=== PATIENT | male | born 1970 | race Caucasian/White ===

== ENCOUNTER → 2017-05-30 | Outpatient (CLI) | payer SELFPAY | PROVIDERS: Visit Provider Physician Assistant | DX: Z02.4 Encounter for examination for driving license (principal) ==

== ENCOUNTER 2017-06-25 14:46 | Emergency (ER) | payer OTHER, SELFPAY ==
[2017-06-25 14:56] VITALS: BP 138/90; PULSE 87; RESP 20; TEMP 37.1; O2SAT 98; BMI 24.4
--- NOTE | 2017-06-25 15:14 | HMH.EDUTC ---
[facility] Disposition Clinical Impression: URI (upper respiratory infection) Qualifiers: URI type: unspecified URI Qualified Code(s): J06.9 - Acute upper respiratory infection, unspecified Disposition: Home, Self-Care Condition on Discharge: Good Instructions: Cough, DI for Cough -- Adult, Sore Throat, DI for Nasal Congestion Additional Instructions: * Monitor Temp. Tylenol and/or Ibuprofen as needed. ER if fever is no less than 101 despite alternating Tylenol and Ibuprofen * Encourage fluids, water, Gatorade, powerade, pedialyte if infant/toddler/or child * Warm salt water gargles for throat irritation *Warm fluids *Sore throat lozenges *Sleep elevated *humidifier or vaporizer Lots of rest Increase fluids, water, Gatorade, powerade *Your throat swab was sent to lab for culture. Those results area typically sent to your primary care physician. Be sure to follow up in 2-3 days if no improvement so they can review those results and treat if necessary If you dont have primary care I recommend you get one, but in the mean time you will have to return to a walk in clinic Follow up IMMEDIATELY for new or worsening of symptoms OR no noticeable improvement over the next 48-72 hours. 911 immediately for any life threatening symptoms such as chest pain or difficulty breathing Prescriptions: Azithromycin [Z-Aydin 250mg Tab] 250 mg PO UD DOSE PK #6 tab Dextromethorphan Polistirex [Delsym] 10 ml PO Q12 #200 clari.er.12h predniSONE [Prednisone 20mg Tab] 20 mg PO BID #10 tab Time of Disposition: 15:54 Medical Decision Making Vital Signs: 06/25/17 14:56 Temperature 98.8 F Temperature Source Temporal Artery Scan Pulse Rate [Brachial] 87 Respiratory Rate 20 Blood Pressure [Right Arm] 138/90 Blood Pressure Mean [Right Arm] 106 Blood Pressure Source [Right Arm] Automatic Cuff Blood Pressure Position [Right Arm] Sitting 02 Sat by Pulse Oximetry 98 Oxygen Delivery Method Room Air - Lab Data Lab Results 06/25/17 15:21: Strep Scn Rapid Clinic Negative Orders (Tests/Meds): ORDERS Category Date Time Status Chest XR 2 view (NOT portable) [XR chest 2V] Stat Exams 06/25/17 15:21 Taken Strep Screen Confirmation Stat Micro 06/25/17 15:21 Received - Nikolai Inquiry Pt receiving controlled substance: No Nikolai was queried for this patient: No [facility] HPI - General Stated complaint: cough Mode of Arrival: Ambulatory Source of Information: Patient Limitations: No Limitations Description of Symptoms (Recalled from Triage Doc. by RN): COUGHING FOR 2 MONTHS HEENT Symptoms (Recalled from RN notes): No Resp Symptoms (Recalled from RN notes): Yes Skin Symptoms (Recalled from RN notes): No MS Symptoms (Recalled from RN notes): No Functional Status (Recalled from RN notes): NA - History of Present Illness Provider Complaint: Patient state that he has had nagging cough for about 2 months that has come and gone State that he has had sinus pain and drainage that has also come and gone State that cough is non-productive and his throat feels raw so he decided to come in and get checked - Related Data Previous Rx's Medication Instructions Recorded Azithromycin [Z-Aydin 250mg Tab] 250 mg PO UD DOSE PK #6 tab 06/25/17 Dextromethorphan Polistirex 10 ml PO Q12 #200 clari.er.12h 06/25/17 [Delsym] predniSONE [Prednisone 20mg 20 mg PO BID #10 tab 06/25/17 Tab] Allergies Allergy/AdvReac Type Severity Reaction Status Date / Time No Known Allergies Allergy Verified 06/25/17 14:58 - Worker's Comp Is this a Worker's Comp case?: No [facility] History I have reviewed the patient's past medical history: Yes - *Social History Smoking Status: Current every day smoker Tobacco Type: cigarettes Alcohol Intake: never - Psychiatric History Expresses thoughts of harming self/others: None Suicide Plan Description: No Plan ROS Obtained: Yes All systems reviewed & no additional complaints - ENT Ears, Nose, Mouth, and Throat:
--- NOTE | 2017-06-25 15:20 | ED_ITS ---
[facility] Disposition Clinical Impression: URI (upper respiratory infection) Qualifiers: URI type: unspecified URI Qualified Code(s): J06.9 - Acute upper respiratory infection, unspecified Disposition: Home, Self-Care Condition on Discharge: Good Instructions: Cough, DI for Cough -- Adult, Sore Throat, DI for Nasal Congestion Additional Instructions: * Monitor Temp. Tylenol and/or Ibuprofen as needed. ER if fever is no less than 101 despite alternating Tylenol and Ibuprofen * Encourage fluids, water, Gatorade, powerade, pedialyte if infant/toddler/or child * Warm salt water gargles for throat irritation *Warm fluids *Sore throat lozenges *Sleep elevated *humidifier or vaporizer Lots of rest Increase fluids, water, Gatorade, powerade *Your throat swab was sent to lab for culture. Those results area typically sent to your primary care physician. Be sure to follow up in 2-3 days if no improvement so they can review those results and treat if necessary If you don? t have primary care I recommend you get one, but in the mean time you will have to return to a walk in clinic Follow up IMMEDIATELY for new or worsening of symptoms OR no noticeable improvement over the next 48-72 hours. 911 immediately for any life threatening symptoms such as chest pain or difficulty breathing Prescriptions: Azithromycin [Z-Aydin 250mg Tab] 250 mg PO UD DOSE PK #6 tab Dextromethorphan Polistirex [Delsym] 10 ml PO Q12 #200 clari.er.12h predniSONE [Prednisone 20mg Tab] 20 mg PO BID #10 tab Time of Disposition: 15:54 Medical Decision Making Vital Signs: 06/25/17 14:56 Temperature 98.8 F Temperature Source Temporal Artery Scan Pulse Rate [Brachial] 87 Respiratory Rate 20 Blood Pressure [Right Arm] 138/90 Blood Pressure Mean [Right Arm] 106 Blood Pressure Source [Right Arm] Automatic Cuff Blood Pressure Position [Right Arm] Sitting 02 Sat by Pulse Oximetry 98 Oxygen Delivery Method Room Air - Lab Data Lab Results 06/25/17 15:21: Strep Scn Rapid Clinic Negative Orders (Tests/Meds): ORDERS Category Date Time Status Chest XR 2 view (NOT portable) [XR chest 2V] Stat Exams 06/25/17 15:21 Taken Strep Screen Confirmation Stat Micro 06/25/17 15:21 Received - Nikolai Inquiry Pt receiving controlled substance: No Nikolai was queried for this patient: No [facility] HPI - General Stated complaint: cough Mode of Arrival: Ambulatory Source of Information: Patient Limitations: No Limitations Description of Symptoms (Recalled from Triage Doc. by RN): COUGHING FOR 2 MONTHS HEENT Symptoms (Recalled from RN notes): No Resp Symptoms (Recalled from RN notes): Yes Skin Symptoms (Recalled from RN notes): No MS Symptoms (Recalled from RN notes): No Functional Status (Recalled from RN notes): NA - History of Present Illness Provider Complaint: Patient state that he has had nagging cough for about 2 months that has come and gone State that he has had sinus pain and drainage that has also come and gone State that cough is non-productive and his throat feels raw so he decided to come in and get checked - Related Data Previous Rx's Medication Instructions Recorded Azithromycin [Z-Aydin 250mg Tab] 250 mg PO UD DOSE PK #6 tab 06/25/17 Dextromethorphan Polistirex 10 ml PO Q12 #200 clari.er.12h 06/25/17 [Delsym] predniSONE [Prednisone 20mg 20 mg PO BID #10 tab 06/25/17 Tab]
--- NOTE | 2017-06-25 15:21 | XR_ITS ---
XR chest 2V HISTORY: ITS.REASON: COUGH AND CONGESTION ORDERING PHYSICIAN: Keri Jimenez PATIENT AGE: 47 years COMPARISON: None available FINDINGS: The cardiomediastinal silhouette and pulmonary vascularity are within normal limits. The lungs are clear without infiltrates, suspicious nodules, or pleural effusions. No acute bony abnormalities. IMPRESSION: Negative chest, no acute finding
[2017-06-25 15:22] LABS: UTC Strep Screen (Rapid) Negative (Negative)
== END 2017-06-25 16:02 | disposition home or self-care (01) ==
PROVIDERS: Emergency Provider Nurse Practitioner; Family Provider Family Medicine
DX: J06.9 Acute upper respiratory infection, unspecified (principal); F17.210 Nicotine dependence, cigarettes, uncomplicated
CPT/HCPCS: 71046; 87880; 99202; 99282

== ENCOUNTER → 2018-04-30 13:58 | Outpatient (CLI) | payer OTHER, SELFPAY | PROVIDERS: PCP Physician Assistant; Visit Provider Physician Assistant | DX: R06.02 Shortness of breath (principal); R05 Cough | CPT/HCPCS: 94060; 94640; 94726; 94729 ==

== ENCOUNTER → 2018-05-18 12:49 | Outpatient (CLI) | payer OTHER, SELFPAY ==
[2018-05-18 13:40] VITALS: BP 130/82; BP 145/80; PULSE 79; PULSE 92; RESP 18; RESP 22; O2SAT 96; O2SAT 98
[2018-05-18 15:42] VITALS: PULSE 86; PULSE 90
== END ==
PROVIDERS: PCP Physician Assistant; Visit Provider Physician Assistant
DX: R94.2 Abnormal results of pulmonary function studies (principal)
CPT/HCPCS: 94060; 94618; 94640; 94726; 94729

== ENCOUNTER → 2018-08-03 09:15 | Outpatient (POV) | payer OTHER, SELFPAY ==
--- NOTE | 2018-08-03 10:26 | XR_ITS ---
XR chest 2V HISTORY: Shortness of breath and chest pain, previous smoker ITS.REASON: COPD ORDERING PHYSICIAN: Easton Kline MD PATIENT AGE: 48 years COMPARISON: 06/25/2017 FINDINGS: The cardiomediastinal silhouette and pulmonary vascularity are within normal limits. New parenchymal opacity is present in the lingula with an area of atelectasis or infiltrate. Suggest follow-up until clear. The remaining lungs are clear. No acute bony findings. There is an azygos fissure is a normal variant. IMPRESSION: Atelectasis or infiltrate within the lingula. Recommend follow-up until clear.
== END ==
PROVIDERS: PCP Emergency Medicine; Visit Provider Internal Medicine
DX: J44.9 Chronic obstructive pulmonary disease, unspecified (principal)
CPT/HCPCS: 71046

== ENCOUNTER → 2018-08-03 12:22 | Outpatient (CLI) | payer OTHER, SELFPAY ==
[2018-08-03 13:49] LABS: Basophils # 0.1 K/mm3 (0-0.2); Basophils % 0.9 % (0.1-2.0); Eosinophils # 0.2 K/mm3 (0.0-0.4); Eosinophils % 2.6 % (0.1-12.0); Hematocrit 46.5 % (42.0-52.0); Hemoglobin 15.8 g/dL (14.1-18.0); Lymphocytes # 2.1 K/mm3 (0.7-4.5); Lymphocytes % 29.9 % (10-50); Mean Corpuscular HGB Conc 33.9 g/dL (31.8-35.4); Mean Corpuscular Volume 88.3 fl (80-94); Mean Platelet Volume 7.8 fl (7.4-10.4); Monocytes # 0.6 K/mm3 (0.1-1.0); Monocytes % 9.3 % (1.7-9.3); Neutrophils # 3.9 K/mm3 (1.8-7.8); Neutrophils % 57.2 % (37.0-80.0); Platelet Count 193 K/mm3 (142-424); Red Blood Count 5.27 M/mm3 (4.60-6.20); White Blood Count 6.8 K/mm3 (4.8-10.8)
[2018-08-03 19:49] LABS: Alanine Aminotransferase 51 U/L (12-78); Albumin Level 4.3 gm/dL (3.4-5.0); Alkaline Phosphatase 105 U/L (46-116); Anion Gap 11.3 mEq/L (5-15); Aspartate Amino Transferase 26 U/L (15-37); Bilirubin,Direct 0.1 mg/dL (0.0-0.2); Bilirubin,Indirect 0.5 mg/dL (0.0-0.9); Bilirubin,Total 0.6 mg/dL (0.2-1.0); Blood Urea Nitrogen 12 mg/dL (7-18); Calcium 9.1 mg/dL (8.5-10.1); Carbon Dioxide 31 mmol/L (21.0-32.0); Chloride 104 mmol/L (98-107); Chol/HDL Ratio 4.8 (1-3.5); Cholesterol 205 mg/dL (140-200); Creatinine,Serum 0.87 mg/dL (0.70-1.30); Estimated Glomerular Filt Rate 93 ml/min (>60); GFR (African American) 113 ML/MIN (>60); Glucose 80 mg/dL (74-106); HDL Cholesterol 43 mg/dL (27-67); LDL Cholesterol 146 mg/dL (0-130); Potassium 4.3 mmoL/L (3.5-5.1); Sodium 142 mmol/L (136-145); Thyroid Stimulating Hormone 2.48 uIU/ml (0.358-3.740); Total Protein,Serum 7.3 gm/dL (6.4-8.2); Triglycerides 79 mg/dL (30-200); VLDL Cholesterol 16 mg/dL (0-40)
[2018-08-06 17:31] LABS: Immunoglobulin E, Total 57 IU/mL (0-100)
== END ==
PROVIDERS: Internal Medicine; Visit Provider Nurse Practitioner Family
DX: J44.9 Chronic obstructive pulmonary disease, unspecified (principal); R06.00 Dyspnea, unspecified; R07.9 Chest pain, unspecified; Z87.891 Personal history of nicotine dependence
CPT/HCPCS: 36415; 80048; 80061; 80076; 82785; 84439; 84443; 85025

== ENCOUNTER → 2018-08-27 09:21 | Outpatient (CLI) | payer OTHER, SELFPAY ==
--- NOTE | 2018-08-27 09:22 | CA_ITS ---
PROCEDURE: 2-D M-mode and color Doppler study INDICATIONS FOR THE TEST: Chest pain + COPD+ Heart Murmur Tobacco Smokingex Palpitations Fatigue Syncope Edema Hypertension Diabetes Mellitus Rheumatic Fever SOB+FLORES Obesity Hyperlipidemia Family History HD+ Additional History PATIENT INFORMATION HEIGHT:72 WEIGHT:212 GENDER: Male B/P:142/94 2-D/M-MODE INTERPRETATION: 2-D MEASUREMENTS OBSERVED VALUES IN CMS Right Ventricular Dimension (RVDd) 2.2 Interventricular Septum (Thickness)(IVsd) 1.0 Left Ventricular Internal Dimensions(LVIDd) 4.6 Left Ventricular Posterior Wall (Thickness)(LVPWd) 0.9 Aortic Root 2.9 Aortic Cusp Separation 1.8 Left Atrial Dimensions (LAD) 3.3 2D 1. Left atrium is normal size, left ventricle is normal size, there is mild qualitative concentric left ventricular hypertrophy, visually estimated ejection fraction 55% with no regional wall motion abnormality. 2. The right atrium and right ventricle are normal size and contractility. 3. The aortic valve is minimally thickened and fibrosed. 4. The mitral and tricuspid valvular grossly normal. 5. The pulmonic valve is poorly visualized. 6. No significant pericardial effusion noted. DOPPLER INTERROGATION: Doppler interrogation of the aortic, mitral and tricuspid valvular presence of mild mitral and tricuspid regurgitation, tricuspid regurgitation jet velocity is inadequate for calculation of the right ventricular systolic pressure, grade 1 diastolic dysfunction seen without tissue Doppler evidence of raised left atrial pressure. CONCLUSION: 1. Normal left ventricular size, preserved left ventricular systolic function, visually estimated ejection fraction 55% with no regional wall motion abnormality, mild concentric left ventricular hypertrophy present. Grade 1 diastolic dysfunction seen without tissue Doppler evidence of raised left atrial pressure. 2. Mild mitral and tricuspid regurgitation 3. No significant pericardial effusion noted.
== END ==
PROVIDERS: PCP Emergency Medicine; Visit Provider Internal Medicine
DX: R07.9 Chest pain, unspecified (principal); R06.00 Dyspnea, unspecified; J44.9 Chronic obstructive pulmonary disease, unspecified; Z87.891 Personal history of nicotine dependence
CPT/HCPCS: 93017; 93306

== ENCOUNTER → 2018-09-23 08:01 | Outpatient (CLI) | payer OTHER, SELFPAY ==
[2018-09-23 09:51] LABS: Anion Gap 11.5 mEq/L (5-15); Blood Urea Nitrogen 15 mg/dL (7-18); Carbon Dioxide 31 mmol/L (21.0-32.0); Chloride 102 mmol/L (98-107); Creatinine,Serum 0.97 mg/dL (0.70-1.30); Estimated Glomerular Filt Rate 82 ml/min (>60); GFR (African American) 100 ML/MIN (>60); Glucose 103 mg/dL (74-106); Potassium 4.5 mmoL/L (3.5-5.1); Sodium 140 mmol/L (136-145)
[2018-09-23 14:37] LABS: Alanine Aminotransferase 73 U/L (12-78); Albumin Level 4.3 gm/dL (3.4-5.0); Alkaline Phosphatase 113 U/L (46-116); Aspartate Amino Transferase 38 U/L (15-37); Bilirubin,Direct 0.2 mg/dL (0.0-0.2); Bilirubin,Indirect 0.6 mg/dL (0.0-0.9); Bilirubin,Total 0.8 mg/dL (0.2-1.0); Chol/HDL Ratio 3.7 (1-3.5); Cholesterol 139 mg/dL (140-200); HDL Cholesterol 38 mg/dL (27-67); LDL Cholesterol 82 mg/dL (0-130); Total Protein,Serum 7.6 gm/dL (6.4-8.2); Triglycerides 96 mg/dL (30-200); VLDL Cholesterol 19 mg/dL (0-40)
== END ==
PROVIDERS: Urology; Visit Provider Physician Assistant
DX: R06.00 Dyspnea, unspecified (principal); R07.9 Chest pain, unspecified; Z82.49 Family history of ischemic heart disease and other diseases of the circulatory system; Z87.891 Personal history of nicotine dependence; E78.5 Hyperlipidemia, unspecified; J44.9 Chronic obstructive pulmonary disease, unspecified; R06.02 Shortness of breath
CPT/HCPCS: 36415; 80048; 80061; 80076

== ENCOUNTER → 2018-11-10 14:19 | Outpatient (CLI) | payer OTHER, SELFPAY ==
--- NOTE | 2018-11-10 14:26 | XR_ITS ---
XR chest 2V HISTORY: Cough and shortness of breath ITS.REASON: ABNORMAL LUNG IMAGING ORDERING PHYSICIAN: Easton Klien MD PATIENT AGE: 48 years COMPARISON: 08/03/2018 FINDINGS: The cardiomediastinal silhouette and pulmonary vascularity are within normal limits. Chronic increased density is present in the lingula may be related to chronic volume loss. Patchy atelectasis or infiltrate is now noted in the right infrahilar region. There is an azygos fissure is a normal variant. No acute bony findings. IMPRESSION: Chronic volume loss of the lingula with new atelectasis or infiltrate in the right hilum. CT with contrast may be of further evaluation for chronic volume loss of the lingula to exclude a postobstructive process.
== END ==
PROVIDERS: PCP Emergency Medicine; Visit Provider Internal Medicine
DX: R91.8 Other nonspecific abnormal finding of lung field (principal)
CPT/HCPCS: 71046

== ENCOUNTER 2018-11-16 07:51 | Outpatient (RCR) | payer OTHER, SELFPAY ==
--- NOTE | 2018-11-16 08:37 | HMH.PTOPEV ---
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 Pt reports localized midline LBP, increased intensity with prolonged positioning. Pt reports no previous treatment for LBP outside of prescription meds. Chief Complaint Pain,Stiff Symptom Type Ache,Sharp,Dull Symptoms Relieved By Activity Symptoms Aggravated By Sitting,Standing,Bending/ Stooping,Lifting Prior Functional Limitations Lifting,Driving,Standing, Sitting Current Functional Limitations Lifting,Driving,Standing, Sitting Symptom Description Constant but Variable Level of pain today (0-10) 2 Pain scale - at its best (0-10) 2 Pain scale - at its worst (0-10) 10 Lumbopelvic Eval Posture Thoracic Spine Posture Standing Position Neutral Lumbar Spine Posture Standing Position Neutral Assistive device Assistive Devices None / NA Gait Observation General Gait Pattern Observation Antalgic Gait Palapation tenderness bilateral lumbar spinal tenderness Yes: 1/4 Lumbar/Sacral Palpation Findings Tenderness Accessory Movement L-spine Vertebrae Accessory Movements Central P/A Hermann that Elicit Symptoms L4 bilateral L5 bilateral S1 bilateral Range of Motion Lumbar Spine Active Flexion Range of 0-70 Motion (degrees) Lumbar Spine Active Extension Range of 0-30 Motion (degrees) Left Lumbar Spine Lateral Flexion Active 0-20 Range of Motion (degrees) Right Lumbar Spine Lateral Flexion 0-20 Active Range of Motion (degrees) Lumbar Spine ROM Limitations Pain Manual Muscle Test Bilateral Knee Extension Strength Grade 5 Normal Knee Flexion Strength Grade 5 Normal Hip Flexion Strength Grade 4 Good Hip External Rotation Strength Grade 4 Good Hip Internal Rotation Strength Grade 4 Good Extensor Hallucis Longus Strength Grade 5 Normal Ankle Dorsiflexion Strength Grade 5 Normal Gastronemius/Soleus Strength Grade 5 Normal DTR Rt Patellar 1+ Lt Patellar 1+ Rt Gastroc/Soleus
== END 2018-11-16 07:55 | disposition home or self-care (01) ==
LOC: PT 07:51
PROVIDERS: Visit Provider Nurse Practitioner Family
DX: M54.9 Dorsalgia, unspecified (principal)
CPT/HCPCS: 97163

== ENCOUNTER → 2018-11-16 10:55 | Outpatient (POV) | payer OTHER, SELFPAY | PROVIDERS: Visit Provider Internal Medicine | DX: Z00.00 Encounter for general adult medical examination without abnormal findings (principal) ==

== ENCOUNTER → 2018-11-30 11:06 | Outpatient (CLI) | payer OTHER, SELFPAY ==
[2018-11-30 12:00] VITALS: PULSE 72; PULSE 78
--- NOTE | 2018-11-30 12:25 | CT_ITS ---
CT chest wo con HISTORY: Chronic volume loss of the lingula ITS.REASON: ABNORMAL LUNG IMAGING ORDERING PHYSICIAN: Easton Kline MD PATIENT AGE: 48 years COMPARISON: None Technique: Contrast Used:None Axial images were obtained. Sagittal, and coronal reformatted images are also generated and reviewed. All CT scans at the facility use one or more dose reduction, viz: automated exposure control, ma/kV adjustment per patient size (including targeted exams where dose is matched to indication, i.e. head), or iterative reconstruction technique. FINDINGS: Scattered small lymph nodes are present in the axilla and mediastinum. Largest node is anterior to the right mainstem bronchus at 1.4 x 1.1 cm. There are coronary artery calcifications. Normal heart size. There are paraseptal emphysematous changes in the lung apices. Calcified mediastinal and hilar lymph nodes. There is a 6 mm noncalcified nodule in the right upper lobe medially. There is an azygos fissure is normal variant. Atelectatic or fibrotic changes are present in the right middle lobe and within the lingula. No acute bony findings. Upper abdominal images demonstrates a 6 mm isodensity in the left hepatic lobe at the hepatic dome nonspecific too small to categorize. There is borderline splenomegaly. No central obstructing lesions are evident.. IMPRESSION: 1. Atelectatic or fibrotic changes are present in the right middle lobe and lingula 2. 6 mm noncalcified right upper lobe nodule nonspecific. Suggest 6-12 month follow-up. 3. Mild paraseptal emphysematous changes in the lung apices. 4. Coronary artery calcifications
== END ==
PROVIDERS: PCP Emergency Medicine; Visit Provider Internal Medicine
DX: R91.8 Other nonspecific abnormal finding of lung field (principal); J44.9 Chronic obstructive pulmonary disease, unspecified
CPT/HCPCS: 71250; 94060; 94640

== ENCOUNTER → 2019-03-01 10:50 | Outpatient (POV) | payer OTHER, SELFPAY | PROVIDERS: Visit Provider Internal Medicine | DX: Z00.00 Encounter for general adult medical examination without abnormal findings (principal) ==

== ENCOUNTER → 2019-11-03 06:17 | Outpatient (CLI) | payer OTHER, SELFPAY ==
--- NOTE | 2019-11-03 06:17 | CA_ITS ---
APPROVED REPORT EXAM: Comprehensive 2D, Doppler, and color-flow Echocardiogram Credit Support Counselor: Dasha Garcia CRT Ht: 6 ft 0 in Wt: 237lbs BSA: 2.29 BP: 144/93 mmHg Indications: cp, copd, htn, hld, sob, home o2 2D Dimensions LVOT 1.94 cm (M/F) 1.5-2.5 M-Mode Dimensions RVDd 2.06 cm (0.9-2.6) LVDd 5.61 cm (3.5-5.7) LVDs 3.47 cm (3.5-5.7) IVSd 1.31 cm (0.6-1.1) PWd 0.86 cm (0.6-1.1) EF (Teich) 67.70% FS 38.10% EDV (Teich) 154.30 mL ESV (Teich) 49.80 mL LV Diastology E/A Ratio 0.79 Mitral Valve MV A Velocity 88.00 (40-130 cm/s) Left Ventricle Left atrium is mildly enlarged, left ventricle is normal size, mild concentric left ventricular hypertrophy, visually estimated ejection fraction 50% with no regional wall motion abnormality, endocardial surfaces are poorly visualized, grade 1 diastolic dysfunction seen without tissue Doppler evidence of raise left atrial pressure. Right Ventricle Right atrium and right ventricular normal size and contractility. Aortic Valve Aortic valve is grossly normal, there is no aortic stenosis or aortic insufficiency. Mitral Valve Mitral valve is grossly normal, there is mild mitral regurgitation. Tricuspid Valve Tricuspid valve is grossly normal, there is mild tricuspid regurgitation, tricuspid regurgitation jet velocity is inadequate for calculation of the right ventricular systolic pressure. Pulmonic Valve Pulmonic valve is poorly visualized. Great Vessels Aortic root is normal size. Pericardium No significant pericardial effusion noted. Conclusion 1. Normal left ventricular size, mild concentric left ventricular hypertrophy, visually estimated ejection fraction 50% with no regional wall motion abnormality, grade 1 diastolic dysfunction seen without tissue Doppler evidence of raise left atrial pressure. 2. Mild mitral and tricuspid regurgitation. 3. No significant pericardial effusion noted. Electronically signed by : Jesse Medellin, 11/03/2019 15:28:17
--- NOTE | 2019-11-03 06:17 | NM_ITS ---
APPROVED REPORT Exam: Nuclear Stress Test Indication: chest pain, short of breath, fatigue Patient Location: Outpatient Stress Tech: Ella Alegre NE Tech:Deysi MartinJOEL RT(R)(N) Ht: 6 ft 0 in Wt: 240 lbs HR: 98 bpm BP: 154/82 mmHg BSA: 2.30 m2 History: chest pain, short of breath, fatigue Procedure: Patient received a 0.4 mg of intravenous Lexiscan, resting heart rate 98 bpm, resting blood pressure 154/82 mmHg, with Lexiscan maximum heart rate achived was 115 bpm which is Less than 85 % of the maximum predicted heart rate and blood pressure was 151/92 mmHg. With Lexiscan, patient denied any complaint of chest pain. Electrocardiogram Resting electrocardiogram shows sinus rhythm, with Lexiscan there is less than 1.[address] segment depression noted from the baseline EKG. The EKG portion of the Lexiscan Myoview is nondiagnostic. Cardiac Stress and Resting SPECT Images: Cardiac Stress and Resting SPECT images were obtained using technetium 99m Myoview 31.0 mCi stress and 9.94 mCi at rest. Gated SPECT with analysis of segmental wall motion and calculation of the ejection fraction also done. Cardiac stress and resting SPECT images show uniform myocardial activity without segmental perfusion abnormality, computer derived ejection fraction is 65% with no regional wall motion abnormality, right ventricle is normal size and contractility. Conclusion: 1. The EKG portion of the Lexiscan Myoview is nondiagnostic. 2. No scintigraphic evidence of reversible ischemia seen, computer derived ejection fraction 65% with no regional wall motion abnormality, right ventricle is normal size and contractility. 3. Normal Lexiscan Myoview study. Electronically signed by : Jesse Medellin, 11/03/2019 11:53:20
--- NOTE | 2019-11-03 09:14 | HMH.ITSHM ---
Current Home Medications as stated by this patient Easton Camacho or exhibit display representative. [] venlafaxine omeprazole metoprolol meloxicam losartan lortadine atorvastatin asp albuteral
== END ==
PROVIDERS: PCP Physician Assistant; Visit Provider Nurse Practitioner Family
DX: R06.02 Shortness of breath (principal); R07.89 Other chest pain; Z82.49 Family history of ischemic heart disease and other diseases of the circulatory system
CPT/HCPCS: 78452; 93017; 93306; A9502

== ENCOUNTER 2019-11-18 22:17 | Emergency (ER) | payer OTHER, SELFPAY ==
[2019-11-18 22:29] VITALS: BP 138/102; PULSE 102; RESP 15; TEMP 36.7; O2SAT 95; BMI 32.5
--- NOTE | 2019-11-18 22:39 | XR_ITS ---
PROCEDURE: XR CHEST 2V CLINICAL HISTORY: NAUSEA COMPARISON: CXR2V XR chest 2V from 06/25/2017 CXR2V XR chest 2V from 08/03/[address] chest wo con from 11/30/2018 FINDINGS: The cardiomediastinal silhouette and pulmonary vascularity are within normal limits. There are atelectatic changes in the right middle lobe. Nodular opacity is present in the left lower lobe laterally not significantly changed. There is an azygos fissure is a normal variant. No acute bony abnormalities. IMPRESSION: 1. Right middle lobe atelectasis. 2. Chronic opacity in the lingula not significantly changed Dictated by: Quoc Rosario MD 11/18/2019 23:16 Electronically signed by Quoc Rosario MD in [place] 11/18/2019 23:16
[2019-11-18 22:46] LABS: Basophils # 0.1 K/mm3 (0-0.2); Basophils % 0.8 % (0.1-2.0); Eosinophils # 0.3 K/mm3 (0.0-0.4); Eosinophils % 2.6 % (0.1-12.0); Hematocrit 43.7 % (42.0-52.0); Hemoglobin 15.7 g/dL (14.1-18.0); Lymphocytes # 2.7 K/mm3 (0.7-4.5); Lymphocytes % 25.4 % (10-50); Mean Corpuscular HGB Conc 35.8 g/dL (31.8-35.4); Mean Corpuscular Hemoglobin 31.6 pg (27.0-31.2); Mean Corpuscular Volume 88.3 fl (80-94); Monocytes # 0.8 K/mm3 (0.1-1.0); Monocytes % 7.6 % (1.7-9.3); Neutrophils # 6.8 K/mm3 (1.8-7.8); Neutrophils % 63.5 % (37.0-80.0); Platelet Count 232 K/mm3 (142-424); Red Blood Count 4.95 M/mm3 (4.60-6.20); White Blood Count 10.7 K/mm3 (4.8-10.8)
--- NOTE | 2019-11-18 22:47 | ECG_ITS ---
APPROVED REPORT Exam: Resting ECG HR:85 bpm ECG Measurements Heart Rate 85 AXES WV 154 P 62 QRSd 88 QRS 54 QT 374 T 28 QTc 445 <Conclusion> Normal sinus rhythm Normal ECG Electronically signed by : Benson Morales, 11/21/2019 08:59:48
[2019-11-18 22:55] LABS: Chloride 102 mmol/L (98-107); Potassium 3.8 mmoL/L (3.5-5.1); Sodium 137 mmol/L (136-145)
[2019-11-18 22:57] LABS: Amylase 99 U/L (30-110); Blood Urea Nitrogen 26 mg/dl (9-20); Creatinine Clearance Estimated 151 mL/min (50-200); Estimated Glomerular Filt Rate 89 ml/min (>60); GFR (African American) 108 ML/MIN (>60); Lipase 130 U/L (23-300)
[2019-11-18 22:58] LABS: Alanine Aminotransferase 55 U/L (12-78); Albumin Level 4.6 g/dl (3.5-5.0); Albumin/Globulin Ratio 1.4 (1.1-1.8); Alkaline Phosphatase 135 U/L (38-126); Anion Gap 12.8 mEq/L (5-15); Aspartate Amino Transferase 49 U/L (17-59); Bilirubin,Total 0.6 mg/dl (0.2-1.3); Calcium 9.3 mg/dl (8.4-10.2); Carbon Dioxide 26 mmol/L (22.0-30.0); Globulin 3.4 g/dL (1.3-3.2); Glucose 149 mg/dl (74-100)
[2019-11-18 23:07] LABS: NT Pro Brain Natriuretic Pep. 25.1 pg/mL (0-125)
[2019-11-18 23:22] LABS: Troponin I < 0.01 ng/ml (0.00-0.034)
--- NOTE | 2019-11-18 23:33 | HMH.EDNVD ---
ED Disposition Clinical Impression: Gastroenteritis Disposition: Home, Self-Care Condition on Discharge: Good Instructions: DI for Nausea -- Adult Additional Instructions: fluids and see pcp for follow up Referrals: Cliff Porter MD [Primary Care Provider] - - Critical Care Critical Care Time: No Attestation: On 11/18/19, the high probability of a clinically significant, sudden or life threatening deterioration of the following system(s) required my full and direct attention, intervention and personal management. The time I documented below is in addition to time spent performing reported procedures but includes the following listed in this critical care notation. Medical Decision Making - Medical Records Medical records reviewed: Yes: I reviewed the patient's medical records. - Nikolai Inquiry Pt receiving controlled substance: No Vital Signs: 11/18/19 22:29 Temperature 98.1 F Temperature Source Oral Pulse Rate [Right Brachial] 102 H Respiratory Rate 15 Blood Pressure [Right Arm] 138/102 H Blood Pressure Mean [Right Arm] 114 Blood Pressure Source [Right Arm] Automatic Cuff Blood Pressure Position [Right Arm] Supine 02 Sat by Pulse Oximetry 95 Oxygen Delivery Method Room Air - Lab Data Lab results reviewed: Yes: I reviewed the patient's lab results. Lab Results 11/18/19 22:40: WBC 10.7, RBC 4.95, Hgb 15.7, Hct 43.7, MCV 88.3, MCH 31.6 H, MCHC 35.8 H, RDW 13.0, Plt Count 232, MPV 8.0, Neut % (Auto) 63.5, Lymph % (Auto) 25.4, [place] % (Auto) 7.6, Eos % (Auto) 2.6, Baso % (Auto) 0.8, Neut # (Auto) 6.8, Lymph # (Auto) 2.7, [place] # (Auto) 0.8, Eos # (Auto) 0.3, Baso # (Auto) 0.1 11/18/19 22:40: Sodium 137, Potassium 3.8, Chloride 102, Carbon Dioxide 26, Anion Gap 12.8, BUN 26 H, Creatinine 0.90, Estimated Creat Clear 151, Estimated GFR 89, Est GFR ( Amer) 108, Glucose 149 H, Calcium 9.3, Total Bilirubin 0.6, AST 49, ALT 55, Alkaline Phosphatase 135 H, Troponin I < 0.01, NT-Pro-B Natriuret Pep 25.1, Total Protein 8.0, Albumin 4.6, Globulin 3.4 H, Albumin/Globulin Ratio 1.4, Amylase 99 11/18/19 22:40: Lipase 130 11/19/19 01:05: Troponin I < 0.01 11/19/19 01:30: Urine Color Yellow, Urine Appearance Clear, Urine pH 6.5, Ur Specific [place] 1.025, Urine Protein Negative, Urine Glucose (UA) Negative, Urine Ketones Negative, Urine Blood Negative, Urine Nitrate Negative, Urine Bilirubin Negative, Urine Urobilinogen 1.0, Ur Leukocyte Esterase Negative, Urine WBC Occasional Result diagrams: 11/18/19 22:40 11/18/19 22:40 Orders (Tests/Meds): ED MEDICATIONS Generic Name Dose Route Start Last Admin Trade Name Freq PRN Reason Stop Dose Admin Sodium Chloride 500 mls @ 999 mls/hr 11/18/19 23:45 11/18/19 23:45 Sod Chlor 0.9% 1000ml Bag IV 11/19/19 00:15 999 mls/hr .Q31M ABRAHAM Administration ORDERS Category Date Time Status Troponin I Q3H Lab 11/19/19 04:45 Ordered - Radiology Data #1 Image(s): Chest Image Reviewed: Yes I reviewed the patient's radiology image Preliminary Findings: Normal/NAD - ECG Data Tracing #1 Normal Sinus Rhythm: Yes Ischemic changes: non-specific ST-T wave changes Nausea/Vomiting/Diarrhea HPI - General Chief complaint: Nausea/Vomiting/Diarrhea Stated complaint: High blood pressure, nausea Time Seen by Provider: 11/18/19 23:05 Mode of Arrival: Family Vehicle Source of Information: Patient, Relative, Medical Record Limitations: No Limitations Description of Symptoms (Recalled from ER Triage Doc. 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 ADDITIONALLY REPORTS THAT HE HAS NO SOA, NO CHEST PAIN, NO ADDITIONAL COMPLAINTS. CHECKED HIS BP AND IT WAS ELEVATED SO THEY CAME IN FOR EVAL - History of Present Illness HPI Narrative: had episod
[2019-11-19 01:11] VITALS: BP 131/74; PULSE 79; RESP 18; O2SAT 98
[2019-11-19 01:39] LABS: Troponin I < 0.01 ng/ml (0.00-0.034)
[2019-11-19 01:42] LABS: Microscopic, Urine URINE MICROSCOPIC (MICROSCOPIC)
[2019-11-19 01:44] LABS: Appearance,Urine CLEAR (Clear); Bilirubin,Urine Negative (Negative); Blood, Urine Negative (Negative); Color,Urine YELLOW (Yellow); Glucose,Urine (UA) Negative (Negative); Ketones,Urine Negative (Negative); Leukocyte Esterase,Urine Negative (Negative); Nitrate,Urine Negative (Negative); PH,Urine 6.5 (5.0-8.5); Protein,Urine Negative (Negative); Specific Gravity, Urine 1.025 (1.005-1.030)
[2019-11-19 01:46] LABS: WBC,Urine Occasional #/hpf (0-3)
[2019-11-19 01:48] VITALS: BP 143/88; PULSE 75; RESP 18; TEMP 36.7; O2SAT 98
== END 2019-11-19 01:55 | disposition home or self-care (01) ==
PROVIDERS: Emergency Provider Emergency Medicine; PCP Emergency Medicine
DX: K52.9 Noninfective gastroenteritis and colitis, unspecified (principal); J44.9 Chronic obstructive pulmonary disease, unspecified; Z87.891 Personal history of nicotine dependence; Z99.81 Dependence on supplemental oxygen
CPT/HCPCS: 71046; 80053; 81001; 82150; 83690; 83880; 84484; 85025; 93005; 96365; 99283

== ENCOUNTER → 2019-11-22 08:10 | Outpatient (CLI) | payer OTHER, SELFPAY ==
--- NOTE | 2019-11-22 08:10 | CA_ITS ---
APPROVED REPORT Medical Terminologist: Nikole Smith RVT Study Quality: Excellent Indications: htn Risk Factors Hypertension Smoking Renal Artery Doppler Origin (R) 170.0/ cm/sec Proximal (R) 119.7/ cm/sec Mid (R) 178.4/ cm/sec Distal (R) 82.8/ cm/sec Renal Aorta Ratio (R) 1.41 Segmental A. (R) 59.3/25.7 cm/sec RI: 0.56 Segmental A. Sup (R) 45.2/20.2 cm/sec Segmental A. Mid (R) 40.2/10.6 cm/sec Segmental A. Inf (R) 59.3/25.7 cm/sec Origin (L) 142.5/ cm/sec Proximal (L) 172.2/ cm/sec Mid (L) 123.5/ cm/sec Distal (L) 111.6/ cm/sec Renal Aorta Ratio (L) 1.36 Segmental A. (L) 65.2/25.9 cm/sec RI: 0.60 Segmental A. Sup (L) 65.2/25.9 cm/sec Segmental A. Mid (L) 51.8/20.5 cm/sec Segmental A. Inf (L) 55.3/9.8 cm/sec Renal Measurements Kidney Size (R) 11.5x6.8 cm Cortical Thickness (R) 1.5 cm Kidney Size (L) 11.9x6.1 cm Cortical Thickness (L) 2.5 cm Conclusion Study suggests no evidence of renal artery stenosis of the bilateral renal arteries. Electronically signed by : Quoc Rosario MD 11/22/2019 17:56:05
== END ==
PROVIDERS: PCP Nurse Practitioner Family; Visit Provider Nurse Practitioner Family
DX: I10 Essential (primary) hypertension (principal)
CPT/HCPCS: 93976

== ENCOUNTER → 2020-03-12 14:15 | Outpatient (CLI) | payer OTHER, SELFPAY ==
[2020-03-12 14:56] LABS: Basophils # 0.1 K/mm3 (0-0.2); Eosinophils # 0.2 K/mm3 (0.0-0.4); Eosinophils % 2.2 % (0.1-12.0); Hematocrit 43.1 % (42.0-52.0); Hemoglobin 14.4 g/dL (14.1-18.0); Lymphocytes # 2.2 K/mm3 (0.7-4.5); Lymphocytes % 29.3 % (10-50); Mean Corpuscular HGB Conc 33.5 g/dL (31.8-35.4); Mean Corpuscular Hemoglobin 30.7 pg (27.0-31.2); Mean Corpuscular Volume 91.7 fl (80-94); Mean Platelet Volume 8.1 fl (7.4-10.4); Monocytes # 0.6 K/mm3 (0.1-1.0); Monocytes % 8.3 % (1.7-9.3); Neutrophils # 4.5 K/mm3 (1.8-7.8); Neutrophils % 59.3 % (37.0-80.0); Platelet Count 214 K/mm3 (142-424); Red Blood Count 4.71 M/mm3 (4.60-6.20); Red Cell Distribution Width 12.7 % (11.5-17.5); White Blood Count 7.6 K/mm3 (4.8-10.8)
[2020-03-12 15:53] LABS: Free T4 (Free Thyroxine) 1.06 ng/dl (0.78-2.19)
[2020-03-12 16:17] LABS: Chloride 104 mmol/L (98-107); Potassium 4.2 mmoL/L (3.5-5.1); Sodium 139 mmol/L (136-145)
[2020-03-12 16:19] LABS: Bilirubin,Unconjugated 0.4 mg/dL (0.0-1.1); Blood Urea Nitrogen 18 mg/dl (9-20); Estimated Glomerular Filt Rate 102 ml/min (>60); GFR (African American) 123 ML/MIN (>60)
[2020-03-12 16:20] LABS: Alanine Aminotransferase 49 U/L (12-78); Albumin Level 4.2 g/dl (3.5-5.0); Alkaline Phosphatase 123 U/L (38-126); Anion Gap 14.2 mEq/L (5-15); Aspartate Amino Transferase 37 U/L (17-59); Bilirubin,Direct 0.1 mg/dl (0.0-0.4); Bilirubin,Indirect 0.4 mg/dL (0.0-0.9); Bilirubin,Total 0.5 mg/dl (0.2-1.3); Calcium 9.1 mg/dl (8.4-10.2); Carbon Dioxide 25 mmol/L (22.0-30.0); Chol/HDL Ratio 4.6 (1-3.5); Cholesterol 161 mg/dl (140-200); Glucose 96 mg/dl (74-100); HDL Cholesterol 35 mg/dl (40-60); Triglycerides 328 mg/dl (30-150); VLDL Cholesterol 66 mg/dL (0-40)
[2020-03-12 16:31] LABS: Direct LDL Cholesterol 96.73 mg/dL (100-129)
[2020-03-12 16:51] LABS: Thyroid Stimulating Hormone 2.28 uIU/mL (0.465-4.68)
== END ==
PROVIDERS: PCP Emergency Medicine; Visit Provider Nurse Practitioner Family
DX: R06.02 Shortness of breath (principal); R42 Dizziness and giddiness; E78.2 Mixed hyperlipidemia; I10 Essential (primary) hypertension; J44.9 Chronic obstructive pulmonary disease, unspecified; R06.83 Snoring; R40.0 Somnolence
CPT/HCPCS: 36415; 80048; 80061; 80076; 84439; 84443; 85025; 93270

== ENCOUNTER → 2020-03-29 14:37 | Outpatient (CLI) | payer OTHER, SELFPAY | PROVIDERS: PCP Physician Assistant; Visit Provider Nurse Practitioner Family | DX: G47.33 Obstructive sleep apnea (adult) (pediatric) (principal); R42 Dizziness and giddiness; R40.0 Somnolence; R06.83 Snoring | CPT/HCPCS: 95806 ==

== ENCOUNTER → 2020-04-12 15:06 | Outpatient (CLI) | payer OTHER, SELFPAY ==
--- NOTE | 2020-04-12 15:08 | CA_ITS ---
APPROVED REPORT [employer]: Nikole Smith RVT Laterality: Bilateral Study Quality: Good Indications: dizziness Risk Factors Hypertension: Hyperlipidemia Doppler Spectral Velocity Analysis ECA (R) 112.20/27.70 cm/s ECA (L) 158.00/37.60 cm/s dICA (R) 65.10/33.70 cm/s dICA (L) 96.30/27.90 cm/s Abe (R) 90.50/38.20 cm/s Abe (L) 98.20/37.60 cm/s pICA (R) 65.80/26.90 cm/s pICA (L) 113.70/30.80 cm/s dCCA (R) 90.00/32.60 cm/s dCCA (L) 107.20/36.00 cm/s pCCA (R) 135.80/34.20 cm/s pCCA (L) 113.70/29.50 cm/s Vert (R) 41.50/15.80 cm/s Vert (L) 46.00/11.80 cm/s ICA/CCA 1.01 ICA/CCA 1.06 Findings Study suggests no evidence of stenosis in the right internal cartoid artery. Study suggests no evidence of stenosis in the left internal cartoid artery. Antegrade flow seen bilateral vertebral arteries. Conclusion Study suggests no evidence of stenosis in the right internal cartoid artery. Study suggests no evidence of stenosis in the left internal cartoid artery. Antegrade flow seen bilateral vertebral arteries. Electronically signed by : Quoc Rosario MD 04/12/2020 15:58:57
== END ==
PROVIDERS: PCP Physician Assistant; Visit Provider Nurse Practitioner Family
DX: R42 Dizziness and giddiness (principal); R06.02 Shortness of breath; R07.89 Other chest pain; E78.2 Mixed hyperlipidemia; I10 Essential (primary) hypertension; I51.89 Other ill-defined heart diseases
CPT/HCPCS: 93880

== ENCOUNTER → 2020-06-21 10:52 | Outpatient (CLI) | payer OTHER, SELFPAY | PROVIDERS: PCP Physician Assistant; Visit Provider Physician Assistant | DX: Z03.818 Encounter for observation for suspected exposure to other biological agents ruled out (principal) | CPT/HCPCS: U0003 ==

== ENCOUNTER 2020-12-06 18:51 | Emergency (ER) | payer OTHER, SELFPAY ==
[2020-12-06 19:10] VITALS: BP 164/97; PULSE 91; RESP 18; TEMP 37.1; O2SAT 100; BMI 35.2
--- NOTE | 2020-12-06 19:14 | XR_ITS ---
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 Severe sharp pain. TECHNIQUE: Imaging protocol: XR of the lumbosacral spine. Views: 2 or 3 views. COMPARISON: No relevant prior studies available. FINDINGS: Bones/joints: Vacuum disc L5-S1. Moderate spondylosis. No spondylolisthesis or spondylolysis. Soft tissues: Unremarkable. IMPRESSION: No acute findings.
--- NOTE | 2020-12-06 19:34 | HMH.EDUTC ---
[facility] [place] Impression: Low back strain Qualifiers: Encounter type: initial encounter Qualified Code(s): S39.012A - Strain of muscle, fascia and tendon of lower back, initial encounter Low back pain Qualifiers: Chronicity: acute Back pain laterality: bilateral Sciatica presence: without sciatica Qualified Code(s): M54.5 - Low back pain Disposition: Home, Self-Care Condition on Discharge: Good Instructions: DI for Low Back Pain Additional Instructions: Go home and rest. It would be best if you rested tomorrow too. No heavy lifting. No twisting. Take the oral medications as directed. The muscle relaxer (cyclobenzaprine) will make you drowsy, so don't drive or operate heavy machinery after taking it. Don't start the oral steroids (medrol dose pack) until tomorrow, since you had the shots in here today. Follow up with your regular doctor. GO TO THE ER FOR ANY WORSENING SYMPTOMS OR CONCERN, ESPECIALLY BOWEL OR BLADDER ISSUES, SADDLE AREA NUMBNESS, FEVER, ETC Prescriptions: Cyclobenzaprine HCl [Cyclobenzaprine 10mg Tab] 10 mg PO BIDP PRN #20 tab PRN Reason: Muscle Spasm Transmission Status: Received by [facility] methylPREDNISolone [Medrol] 4 mg PO DIRECTED 6 Days #21 tab.ds.pk Transmission Status: Received by [facility] Referrals: Mary Mckeon PA [Primary Care Provider] - Forms: Work/School Release Time of Disposition: 19:44 Medical Decision Making - Medical Records Medical records reviewed: No: I reviewed the patient's medical records. - Nikolai Inquiry Pt receiving controlled substance: No Vital Signs: 12/06/20 19:10 12/06/20 19:49 Temperature 98.7 F 98 F Temperature Source Tympanic Pulse Rate 92 H Pulse Rate [Right] 91 H Respiratory Rate 18 18 Blood Pressure 152/90 H Blood Pressure [Right Arm] 164/97 H Blood Pressure Mean [Right Arm] 119 02 Sat by Pulse Oximetry 100 Orders (Tests/Meds): ED MEDICATIONS Discontinued Medications Generic Name Dose Route Start Last Admin Trade Name Freq PRN Reason Stop Dose Admin Ketorolac Tromethamine 60 mg 12/06/20 19:37 12/06/20 19:46 Ketorolac 60mg/2ml Vial IM 12/06/20 19:38 60 mg ONCE ONE Administration Methylprednisolone Sodium Succinate 125 mg 12/06/20 19:37 12/06/20 19:46 Methylprednisolone Sod Succ 125mg Vial IM 12/06/20 19:38 125 mg ONCE ONE Administration - Radiology Data #1 Image(s): L-Spine Image Reviewed: Yes I reviewed the patient's radiology image, Yes I have reviewed radiologist's interpretation Preliminary Findings: No Fracture Seen PROCEDURE INFORMATION: Exam: XR Lumbosacral Spine Exam date and time: 12/06/20 07:14 PM Age: 50 years old Clinical indication: Injury or trauma; Other: 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 Severe sharp pain. TECHNIQUE: Imaging protocol: XR of the lumbosacral spine. Views: 2 or 3 views. COMPARISON: No relevant prior studies available. FINDINGS: Bones/joints: Vacuum disc L5-S1. Moderate spondylosis. No spondylolisthesis or spondylolysis. Soft tissues: Unremarkable. IMPRESSION: No acute findings. [facility] [place] General Stated complaint: lower back pain Time Seen by Provider: 12/06/20 19:34 Mode of Arrival: Ambulatory Source of Information: Patient Limitations: No Limitations Description of Symptoms (Recalled from Triage Doc. by RN): pt was bending over trying to strap down a wheel chair around 1000 today. pt c/o of lower back pain ever since. pain is 10/10 and sharp. HEENT Symptoms (Recalled from RN notes): No Resp Symptoms (Recalled from RN notes): No Skin Symptoms (Recalled from RN notes): No MS Symptoms (Recalled from RN notes): Yes (lower sharp back pain) Functional Status (Re
[2020-12-06 19:49] VITALS: BP 152/90; PULSE 92; RESP 18; TEMP 36.6
== END 2020-12-06 20:06 | disposition home or self-care (01) ==
PROVIDERS: Emergency Provider Nurse Practitioner Family; PCP Physician Assistant
DX: S39.012A Strain of muscle, fascia and tendon of lower back, initial encounter (principal); X50.0XXA Overexertion from strenuous movement or load, initial encounter; Y92.89 Other specified places as the place of occurrence of the external cause
CPT/HCPCS: 72100; 96372; 99202; G0463

== ENCOUNTER → 2021-01-17 10:40 | Outpatient (CLI) | payer OTHER, SELFPAY | PROVIDERS: PCP Emergency Medicine; Visit Provider Nurse Practitioner Family | DX: Z20.822 Contact with and (suspected) exposure to COVID-19 (principal) | CPT/HCPCS: U0003 ==

== ENCOUNTER → 2021-01-24 09:53 | Outpatient (CLI) | payer OTHER, SELFPAY | PROVIDERS: PCP Emergency Medicine; Visit Provider Emergency Medicine | DX: Z20.822 Contact with and (suspected) exposure to COVID-19 (principal) | CPT/HCPCS: U0003 ==

== ENCOUNTER 2021-02-22 18:40 | Emergency (ER) | payer OTHER, SELFPAY ==
[2021-02-22 19:55] VITALS: BP 123/101; PULSE 95; RESP 18; TEMP 36.8; O2SAT 98
== END 2021-02-22 20:50 | disposition left against medical advice (07) ==
PROVIDERS: Emergency Provider Emergency Medicine; PCP Emergency Medicine
DX: Z53.21 Procedure and treatment not carried out due to patient leaving prior to being seen by health care provider (principal)
CPT/HCPCS: 99211

== ENCOUNTER 2021-04-22 18:12 | Emergency (ER) | payer OTHER, SELFPAY ==
[2021-04-22 19:10] VITALS: BP 148/88; PULSE 74; RESP 18; TEMP 36.7; O2SAT 98; BMI 35.2
[2021-04-22 19:43] LABS: UTC Strep Screen (Rapid) Negative (Negative)
--- NOTE | 2021-04-22 19:48 | HMH.EDUTC ---
[facility] [place] Clinical Impression: URI (upper respiratory infection) Qualifiers: URI type: unspecified URI Qualified Code(s): J06.9 - Acute upper respiratory infection, unspecified Disposition: Home, Self-Care Condition on Discharge: Good Instructions: Sore Throat, DI for Nasal Congestion Additional Instructions: *Monitor Temp, Over the counter Motrin or Tylenol as directed/as needed Tylenol every 4 hours and Motrin every 6 hours (as long as your family doctor has told you that you can take it) for fever or pain. and straight to ER if unable to lower temp less than 101.0 after medication given *Warm salt water gargles may help to soothe the throat *Throat Lozenges *Warm fluids like tea with honey may help to soothe the throat *Sleep elevated *Humidifier/Vaporizer Your throat swab was sent for culture. Those results are typically sent to your primary care. Be sure to follow up in 2-3 days with your family doctor/primary care physician if no improvement so they can review those result and treat if necessary. If you don?t have a primary care doctor, I recommend you get one but in the mean time, you will have to return to a walk in clinic Follow up IMMEDIATELY for new or worsening symptoms or no Noticeable improvement over the next 48-72 hours. 911 for difficulty breathing or swallowing Prescriptions: Cefdinir [Omnicef 300mg Capsule] 300 mg PO BID #20 cap Transmission Status: Pending to [facility] Referrals: Cliff Porter MD [Primary Care Provider] - As needed Time of Disposition: 19:55 Medical Decision Making - Nikolai Inquiry Pt receiving controlled substance: No Nikolai was queried for this patient: No Vital Signs: 04/22/21 19:10 Temperature 98.1 F Temperature Source Oral Pulse Rate [Right Brachial] 74 Respiratory Rate 18 Blood Pressure [Right Arm] 148/88 H Blood Pressure Mean [Right Arm] 108 Blood Pressure Source [Right Arm] Automatic Cuff Blood Pressure Position [Right Arm] Sitting 02 Sat by Pulse Oximetry 98 Oxygen Delivery Method Room Air - Lab Data Lab results reviewed: Yes: I reviewed the patient's lab results. Lab Results 04/22/21 19:15: Strep Scn Rapid Clinic Negative Orders (Tests/Meds): ORDERS Category Date Time Status Strep Screen Confirmation Stat Micro 04/22/21 19:15 Received [facility] [place] HPI - General Stated complaint: strep throat Time Seen by Provider: 04/22/21 19:48 Mode of Arrival: Ambulatory Source of Information: Patient Limitations: No Limitations Description of Symptoms (Recalled from Triage Doc. by RN): PATIENT C/O SORE THROAT X 2 DAYS HEENT Symptoms (Recalled from RN notes): Yes Resp Symptoms (Recalled from RN notes): No Skin Symptoms (Recalled from RN notes): No MS Symptoms (Recalled from RN notes): No Functional Status (Recalled from RN notes): WNL - History of Present Illness Provider Complaint: Patient states that he has had sore throat for the last couple of days States that it hurts when he swallows and he noticed that he had blisters in the back of his throat and felt like he may have strep throat so he came in - Related Data Home Medications Medication Instructions Recorded Confirmed albuterol sulfate 90 mcg/actuation 1 puff INHALATION Q6H PRN 03/31/19 04/02/21 aerosol inhaler Previous Rx's Medication Instructions Recorded aspirin 81 mg tablet,delayed 81 mg PO DAILY #30 tab 03/15/19 release meloxicam 15 mg tablet See Rx Instructions .ROUTE 08/02/20 .COMPLEX #90 tab loratadine 10 mg tablet See Rx Instructions .ROUTE 01/08/21 .COMPLEX #90 tab budesonide-formoterol HFA 160 2 puff INHALATION BID #10.2 g 03/08/21 mcg-4.5 mcg/actuation aerosol inhaler atorvastatin 40 mg tablet 40 mg PO DAILY #90 tab 04/02/21 hydrochlorothiazide 25 mg tablet See Rx Instructions .ROUTE 04/02/21 .COMPLEX #30 tab losartan 100 mg tablet 100 mg PO DAILY #30 tab 04/02/21 metoprolol succinate 50 mg 50 mg PO DAILY #30 tab 04/02/21
[2021-04-22 19:59] VITALS: BP 148/88; PULSE 74; RESP 18; TEMP 36.7; O2SAT 98
== END 2021-04-22 20:02 | disposition home or self-care (01) ==
PROVIDERS: Emergency Provider Nurse Practitioner; PCP Emergency Medicine
DX: J06.9 Acute upper respiratory infection, unspecified (principal); Z87.891 Personal history of nicotine dependence; F41.8 Other specified anxiety disorders
CPT/HCPCS: 87880; 99202; G0463

== ENCOUNTER 2021-07-07 19:25 | Emergency (ER) | payer OTHER, SELFPAY ==
[2021-07-07 19:26] VITALS: BP 134/84; PULSE 109; RESP 18; TEMP 37.6; O2SAT 99; BMI 35.2
--- NOTE | 2021-07-07 20:30 | HMH.EDUTC ---
[facility] [place]: Encounter for laboratory testing for COVID-19 virus Disposition: Home, Self-Care Condition on Discharge: Good Instructions: DI for COVID-19 (Suspected or Confirmed ), Preventing the Spread of Coronavirus Discharge Instructions Additional Instructions: *Monitor Temp, Over the counter Motrin or Tylenol as directed/as needed Tylenol every 4 hours and Motrin every 6 hours (as long as your family doctor has told you that you can take it) for fever or pain. and straight to ER if unable to lower temp less than 101.0 after medication given *Warm salt water gargles may help to soothe the throat *Throat Lozenges *Warm fluids like tea with honey may help to soothe the throat *Sleep elevated *Humidifier/Vaporizer Follow up IMMEDIATELY for new or worsening symptoms or no Noticeable improvement over the next 48-72 hours. 911 for difficulty breathing or swallowing You were tested for today for COVID19 your test result should be back in the next 24-48 hours, you may check your results on the [facility] if you have trouble logging on you may call [employer] support for assistance You was given a handout with instructions for Self Quarantine and Self isolation for while you wait on test results and what to do if they are positive Make sure to take your Vitamins Vit. C Vit D and Zinc if you can take them Prescriptions: Ondansetron [Zofran 4mg ODT] 4 mg PO TIDP PRN #9 tab PRN Reason: Nausea Transmission Status: Received by [facility] Referrals: Cliff Porter MD [Primary Care Provider] - As needed Forms: Work/School Release Medical Decision Making - Nikolai Inquiry Pt receiving controlled substance: No Nikolai was queried for this patient: No Vital Signs: 07/07/21 19:26 Temperature 99.6 F Temperature Source Oral Pulse Rate [Right] 109 H Respiratory Rate 18 Blood Pressure [Right Arm] 134/84 Blood Pressure Mean [Right Arm] 100 02 Sat by Pulse Oximetry 99 Medical Decision Narrative: Patient state he has taken zofran in the past without complications or reactions [facility] [place] - General Stated complaint: FEVER,CONGESTION,robles Time Seen by Provider: 07/07/21 20:30 Mode of Arrival: Ambulatory Description of Symptoms (Recalled from Triage Doc. 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COMPLEX #90 tab budesonide-formoterol HFA 160 2 puff INHALATION BID #10.2 g 03/08/21 mcg-4.5 mcg/actuation aerosol inhaler atorvastatin 40 mg tablet 40 mg PO DAILY #90 tab 04/02/21 hydrochlorothiazide 25 mg tablet See Rx Instructions .ROUTE 04/02/21 .COMPLEX #30 tab losartan 100 mg tablet 100 mg PO DAILY #30 tab 04/02/21 metoprolol succinate 50 mg 50 mg PO DAILY #30 tab 04/02/21 tablet,extended release 24 hr Cefdinir [Omnicef 300mg Capsule] 300 mg PO BID #20 cap 04/22/21 omeprazole 40 mg capsule,delayed See Rx Instructions .ROUTE 04/22/21 release .COMPLEX #90 cap venlafaxine 75 mg capsule,extended See Rx
[2021-07-07 20:57] VITALS: BP 134/84; PULSE 109; RESP 18; TEMP 37.6
== END 2021-07-07 21:03 | disposition home or self-care (01) ==
PROVIDERS: Emergency Provider Nurse Practitioner; PCP Emergency Medicine
DX: U07.1 COVID-19 (principal); E78.5 Hyperlipidemia, unspecified; F41.8 Other specified anxiety disorders; J44.9 Chronic obstructive pulmonary disease, unspecified; Z87.891 Personal history of nicotine dependence
CPT/HCPCS: 99202; C9803; G0463; U0003; U0005

== ENCOUNTER → 2021-10-12 08:33 | Outpatient (CLI) | payer OTHER, SELFPAY ==
[2021-10-12 09:07] LABS: Basophils # 0.1 K/mm3 (0-0.2); Eosinophils # 0.3 K/mm3 (0.0-0.4); Eosinophils % 2.8 % (0.1-12.0); Hematocrit 45.1 % (42.0-52.0); Hemoglobin 15.9 g/dL (14.1-18.0); Lymphocytes # 2.8 K/mm3 (0.7-4.5); Lymphocytes % 29.2 % (10-50); Mean Corpuscular HGB Conc 35.2 g/dL (31.8-35.4); Mean Corpuscular Hemoglobin 30.6 pg (27.0-31.2); Mean Platelet Volume 8.9 fl (7.4-10.4); Monocytes # 0.8 K/mm3 (0.1-1.0); Monocytes % 8.6 % (1.7-9.3); Neutrophils # 5.6 K/mm3 (1.8-7.8); Neutrophils % 58.5 % (37.0-80.0); Platelet Count 218 K/mm3 (142-424); Red Blood Count 5.18 M/mm3 (4.60-6.20); White Blood Count 9.6 K/mm3 (4.8-10.8)
[2021-10-12 10:35] LABS: Free T4 (Free Thyroxine) 0.99 ng/dl (0.78-2.19)
[2021-10-12 11:02] LABS: Alanine Aminotransferase 36 U/L (12-78); Albumin Level 4.4 g/dl (3.5-5.0); Alkaline Phosphatase 127 U/L (38-126); Anion Gap 13.9 mEq/L (5-15); Aspartate Amino Transferase 30 U/L (17-59); Bilirubin,Direct 0.2 mg/dl (0.0-0.4); Bilirubin,Indirect 0.4 mg/dL (0.0-0.9); Bilirubin,Total 0.6 mg/dl (0.2-1.3); Bilirubin,Unconjugated 0.4 mg/dL (0.0-1.1); Blood Urea Nitrogen 19 mg/dl (9-20); Calcium 9.1 mg/dl (8.4-10.2); Carbon Dioxide 29 mmol/L (22.0-30.0); Chloride 100 mmol/L (98-107); Cholesterol 151 mg/dl (140-200); Estimated Glomerular Filt Rate 102 ml/min (>60); GFR (African American) 123 ML/MIN (>60); Glucose 122 mg/dl (74-100); HDL Cholesterol 30 mg/dl (40-60); Potassium 3.9 mmoL/L (3.5-5.1); Sodium 139 mmol/L (136-145); Total Protein,Serum 6.9 g/dl (6.3-8.2); Triglycerides 161 mg/dl (30-150); VLDL Cholesterol 32 mg/dL (0-40)
[2021-10-12 11:32] LABS: Thyroid Stimulating Hormone 2.59 uIU/mL (0.465-4.68)
== END ==
PROVIDERS: Visit Provider Physician Assistant
DX: R06.02 Shortness of breath (principal); I10 Essential (primary) hypertension; E78.2 Mixed hyperlipidemia; J44.9 Chronic obstructive pulmonary disease, unspecified
CPT/HCPCS: 36415; 80048; 80061; 80076; 84439; 84443; 85025

== ENCOUNTER → 2021-11-01 06:54 | Outpatient (CLI) | payer OTHER, SELFPAY | PROVIDERS: PCP Emergency Medicine; Visit Provider Physician Assistant | DX: R06.02 Shortness of breath (principal); R07.89 Other chest pain; R42 Dizziness and giddiness; I10 Essential (primary) hypertension; E78.2 Mixed hyperlipidemia; J44.9 Chronic obstructive pulmonary disease, unspecified; R06.83 Snoring; R40.0 Somnolence; R68.81 Early satiety | CPT/HCPCS: 78452; 93017; A9502; J2785 ==

== ENCOUNTER → 2021-11-06 08:18 | Outpatient (CLI) | payer OTHER, SELFPAY ==
--- NOTE | 2021-11-06 08:26 | FL_ITS ---
FINAL REPORT CLINICAL HISTORY: early satiety ft: 1:31 FINDINGS: Esophagram History: Early satiety Technique: The patient ingested barium. Air crystals were given for double contrast study. 14 fluoroscopic spot films were obtained. Fluoroscopy time: 1 minute 31 seconds. Findings: No esophageal stricture is identified. There is a small sliding-type hiatal hernia. Mild esophageal dysmotility was demonstrated during the exam. No gastroesophageal reflux was demonstrated during the exam. A 13 mm barium tablet passes through the esophagus into the stomach without delay. IMPRESSION: Small sliding-type hiatal hernia. Mild esophageal dysmotility. Images reviewed, interpreted and dictated by Dr. Keen. Transcribed by Gamaliel Petersen PA-C. Reviewed, Interpreted and Dictated by Rosanne Keen MD Transcribed by RAPHAEL Whaley Authenticated by Rosanne Keen MD on 11/07/2021 09:03:31 AM [facility]
== END ==
PROVIDERS: PCP Emergency Medicine; Visit Provider Physician Assistant
DX: R07.89 Other chest pain (principal); R06.02 Shortness of breath; R42 Dizziness and giddiness; I10 Essential (primary) hypertension; E78.2 Mixed hyperlipidemia; J44.9 Chronic obstructive pulmonary disease, unspecified; R06.83 Snoring; R40.0 Somnolence; R68.81 Early satiety
CPT/HCPCS: 74220

== ENCOUNTER → 2021-12-18 16:27 | Outpatient (CLI) | payer OTHER, SELFPAY ==
[2021-12-18 17:15] LABS: Basophils # 0.1 K/mm3 (0-0.2); Basophils % 0.6 % (0.1-2.0); Eosinophils # 0.3 K/mm3 (0.0-0.4); Eosinophils % 3.2 % (0.1-12.0); Hematocrit 42.3 % (42.0-52.0); Hemoglobin 15.1 g/dL (14.1-18.0); Lymphocytes # 2.7 K/mm3 (0.7-4.5); Lymphocytes % 28.5 % (10-50); Mean Corpuscular HGB Conc 35.8 g/dL (31.8-35.4); Mean Corpuscular Hemoglobin 29.7 pg (27.0-31.2); Mean Corpuscular Volume 83.1 fl (80-94); Mean Platelet Volume 8.3 fl (7.4-10.4); Monocytes # 0.8 K/mm3 (0.1-1.0); Monocytes % 8.3 % (1.7-9.3); Neutrophils # 5.7 K/mm3 (1.8-7.8); Neutrophils % 59.4 % (37.0-80.0); Platelet Count 223 K/mm3 (142-424); Red Cell Distribution Width 13.4 % (11.5-17.5); White Blood Count 9.5 K/mm3 (4.8-10.8)
[2021-12-20 12:22] LABS: Alpha-1-Antitrypsin 173 mg/dL (101-187)
[2021-12-24 17:53] LABS: D001-IgE D pteronyssinus <0.10 kU/L (Class 0); D002-IgE D farinae <0.10 kU/L (Class 0); E001-IgE Cat Dander <0.10 kU/L (Class 0); E005-IgE Dog Dander <0.10 kU/L (Class 0); E072-IgE Mouse Urine <0.10 kU/L (Class 0); G002-IgE Bermuda Grass <0.10 kU/L (Class 0); G006-IgE Timothy Grass <0.10 kU/L (Class 0); I006-IgE Cockroach, German <0.10 kU/L (Class 0); Immunoglobulin E, Total 11 IU/mL (6-495); M001-IgE Penicillium chrysogen <0.10 kU/L (Class 0); M002-IgE Cladosporium herbarum <0.10 kU/L (Class 0); M003-IgE Aspergillus fumigatus <0.10 kU/L (Class 0); M006-IgE Alternaria alternata <0.10 kU/L (Class 0); T001-IgE Maple/Box Elder <0.10 kU/L (Class 0); T003-IgE Common Silver Birch <0.10 kU/L (Class 0); T006-IgE Cedar, Mountain <0.10 kU/L (Class 0); T007-IgE Oak, White <0.10 kU/L (Class 0); T008-IgE Elm, American <0.10 kU/L (Class 0); T010-IgE Walnut <0.10 kU/L (Class 0); T011-IgE Maple Leaf Sycamore <0.10 kU/L (Class 0); T014-IgE Cottonwood <0.10 kU/L (Class 0); T015-IgE Ash, White <0.10 kU/L (Class 0); T022-IgE Pecan, Hickory <0.10 kU/L (Class 0); T070-IgE White Mulberry <0.10 kU/L (Class 0); W001-IgE Ragweed, Short <0.10 kU/L (Class 0); W011-IgE Thistle, Russian <0.10 kU/L (Class 0); W014-IgE Pigweed, Common <0.10 kU/L (Class 0); W018-IgE Sheep Sorrel <0.10 kU/L (Class 0)
== END ==
PROVIDERS: PCP Nurse Practitioner Family; Visit Provider Internal Medicine Pulmonary Disease
DX: J45.40 Moderate persistent asthma, uncomplicated (principal); J44.9 Chronic obstructive pulmonary disease, unspecified
CPT/HCPCS: 36415; 82103; 82785; 85025; 86003

== ENCOUNTER → 2021-12-26 12:52 | Outpatient (CLI) | payer OTHER, SELFPAY ==
--- NOTE | 2021-12-26 13:45 | PC.NURSE ---
PFT and 6 Minute Walk completed without incident. Albuterol 0.083% given via HHN, per written protocol, pt tolerated tx well.
--- NOTE | 2021-12-26 14:08 | CT_ITS ---
FINAL REPORT TECHNIQUE: Axial images were obtained through the chest without contrast. CLINICAL HISTORY: Lymphadenopathy FINDINGS: CT CHEST W/O CONTRAST There are a few small scattered mediastinal lymph nodes. There is a calcified right hilar lymph node. There is a calcified subcarinal lymph node. The lungs are clear. The heart size is normal. There is an azygos pseudo lobe. There is no pericardial or pleural effusion. Limited images of the upper abdomen are unremarkable. There is scarring in the right middle lobe and in the lingula. No suspicious infiltrate or nodule identified. IMPRESSION: Few small scattered lymph nodes without adenopathy. Reviewed, Interpreted and Dictated by Jaylen Griffin MD Transcribed by Ivett Gallo Authenticated and [facility]
== END ==
PROVIDERS: PCP Nurse Practitioner Family; Visit Provider Internal Medicine Pulmonary Disease
DX: R06.09 Other forms of dyspnea (principal); R91.8 Other nonspecific abnormal finding of lung field
CPT/HCPCS: 71250; 94060; 94618; 94726; 94729

== ENCOUNTER 2022-02-02 15:38 | Emergency (ER) | payer OTHER, SELFPAY ==
--- NOTE | 2022-02-02 15:42 | XR_ITS ---
PROCEDURE INFORMATION: Exam: XR Left Shoulder Exam date and time: 02/02/2022 3:41 PM Age: 51 years old Clinical indication: Pain; Shoulder; Left TECHNIQUE: Imaging protocol: Radiologic exam of the Left shoulder. Views: 2 or more views. COMPARISON: No relevant priors. FINDINGS: Bones/joints: Normal. No fractures or dislocations. The joint spaces are intact. Soft tissues: Normal. No swelling or abnormal density. IMPRESSION: Unremarkable shoulder.
[2022-02-02 16:30] VITALS: BP 141/72; PULSE 86; RESP 19; TEMP 37.1; O2SAT 98; BMI 35.5
--- NOTE | 2022-02-02 16:52 | HMH.EDUTC ---
[facility] [place] Disposition Clinical Impression: Left shoulder strain Qualifiers: Encounter type: initial encounter Qualified Code(s): S46.912A - Strain of unspecified muscle, fascia and tendon at shoulder and upper arm level, left arm, initial encounter Disposition: Home, Self-Care Condition on Discharge: Good Instructions: DI for Muscle Strain, DI for Shoulder Pain, DI for Muscle Spasm Additional Instructions: *Ibuprofen kina 6 hours with meal as needed for pain/inflammation if your Doctor has said that you can take it *Not additional anti-inflammatory like motrin, aleve, advil with the above amount of ibuprofen. You can still take Tylenol every 4 hours as needed if you need something else for pain *Ice 20 minutes every 2 hours for the first 48 hours after the initial injury followed by moist heat every 20 minutes 3-4 times a day to affected area *Muscle relaxer every 12 hours as needed for muscle spasms but remember, it WILL cause drowsiness You cannot take it and drive, operate machinery or care for small children. Follow with Orthopedics for further evaluation and imaging if needed *Keep this area active, no movement leads to more stiffness, However take it easy and avoid heavy lifting pushing or pulling *Follow up with you family doctor if no improvement for further treatment Prescriptions: methocarbamoL [Methocarbamol 500mg Tablet] 500 mg PO BID PRN #10 tab PRN Reason: Muscle Spasm Transmission Status: Received by [id number] Referrals: Bart Bains APRN [Primary Care Provider] - As needed Javier Ordaz MD [Staff Physician] - (Call office for appointment) Forms: Work/School Release Time of Disposition: 17:17 Medical Decision Making - Nikolai Inquiry Pt receiving controlled substance: No Nikolai was queried for this patient: No Vital Signs: 02/02/22 16:30 02/02/22 17:27 Temperature 98.7 F 98.7 F Temperature Source Oral Pulse Rate 86 Pulse Rate [Right Brachial] 86 Respiratory Rate 19 19 Blood Pressure 141/72 H Blood Pressure [Right Arm] 141/72 H Blood Pressure Mean [Right Arm] 95 Blood Pressure Source [Right Arm] Automatic Cuff Blood Pressure Position [Right Arm] Sitting 02 Sat by Pulse Oximetry 98 Oxygen Delivery Method Room Air - Lab Data Lab results reviewed: Yes: I reviewed the patient's lab results. Medical Decision Narrative: Discussed EKG and transfer to the ED and patient declined States that he is not having chest pain and denies cardiac issues reports pain worse with movement and felt like he tore something when he lifted the person up from the floor States that he will follow up with his family Doctor or return if symptoms worsen and go straight to ER if he started having chest pain [facility] [place] HPI - General Stated complaint: left shoulder pain Time Seen by Provider: 02/02/22 16:52 Mode of Arrival: Ambulatory Source of Information: Patient Limitations: No Limitations Description of Symptoms (Recalled from Triage Doc. by RN): PATIENT C/O LEFT SHOULDER PAIN THAT RADIATES INTO NECK X 2 WEEKS HEENT Symptoms (Recalled from RN notes): No Resp Symptoms (Recalled from RN notes): No Skin Symptoms (Recalled from RN notes): No MS Symptoms (Recalled from RN notes): Yes Functional Status (Recalled from RN notes): WNL - History of Present Illness Provider Complaint: Patient states that he has been having Pain and muscle spasms with movement in his left shoulder after he hurt it lifting someone up from the floor about 2 weeks ago and he felt something pull in his shoulder States he feels like he may have torn something States that shoulder area feels tight like he has spasms and pain is worse when he moves or raises his arm Denies chest pain States that pain is better when he takes tylenol - Related Data Home Medications Medication Instructions Recorded Confirmed albuterol sulfate 90 mcg/actuation 1 puff INHALATION Q6H PRN 03/31/19 01/08/22 aerosol inhaler Previous Rx's Medi
[2022-02-02 17:27] VITALS: BP 141/72; PULSE 86; RESP 19; TEMP 37.1; O2SAT 98
== END 2022-02-02 17:34 | disposition home or self-care (01) ==
PROVIDERS: Emergency Provider Nurse Practitioner; PCP Nurse Practitioner Family
DX: S46.912A Strain of unspecified muscle, fascia and tendon at shoulder and upper arm level, left arm, initial encounter (principal); Z87.891 Personal history of nicotine dependence; J44.9 Chronic obstructive pulmonary disease, unspecified; E78.5 Hyperlipidemia, unspecified; F41.9 Anxiety disorder, unspecified; F32.A Depression, unspecified; Z99.81 Dependence on supplemental oxygen
CPT/HCPCS: 73030; 99212; G0463

== ENCOUNTER → 2022-02-11 09:34 | Outpatient (CLI) | payer OTHER, SELFPAY ==
--- NOTE | 2022-02-11 09:34 | MR_ITS ---
FINAL REPORT CLINICAL HISTORY: left shoulder pain LEFT SHOULDER PAIN X 3 WEEKS PT WAS PULLING ROOTS UP AND FELT POP FINDINGS: Multiplanar MR imaging of the left shoulder was performed without contrast. Motion artifact is identified on many of the images. There is supraspinatus and infraspinatus tendinosis. There is a small intrasubstance tear of the distal subscapularis tendon. There is mild AC joint arthrosis. A small amount of fluid seen in the subacromial/subdeltoid bursa. The glenoid labrum is intact. The long head of the biceps tendon is intact. No significant glenohumeral joint effusion is seen. There is no evidence of fracture or dislocation. The musculature is intact. There is no evidence of soft tissue mass. IMPRESSION: Small intrasubstance tear of the distal subscapularis tendon. Reviewed, Interpreted and Dictated by Otilio Paiz III, MD Transcribed by Karlee Aguilera Authenticated and [facility]
--- NOTE | 2022-02-11 09:41 | XR_ITS ---
FINAL REPORT CLINICAL HISTORY: RULE OUT METAL FOREIGN BODY FOR MRI. prior hx metal in right eye. FINDINGS: ORBITS Look up and look down views were obtained. No fracture is identified. The sinuses are clear. No foreign body is identified. IMPRESSION: No acute process. Reviewed, Interpreted and Dictated by Otilio Paiz III, MD Transcribed by Alonzo Mcfadden Authenticated and [facility]
== END ==
PROVIDERS: PCP Nurse Practitioner Family; Visit Provider Orthopaedic Surgery
DX: M25.512 Pain in left shoulder (principal); H05.53 Retained (old) foreign body following penetrating wound of bilateral orbits
CPT/HCPCS: 70200; 73221

== ENCOUNTER 2022-06-17 08:23 | Emergency (ER) | payer OTHER, SELFPAY ==
[2022-06-17 08:30] VITALS: BP 157/93; PULSE 81; RESP 18; TEMP 36.9; O2SAT 98; BMI 5135.8
--- NOTE | 2022-06-17 08:44 | EXP.UTC ---
Discharge Plan Disposition Patient Disposition: Home, Self-Care Condition: Good Prescriptions Prescriptions: No Action albuterol sulfate 90 mcg/actuation HFA aerosol inhaler 1 puff INHALATION Q6H PRN atorvastatin 40 mg tablet 40 mg PO DAILY Qty: 90 3RF albuterol sulfate 90 mcg/actuation HFA aerosol inhaler 2 inh IH Q6H PRN (Reason: shortness of breath or wheezing) 90 Days Qty: 8.5 3RF aspirin [Adult Low Dose Aspirin] 81 mg tablet,delayed release (DR/EC) 81 mg PO DAILY Qty: 30 5RF losartan 100 mg tablet 100 mg PO DAILY Qty: 30 5RF meloxicam 15 mg tablet See Rx Instructions .ROUTE .COMPLEX Qty: 90 2RF Dose Instruction: TAKE ONE TABLET BY MOUTH EVERY DAY WITH FOOD Rx Instructions: TAKE ONE TABLET BY MOUTH EVERY DAY WITH FOOD Advair HFA 230-21 mcg/actuation HFA aerosol inhaler 1 puff IH BID 90 Days Qty: 12 3RF loratadine 10 mg tablet See Rx Instructions .ROUTE .COMPLEX Qty: 90 3RF Dose Instruction: TAKE 1 TABLET BY MOUTH ONCE DAILY Rx Instructions: TAKE 1 TABLET BY MOUTH ONCE DAILY venlafaxine 75 mg capsule,extended release 24hr See Rx Instructions .ROUTE .COMPLEX Qty: 90 3RF Dose Instruction: TAKE 1 CAPSULE BY MOUTH ONCE DAILY Rx Instructions: TAKE 1 CAPSULE BY MOUTH ONCE DAILY hydrochlorothiazide 25 mg tablet See Rx Instructions .ROUTE .COMPLEX Qty: 30 3RF Dose Instruction: TAKE ONE TABLET BY MOUTH EVERY DAY Rx Instructions: TAKE ONE TABLET BY MOUTH EVERY DAY Trelegy Ellipta 100-62.5-25 mcg blister with device See Rx Instructions .ROUTE .COMPLEX Qty: 60 0RF Dose Instruction: USE 1 INHALATION BY MOUTH DAILY Rx Instructions: USE 1 INHALATION BY MOUTH DAILY omeprazole 40 mg capsule,delayed release(DR/EC) See Rx Instructions .ROUTE .COMPLEX Qty: 90 0RF Dose Instruction: TAKE 1 CAPSULE BY MOUTH ONCE DAILY Rx Instructions: TAKE 1 CAPSULE BY MOUTH ONCE DAILY metoprolol succinate [Toprol XL] 100 mg tablet extended release 24 hr 100 mg PO DAILY Qty: 90 3RF methocarbamol 500 MG tablet 500 mg PO BID PRN (Reason: Muscle Spasm) Qty: 10 0RF Referrals Follow up/Referrals: Mary Mckeon PA [Primary Care Provider] - See instructions Activity Restrictions/Add. Instructions Additional Instructions/Restrictions: *Monitor Temp, Over the counter Motrin or Tylenol as directed/as needed Tylenol every 4 hours and Motrin every 6 hours (as long as your family doctor has told you that you can take it) for fever or pain. and straight to ER if unable to lower temp less than 101.0 after medication given *Warm salt water gargles may help to soothe the throat *Throat Lozenges? *Warm fluids like tea with honey may help to soothe the throat? *Sleep elevated *Humidifier/Vaporizer Follow up IMMEDIATELY for new or worsening symptoms or no Noticeable improvement over the next 48-72 hours. 911 for difficulty breathing or swallowing Clinical Impressions Clinical Impression: URI (upper respiratory infection) Stand Alone Forms Stand Alone Forms: Work/School Release Instructions Patient Instructions: Sore Throat, Ibuprofen Discharge ED Provider: Keri Jimenez [facility] [place] HPI General Stated complaint: Bodyaches, sore throat, headache, nausea Time Seen by Provider: 06/17/22 08:44 History of Present Illness Provider Complaint: Patient states that he was feeling well this morning States that he has been having body aches, chills, headache, sore throat and nausea States that he feels like he may have the flu Related Data Home Medications Medication Instructions Recorded Confirmed albuterol sulfate 90 mcg/actuation 1 puff inhalation Q6H PRN 03/31/19 03/05/22 aerosol inhaler Previous Rx's Medication Instructions Recorded aspirin 81 mg tablet,delayed 81 mg PO DAILY #30 tabs 03/15/19 release (Adult Low Dose Aspirin) atorvastatin 40 mg tablet 40 m
[2022-06-17 08:54] LABS: UTC Influenza A Antigen Negative (Negative); UTC Influenza B Antigen Negative (Negative)
[2022-06-17 09:02] VITALS: BP 157/93; PULSE 81; RESP 18; TEMP 36.9; O2SAT 98
== END 2022-06-17 09:02 | disposition home or self-care (01) ==
PROVIDERS: Emergency Provider Nurse Practitioner; PCP Physician Assistant
DX: J06.9 Acute upper respiratory infection, unspecified
CPT/HCPCS: 87804; 99212; 99213; G0463

== ENCOUNTER → 2022-07-23 23:00 | Outpatient (CLI) | payer OTHER, SELFPAY ==
[2022-07-23 18:38] LABS: Basophils # 0.2 K/mm3 (0-0.2); Basophils % 1.5 % (0.1-2.0); Eosinophils # 0.3 K/mm3 (0.0-0.4); Eosinophils % 2.5 % (0.1-12.0); Hematocrit 43.8 % (42.0-52.0); Hemoglobin 15.8 g/dL (14.1-18.0); Lymphocytes % 30.1 % (10-50); Mean Corpuscular HGB Conc 36.1 g/dL (31.8-35.4); Mean Corpuscular Hemoglobin 32.1 pg (27.0-31.2); Mean Corpuscular Volume 88.9 fl (80-94); Mean Platelet Volume 10.6 fl (7.4-10.4); Monocytes # 0.9 K/mm3 (0.1-1.0); Monocytes % 8.6 % (1.7-9.3); Neutrophils # 5.7 K/mm3 (1.8-7.8); Neutrophils % 57.3 % (37.0-80.0); Platelet Count 246 K/mm3 (142-424); Red Blood Count 4.92 M/mm3 (4.60-6.20); Red Cell Distribution Width 13.2 % (11.5-17.5)
[2022-07-23 19:17] LABS: Alanine Aminotransferase 40 U/L (12-78); Albumin Level 4.5 g/dl (3.5-5.0); Albumin/Globulin Ratio 1.6 (1.1-1.8); Alkaline Phosphatase 146 U/L (38-126); Anion Gap 13.8 mEq/L (5-15); Aspartate Amino Transferase 38 U/L (17-59); Bilirubin,Total 0.5 mg/dl (0.2-1.3); Blood Urea Nitrogen 15 mg/dl (9-20); Calcium 8.7 mg/dl (8.4-10.2); Carbon Dioxide 24 mmol/L (22.0-30.0); Chloride 104 mmol/L (98-107); Chol/HDL Ratio 5.6 (1-3.5); Cholesterol 158 mg/dl (140-200); Estimated Glomerular Filt Rate 101 ml/min (>60); GFR (African American) 122 ML/MIN (>60); Globulin 2.8 g/dL (1.3-3.2); Glucose 110 mg/dl (74-100); HDL Cholesterol 28 mg/dl (40-60); Potassium 3.8 mmoL/L (3.5-5.1); Sodium 138 mmol/L (136-145); Total Protein,Serum 7.3 g/dl (6.3-8.2)
[2022-07-23 19:24] LABS: Triglycerides 430 mg/dl (30-150)
[2022-07-23 19:26] LABS: Erythrocyte Sedimentation Rate 18 mm/hr (0-20)
[2022-07-23 19:31] LABS: C-Reactive Protein 5.8 mg/L (0-4); Direct LDL Cholesterol 93.11 mg/dL (100-129)
[2022-07-23 19:42] LABS: 25-OH Vitamin D, Total 23.6 ng/mL (30-100)
[2022-07-23 19:49] LABS: Prostate Specific Ag Screen 0.7 ng/ml (0.0-4.0); Thyroid Stimulating Hormone 2.02 uIU/mL (0.465-4.68)
[2022-07-25 11:55] LABS: RA Latex Turbid. <10.0 IU/mL (<14.0)
[2022-07-25 12:12] LABS: Anti-Cyclic Citrullinated Pept 3 units (0-19)
[2022-07-25 16:03] LABS: Anti-Centromere B Antibodies <0.2 AI (0.0-0.9); Anti-DNA (DS) Ab Qn 1 IU/mL (0-9); Anti-Jo-1 <0.2 AI (0.0-0.9); Anti-Smith Antibody <0.2 AI (0.0-0.9); Antichromatin Antibodies <0.2 AI (0.0-0.9); Antiscleroderma-70 Antibodies <0.2 AI (0.0-0.9); Sjogren's Anti-SS-A <0.2 AI (0.0-0.9); Sjogren's Anti-SS-B <0.2 AI (0.0-0.9)
== END ==
PROVIDERS: PCP Physician Assistant; Visit Provider Physician Assistant
DX: Z00.00 Encounter for general adult medical examination without abnormal findings (principal); M25.50 Pain in unspecified joint; Z12.5 Encounter for screening for malignant neoplasm of prostate; E55.9 Vitamin D deficiency, unspecified
CPT/HCPCS: 80053; 80061; 82306; 84443; 85025; 85651; 86140; 86200; 86225; 86235; 86431; G0103

== ENCOUNTER → 2022-09-04 10:04 | Outpatient (CLI) | payer OTHER, SELFPAY ==
--- NOTE | 2022-09-04 10:09 | XR_ITS ---
FINAL REPORT CLINICAL HISTORY: pain FINDINGS: RIGHT HAND Three views demonstrate no acute fracture. There is no dislocation. The visualized joint spaces are normally aligned. There is mild narrowing of the DIP and PIP joints, consistent with osteoarthritis. There are mild to moderate hypertrophic changes at the basilar joint. The soft tissues are unremarkable. IMPRESSION: Mild changes of osteoarthritis. Reviewed, Interpreted and Dictated by Jaylen Griffin MD Transcribed by Ivett Gallo Authenticated and [facility]
--- NOTE | 2022-09-04 10:09 | XR_ITS ---
FINAL REPORT CLINICAL HISTORY: pain FINDINGS: LEFT KNEE 3 views of the left knee were obtained. There is no acute fracture or dislocation. Visualized joint spaces are normally aligned. Joint spaces are intact. Soft tissues are unremarkable. IMPRESSION: No acute bony abnormality. Reviewed, Interpreted and Dictated by Jaylen Griffin MD Transcribed by Ivett Gallo Authenticated and . [facility]
--- NOTE | 2022-09-04 10:09 | XR_ITS ---
FINAL REPORT CLINICAL HISTORY: pain FINDINGS: LEFT HAND Three views demonstrate no acute fracture. There is no dislocation. The visualized joint spaces are normally aligned. There is mild narrowing of the DIP and PIP joints, consistent with osteoarthritis. There are mild hypertrophic changes at the basilar joint. The soft tissues are unremarkable. IMPRESSION: Mild changes of osteoarthritis. Reviewed, Interpreted and Dictated by Jaylen Griffin MD Transcribed by Ivett Gallo Authenticated and [facility]
--- NOTE | 2022-09-04 10:09 | XR_ITS ---
FINAL REPORT CLINICAL HISTORY: knee pain FINDINGS: RIGHT KNEE 3 views of the right knee were obtained. There is no acute fracture or dislocation. Visualized joint spaces are normally aligned. Joint spaces are intact. Soft tissues are unremarkable. IMPRESSION: No acute bony abnormality. Reviewed, Interpreted and Dictated by Jaylen Griffin MD Transcribed by Ivett Gallo Authenticated and [facility]
== END ==
PROVIDERS: PCP Nurse Practitioner Family; Visit Provider Orthopaedic Surgery
DX: M25.561 Pain in right knee (principal); M25.562 Pain in left knee; M79.644 Pain in right finger(s); M79.645 Pain in left finger(s)
CPT/HCPCS: 73130; 73562

== ENCOUNTER → 2022-11-28 13:19 | Outpatient (CLI) | payer OTHER, SELFPAY ==
[2022-11-28 14:15] VITALS: PULSE 65; PULSE 77
--- NOTE | 2022-11-28 14:56 | CT_ITS ---
FINAL REPORT TECHNIQUE: Axial CT images of the chest were obtained without contrast. Low-dose protocol was utilized. This study was performed with techniques to keep radiation doses as low as reasonably achievable (ALARA). Individualized dose reduction techniques using automated exposure control or adjustment of mA and/or kV according to the patient's size were employed. CLINICAL HISTORY: lung cancer screening. former smoker quit 5 years ago. smoked 1ppd x 30 years. copd, emphysema COMPARISON: CT chest 12/26/2021 and 11/30/2018 FINDINGS: CT CHEST WITHOUT, LOW DOSE SCREENING CT Di Vol: 2.90 mGy DLP: 103.94 mGy*cm There are small mediastinal and axillary nodes. No adenopathy.. The heart size is normal. There is no pleural or pericardial effusion. The lung windows show a 6 mm nodule at the inferior aspect of the azygous fissure which is stable to 2019 and likely represents intra fissural lymph node. No new mass or nodule. There is mild emphysema. Mild scarring is noted. Limited images of the upper abdomen demonstrate no acute findings. IMPRESSION: LR Category 1: 12 month follow-up low-dose chest CT is recommended. Reviewed, Interpreted and Dictated by Otilio Paiz III, MD Transcribed by Rubina Armendariz Authenticated and [facility]
== END ==
PROVIDERS: PCP Nurse Practitioner Family; Visit Provider Internal Medicine Pulmonary Disease
DX: F17.210 Nicotine dependence, cigarettes, uncomplicated (principal)
CPT/HCPCS: 71271; 94060; 94618; 94640; 94727; 94729

== ENCOUNTER → 2023-01-22 13:05 | Outpatient (CLI) | payer OTHER, SELFPAY ==
--- NOTE | 2023-01-22 13:06 | US_ITS ---
FINAL REPORT CLINICAL HISTORY: leg pain at rest, ex-smoker FINDINGS: ANKLE-BRACHIAL PRESSURE INDICES Pressure indices are as follows: RIGHT LOWER EXTREMITY: Ankle-brachial pressure index: 1.2 Comments: Normal LEFT LOWER EXTREMITY: Ankle-brachial pressure index: 1.19 Comments: Normal IMPRESSION: No evidence of significant obstructive peripheral vascular disease of the lower extremities Reviewed, Interpreted and Dictated by Otilio Paiz III, MD Transcribed by Maria Luisa Phan Authenticated and [facility]
--- NOTE | 2023-01-22 13:06 | CA_ITS ---
APPROVED REPORT EXAM: Comprehensive 2D, Doppler, and color-flow Echocardiogram Outsole Splicer: Aspen Clifton RDCS Ht: 6 ft 0 in Wt: 263lbs BSA: 2.39 BP: 134/80 mmHg Indications: SOA,CP,COPD,HTN,HLP 2D Dimensions LVOT 1.69 cm (M/F) 1.5-2.5 M-Mode Dimensions RVDd 3.14 cm (0.9-2.6) LA Diam 3.43 cm (1.9-4.0) LVDd 5.55 cm (3.5-5.7) Ao Diam 3.35 cm (2.0-3.7) LVDs 3.38 cm (3.5-5.7) IVSd 0.64 cm (0.6-1.1) PWd 0.72 cm (0.6-1.1) EF (Teich) 68.90% FS 39.10% EDV (Teich) 150.50 mL ESV (Teich) 46.80 mL LV Diastology E Decel Time 223.00 (160-240 msec) E/A Ratio 1.2 MED E' 7.00 (< 7 cm/sec) E'/MED E' Ratio 10.04 (>14) LAT E' 9.40 (<10 cm/sec) E/LAT E' Ratio 7.48 (>14) Mitral Valve MV E Max Chris. 70.00 (40-130 cm/s) MV A Velocity 57.00 (40-130 cm/s) E/A Ratio 1.22 MV Decel. Time 223.00 (160-240 ms) MV PHT 65.00 ms Left Ventricle The left ventricle is normal size. The left ventricular systolic function is normal. The left ventricular ejection fraction is within the normal range. There is normal left ventricular wall thickness. There is normal LV segmental wall motion. The left ventricular diastolic function is normal. LVEF is 60%. Right Ventricle The right ventricle is normal size. The right ventricular systolic function is normal. Atria The left atrium size is normal. The right atrium size is normal. There is no Doppler evidence of interatrial shunt. Aortic Valve The aortic valve opens well. There is no aortic valvular stenosis. No aortic regurgitation is present. Mitral Valve The mitral valve is normal in structure. No evidence of mitral valve stenosis. Mild mitral regurgitation. Tricuspid Valve The tricuspid valve leaflets are thin and pliable. Trace tricuspid regurgitation. RVSP is normal. Pulmonic Valve The pulmonary valve is normal in structure. Trace pulmonic regurgitation. Great Vessels The aortic root is normal in size. The ascending aorta is not well visualized. IVC is normal in size and collapses >50% with inspiration. Pericardium There is no pericardial effusion. Other Information Study Quality: Adequate Conclusion Normal biventricular systolic function. No significant valvular disease. Electronically signed by : Lucy Neal, 01/24/2023 14:15:42
== END ==
PROVIDERS: PCP Nurse Practitioner Family; Visit Provider Nurse Practitioner
DX: R06.00 Dyspnea, unspecified (principal); I10 Essential (primary) hypertension; E78.5 Hyperlipidemia, unspecified; I73.9 Peripheral vascular disease, unspecified; M79.604 Pain in right leg
CPT/HCPCS: 93306; 93923

== ENCOUNTER → 2023-02-11 10:39 | Outpatient (CLI) | payer OTHER, SELFPAY ==
[2023-02-11 11:18] LABS: Basophils # 0.1 K/mm3 (0-0.2); Basophils % 0.7 % (0.1-2.0); Eosinophils # 0.2 K/mm3 (0.0-0.4); Eosinophils % 3.1 % (0.1-12.0); Hematocrit 44.4 % (42.0-52.0); Hemoglobin 14.8 g/dL (14.1-18.0); Lymphocytes # 1.8 K/mm3 (0.7-4.5); Lymphocytes % 25.1 % (10-50); Mean Corpuscular HGB Conc 33.3 g/dL (31.8-35.4); Mean Corpuscular Hemoglobin 30.2 pg (27.0-31.2); Mean Corpuscular Volume 90.8 fl (80-94); Mean Platelet Volume 9.5 fl (7.4-10.4); Monocytes # 0.7 K/mm3 (0.1-1.0); Monocytes % 9.5 % (1.7-9.3); Neutrophils # 4.5 K/mm3 (1.8-7.8); Neutrophils % 61.7 % (37.0-80.0); Platelet Count 172 K/mm3 (142-424); Red Blood Count 4.89 M/mm3 (4.60-6.20); Red Cell Distribution Width 13.3 % (11.5-17.5); White Blood Count 7.2 K/mm3 (4.8-10.8)
[2023-02-11 11:30] LABS: Alanine Aminotransferase 45 U/L (12-78); Albumin Level 4.2 g/dl (3.5-5.0); Alkaline Phosphatase 121 U/L (38-126); Aspartate Amino Transferase 33 U/L (17-59); Blood Urea Nitrogen 23 mg/dl (9-20); Calcium 9.2 mg/dl (8.4-10.2); Carbon Dioxide 29 mmol/L (22.0-30.0); Chloride 105 mmol/L (98-107); Chol/HDL Ratio 5.3 (1-3.5); Cholesterol 137 mg/dl (140-200); Estimated Glomerular Filt Rate 70 ml/min (>60); GFR (African American) 85 ML/MIN (>60); Glucose 103 mg/dl (74-100); HDL Cholesterol 26 mg/dl (40-60); Magnesium 1.8 mg/dl (1.6-2.3); Sodium 142 mmol/L (136-145); Total Protein,Serum 7.3 g/dl (6.3-8.2); Triglycerides 205 mg/dl (30-150); VLDL Cholesterol 41 mg/dL (0-40)
[2023-02-11 11:40] LABS: Direct LDL Cholesterol 80.55 mg/dL (100-129)
[2023-02-11 12:00] LABS: Thyroid Stimulating Hormone 1.56 uIU/mL (0.465-4.68)
[2023-02-11 12:36] LABS: Bilirubin,Direct 0.1 mg/dl (0.0-0.4); Bilirubin,Indirect 0.5 mg/dL (0.0-0.9); Bilirubin,Unconjugated 0.5 mg/dL (0.0-1.1)
[2023-02-11 12:37] LABS: Bilirubin,Total 0.6 mg/dl (0.2-1.3)
[2023-02-11 12:53] LABS: Free T4 (Free Thyroxine) 0.81 ng/dl (0.78-2.19)
== END ==
PROVIDERS: PCP Physician Assistant; Visit Provider Nurse Practitioner
DX: R06.00 Dyspnea, unspecified (principal); R07.9 Chest pain, unspecified; I10 Essential (primary) hypertension; E78.5 Hyperlipidemia, unspecified
CPT/HCPCS: 36415; 80048; 80061; 80076; 83735; 84439; 84443; 85025

== ENCOUNTER → 2023-03-25 10:12 | Outpatient (CLI) | payer OTHER, SELFPAY ==
--- NOTE | 2023-03-25 10:16 | XR_ITS ---
FINAL REPORT CLINICAL HISTORY: ex smoker, chest pain COMPARISON: 11/18/2019 FINDINGS: Two views of the chest were obtained. The heart size and pulmonary vascularity are within normal limits. The mediastinum is normal. Mild bibasilar opacities are consistent with atelectasis or scarring. There is no pneumothorax. The bony thorax is intact. IMPRESSION: Mild bibasilar opacities consistent with atelectasis or scarring. Reviewed, Interpreted and Dictated by Otilio Paiz III, MD Transcribed by Rubina Armendariz Authenticated and [facility]
== END ==
PROVIDERS: PCP Physician Assistant; Visit Provider Physician Assistant
DX: R07.9 Chest pain, unspecified (principal); Z87.891 Personal history of nicotine dependence
CPT/HCPCS: 71046

== ENCOUNTER → 2023-04-09 12:07 | Outpatient (CLI) | payer OTHER, SELFPAY ==
[2023-04-09] VITALS (11 sets, daily range): BP systolic 128–156; BP diastolic 75–97; PULSE 56–75; RESP 16–18; TEMP 36.5; O2SAT 97–99; BMI 34.8
--- NOTE | 2023-04-09 12:07 | CT_ITS ---
APPROVED REPORT Glass Vial Bending Conveyor Feeder: CLINICAL INDICATION Chest Pain TECHNIQUE Image Acquisition: A 128 slice MDCT scanner (First Solara View) was used for data acquisition. A noncontrast coronary calcium scan was performed. A CT attenuation threshold of 130 Hounsfield units (HU) was used for the detection of calcium in contiguous voxels of 1 sq mm in area to be counted as individual lesions. Bolus tracking in the ascending aorta with a threshold of 180 HU was performed. Immediately afterwards, ECG synchronized cardiac CT was then performed from the cardiac base to apex using retrospective gating with ECG tube current modulation. A total of 85 mL of Isovue 370 mg/mL contrast medium was administered at 5 mL/sec followed by a saline flush using a biphasic injection protocol. A tube voltage of 120 KVp was used. The patient received the following medications prior to the cardiac CT. 100 mg of oral metoprolol 25 mg of intravenous metoprolol 0.8 mg of sublingual nitroglycerin The average heart rate at the time of acquisition was 64 bpm and regular. Image Reconstruction Transaxial images were reconstructed at 0.67 mm slide thickness. Data was reviewed interactively on an advanced workstation capable of 2 and 3-dimensional displays in all conventional reconstruction formats, including multiplanar reformations, maximum intensity projections, curved multiplanar reformations, and volume rendered reconstructions. When applicable, selected routine images describing the relevant coronary anatomy and pathology were saved and sent to PACS. Complications None Technical Quality Overall image quality was fair. Coronary artery opacification was fair. Total DLP (Dose-Length Product) is 1449.4 mGy-cm. The reported value represents the total of one or more individual components during the CT acquisition of this date and at this time, and as such, the same value may appear in more than one CT report depending on the interpreting/reporting physicians. COMPARISON None FINDINGS CT Coronary Calcium Scoring LMA (Left Main Artery) = 0 LAD (Left Anterior Descending) = 89 LCX (Left Coronary Circumflex) = 0 RCA (Right Coronary Artery) = 12 Total Calcium Score = 101 using the AJ-130 method. The observed calcium score of 101 is at 82nd percentile for subjects of the same age, sex, and race/ethnicity. The interpretation of the calcium heart score is based on the following continuum*: 0 = no calcified plaque detected (risk of coronary artery disease is very low ??? less than 5%) 1-10 = calcium detected in extremely minimal levels (risk of coronary diseases is still low ??? less than 10%) 11-100 = mild levels of plaque detected with certainty (mild or minimal narrowing of heart arteries is likely) 101-400 = definite,at least moderate levels of plaque detected (relatively high risk of a heart attack within 3-5 years) >401-999 = extensive levels of plaque detected (high risk of heart attack, high levels of vascular disease are present, high likelihood of at least one significant coronary narrowing) *The calcium heart score quantifies the burden of coronary calcification/plaque in the coronary arteries. The calcium heart score is not able to evaluate the presence or burden of non-calcified (i.e. soft) plaque. There is no identifiable calcification in the aortic valve, mitral annulus or mitral valve, pericardium, or myocardium. Coronary CT Angiography Coronaries have normal origin and proximal course. The coronary arterial system is right dominant. Note: Stenosis is reported as maximum percentage diameter stenosis. Quantitative Stenosis Grading: Left Main (LM): The left main originates normally from the left sinus of Valsalva. The LM bifurcates into the le
[2023-04-09 12:42] LABS: Blood Urea Nitrogen 17 mg/dl (9-20); Creatinine Clearance Estimated 139 mL/min (50-200); Estimated Glomerular Filt Rate 78 ml/min (>60); GFR (African American) 94 ML/MIN (>60)
[2023-04-09 12:52] LABS: Chloride 103 mmol/L (98-107)
[2023-04-09 12:53] LABS: Potassium 3.6 mmoL/L (3.5-5.1); Sodium 139 mmol/L (136-145)
[2023-04-09 12:56] LABS: Anion Gap 11.6 mEq/L (5-15); Blood Urea Nitrogen 18 mg/dl (9-20); Calcium 8.5 mg/dl (8.4-10.2); Carbon Dioxide 28 mmol/L (22.0-30.0); Creatinine Clearance Estimated 139 mL/min (50-200); Estimated Glomerular Filt Rate 78 ml/min (>60); GFR (African American) 94 ML/MIN (>60); Glucose 107 mg/dl (74-100)
== END | disposition home or self-care (01) ==
PROVIDERS: Internal Medicine; PCP Physician Assistant; Visit Provider Physician Assistant
DX: R06.00 Dyspnea, unspecified (principal); R07.9 Chest pain, unspecified; I25.10 Atherosclerotic heart disease of native coronary artery without angina pectoris; I10 Essential (primary) hypertension; E78.5 Hyperlipidemia, unspecified; J44.9 Chronic obstructive pulmonary disease, unspecified
CPT/HCPCS: 36415; 75574; 80048; 82565; 84520; Q9967

== ENCOUNTER 2023-04-09 18:09 | Emergency (ER) | payer OTHER, SELFPAY ==
[2023-04-09 18:10] VITALS: BP 117/75; PULSE 62; RESP 16; TEMP 36.7; O2SAT 96; BMI 35.5
--- NOTE | 2023-04-09 18:25 | CT_ITS ---
PROCEDURE INFORMATION: Exam: CT Abdomen And Pelvis With Contrast Exam date and time: 04/09/2023 6:54 PM Age: 53 years old Clinical indication: Abdominal pain; Localized; Lower; Additional info: Sudden severe lower abdominal pain TECHNIQUE: Imaging protocol: Computed tomography of the abdomen and pelvis with contrast. Radiation optimization: All CT scans at this facility use at least one of these dose optimization techniques: automated exposure control; mA and/or kV adjustment per patient size (includes targeted exams where dose is matched to clinical indication); or iterative reconstruction. Contrast material: ISOVUE; Contrast volume: 75 ml; Contrast route: IV; REPORTING DATA: Count of CT and Cardiac NM exams in prior 12 months: This patient has received [address] and 0 known cardiac nuclear medicine studies in the 12 months prior to the current study. COMPARISON: CR XR LUMBAR SPINE 2-3V 12/06/2020 7:12 PM FINDINGS: Lungs: Lung bases are clear. Liver: Normal. No mass. Gallbladder and bile ducts: Normal. No calcified stones. No ductal dilation. Pancreas: Normal. No ductal dilation. Spleen: Normal. No splenomegaly. Adrenal glands: Normal. No mass. Kidneys and ureters: Multifocal areas of hyperenhancement scattered throughout both kidneys in a symmetric fashion noted. Contrast noted in the renal collecting systems and ureters and bladder from earlier contrast enhanced CT coronary study. No evidence of hydroureteronephrosis. Stomach and bowel: Mild thickened appearance of the lower rectum slightly more pronounced on the left side noted. GI tract structures otherwise unremarkable with no evident wall thickening allowing for incomplete distention. Appendix: Appendix is normal. No evidence of appendicitis. Intraperitoneal space: Unremarkable. No free air. No significant fluid collection. Vasculature: Unremarkable. No abdominal aortic aneurysm. Lymph nodes: Multiple mildly enlarged bilateral inguinal lymph nodes. Urinary bladder: See Kidneys and ureters finding. Reproductive: Unremarkable as visualized. Bones/joints: Unremarkable. No acute fracture. Soft tissues: Unremarkable. IMPRESSION: 1. Bilateral multifocal patchy wedge-shaped enhancement of the kidneys. This might be related to patchy vaso constriction of the small renal arteries and associated with acute renal failure that may be related to analgesics, rhabdomyolysis, and hypotension. 2. Thickened appearance of the lower rectum. This may be artifactual from nondistention but developing pathology including potential tumor can not be completely excluded. Correlation with physical exam or direct visualization should be considered. 3. Mild bilateral inguinal lymphadenopathy.
--- NOTE | 2023-04-09 18:26 | HMH.EDGENADL ---
Discharge Plan Disposition Patient Disposition: Home, Self-Care Prescriptions Prescriptions: No Action albuterol sulfate 90 mcg/actuation HFA aerosol inhaler 2 inh IH Q6H PRN (Reason: shortness of breath or wheezing) 90 Days Qty: 8.5 3RF aspirin [Adult Low Dose Aspirin] 81 mg tablet,delayed release (DR/EC) 81 mg PO DAILY Qty: 30 5RF hydroxychloroquine 200 mg tablet 200 mg PO DAILY spironolactone [Aldactone] 25 mg tablet 25 mg PO DAILY Qty: 30 2RF diclofenac sodium [Voltaren Arthritis Pain] 1 % gel 2 g topical QID Qty: 100 2RF Rx Instructions: apply to single elbow, wrist or hand; for hand includes palm/fingers/back of hand montelukast 10 mg tablet 10 mg PO DAILY 90 Days Qty: 90 3RF fluticasone propionate [Flonase Allergy Relief] 50 mcg/actuation spray,suspension 1 spray intranasal DAILY 90 Days Qty: 16 3RF Rx Instructions: administer into each nostril Trelegy Ellipta 200-62.5-25 mcg blister with device 1 inh inhalation DAILY 90 Days Qty: 90 3RF metoprolol succinate [Toprol XL] 100 mg tablet extended release 24 hr 100 mg PO DAILY Qty: 90 3RF atorvastatin 40 mg tablet See Rx Instructions .ROUTE .COMPLEX Qty: 90 2RF Dose Instruction: TAKE ONE TABLET BY MOUTH EVERY DAY Rx Instructions: TAKE ONE TABLET BY MOUTH EVERY DAY ergocalciferol (vitamin D2) 1,250 mcg (50,000 unit) capsule 1,250 mcg PO WEEKLY Qty: 14 3RF cholecalciferol (vitamin D3) 50 mcg (2,000 unit) capsule 50 mcg PO DAILY Qty: 90 3RF hydrochlorothiazide 25 mg tablet See Rx Instructions .ROUTE .COMPLEX Qty: 90 1RF Dose Instruction: TAKE ONE TABLET BY MOUTH EVERY DAY Rx Instructions: TAKE ONE TABLET BY MOUTH EVERY DAY losartan 100 mg tablet See Rx Instructions .ROUTE .COMPLEX Qty: 90 4RF Dose Instruction: TAKE 1 TABLET BY MOUTH ONCE DAILY Rx Instructions: TAKE 1 TABLET BY MOUTH ONCE DAILY venlafaxine 75 mg capsule,extended release 24hr See Rx Instructions .ROUTE .COMPLEX Qty: 90 2RF Dose Instruction: TAKE 1 CAPSULE BY MOUTH ONCE DAILY Rx Instructions: TAKE 1 CAPSULE BY MOUTH ONCE DAILY omeprazole 40 mg capsule,delayed release(DR/EC) See Rx Instructions .ROUTE .COMPLEX Qty: 90 0RF Dose Instruction: TAKE 1 CAPSULE BY MOUTH ONCE DAILY Rx Instructions: TAKE 1 CAPSULE BY MOUTH ONCE DAILY Referrals Follow up/Referrals: Mary Mckeon PA [Primary Care Provider] - See instructions Jones Odell MD [Staff Physician] - See instructions (for outpatient colonoscopy ) Activity Restrictions/Add. Instructions Additional Instructions/Restrictions: No radiographic evidence for the cause of your sudden lower abdominal pain which is since resolved. He did have thickened rectum and some inguinal lymphadenopathy which are nonspecific but I would recommend an outpatient evaluation by a surgeon or mental health counselor to get a colonoscopy. Return with any worsening symptoms. Clinical Impressions Clinical Impression: Abdominal pain, lower Instructions Patient Instructions: DI for Acute Abdominal Pain Discharge ED Provider: Nuzhat Tam General Adult HPI General Chief complaint: Abdominal Pain Stated complaint: nausea Time Seen by Provider: 04/09/23 18:14 Mode of Arrival: Ambulatory Source of Information: Patient Limitations: No Limitations Description of Symptoms (Recalled from ER Triage Doc. by RN): pt states had a cornoary Ct done today and now it having nauesa and lower abd pain. History of Present Illness HPI narrative: Patient is a 53-year-old male presenting with sudden severe lower abdominal discomfort that has significantly improved but is not completely resolved itself. States that he had a coronary CT done around 1:00 earlier today had 3 to 4 hours of feeling well but 45 minutes prior to arrival had sudden severe pain as described above. No testicular pain. No changes in bowel movements. N
[2023-04-09 18:30] VITALS: BP 96/75; PULSE 68; O2SAT 95
--- NOTE | 2023-04-09 18:34 | PC.NURSE ---
Pt ambulatory to bathroom. No other needs voiced. Call light within reach.
--- NOTE | 2023-04-09 18:46 | PC.NURSE ---
Pt gone to RAD via wheelchair
--- NOTE | 2023-04-09 18:58 | PC.NURSE ---
Pt returned from RAD
[2023-04-09 19:00] VITALS: BP 127/75; PULSE 82; RESP 20; O2SAT 98
[2023-04-09 19:05] LABS: Chloride 103 mmol/L (98-107); Potassium 3.6 mmoL/L (3.5-5.1); Sodium 140 mmol/L (136-145)
[2023-04-09 19:08] LABS: Alanine Aminotransferase 58 U/L (12-78); Albumin Level 4.5 g/dl (3.5-5.0); Albumin/Globulin Ratio 1.5 (1.1-1.8); Alkaline Phosphatase 96 U/L (38-126); Anion Gap 12.6 mEq/L (5-15); Aspartate Amino Transferase 44 U/L (17-59); Bilirubin,Total 0.5 mg/dl (0.2-1.3); Blood Urea Nitrogen 17 mg/dl (9-20); Calcium 8.6 mg/dl (8.4-10.2); Carbon Dioxide 28 mmol/L (22.0-30.0); Creatinine Clearance Estimated 142 mL/min (50-200); Estimated Glomerular Filt Rate 78 ml/min (>60); GFR (African American) 94 ML/MIN (>60); Globulin 3.1 g/dL (1.3-3.2); Glucose 130 mg/dl (74-100); Lipase 91 U/L (23-300); Total Protein,Serum 7.6 g/dl (6.3-8.2)
[2023-04-09 19:13] LABS: Basophils # 0.1 K/mm3 (0-0.2); Basophils % 0.7 % (0.1-2.0); Eosinophils # 0.3 K/mm3 (0.0-0.4); Eosinophils % 3.3 % (0.1-12.0); Hematocrit 44.4 % (42.0-52.0); Hemoglobin 15.6 g/dL (14.1-18.0); Lymphocytes # 1.9 K/mm3 (0.7-4.5); Lymphocytes % 19.5 % (10-50); Mean Corpuscular HGB Conc 35.1 g/dL (31.8-35.4); Mean Corpuscular Hemoglobin 31.8 pg (27.0-31.2); Mean Corpuscular Volume 90.7 fl (80-94); Mean Platelet Volume 9.4 fl (7.4-10.4); Monocytes # 0.9 K/mm3 (0.1-1.0); Monocytes % 9.4 % (1.7-9.3); Neutrophils # 6.7 K/mm3 (1.8-7.8); Platelet Count 184 K/mm3 (142-424); Red Blood Count 4.89 M/mm3 (4.60-6.20); Red Cell Distribution Width 13.2 % (11.5-17.5); White Blood Count 9.9 K/mm3 (4.8-10.8)
[2023-04-09 19:30] VITALS: BP 125/72; PULSE 74; RESP 18; O2SAT 97
[2023-04-09 20:00] VITALS: BP 117/73; PULSE 70; RESP 18; O2SAT 95
[2023-04-09 20:26] LABS: Microscopic, Urine URINE MICROSCOPIC (MICROSCOPIC)
[2023-04-09 20:27] LABS: Appearance,Urine CLEAR (Clear); Bilirubin,Urine Negative (Negative); Blood, Urine Negative (Negative); Color,Urine YELLOW (Yellow); Glucose,Urine (UA) Negative (Negative); Ketones,Urine Negative (Negative); Leukocyte Esterase,Urine Negative (Negative); Nitrate,Urine Negative (Negative); Protein,Urine Negative (Negative); Specific Gravity, Urine <= 1.005 (1.005-1.030); Urobilinogen,Urine 0.2 EU/dl (0.2)
[2023-04-09 20:51] VITALS: BP 115/73; PULSE 67; RESP 18; TEMP 36.7; O2SAT 95
== END 2023-04-09 20:52 | disposition home or self-care (01) ==
PROVIDERS: Emergency Provider Student in an Organized Health Care Education/Training Program; PCP Physician Assistant
DX: R10.30 Lower abdominal pain, unspecified (principal); J44.9 Chronic obstructive pulmonary disease, unspecified; I10 Essential (primary) hypertension; E78.5 Hyperlipidemia, unspecified; Z87.891 Personal history of nicotine dependence
CPT/HCPCS: 74177; 80053; 81001; 83690; 85025; 96361; 96374; 99284; J2405; Q9967

== ENCOUNTER → 2023-06-11 10:10 | Outpatient (CLI) | payer OTHER, SELFPAY ==
[2023-06-11] MEDS: ALBUTEROL 0.083% 2.5 MG/3 ML NEB IH (10:35)
== END ==
LOC: RT 10:10
PROVIDERS: PCP Physician Assistant; Visit Provider Internal Medicine Pulmonary Disease
DX: R06.02 Shortness of breath (principal)
CPT/HCPCS: 94060; 94618

== ENCOUNTER 2023-06-25 10:22 | Outpatient (CLI) | payer OTHER, SELFPAY | END 2023-06-25 23:59 | LOC: RT 10:24 | PROVIDERS: PCP Nurse Practitioner Family; Visit Provider Nurse Practitioner Family | DX: R42 Dizziness and giddiness (principal) | CPT/HCPCS: 93225 ==

== ENCOUNTER 2023-09-29 16:34 | Emergency (ER) | payer OTHER, SELFPAY ==
[2023-09-29 16:45] VITALS: BP 153/92; PULSE 98; RESP 18; TEMP 36.9; O2SAT 99; BMI 33.9
--- NOTE | 2023-09-29 16:49 | EXP.UTC ---
Discharge Plan Disposition Patient Disposition: Home, Self-Care Condition: Good Prescriptions Prescriptions: New prednisone 20 mg tablet 20 mg PO BID 3 Days Qty: 6 0RF amoxicillin 875 mg tablet 875 mg PO Q12H Qty: 20 0RF benzonatate 100 mg capsule 100 mg PO TIDP PRN (Reason: Cough) Qty: 30 0RF No Action albuterol sulfate 90 mcg/actuation HFA aerosol inhaler 2 inh IH Q6H PRN (Reason: shortness of breath or wheezing) 90 Days Qty: 8.5 3RF ergocalciferol (vitamin D2) 1,250 mcg (50,000 unit) capsule 1,250 mcg PO WEEKLY Qty: 14 3RF aspirin [Adult Low Dose Aspirin] 81 mg tablet,delayed release (DR/EC) 81 mg PO DAILY Qty: 30 5RF hydroxychloroquine 200 mg tablet 200 mg PO DAILY diclofenac sodium [Voltaren Arthritis Pain] 1 % gel 2 g topical QID Qty: 100 2RF Rx Instructions: apply to single elbow, wrist or hand; for hand includes palm/fingers/back of hand montelukast 10 mg tablet 10 mg PO DAILY 90 Days Qty: 90 3RF fluticasone propionate [Flonase Allergy Relief] 50 mcg/actuation spray,suspension 1 spray intranasal DAILY 90 Days Qty: 16 3RF Rx Instructions: administer into each nostril Trelegy Ellipta 200-62.5-25 mcg blister with device 1 inh inhalation DAILY 90 Days Qty: 90 3RF methotrexate sodium 2.5 mg tablet PO meclizine 25 mg tablet 25 mg PO BID PRN (Reason: dizziness) Qty: 60 0RF losartan 100 mg tablet See Rx Instructions .ROUTE .COMPLEX Qty: 90 4RF Dose Instruction: TAKE 1 TABLET BY MOUTH ONCE DAILY Rx Instructions: TAKE 1 TABLET BY MOUTH ONCE DAILY venlafaxine 75 mg capsule,extended release 24hr See Rx Instructions .ROUTE .COMPLEX Qty: 90 2RF Dose Instruction: TAKE 1 CAPSULE BY MOUTH ONCE DAILY Rx Instructions: TAKE 1 CAPSULE BY MOUTH ONCE DAILY metoprolol succinate 100 mg tablet extended release 24 hr See Rx Instructions .ROUTE .COMPLEX Qty: 90 5RF Dose Instruction: TAKE 1 TABLET BY MOUTH ONCE DAILY Rx Instructions: TAKE 1 TABLET BY MOUTH ONCE DAILY hydrochlorothiazide 25 mg tablet See Rx Instructions .ROUTE .COMPLEX Qty: 90 1RF Dose Instruction: TAKE ONE TABLET BY MOUTH EVERY DAY Rx Instructions: TAKE ONE TABLET BY MOUTH EVERY DAY spironolactone 25 mg tablet See Rx Instructions .ROUTE .COMPLEX Qty: 30 3RF Dose Instruction: TAKE 1 TABLET BY MOUTH ONCE DAILY Rx Instructions: TAKE 1 TABLET BY MOUTH ONCE DAILY cholecalciferol (vitamin D3) 50 mcg (2,000 unit) capsule See Rx Instructions .ROUTE .COMPLEX Qty: 90 2RF Dose Instruction: TAKE 1 CAPSULE BY MOUTH DAILY Rx Instructions: TAKE 1 CAPSULE BY MOUTH DAILY atorvastatin 80 mg tablet See Rx Instructions .ROUTE .COMPLEX Qty: 30 0RF Dose Instruction: TAKE 1 TABLET BY MOUTH ONCE DAILY Rx Instructions: TAKE 1 TABLET BY MOUTH ONCE DAILY omeprazole 40 mg capsule,delayed release(DR/EC) See Rx Instructions .ROUTE .COMPLEX Qty: 90 0RF Dose Instruction: TAKE 1 CAPSULE BY MOUTH ONCE DAILY Rx Instructions: TAKE 1 CAPSULE BY MOUTH ONCE DAILY Referrals Follow up/Referrals: Mary Mckeon PA [Primary Care Provider] - See instructions Activity Restrictions/Add. Instructions Additional Instructions/Restrictions: Drink plenty of fluids. Take tylenol or ibuprofen for pain or fever. Take the medications as directed. Follow up with your regular doctor. GO TO THE ER FOR ANY WORSENING SYMPTOMS Clinical Impressions Clinical Impression: Pharyngitis Instructions Patient Instructions: Sore Throat, DI for Pharyngitis/Tonsillopharyngitis -- Adult Discharge ED Provider: [place] [facility] General Stated complaint: sore/red throat Time Seen by Provider: 09/29/23 16:46 History of Present Illness Provider Complaint: He states that he has had worsening sore throat and sinus congestion for the past 2 days. Related Data Home Medications Medication Instructions Recorded Confirmed hydroxychloroquine 200 mg tablet 200 mg PO DAILY 01/07/23 09/29/23 methotrexate sodium 2.5 mg tablet mg PO 06/25/23 06/25/23 Previous Rx's Medication Instructions Recorded aspirin 81 mg tablet,delayed 81 mg PO DAILY #30 tabs 03/15/19 release (Adult Low Dose Aspirin) albuterol sulfate 90 mcg/actuation 2 inh inhalation Q6H PRN shortness 12/18/21 aerosol inhaler of breath or wheezing 90 days #8.5 grams diclofenac sodium 1 % topical gel 2 g topical QID #100 grams 07/23/22 (Voltaren Arthritis Pain) fluticasone fur. 200 mcg-umeclid 1 inh inhalation DAILY 90 days #90 10/29/22 62.5 mcg-vilant 25 mcg ea inhalat.powder (Trelegy Ellipta) fluticasone propionate 50 1 spray intranasal DAILY 90 days 10/29/22 mcg/actuation nasal #16 grams spray,suspension (Flonase Allergy Relief) montelukast 10 mg tablet 10 mg PO DAILY 90 days #90 tabs 10/29/22 losartan 100 mg tablet See Rx Instructions .Route 12/17/22 .COMPLEX #90 tabs venlafaxine 75 mg capsule,extended See Rx Instructions .Route 03/19/23 release 24 hr .COMPLEX #90 caps ergocalciferol (vitamin D2) 1,250 1,250 mcg PO WEEKLY #14 caps 05/19/23 mcg (50,000 unit) capsule metoprolol succinate 100 mg See Rx Instructions .Route 06/22/23 tablet,extended release 24 hr .COMPLEX #90 tabs meclizine 25 mg tablet 25 mg PO BID PRN dizziness #60 tabs 06/25/23 hydrochlorothiazide 25 mg tablet See Rx Instructions .Route 06/29/23 .COMPLEX #90 tabs spironolactone 25 mg tablet See Rx Instructions .Route 08/18/23 .COMPLEX #30 tabs cholecalciferol (vitamin D3) 50 See Rx Instructions .Route 08/19/23 mcg (2,000 unit) capsule .COMPLEX #90 caps atorvastatin 80 mg tablet See Rx Instructions .Route 09/15/23 .COMPLEX #30 tabs omeprazole 40 mg capsule,delayed See Rx Instructions .Route 09/18/23 release .COMPLEX #90 caps amoxicillin 875 mg tablet 875 mg PO Q12H #20 tabs 09/29/23 benzonatate 100 mg capsule 100 mg PO TIDP PRN Cough #30 caps 09/29/23 prednisone 20 mg tablet 20 mg PO BID 3 days #6 tabs 09/29/23 Allergies Allergy/AdvReac Type Severity Reaction Status Date / Time No Known Allergies Allergy Verified 09/29/23 16:58 [facility] Disclaimer: The information contained in this section may have been updated after the patient was seen, as this information can be updated by other users. Medical History Allergic rhinitis Anxiety and depression Asthma Claudication of lower extremity COPD mixed type Daytime somnolence Diastolic dysfunction Dyspnea on exertion Encounter for screening for malignant neoplasm of lung in current smoker with 30 pack year history or greater HLD (hyperlipidemia) [place] last lipid panel was done in January. This showed an elevated triglyceride level and a low HDL however total cholesterol and LDL were excellent. I think increasing his atorvastatin would be helpful for him. Additionally 3 6 omega fatty acids would be another option. They opted for the atorvastatin. HTN (hypertension) Blood pressure was 128/78 today. [place] blood pressure appears to be well controlled. Leg pain, right Mediastinal lymphadenopathy Multiple lung nodules on CT Positive sm/[employer] antibody Pulmonary fibrosis, unspecified Restrictive lung disease Snoring Stopped smoking with greater than 30 pack year history Surgical History No history of previous surgery Family History Other Diabetes Emphysema of lung Hypertension Social History Smoking Status: Former smoker tobacco type: cigarettes packs per day: 1 alcohol intake: never substance use type: denies use current occupational status: employed and other Travel in the last 8 weeks: None household members: spouse housing: house ROS Obtained: Yes All systems reviewed & no additional complaints except as documented Constitutional Constitutional: Reports chills and Reports fever(s) Eyes Eyes: Denies eye discharge ENT Ears, Nose, Mouth, and Throat: Reports as per HPI Cardiovascular Cardiovascular: Denies chest pain Respiratory Respiratory: Denies chest congestion and Reports cough Gastrointestinal Gastrointestingal: Reports nausea; Denies abdominal pain, constipation, cramping, diarrhea or vomiting Musculoskeletal Musculoskeletal: Denies arthralgias Integumentary/Breasts Skin/Breast: Denies rash Neurologic Neurologic: Denies paresthesias Physical Exam General General appearance: alert and in no apparent distress Head Head exam: atraumatic, normocephalic and normal inspection Eye Eye exam: Present normal appearance, PERRL and EOMI ENT ENT exam: Present mucous membranes moist and normal external ear exam Expanded ENT Exam TM/Canal exam: Bilateral TM: erythema and bulging Nose exam: Absent sinus tenderness Mouth exam: Present normal external inspection; Absent drooling Teeth exam: Present normal inspection Throat exam: Present tonsillar erythema, tonsillomegaly and tonsillar exudate Neck Neck exam: Present normal inspection, full ROM and trachea midline; Absent tenderness, meningismus or lymphadenopathy Chest Chest inspection: Present normal inspection and symmetric chest wall rise; Absent tenderness Respiratory Respiratory exam: Present normal lung sounds bilaterally; Absent respiratory distress, wheezes, stridor or accessory muscle use Cardiovascular Cardiovascular exam: Present regular rate and normal rhythm; Absent systolic murmur or diastolic murmur Abdominal Exam Abdominal exam: Present soft and normal bowel sounds; Absent distention, tenderness, guarding, rebound or rigidity Extremities Exam Extremities exam: Present normal inspection and normal capillary refill; Absent calf tenderness Back Exam Back exam: Present normal inspection and full ROM; Absent tenderness, CVA tenderness (R) or CVA tenderness (L) Neurological Exam Neurological exam: Present alert, oriented X3 and CN II-XII intact Psychiatric Psychiatric exam: Present normal affect and normal mood Skin Skin exam: Present warm, dry, intact and normal color Medical Decision Making Medical Records Medical records reviewed: No I reviewed the patient's medical records. Nikolai Inquiry Pt receiving controlled substance: No Lab Data Lab results reviewed: Yes I reviewed the patient's lab results.
[2023-09-29 17:05] LABS: UTC Strep Screen (Rapid) Negative (Negative)
[2023-09-29 17:18] VITALS: BP 153/92; PULSE 93; RESP 18; TEMP 36.9; O2SAT 99
== END 2023-09-29 17:18 | disposition home or self-care (01) ==
PROVIDERS: Emergency Provider Nurse Practitioner Family; PCP Physician Assistant
DX: J02.9 Acute pharyngitis, unspecified (principal); R09.81 Nasal congestion; J44.9 Chronic obstructive pulmonary disease, unspecified; E78.5 Hyperlipidemia, unspecified; I10 Essential (primary) hypertension; J84.10 Pulmonary fibrosis, unspecified; Z87.891 Personal history of nicotine dependence
CPT/HCPCS: 87880; 99212; 99214; G0463

== ENCOUNTER 2023-12-03 15:32 | Outpatient (CLI) | payer OTHER, SELFPAY ==
--- NOTE | 2023-12-03 15:32 | CT_ITS ---
FINAL REPORT CLINICAL HISTORY: lung cancer screening, 28-aeye-ijlg history, quit 5 years ago COMPARISON: 11/28/2022 FINDINGS: CTDI vol (mGy): 2.90 DLP: 124.[address] images of the chest were obtained using the low-dose protocol for screening. There is no evidence of mediastinal or hilar mass or adenopathy. No axillary mass or adenopathy is identified. On the lung window images, no pulmonary mass or suspicious nodule is identified. There is mild right middle lobe and lingular scarring. IMPRESSION: Lung RADS category 1 . Recommend 12 month followup low-dose CT for further evaluation. Reviewed, Interpreted and Dictated by Paramjit Gill MD Transcribed by Maria Luisa Phan Authenticated and [facility] [place] [place]
== END 2023-12-03 23:59 | disposition home or self-care (01) ==
LOC: RAD 15:32
PROVIDERS: PCP Internal Medicine; Visit Provider Internal Medicine Pulmonary Disease
DX: F17.210 Nicotine dependence, cigarettes, uncomplicated (principal)
CPT/HCPCS: 71271

== ENCOUNTER 2024-01-11 16:27 | Outpatient (CLI) | payer OTHER, SELFPAY ==
[2024-01-11 19:14] LABS: Alanine Aminotransferase 50 U/L (12-78); Albumin Level 4.6 g/dl (3.5-5.0); Albumin/Globulin Ratio 1.4 (1.1-1.8); Alkaline Phosphatase 111 U/L (38-126); Anion Gap 12.8 mEq/L (5-15); Aspartate Amino Transferase 36 U/L (17-59); Bilirubin,Total 0.8 mg/dl (0.2-1.3); Blood Urea Nitrogen 18 mg/dl (9-20); Calcium 9.7 mg/dl (8.4-10.2); Carbon Dioxide 30 mmol/L (22.0-30.0); Chloride 99 mmol/L (98-107); Estimated Glomerular Filt Rate 101 ml/min (>60); GFR (African American) 122 ML/MIN (>60); Globulin 3.4 g/dL (1.3-3.2); Glucose 92 mg/dl (74-100); Potassium 3.8 mmoL/L (3.5-5.1); Sodium 138 mmol/L (136-145)
[2024-01-11 19:16] LABS: Basophils # 0.1 K/mm3 (0-0.2); Basophils % 0.7 % (0.1-2.0); Eosinophils # 0.1 K/mm3 (0.0-0.4); Eosinophils % 0.4 % (0.1-12.0); Hematocrit 47.6 % (42.0-52.0); Hemoglobin 15.9 g/dL (14.1-18.0); Lymphocytes # 1.3 K/mm3 (0.7-4.5); Lymphocytes % 7.9 % (10-50); Mean Corpuscular HGB Conc 33.4 g/dL (31.8-35.4); Mean Corpuscular Hemoglobin 31.7 pg (27.0-31.2); Mean Corpuscular Volume 94.9 fl (80-94); Monocytes # 1.5 K/mm3 (0.1-1.0); Monocytes % 9.6 % (1.7-9.3); Neutrophils # 12.9 K/mm3 (1.8-7.8); Neutrophils % 81.3 % (37.0-80.0); Platelet Count 209 K/mm3 (142-424); Red Blood Count 5.02 M/mm3 (4.60-6.20); Red Cell Distribution Width 13.4 % (11.5-17.5); White Blood Count 15.9 K/mm3 (4.8-10.8)
[2024-01-11 19:20] LABS: MANUAL DIFFERENTIAL MANUAL DIFFERENTIAL (MANUAL DIFF)
[2024-01-11 20:22] LABS: Lymphocytes % 17 % (10-50); Monocytes % 3 % (2-9); Neutrophils % 80 % (42-76); Total Cells Counted 100
[2024-01-11 20:24] LABS: Acanthocytes 1+; Platelet Estimate Normal
[2024-01-12 10:04] LABS: HIV (1&2) Antibody Rapid NONREACTIVE (NONREACTIVE)
[2024-01-13 08:48] LABS: HCV Ab Non Reactive (Non Reactive)
== END 2024-01-11 23:59 | disposition home or self-care (01) ==
LOC: LAB.DROPOF 01-12 16:28
PROVIDERS: PCP Family Medicine; Visit Provider Family Medicine
DX: N39.0 Urinary tract infection, site not specified (principal); R31.9 Hematuria, unspecified
CPT/HCPCS: 86803; 86703; 80053; 85007; 85025; 85027; 87086; 87088; 87186; G0103

== ENCOUNTER 2024-01-18 13:08 | Outpatient (CLI) | payer OTHER, SELFPAY ==
--- NOTE | 2024-01-18 13:09 | US_ITS ---
FINAL REPORT CLINICAL HISTORY: .hematuria-- pain with urination COMPARISON: None FINDINGS: RENAL ULTRASOUND Ultrasound images of the kidneys were obtained. The right kidney measures 10.2 cm in length. It is normal echogenicity. There is no hydronephrosis. The left kidney measures 11.5 cm in length. It is normal echogenicity. There is no hydronephrosis. IMPRESSION: Normal renal ultrasound. Reviewed, Interpreted and Dictated by Otilio Paiz III, MD Transcribed by Rubina Armendariz Authenticated and [facility]
--- NOTE | 2024-01-18 13:18 | US_ITS ---
FINAL REPORT CLINICAL HISTORY: blood in urine COMPARISON: None FINDINGS: ULTRASOUND BLADDER WITH POST VOID RESIDUAL Bladder volumes were estimated based on 3 dimensional measurements, pre- and postvoid. Prevoid bladder volume: 115 mls Postvoid bladder volume: 49 mls There is mild bladder wall thickening which may be inflammatory. Soft tissue at the base of the bladder is of uncertain etiology. It is uncertain if this represents a portion of the prostate or other mass. IMPRESSION: Estimated bladder volumes as above with small postvoid residual . Soft tissue at the base of the bladder as above. Reviewed, Interpreted and Dictated by Otilio Paiz III, MD Transcribed by Rubina Armendariz Authenticated and [facility]
== END 2024-01-18 23:59 | disposition home or self-care (01) ==
LOC: RAD 13:09
PROVIDERS: Visit Provider Family Medicine
DX: R30.9 Painful micturition, unspecified (principal); R35.0 Frequency of micturition; R31.9 Hematuria, unspecified
CPT/HCPCS: 76770; 76857

== ENCOUNTER 2024-02-05 09:00 | Outpatient (CLI) | payer OTHER, SELFPAY ==
--- NOTE | 2024-02-05 09:02 | CT_ITS ---
FINAL REPORT CLINICAL HISTORY: abnormal US, soft tissue at the base of the bladder COMPARISON: CT 04/09/2023 and ultrasound urinary bladder 01/18/2024 FINDINGS: The lung bases are clear. The liver is normal in size and attenuation. The spleen is unremarkable. The adrenals are normal. The pancreas is unremarkable. The kidneys enhance appropriately. Precontrast images demonstrate no nephrolithiasis. There is loss of tissue plane between the superior margin of the prostate and the base of the bladder best seen on sagittal images 57 through 61 of series 605. It is unclear if this represents bladder mass or prostate mass. There is no evidence of pelvic adenopathy. There are mildly enlarged inguinal nodes bilaterally measuring up to 1.8 cm which are stable. There is vacuum disc phenomenon at L5-S1. IMPRESSION: Loss of tissue plane may represent bladder lesion or prostate lesion but not significantly changed from prior. Stable bilateral inguinal nodes. Reviewed, Interpreted and Dictated by Jaylen Griffin MD Transcribed by Rubina Armendariz Authenticated and [facility]
[2024-02-05] MEDS: IOPAMIDOL-370 (76%);100ML BOTTLE 75 ML IV (09:33)
[2024-02-05] MEDS: SODIUM CHLORIDE 0.9% 10ML SYR (RAD ONLY) 10 ML IV (09:33)
== END 2024-02-05 23:59 | disposition home or self-care (01) ==
LOC: RAD 09:02
PROVIDERS: PCP Nurse Practitioner Family; Visit Provider Family Medicine
DX: R93.89 Abnormal findings on diagnostic imaging of other specified body structures (principal); R33.9 Retention of urine, unspecified; R30.9 Painful micturition, unspecified; R35.0 Frequency of micturition; R31.9 Hematuria, unspecified
CPT/HCPCS: 74178; Q9967

== ENCOUNTER 2024-02-08 09:59 | Outpatient (CLI) | payer OTHER, SELFPAY ==
[2024-02-08 10:40] LABS: Blood Urea Nitrogen 19 mg/dl (9-20); Estimated Glomerular Filt Rate 101 ml/min (>60); GFR (African American) 122 ML/MIN (>60)
[2024-02-09 08:19] LABS: PSA, Free 0.28 ng/mL; Prostate Specific Ag 3.1 ng/mL (0.0-4.0)
== END 2024-02-08 23:59 | disposition home or self-care (01) ==
LOC: LAB 10:00
PROVIDERS: PCP Nurse Practitioner Family; Visit Provider Urology
DX: N40.0 Benign prostatic hyperplasia without lower urinary tract symptoms (principal); N39.0 Urinary tract infection, site not specified; R31.9 Hematuria, unspecified
CPT/HCPCS: 36415; 82565; 84153; 84154; 84520

== ENCOUNTER 2024-02-26 06:56 | Day surgery (SDC) | payer OTHER, SELFPAY ==
[2024-02-24 14:16] VITALS: BMI 35.2
[2024-02-26 07:11] VITALS: BP 154/110; PULSE 67; RESP 17; TEMP 36.3; O2SAT 95
[2024-02-26 08:04] VITALS: BP 140/91; PULSE 71; RESP 18; TEMP 36.5; O2SAT 94
[2024-02-26] MEDS: LIDOCAINE 2% UROJET 10ML 10 ML (08:07)
[2024-02-26] MEDS: 0.9 % SODIUM CHLORIDE 1000ML 1,000 ML 25 ML IV (08:07)
--- NOTE | 2024-02-26 08:12 | P.PCN_ITS ---
[facility] Procedure Note Date: 02/26/24 Time: 08:12 Procedure Note:: Chart review: The patient comes in for cystoscopy because episode of gross hematuria. His CT scan with and without infusion suggested a possible bladder lesion. Preop diagnosis hematuria Postop diagnosis hematuria Operative note: The patient was brought to the cystoscopy suite he was prepped and draped in the usual fashion. 2% Xylocaine jelly was instilled in the urethra. He underwent flexible cystoscopy. The anterior urethra is unremarkable. 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 Inspection of the bladder shows finally trabeculation throughout. There is no evidence of bladder stone tumor hemorrhage infection or bladder lesion. The ureteral orifice ease are normal bilaterally with clear reflux of urine. He tolerated the procedure well.
== END 2024-02-26 08:23 | disposition home or self-care (01) ==
PROVIDERS: PCP Nurse Practitioner Family; Visit Provider Urology
PROC: 0TJB8ZZ Inspection of Bladder, Via Natural or Artificial Opening Endoscopic (ICD-10-PCS; CPT 52000; principal; 2024-02-26 08:15)
DX: R31.9 Hematuria, unspecified (principal); N40.0 Benign prostatic hyperplasia without lower urinary tract symptoms
CPT/HCPCS: 52000; J7030

== ENCOUNTER 2024-03-21 19:07 | Emergency (ER) | payer OTHER, SELFPAY ==
[2024-03-21 19:19] VITALS: BP 144/98; PULSE 80; RESP 16; TEMP 36.6; O2SAT 98; BMI 35.2
--- NOTE | 2024-03-21 19:23 | ED_ITS ---
Discharge Plan Disposition Patient Disposition: Home, Self-Care Condition: Good Prescriptions Prescriptions: New benzonatate 100 mg capsule 100 mg PO TID PRN (Reason: cough) Qty: 30 0RF prednisone 10 mg tablet 10 mg PO BID 5 Days Qty: 10 0RF No Action albuterol sulfate 90 mcg/actuation HFA aerosol inhaler 2 inh IH Q6H PRN (Reason: shortness of breath or wheezing) 90 Days Qty: 8.5 3 RF ergocalciferol (vitamin D2) 1,250 mcg (50,000 unit) capsule 1,250 mcg PO WEEKLY Qty: 14 3RF aspirin [Adult Low Dose Aspirin] 81 mg tablet,delayed release (DR/EC) 81 mg PO DAILY Qty: 30 5RF hydroxychloroquine 200 mg tablet 200 mg PO DAILY fluticasone propionate [Flonase Allergy Relief] 50 mcg/actuation spray,suspension 1 spray intranasal DAILY 90 Days Qty: 16 3RF Rx Instructions: administer into each nostril meclizine 25 mg tablet 25 mg PO BID PRN (Reason: dizziness) Qty: 60 0RF methotrexate sodium 25 mg/mL solution 25 mg IM WEEKLY folic acid 1 mg tablet 1 mg PO DAILY Humira(CF) Pen 40 mg/0.4 mL pen injector kit 40 mg SQ Q2W diclofenac sodium 75 mg tablet,delayed release (DR/EC) 75 mg PO DAILY metoprolol succinate 100 mg tablet extended release 24 hr See Rx Instructions .ROUTE .COMPLEX Qty: 90 5RF Dose Instruction: TAKE 1 TABLET BY MOUTH ONCE DAILY Rx Instructions: TAKE 1 TABLET BY MOUTH ONCE DAILY cholecalciferol (vitamin D3) 50 mcg (2,000 unit) capsule See Rx Instructions .ROUTE .COMPLEX Qty: 90 2RF Dose Instruction: TAKE 1 CAPSULE BY MOUTH DAILY Rx Instructions: TAKE 1 CAPSULE BY MOUTH DAILY Trelegy Ellipta 200-62.5-25 mcg blister with device 1 inh inhalation DAILY 90 Days Qty: 90 3RF montelukast 10 mg tablet 10 mg PO DAILY 90 Days Qty: 90 3RF spironolactone 25 mg tablet See Rx Instructions .ROUTE .COMPLEX Qty: 30 5RF Dose Instruction: TAKE 1 TABLET BY MOUTH ONCE DAILY Rx Instructions: TAKE 1 TABLET BY MOUTH ONCE DAILY losartan 100 mg tablet See Rx Instructions .ROUTE .COMPLEX Qty: 90 3RF Dose Instruction: TAKE 1 TABLET BY MOUTH ONCE DAILY Rx Instructions: TAKE 1 TABLET BY MOUTH ONCE DAILY venlafaxine 75 mg capsule,extended release 24hr See Rx Instructions .ROUTE .COMPLEX Qty: 90 1RF Dose Instruction: TAKE 1 CAPSULE BY MOUTH ONCE DAILY Rx Instructions: TAKE 1 CAPSULE BY MOUTH ONCE DAILY omeprazole 40 mg capsule,delayed release(DR/EC) See Rx Instructions .ROUTE .COMPLEX Qty: 90 0RF Dose Instruction: TAKE 1 CAPSULE BY MOUTH ONCE DAILY Rx Instructions: TAKE 1 CAPSULE BY MOUTH ONCE DAILY hydrochlorothiazide 25 mg tablet See Rx Instructions .ROUTE .COMPLEX Qty: 90 3RF Dose Instruction: TAKE ONE TABLET BY MOUTH EVERY DAY Rx Instructions: TAKE ONE TABLET BY MOUTH EVERY DAY atorvastatin 80 mg tablet See Rx Instructions .ROUTE .COMPLEX Qty: 90 0RF Dose Instruction: TAKE 1 TABLET BY MOUTH ONCE DAILY Rx Instructions: TAKE 1 TABLET BY MOUTH ONCE DAILY Referrals Follow up/Referrals: Bart Bains APRN [Primary Care Provider] - See instructions Activity Restrictions/Add. Instructions Additional Instructions/Restrictions: *Monitor Temp, Over the counter Motrin or Tylenol as directed/as needed Tylenol every 4 hours and Motrin every 6 hours (as long as your family doctor has told you that you can take it) for fever or pain. and straight to ER if unable to lower temp less than 101.0 after medication given *Warm salt water gargles may help to soothe the throat *Throat Lozenges? *Warm fluids like tea with honey may help to soothe the throat? *Sleep elevated *Humidifier/Vaporizer Start oral steriods tomorrow *Tessalon Perles will not cause drowsiness but use at bedtime to help stop cough so that you may get some rest. Follow up IMMEDIATELY for new or worsening symptoms or no Noticeable improvement over the next 48-72 hours. 911 for difficulty breathing or swallowing Clinical Impressions Clinical Impression: URI (upper respiratory infection) Instructions Patient Instructions: DI for Sinusitis, DI for Cough -- Adult Print Language Print Language: [place] Discharge ED Provider: Keri Jimenez [facility] [place] General Stated complaint: SOA, low O2 Mode of Arrival: Ambulatory Source of Information: Patient Time Seen by Provider: 03/21/24 19:24 Description of Symptoms (Recalled from Triage Doc. by RN): Patient reports cough and fatigue for 1 week. HEENT Symptoms (Recalled from RN notes): Yes Resp Symptoms (Recalled from RN notes): No Skin Symptoms (Recalled from RN notes): No MS Symptoms (Recalled from RN notes): No Functional Status (Recalled from RN notes): wnl History of Present Illness Provider Complaint: Patient states that for the last week he has been having sinus congestion and drainage, chest congestion and cough States feels drainage in the back of his throat making his throat and chest irriatated worried if he didnt get something to help he would end up with bronchitis Related Data Home Medications ?Medication ?Instructions ?Recorded ?Confirmed hydroxychloroquine 200 mg tablet 200 mg PO DAILY 01/07/23 02/26/24 adalimumab 40 mg/0.4 mL 40 mg SQ Q2W 01/11/24 02/26/24 subcutaneous pen kit (Humira(CF) Pen) folic acid 1 mg tablet 1 mg PO DAILY 01/11/24 02/26/24 methotrexate sodium 25 mg/mL 25 mg IM WEEKLY 01/11/24 02/26/24 injection solution diclofenac sodium 75 mg 75 mg PO DAILY 02/08/24 02/26/24 tablet,delayed release Previous Rx's ?Medication ?Instructions ?Recorded aspirin 81 mg tablet,delayed 81 mg PO DAILY #30 tabs 03/15/19 release (Adult Low Dose Aspirin) albuterol sulfate 90 mcg/actuation 2 inh inhalation Q6H PRN shortness 12/18/21 aerosol inhaler of breath or wheezing 90 days #8.5 grams fluticasone propionate 50 1 spray intranasal DAILY 90 days 10/29/22 mcg/actuation nasal #16 grams spray,suspension (Flonase Allergy Relief) ergocalciferol (vitamin D2) 1,250 1,250 mcg PO WEEKLY #14 caps 05/19/23 mcg (50,000 unit) capsule metoprolol succinate 100 mg See Rx Instructions .Route 06/22/23 tablet,extended release 24 hr .COMPLEX #90 tabs meclizine 25 mg tablet 25 mg PO BID PRN dizziness #60 tabs 06/25/23 cholecalciferol (vitamin D3) 50 See Rx Instructions .Route 08/19/23 mcg (2,000 unit) capsule .COMPLEX #90 caps fluticasone fur. 200 mcg-umeclid 1 inh inhalation DAILY 90 days #90 11/10/23 62.5 mcg-vilant 25 mcg ea inhalat.powder (Trelegy Ellipta) montelukast 10 mg tablet 10 mg PO DAILY 90 days #90 tabs 11/19/23 losartan 100 mg tablet See Rx Instructions .Route 12/21/23 .COMPLEX #90 tabs omeprazole 40 mg capsule,delayed See Rx Instructions .Route 12/21/23 release .COMPLEX #90 caps spironolactone 25 mg tablet See Rx Instructions .Route 12/21/23 .COMPLEX #30 tabs venlafaxine 75 mg capsule,extended See Rx Instructions .Route 12/21/23 release 24 hr .COMPLEX #90 caps atorvastatin 80 mg tablet See Rx Instructions .Route 01/20/24 .COMPLEX #90 tabs hydrochlorothiazide 25 mg tablet See Rx Instructions .Route 01/20/24 .COMPLEX #90 tabs benzonatate 100 mg capsule 100 mg PO TID PRN cough #30 caps 03/21/24 prednisone 10 mg tablet 10 mg PO BID 5 days #10 tabs 03/21/24 Allergies Allergy/AdvReac Type Severity Reaction Status Date / Time No Known Allergies Allergy Verified 02/26/24 07:09 Worker's Comp Is this a Worker's Comp case?: No [facility] Disclaimer: The information contained in this section may have been updated after the patient was seen, as this information can be updated by other users. Medical History Viral syndrome Pharyngitis Claudication of lower extremity Leg pain, right Allergic rhinitis Encounter for screening for malignant neoplasm of lung in current smoker with 30 pack year history or greater Mediastinal lymphadenopathy Multiple lung nodules on CT Pulmonary fibrosis, unspecified Restrictive lung disease Stopped smoking with greater than 30 pack year history Dyspnea on exertion Asthma COPD mixed type Positive sm/[employer]IR[employer] antibody Daytime somnolence Snoring Anxiety and depression HLD (hyperlipidemia) [place] last lipid panel was done in January. This showed an elevated triglyceride level and a low HDL however total cholesterol and LDL were excellent. I think increasing his atorvastatin would be helpful for him. Additionally 3 6 omega fatty acids would be another option. They opted for the atorvastatin. Diastolic dysfunction HTN (hypertension) Blood pressure was 128/78 today. [place] blood pressure appears to be well controlled. Surgical History No history of previous surgery Family History Other Diabetes Emphysema of lung Hypertension Social History Smoking Status: Former smoker tobacco type: cigarettes packs per day: 1 alcohol intake: never substance use type: denies use current occupational status: employed and other Travel in the last 8 weeks: None household members: spouse housing: house ROS Obtained: Yes All systems reviewed & no additional complaints except as documented and Yes Systems reviewed as appropriate & no additional complaints except as documented Constitutional Constitutional: Reports system reviewed and no additional complaints, except as documented and Reports as per HPI ENT Ears, Nose, Mouth, and Throat: Reports system reviewed and no additional complaints, except as documented, Reports as per HPI, Reports sinus pain and Reports sinus pressure Cardiovascular Cardiovascular: Reports system reviewed and no additional complaints, except as documented, Reports as per HPI and Denies chest pain Respiratory Respiratory: Reports system reviewed and no additional complaints, except as doc umented, Reports as per HPI, Reports shortness of breath (at times after coughing), Reports chest congestion and Reports cough Gastrointestinal Gastrointestingal: Reports system reviewed and no additional complaints, except as documented and as per HPI Physical Exam General General appearance: alert and in no apparent distress ENT ENT exam: Present mucous membranes moist Expanded ENT Exam Nose exam: Present sinus tenderness Throat exam: Present other (PND noted) Respiratory Respiratory exam: Present normal lung sounds bilaterally; Absent respiratory distress or wheezes Cardiovascular Cardiovascular exam: Present regular rate, normal rhythm and normal heart sounds Neurological Exam Neurological exam: Present alert, oriented X3 and normal gait Medical Decision Making Medical Records Screening: Per USPSTF and CDC recommendations, given the prevalence of disease in our region, it is our hospital?s policy to screen for HIV and viral Hepatitis for all patients aged 18 and over and those with ongoing risk factors. Nikolai Inquiry Pt receiving controlled substance: No Nikolai was queried for this patient: No Vital Signs: 03/21/24 19:19 Temperature 97.9 F Temperature Source Oral Pulse Rate [Radial] 80 Respiratory Rate 16 Blood Pressure [Right Arm] 144/98 H Blood Pressure Mean [Right Arm] 113 Blood Pressure Source [Right Arm] Automatic Cuff Blood Pressure Position [Right Arm] Sitting 02 Sat by Pulse Oximetry 98 Oxygen Delivery Method Room Air
[2024-03-21] MEDS: METHYLPREDNISOLONE SOD SUCC 125MG VIAL 125 MG IM (19:36)
[2024-03-21] MEDS: cefTRIAXone 1GM VIAL 1 GM IM (19:36)
[2024-03-21] MEDS: LIDOCAINE 1% 5ML PF VIAL IM (19:37)
[2024-03-21 19:50] VITALS: BP 144/98; PULSE 80; RESP 16; TEMP 36.6; O2SAT 98
== END 2024-03-21 19:54 | disposition home or self-care (01) ==
PROVIDERS: Emergency Provider Nurse Practitioner; PCP Nurse Practitioner Family
DX: J06.9 Acute upper respiratory infection, unspecified (principal)
CPT/HCPCS: 99213; G0381; J0696; J2919

== ENCOUNTER 2024-07-10 19:29 | Emergency (ER) | payer OTHER, SELFPAY ==
[2024-07-10] VITALS (12 sets, daily range): BP systolic 125–212; BP diastolic 81–130; PULSE 86–95; RESP 14–20; TEMP 36.6–36.8; O2SAT 91–96; BMI 35.5
--- NOTE | 2024-07-10 19:43 | ED_ITS ---
Discharge Plan Disposition Patient Disposition: Home, Self-Care Condition: Good Prescriptions Prescriptions: No Action albuterol sulfate 90 mcg/actuation HFA aerosol inhaler 2 inh IH Q6H PRN (Reason: shortness of breath or wheezing) 90 Days Qty: 8.5 3RF Trelegy Ellipta 200-62.5-25 mcg blister with device 1 inh inhalation DAILY 90 Days Qty: 90 3RF montelukast 10 mg tablet 10 mg PO DAILY 90 Days Qty: 90 3RF albuterol sulfate [Ventolin HFA] 90 mcg/actuation HFA aerosol inhaler 2 inh inhalation Q6H PRN (Reason: shortness of breath or wheezing) 90 Days Qty: 18 3RF fluticasone propionate [Flonase Allergy Relief] 50 mcg/actuation spray,suspension 2 spray intranasal DAILY 90 Days Qty: 16 2RF Rx Instructions: administer into each nostril aspirin [Adult Low Dose Aspirin] 81 mg tablet,delayed release (DR/EC) 81 mg PO DAILY Qty: 30 5RF hydroxychloroquine 200 mg tablet 200 mg PO DAILY methotrexate sodium 25 mg/mL solution 25 mg IM WEEKLY folic acid 1 mg tablet 1 mg PO DAILY Humira(CF) Pen 40 mg/0.4 mL pen injector kit 40 mg SQ Q2W diclofenac sodium 75 mg tablet,delayed release (DR/EC) 75 mg PO DAILY losartan 100 mg tablet See Rx Instructions .ROUTE .COMPLEX Qty: 90 3RF Dose Instruction: TAKE 1 TABLET BY MOUTH ONCE DAILY Rx Instructions: TAKE 1 TABLET BY MOUTH ONCE DAILY hydrochlorothiazide 25 mg tablet See Rx Instructions .ROUTE .COMPLEX Qty: 90 3RF Dose Instruction: TAKE ONE TABLET BY MOUTH EVERY DAY Rx Instructions: TAKE ONE TABLET BY MOUTH EVERY DAY omeprazole 40 mg capsule,delayed release(DR/EC) See Rx Instructions .ROUTE .COMPLEX Qty: 90 1RF Dose Instruction: TAKE 1 CAPSULE BY MOUTH ONCE DAILY Rx Instructions: TAKE 1 CAPSULE BY MOUTH ONCE DAILY atorvastatin 80 mg tablet See Rx Instructions .ROUTE .COMPLEX Qty: 90 0RF Dose Instruction: TAKE 1 TABLET BY MOUTH ONCE DAILY Rx Instructions: TAKE 1 TABLET BY MOUTH ONCE DAILY ergocalciferol (vitamin D2) [Vitamin D2] 1,250 mcg (50,000 unit) capsule See Rx Instructions .ROUTE .COMPLEX Qty: 14 2RF Dose Instruction: TAKE 1 CAPSULE BY MOUTH ONCE WEEKLY Rx Instructions: TAKE 1 CAPSULE BY MOUTH ONCE WEEKLY cholecalciferol (vitamin D3) 50 mcg (2,000 unit) capsule See Rx Instructions .ROUTE .COMPLEX Qty: 90 1RF Dose Instruction: TAKE 1 CAPSULE BY MOUTH DAILY Rx Instructions: TAKE 1 CAPSULE BY MOUTH DAILY ondansetron 4 mg tablet,disintegrating 4 mg PO Q8H PRN (Reason: nausea and vomiting) Qty: 30 0RF venlafaxine 75 mg capsule,extended release 24hr See Rx Instructions .ROUTE .COMPLEX Qty: 90 0RF Dose Instruction: TAKE 1 CAPSULE BY MOUTH ONCE DAILY Rx Instructions: TAKE 1 CAPSULE BY MOUTH ONCE DAILY spironolactone 25 mg tablet See Rx Instructions .ROUTE .COMPLEX Qty: 30 11RF Dose Instruction: TAKE 1 TABLET BY MOUTH ONCE DAILY Rx Instructions: TAKE 1 TABLET BY MOUTH ONCE DAILY metoprolol succinate 100 mg tablet extended release 24 hr See Rx Instructions .ROUTE .COMPLEX Qty: 90 3RF Dose Instruction: TAKE 1 TABLET BY MOUTH ONCE DAILY Rx Instructions: TAKE 1 TABLET BY MOUTH ONCE DAILY Referrals Follow up/Referrals: Mary Mckeon PA [Primary Care Provider] - See instructions Activity Restrictions/Add. Instructions Additional Instructions/Restrictions: As we discussed, your blood pressure was quite elevated when you came to the ED, approximately 210 for the top number, given that the rest of your workup was reassuring and your blood pressures come down you are stable for discharge at this time, however I do recommend you monitor your blood pressure at home and follow-up with your primary care doctor. Please return with any new or worsening symptoms. Clinical Impressions Clinical Impression: Hypertensive urgency Print Language Print Language: Pashto Discharge ED Provider: Martin Strange Adult HPI General Chief complaint: Weakness Stated complaint: soa dizzy Time Seen by Provider: 07/10/24 19:43 Mode of Arrival: Wheelchair Source of Information: Patient and Relative Limitations: No Limitations Description of Symptoms (Recalled from ER Triage Doc. by RN): pt reports he became increasingly weak, dizzy, lethargic and short of air approximately one hour ago. pt reports he was passing out in the wheelchair in the lobby. History of Present Illness HPI narrative: Patient presents for evaluation of shortness of breath, generalized weakness, mild in severity, substernal, nonradiating, nonpleuritic, nonexertional chest pain with no associated syncope or presyncope. Patient had gradual onset of his symptoms starting today, they are stable in course, no previous therapies. He has not had similar symptoms before. Chest pain is described as dull. Please note that above description of symptoms, in this electronic medical record under categorization of recalled from ER triage doctor by RN are reflective of an initial nursing assessment, however, is not reflective of my full history and physical exam that was personally taken and clarified. Consequentially, this preceding description of symptoms, which may include the patient's categorized chief complaint in the EMR, do not reflect my personal clinical impression, and the ultimate description of history of present illness and patient stated complaints should be deferred to this section of the note. Unless stated otherwise or congruent with this section of the note, additional signs, symptoms, or incongruence should be interpreted as inaccurate with my clinical impression. Related Data Home Medications ?Medication ?Instructions ?Recorded ?Confirmed hydroxychloroquine 200 mg tablet 200 mg PO DAILY 01/07/23 07/12/24 adalimumab 40 mg/0.4 mL 40 mg SQ Q2W 01/11/24 07/12/24 subcutaneous pen kit (Humira(CF) Pen) folic acid 1 mg tablet 1 mg PO DAILY 01/11/24 07/12/24 methotrexate sodium 25 mg/mL 25 mg IM WEEKLY 01/11/24 07/12/24 injection solution diclofenac sodium 75 mg 75 mg PO DAILY 02/08/24 07/12/24 tablet,delayed release Previous Rx's ?Medication ?Instructions ?Recorded aspirin 81 mg tablet,delayed 81 mg PO DAILY #30 tabs 03/15/19 release (Adult Low Dose Aspirin) albuterol sulfate 90 mcg/actuation 2 inh inhalation Q6H PRN shortness 12/18/21 aerosol inhaler of breath or wheezing 90 days #8.5 grams losartan 100 mg tablet See Rx Instructions .Route 12/21/23 .COMPLEX #90 tabs hydrochlorothiazide 25 mg tablet See Rx Instructions .Route 01/20/24 .COMPLEX #90 tabs omeprazole 40 mg capsule,delayed See Rx Instructions .Route 03/25/24 release .COMPLEX #90 caps atorvastatin 80 mg tablet See Rx Instructions .Route 04/18/24 .COMPLEX #90 tabs ergocalciferol (vitamin D2) 1,250 See Rx Instructions .Route 05/03/24 mcg (50,000 unit) capsule (Vitamin .COMPLEX #14 caps D2) albuterol sulfate 90 mcg/actuation 2 inh inhalation Q6H PRN shortness 05/17/24 aerosol inhaler (Ventolin HFA) of breath or wheezing 90 days #18 grams fluticasone fur. 200 mcg-umeclid 1 inh inhalation DAILY 90 days #90 05/17/24 62.5 mcg-vilant 25 mcg ea inhalat.powder (Trelegy Ellipta) fluticasone propionate 50 2 spray intranasal DAILY 90 days 05/17/24 mcg/actuation nasal #16 grams spray,suspension (Flonase Allergy Relief) montelukast 10 mg tablet 10 mg PO DAILY 90 days #90 tabs 05/17/24 cholecalciferol (vitamin D3) 50 See Rx Instructions .Route 05/25/24 mcg (2,000 unit) capsule .COMPLEX #90 caps ondansetron 4 mg disintegrating 4 mg PO Q8H PRN nausea and 06/09/24 tablet vomiting #30 tabs metoprolol succinate 100 mg See Rx Instructions .Route 06/27/24 tablet,extended release 24 hr .COMPLEX #90 tabs spironolactone 25 mg tablet See Rx Instructions .Route 06/27/24 .COMPLEX #30 tabs venlafaxine 75 mg capsule,extended See Rx Instructions .Route 06/27/24 release 24 hr .COMPLEX #90 caps Allergies Allergy/AdvReac Type Severity Reaction Status Date / Time No Known Allergies Allergy Verified 07/12/24 13:09 [facility] Disclaimer: The information contained in this section may have been updated after the patient was seen, as this information can be updated by other users. Medical History Viral syndrome Pharyngitis Claudication of lower extremity Leg pain, right Allergic rhinitis Encounter for screening for malignant neoplasm of lung in current smoker with 30 pack year history or greater Mediastinal lymphadenopathy Multiple lung nodules on CT Pulmonary fibrosis, unspecified Restrictive lung disease Stopped smoking with greater than 30 pack year history Dyspnea on exertion Asthma COPD mixed type Positive sm/[employer] antibody Daytime somnolence Snoring Anxiety and depression HLD (hyperlipidemia) [place] last lipid panel was done in January. This showed an elevated triglyceride level and a low HDL however total cholesterol and LDL were excellent. I think increasing his atorvastatin would be helpful for him. Additionally 3 6 omega fatty acids would be another option. They opted for the atorvastatin. Diastolic dysfunction HTN (hypertension) Blood pressure was 128/78 today. [place] blood pressure appears to be well controlled. Surgical History No history of previous surgery Family History Other Diabetes Emphysema of lung Hypertension Social History Smoking Status: Never smoker alcohol intake: never substance use type: denies use current occupational status: employed and other Travel in the last 8 weeks: None household members: spouse housing: house Have you lived/traveled outside [place] in past 30 days?: No Contact w/someone who lives/traveled outside US past 30 days?: No Exposure to someone with infectious disease in past 14 days?: No Do you have a fever (greater than 100.4 F or 38 C)?: No Have you tested positive for COVID-19: No Exposed to someone with COVID-19 in past 14 days?: No Do you have a sore throat?: No Do you have a cough?: No Do you have shortness of breath?: No Do you have a headache?: No Do you have any weakness?: No Are you experiencing any nausea/vomitting?: No Do you have any diarrhea?: No Are you experiencing any unusual bleeding?: No Do you have any muscle aches/pain?: No Do you have any abdominal pain?: No Are you experiencing loss of taste or smell?: No Other Medical History Have you received the Flu Vaccine for this season: No Have you received the Pneumonia Vaccine: No ROS Obtained: Yes other As per HPI Physical Exam General General appearance: alert and in no apparent distress Head Head exam: atraumatic and normocephalic Eye Eye exam: Present normal appearance Neck Neck exam: Present normal inspection Chest Chest inspection: Present normal inspection and symmetric chest wall rise Respiratory Respiratory exam: Present normal lung sounds bilaterally; Absent respiratory distress Cardiovascular Cardiovascular exam: Present regular rate and normal rhythm Abdominal Exam Abdominal exam: Present soft Neurological Exam Neurological exam: Present alert and oriented X3 Psychiatric Psychiatric exam: Present normal affect and normal mood Skin Skin exam: Present warm and dry Medical Decision Making Medical Records Medical records reviewed: Yes I reviewed the patient's medical records. Screening: Per USPSTF and CDC recommendations, given the prevalence of disease in our region, it is our hospital?s policy to screen for HIV and viral Hepatitis for all patients aged 18 and over and those with ongoing risk factors. [place]olai Inquiry Pt receiving controlled substance: No Vital Signs: 07/10/24 19:31 07/10/24 19:52 07/10/24 20:00 Temperature 98.2 F Temperature Source Oral Pulse Rate 87 86 Pulse Rate [Right] 87 Respiratory Rate 20 15 18 Blood Pressure 200/117 H 146/98 H Blood Pressure [Right Radial Artery] 212/122 H Blood Pressure Mean [Right Radial Artery] 152 02 Sat by Pulse Oximetry 94 L 92 L 94 L Oxygen Delivery Method 07/10/24 20:15 07/10/24 20:45 07/10/24 21:00 Temperature Temperature Source Pulse Rate 88 90 93 H Pulse Rate [Right] Respiratory Rate 17 15 15 Blood Pressure 154/103 H 145/81 H 150/95 H Blood Pressure [Right Radial Artery] Blood Pressure Mean [Right Radial Artery] 02 Sat by Pulse Oximetry 93 L 95 91 L Oxygen Delivery Method 07/10/24 21:15 07/10/24 21:30 07/10/24 21:45 Temperature Temperature Source Pulse Rate 95 H 95 H Pulse Rate [Right] Respiratory Rate 16 17 15 Blood Pressure 125/91 H 145/111 H 132/90 Blood Pressure [Right Radial Artery] Blood Pressure Mean [Right Radial Artery] 02 Sat by Pulse Oximetry 93 L 93 L Oxygen Delivery Method 07/10/24 22:00 07/10/24 22:00 07/10/24 22:01 Temperature 97.9 F Temperature Source Pulse Rate 95 H 87 90 Pulse Rate [Right] Respiratory Rate 14 14 Blood Pressure 137/100 H 145/97 H Blood Pressure [Right Radial Artery] Blood Pressure Mean [Right Radial Artery] 02 Sat by Pulse Oximetry 96 Oxygen Delivery Method Room Air 07/10/24 22:16 Temperature Temperature Source Pulse Rate 92 H Pulse Rate [Right] Respiratory Rate 15 Blood Pressure 151/130 H Blood Pressure [Right Radial Artery] Blood Pressure Mean [Right Radial Artery] 02 Sat by Pulse Oximetry 96 Oxygen Delivery Method Lab Data Lab Results 07/10/24 19:44: WBC 10.0, RBC 5.04, Hgb 15.1, Hct 43.8, MCV 86.9, MCH 30.0, MCHC 34.5, RDW 12.2, Plt Count 192, MPV 11.2 H, Neut % (Auto) 52.8, Lymph % (Auto) 31.5, [place] % (Auto) 11.9 H, Eos % (Auto) 2.8, Baso % (Auto) 0.6, Neut # (Auto) 5.3, Lymph # (Auto) 3.2, [place] # (Auto) 1.2 H, Eos # (Auto) 0.3, Baso # (Auto) 0.1, PT 10.0, INR 0.90, Sodium 138, Potassium 3.4 L, Chloride 98, Carbon Dioxide 26, Anion Gap 17.4 H, BUN 21 H, Creatinine 1.00, Estimated Creat Clear 140, Estimated GFR 78, Est GFR ( Amer) 94, Glucose 147 H, Lactate 1.5, Calcium 8.9, Total Bilirubin 0.7, AST 41, ALT 44, Alkaline Phosphatase 142 H, Troponin I < 0.01, NT-Pro-B Natriuret Pep 33.3, Total Protein 7.9, Albumin 4.6, Globulin 3.3 H, Albumin/Globulin Ratio 1.4, HCV Ab ALESIA w/Rflx PCR Qn Negative, HIV Ag/Ab Combo Qual Negative 07/10/24 19:49: VBG pH 7.39, VBG pCO2 41.9, VBG pO2 76.2 H, VBG HCO3 24.7, VBG Total CO2 26.0, VBG O2 Saturation 94.8 H, VBG Base Excess -0.2, VBG Lactic Acid 1.7 07/10/24 21:55: Troponin I < 0.01 07/10/24 19:44 07/10/24 19:44 Orders (Tests/Meds): ED MEDICATIONS Discontinued Medications Generic Name Dose Route Start Last Admin Trade Name Freq PRN Reason Stop Dose Admin Albuterol/Ipratropium 3 ml 07/10/24 21:24 07/10/24 22:00 Ipratropium/Albuterol 3 Ml Neb IH 07/10/24 21:25 3 ml ONCE ONE Administration Aspirin 325 mg 07/10/24 19:52 07/10/24 20:00 Aspirin 325mg Tablet PO 07/10/24 19:53 Not Given ONCE ONE Aspirin 324 mg 07/10/24 19:59 07/10/24 20:00 Aspirin 81mg Chewable Tablet PO 07/10/24 20:00 324 mg ONCE ONE Administration Iopamidol 80 ml 07/10/24 20:32 07/10/24 20:33 Iopamidol-370 (76%);100ml Bottle IV 07/10/24 20:33 80 ml ONCE ONE Administration Methylprednisolone Sodium Succinate 80 mg 07/10/24 21:37 07/10/24 21:50 Methylprednisolone Sod Succ 125mg Vial IV 07/10/24 21:38 80 mg ONCE ONE Administration Nitroglycerin 0.4 mg 07/10/24 19:52 07/10/24 19:58 Nitroglycerin 0.4mg Sl Tablet SL 08/09/24 19:51 0.4 mg Q5MINP PRN Administration Chest Pain Ondansetron HCl 4 mg 07/10/24 19:52 07/10/24 20:05 Ondansetron 4mg/2ml Vial IV 07/10/24 19:53 4 mg ONCE ONE Administration Sodium Chloride 40 ml 07/10/24 20:32 07/10/24 20:33 0.9 % Sodium Chloride 50 Ml Vial IV 07/10/24 20:33 40 ml ONCE ONE Administration Sodium Chloride 10 ml 07/10/24 20:32 07/10/24 20:33 Sodium Chloride 0.9% 10ml Syr (Rad Only) IV 08/09/24 20:31 10 ml NEEDED PRN Administration Maintain IV Site ORDERS Category Date Time Status CT angio chest - dissection Stat Cat Scan 07/10/24 19:53 Completed BNP [NT Pro Brain Natriuretic Pep.] Stat Lab 07/10/24 19:44 Completed Complete Blood Count Auto Diff Stat Lab 07/10/24 19:44 Completed Comprehensive Metabolic Panel Stat Lab 07/10/24 19:44 Completed HIV Combo Stat Lab 07/10/24 19:44 Completed Hepatitis C Ab Qual. W/ RFX Stat Lab 07/10/24 19:44 Completed Lactic Acid Stat Lab 07/10/24 19:44 Completed PT INR [Prothrombin Time INR] Stat Lab 07/10/24 19:44 Completed Troponin I Q3H Lab 07/10/24 19:44 Completed Troponin I Q3H Lab 07/10/24 21:55 Completed VBG [Venous Blood Gas] Stat RT 07/10/24 19:49 Completed Medical Decision Narrative: Patient with history and exam per above presenting for evaluation of chest pain, shortness of breath Diagnoses considered include ACS, dissection, referred pain from pneumonia, electrolyte abnormality, among others ED workup and treatment included: ED MEDICATIONS Discontinued Medications Generic Name Dose Route Start Last Admin Trade Name Freq PRN Reason Stop Dose Admin Albuterol/Ipratropium 3 ml 07/10/24 21:24 07/10/24 22:00 Ipratropium/Albuterol 3 Ml Neb IH 07/10/24 21:25 3 ml ONCE ONE Administration Aspirin 325 mg 07/10/24 19:52 07/10/24 20:00 Aspirin 325mg Tablet PO 07/10/24 19:53 Not Given ONCE ONE Aspirin 324 mg 07/10/24 19:59 07/10/24 20:00 Aspirin 81mg Chewable Tablet PO 07/10/24 20:00 324 mg ONCE ONE Administration Iopamidol 80 ml 07/10/24 20:32 07/10/24 20:33 Iopamidol-370 (76%);100ml Bottle IV 07/10/24 20:33 80 ml ONCE ONE Administration Methylprednisolone Sodium Succinate 80 mg 07/10/24 21:37 07/10/24 21:50 Methylprednisolone Sod Succ 125mg Vial IV 07/10/24 21:38 80 mg ONCE ONE Administration Nitroglycerin 0.4 mg 07/10/24 19:52 07/10/24 19:58 Nitroglycerin 0.4mg Sl Tablet SL 08/09/24 19:51 0.4 mg Q5MINP PRN Administration Chest Pain Ondansetron HCl 4 mg 07/10/24 19:52 07/10/24 20:05 Ondansetron 4mg/2ml Vial IV 07/10/24 19:53 4 mg ONCE ONE Administration Sodium Chloride 40 ml 07/10/24 20:32 07/10/24 20:33 0.9 % Sodium Chloride 50 Ml Vial IV 07/10/24 20:33 40 ml ONCE ONE Administration Sodium Chloride 10 ml 07/10/24 20:32 07/10/24 20:33 Sodium Chloride 0.9% 10ml Syr (Rad Only) IV 08/09/24 20:31 10 ml NEEDED PRN Administration Maintain IV Site ORDERS Category Date Time Status CT angio chest - dissection Stat Cat Scan 07/10/24 19:53 Completed BNP [NT Pro Brain Natriuretic Pep.] Stat Lab 07/10/24 19:44 Completed Complete Blood Count Auto Diff Stat Lab 07/10/24 19:44 Completed Comprehensive Metabolic Panel Stat Lab 07/10/24 19:44 Completed HIV Combo Stat Lab 07/10/24 19:44 Completed Hepatitis C Ab Qual. W/ RFX Stat Lab 07/10/24 19:44 Completed Lactic Acid Stat Lab 07/10/24 19:44 Completed PT INR [Prothrombin Time INR] Stat Lab 07/10/24 19:44 Completed Troponin I Q3H Lab 07/10/24 19:44 Completed Troponin I Q3H Lab 07/10/24 21:55 Completed VBG [Venous Blood Gas] Stat RT 07/10/24 19:49 Completed Labs were independently interpreted by me, significant for no acute findings Imaging was independently visualized and interpreted by me, significant for no acute findings Please refer to radiology report for full details. I discussed my clinical impression with patient and answered all questions. At this time, the evidence for any other entities in the differential is insufficient to warrant any further testing or ED observation. This was explained to the patient. The patient was advised that persistent or worsening symptoms require further evaluation. Critical Care Critical Care Time Critical Care Time: No
--- NOTE | 2024-07-10 19:44 | ECG_ITS ---
APPROVED REPORT Exam: Resting ECG HR:81 bpm ECG Measurements Heart Rate 81 AXES TX 160 P 41 QRSd 93 QRS 62 QT 398 T 41 QTc 435 Conclusion SINUS RHYTHM NORMAL ECG Electronically signed by : YEISON ORTEGA, 07/11/2024 22:04:07
--- NOTE | 2024-07-10 19:53 | CT_ITS ---
PROCEDURE INFORMATION: Exam: CTA Chest With Contrast Exam date and time: 07/10/2024 8:18 PM Age: 54 years old Clinical indication: Shortness of breath and other: [place] onset/v/soa/ams HX copd, acute; Additional info: N/v/soa/ams HX copd, acute in onset TECHNIQUE: Imaging protocol: Computed tomographic angiography of the chest with contrast. Exam focused on the arteries. 3D rendering (Not supervised by radiologist): MIP and/or 3D reconstructed images were created by the technologist. Radiation optimization: All CT scans at this facility use at least one of these dose optimization techniques: automated exposure control; mA and/or kV adjustment per patient size (includes targeted exams where dose is matched to clinical indication); or iterative reconstruction. Contrast material: ISOUVE 370; Contrast volume: 80 ml; Contrast route: INTRAVENOUS (IV); COMPARISON: 1. CT LUNG SCREENING 12/03/2023 3:[address] LUNG SCREENING 11/28/2022 2:[address] CHEST WO CON 12/26/2021 2:09 PM FINDINGS: Pulmonary arteries: Normal. No pulmonary emboli. Aorta: There is atherosclerotic disease of the visualized aorta and its major branch vessels. The aorta is normal caliber without focal abnormality. No dissection or aneurysm. Lungs: Scattered areas of bronchial wall thickening which are likely chronic inflammatory. A few areas of subpleural reticulation are noted, nonspecific. Pleural spaces: Unremarkable. No pneumothorax. No pleural effusion. Heart: Unremarkable. No cardiomegaly. No pericardial effusion. Lymph nodes: There are calcified mediastinal lymph nodes likely reflecting prior granulomatous disease. Liver: There is early morphologic changes of cirrhosis with volume redistribution. No concerning focal liver lesion. Bones/joints: There is diffuse degenerative disease of the visualized osseous structures. Soft tissues: There is bilateral gynecomastia. Other findings: Motion artifact mildly limits evaluation. IMPRESSION: 1. The aorta is normal caliber without focal abnormality. No dissection or aneurysm. 2. No dense parenchymal consolidation, pleural effusion, or pneumothorax.
[2024-07-10 19:58] LABS: Lactate Venous 1.7 mmol/L (0.4-2.0); VBG Base Excess -0.2 mmol/L (-2.4-2.3); VBG HCO3 24.7 mmol/L (23-30); VBG Oxygen Saturation 94.8 % (50-70); VBG PCO2 41.9 mmol/L (35-51); VBG PH 7.39 mmol/L (7.31-7.41); VBG PO2 76.2 mmol/L (28-40)
[2024-07-10] MEDS: NITROGLYCERIN 0.4MG SL TABLET 0.4 MG SL (19:58)
[2024-07-10 20:00] LABS: Basophils # 0.1 K/mm3 (0-0.2); Basophils % 0.6 % (0.1-2.0); Eosinophils # 0.3 K/mm3 (0.0-0.4); Eosinophils % 2.8 % (0.1-12.0); Hematocrit 43.8 % (42.0-52.0); Hemoglobin 15.1 g/dL (14.1-18.0); Lymphocytes # 3.2 K/mm3 (0.7-4.5); Lymphocytes % 31.5 % (10-50); Mean Corpuscular HGB Conc 34.5 g/dL (31.8-35.4); Mean Corpuscular Volume 86.9 fl (80-94); Mean Platelet Volume 11.2 fl (7.4-10.4); Monocytes # 1.2 K/mm3 (0.1-1.0); Monocytes % 11.9 % (1.7-9.3); Neutrophils # 5.3 K/mm3 (1.8-7.8); Neutrophils % 52.8 % (37.0-80.0); Platelet Count 192 K/mm3 (142-424); Red Blood Count 5.04 M/mm3 (4.60-6.20); Red Cell Distribution Width 12.2 % (11.5-17.5)
[2024-07-10] MEDS: ASPIRIN 81MG CHEWABLE TABLET 324 MG PO (20:00)
[2024-07-10 20:03] LABS: Albumin Level 4.6 g/dl (3.5-5.0); Chloride 98 mmol/L (98-107); Sodium 138 mmol/L (136-145)
[2024-07-10 20:04] LABS: Potassium 3.4 mmoL/L (3.5-5.1)
[2024-07-10] MEDS: ONDANSETRON 4MG/2ML VIAL 4 MG IV (20:05)
[2024-07-10 20:06] LABS: Anion Gap 17.4 mEq/L (5-15); Blood Urea Nitrogen 21 mg/dl (9-20); Carbon Dioxide 26 mmol/L (22.0-30.0); Creatinine Clearance Estimated 140 mL/min (50-200); Estimated Glomerular Filt Rate 78 ml/min (>60); GFR (African American) 94 ML/MIN (>60); Lactic Acid 1.5 mmol/L (0.7-2.1)
[2024-07-10 20:07] LABS: Alanine Aminotransferase 44 U/L (12-78); Albumin/Globulin Ratio 1.4 (1.1-1.8); Alkaline Phosphatase 142 U/L (38-126); Aspartate Amino Transferase 41 U/L (17-59); Bilirubin,Total 0.7 mg/dl (0.2-1.3); Calcium 8.9 mg/dl (8.4-10.2); Globulin 3.3 g/dL (1.3-3.2); Glucose 147 mg/dl (74-100); Total Protein,Serum 7.9 g/dl (6.3-8.2)
--- NOTE | 2024-07-10 20:10 | PC.NURSE ---
Patients O2 sat starting to decrease to the low 80's. Patient immediately was placed on NC @ 2lpm with improvement.
[2024-07-10 20:16] LABS: NT Pro Brain Natriuretic Pep. 33.3 pg/mL (0-125)
[2024-07-10 20:22] LABS: Troponin I < 0.01 ng/ml (0.00-0.034)
[2024-07-10] MEDS: SODIUM CHLORIDE 0.9% 10ML SYR (RAD ONLY) 10 ML IV (20:33)
[2024-07-10] MEDS: IOPAMIDOL-370 (76%);100ML BOTTLE 80 ML IV (20:33)
[2024-07-10] MEDS: 0.9 % SODIUM CHLORIDE 50 ML VIAL 40 ML IV (20:33)
[2024-07-10 21:12] LABS: HIV Combo NEGATIVE (Negative)
[2024-07-10 21:21] LABS: Hepatitis C Ab Qual. W/ RFX NEGATIVE (Negative)
--- NOTE | 2024-07-10 21:27 | PC.NURSE ---
[facility]
[2024-07-10] MEDS: METHYLPREDNISOLONE SOD SUCC 125MG VIAL 80 MG IV (21:50)
[2024-07-10] MEDS: IPRATROPIUM/ALBUTEROL 3 ML NEB IH (22:00)
[2024-07-10 22:25] LABS: Troponin I < 0.01 ng/ml (0.00-0.034)
== END 2024-07-10 22:49 | disposition home or self-care (01) ==
PROVIDERS: Emergency Provider Emergency Medicine; PCP Physician Assistant
DX: I16.0 Hypertensive urgency (principal); R06.02 Shortness of breath; R07.9 Chest pain, unspecified; R42 Dizziness and giddiness; R53.1 Weakness; R53.83 Other fatigue
CPT/HCPCS: 71275; 80053; 82803; 83605; 83880; 84484; 85025; 85610; 86803; 87389; 93005; 96374; 96375; 99285; J2405; J2919; J7620; Q9967

== ENCOUNTER 2024-09-20 20:01 | Emergency (ER) | payer OTHER, SELFPAY ==
[2024-09-20] VITALS (8 sets, daily range): BP systolic 132–160; BP diastolic 81–90; PULSE 85–100; RESP 14–22; TEMP 36.7–36.8; O2SAT 88–99; BMI 35.2
--- NOTE | 2024-09-20 20:22 | XR_ITS ---
PROCEDURE INFORMATION: Exam: XR Chest Exam date and time: 09/20/2024 8:29 PM Age: 54 years old Clinical indication: Shortness of breath; Additional info: SOB TECHNIQUE: Imaging protocol: Radiologic exam of the chest. Views: 1 view. COMPARISON: 1. CT ANGIO CHEST 07/10/2024 8:18 PM 2. CR XR CHEST 2V 03/25/2023 10:20 AM FINDINGS: Lungs: Unremarkable. No consolidation. Pleural spaces: Unremarkable. No pleural effusion. No pneumothorax. Heart/Mediastinum: Unremarkable. No cardiomegaly. Bones/joints: Unremarkable. IMPRESSION: Stable chest x-ray with no acute disease.
[2024-09-20] MEDS: METHYLPREDNISOLONE SOD SUCC 125MG VIAL 125 MG IV (20:32)
[2024-09-20] MEDS: IPRATROPIUM/ALBUTEROL 3 ML NEB 9 ML IH (20:32)
[2024-09-20] MEDS: MAGNESIUM SULFATE IN WATER 2 GM/50 ML PIGGYBACK IV (20:33)
--- NOTE | 2024-09-20 20:34 | ECG_ITS ---
APPROVED REPORT Exam: Resting ECG HR:88 bpm ECG Measurements Heart Rate 88 AXES NV 140 P 54 QRSd 102 QRS 73 QT 366 T 48 QTc 412 Conclusion SINUS RHYTHM NORMAL ECG UNCONFIRMED REPORT Electronically signed by : CORONA GARCIA, 09/22/2024 06:26:20
[2024-09-20 20:38] LABS: Basophils # 0.1 K/mm3 (0-0.2); Basophils % 0.6 % (0.1-2.0); Eosinophils # 0.1 K/mm3 (0.0-0.4); Eosinophils % 0.3 % (0.1-12.0); Hematocrit 41.1 % (42.0-52.0); Hemoglobin 14.3 g/dL (14.1-18.0); Lymphocytes # 2.6 K/mm3 (0.7-4.5); Lymphocytes % 18.1 % (10-50); Mean Corpuscular HGB Conc 34.8 g/dL (31.8-35.4); Mean Corpuscular Hemoglobin 30.6 pg (27.0-31.2); Mean Platelet Volume 11.1 fl (7.4-10.4); Monocytes # 1.6 K/mm3 (0.1-1.0); Neutrophils # 10.1 K/mm3 (1.8-7.8); Neutrophils % 69.4 % (37.0-80.0); Platelet Count 234 K/mm3 (142-424); Red Blood Count 4.67 M/mm3 (4.60-6.20); Red Cell Distribution Width 12.6 % (11.5-17.5); White Blood Count 14.5 K/mm3 (4.8-10.8)
[2024-09-20 20:42] LABS: Alanine Aminotransferase 52 U/L (12-78); Albumin Level 4.3 g/dl (3.5-5.0); Albumin/Globulin Ratio 1.2 (1.1-1.8); Alkaline Phosphatase 114 U/L (38-126); Anion Gap 16.6 mEq/L (5-15); Aspartate Amino Transferase 34 U/L (17-59); Bilirubin,Total 0.7 mg/dl (0.2-1.3); Blood Urea Nitrogen 17 mg/dl (9-20); Calcium 8.9 mg/dl (8.4-10.2); Carbon Dioxide 24 mmol/L (22.0-30.0); Chloride 101 mmol/L (98-107); Creatinine Clearance Estimated 155 mL/min (50-200); Estimated Glomerular Filt Rate 88 ml/min (>60); GFR (African American) 106 ML/MIN (>60); Globulin 3.5 g/dL (1.3-3.2); Glucose 153 mg/dl (74-100); Potassium 3.6 mmoL/L (3.5-5.1); Sodium 138 mmol/L (136-145); Total Protein,Serum 7.8 g/dl (6.3-8.2)
--- NOTE | 2024-09-20 20:52 | [facility].EDCP ---
Discharge Plan Disposition Patient Disposition: Home, Self-Care Condition: Good Prescriptions Prescriptions: No Action albuterol sulfate 90 mcg/actuation HFA aerosol inhaler 2 inh IH Q6H PRN (Reason: shortness of breath or wheezing) 90 Days Qty: 8.5 3RF Trelegy Ellipta 200-62.5-25 mcg blister with device 1 inh inhalation DAILY 90 Days Qty: 90 3RF montelukast 10 mg tablet 10 mg PO DAILY 90 Days Qty: 90 3RF albuterol sulfate [Ventolin HFA] 90 mcg/actuation HFA aerosol inhaler 2 inh inhalation Q6H PRN (Reason: shortness of breath or wheezing) 90 Days Qty: 18 3RF aspirin [Adult Low Dose Aspirin] 81 mg tablet,delayed release (DR/EC) 81 mg PO DAILY Qty: 30 5RF hydroxychloroquine 200 mg tablet 200 mg PO DAILY diclofenac sodium 75 mg tablet,delayed release (DR/EC) 75 mg PO DAILY Vraylar 3 mg capsule PO prednisone 20 mg tablet 20 mg PO BID Qty: 10 0RF benzonatate 100 mg capsule 100 mg PO BID PRN (Reason: cough) Qty: 20 0RF losartan 100 mg tablet See Rx Instructions .ROUTE .COMPLEX Qty: 90 3RF Dose Instruction: TAKE 1 TABLET BY MOUTH ONCE DAILY Rx Instructions: TAKE 1 TABLET BY MOUTH ONCE DAILY hydrochlorothiazide 25 mg tablet See Rx Instructions .ROUTE .COMPLEX Qty: 90 3RF Dose Instruction: TAKE ONE TABLET BY MOUTH EVERY DAY Rx Instructions: TAKE ONE TABLET BY MOUTH EVERY DAY omeprazole 40 mg capsule,delayed release(DR/EC) See Rx Instructions .ROUTE .COMPLEX Qty: 90 1RF Dose Instruction: TAKE 1 CAPSULE BY MOUTH ONCE DAILY Rx Instructions: TAKE 1 CAPSULE BY MOUTH ONCE DAILY ergocalciferol (vitamin D2) [Vitamin D2] 1,250 mcg (50,000 unit) capsule See Rx Instructions .ROUTE .COMPLEX Qty: 14 2RF Dose Instruction: TAKE 1 CAPSULE BY MOUTH ONCE WEEKLY Rx Instructions: TAKE 1 CAPSULE BY MOUTH ONCE WEEKLY cholecalciferol (vitamin D3) 50 mcg (2,000 unit) capsule See Rx Instructions .ROUTE .COMPLEX Qty: 90 1RF Dose Instruction: TAKE 1 CAPSULE BY MOUTH DAILY Rx Instructions: TAKE 1 CAPSULE BY MOUTH DAILY venlafaxine 75 mg capsule,extended release 24hr See Rx Instructions .ROUTE .COMPLEX Qty: 90 0RF Dose Instruction: TAKE 1 CAPSULE BY MOUTH ONCE DAILY Rx Instructions: TAKE 1 CAPSULE BY MOUTH ONCE DAILY spironolactone 25 mg tablet See Rx Instructions .ROUTE .COMPLEX Qty: 30 11RF Dose Instruction: TAKE 1 TABLET BY MOUTH ONCE DAILY Rx Instructions: TAKE 1 TABLET BY MOUTH ONCE DAILY metoprolol succinate 100 mg tablet extended release 24 hr See Rx Instructions .ROUTE .COMPLEX Qty: 90 3RF Dose Instruction: TAKE 1 TABLET BY MOUTH ONCE DAILY Rx Instructions: TAKE 1 TABLET BY MOUTH ONCE DAILY atorvastatin 80 mg tablet See Rx Instructions .ROUTE .COMPLEX Qty: 90 0RF Dose Instruction: TAKE 1 TABLET BY MOUTH ONCE DAILY Rx Instructions: TAKE 1 TABLET BY MOUTH ONCE DAILY fluticasone propionate [Flonase Allergy Relief] 50 mcg/actuation spray,suspension 2 spray intranasal DAILY 90 Days Qty: 16 2RF Rx Instructions: administer into each nostril Referrals Follow up/Referrals: Mary Mckeon PA [Primary Care Provider] - See instructions Peter Jang MD [Staff Physician] - See instructions (Follow-up for chest pain with reassuring ER workup) Activity Restrictions/Add. Instructions Additional Instructions/Restrictions: You were evaluated in the ER and are appropriate for discharge at this time. Continue taking your home medications as prescribed. Take your previously prescribed albuterol inhaler 2 puffs every 4-6 hours for the next 48 hours if needed for shortness of breath. Call the cardiology office first thing in the morning and make an appointment for close follow-up. Also follow-up closely with your primary care doctor. Return to the ER with any new, worsening, or otherwise concerning symptoms. Clinical Impressions Clinical Impression: Chest pain Print Language Print Language: Uzbek Discharge ED Provider: Jace Cali HPI <Jace Cali MD - Last Filed: 09/20/24 23:21> General Chief Complaint: Shortness of Breath/Dyspnea Stated Complaint: Difficulty breathing Time Seen by Provider: 09/20/24 20:19 Mode of Arrival: Ambulatory Source of Information: Patient Description of Symptoms (Recalled from ER Triage Doc. by RN): Patient states that approx 1500 increased SOA. Patient states he is unable to take a deep breath. States that he feels like something is sitting on his chest. Reports that he has used his inhaler 7x today. History of Present Illness HPI narrative: Patient is a 54-year-old male with past medical history of COPD who presents emergency department for evaluation of shortness of breath. Patient feels as if he is unable to take a deep breath, he does not have any significant chest pain. No significant cough worse than normal. He is uses an inhaler without relief, no other acute complaints at this time. Please note that above description of symptoms, in this electronic medical record under categorization of recalled from ER triage doctor by RN are reflective of an initial nursing assessment, however, is not reflective of my full history and physical exam that was personally taken and clarified. Consequentially, this preceding description of symptoms, which may include the patient's categorized chief complaint in the EMR, do not reflect my personal clinical impression, and the ultimate description of history of present illness and patient stated complaints should be deferred to this section of the note. Unless stated otherwise or congruent with this section of the note, additional signs, symptoms, or incongruence should be interpreted as inaccurate with my clinical impression. Related Data Home Medications ?Medication ?Instructions ?Recorded ?Confirmed hydroxychloroquine 200 mg tablet 200 mg PO DAILY 01/07/23 09/04/24 diclofenac sodium 75 mg 75 mg PO DAILY 02/08/24 09/04/24 tablet,delayed release cariprazine 3 mg capsule (Vraylar) mg PO 09/04/24 09/04/24 Previous Rx's ?Medication ?Instructions ?Recorded aspirin 81 mg tablet,delayed 81 mg PO DAILY #30 tabs 03/15/19 release (Adult Low Dose Aspirin) albuterol sulfate 90 mcg/actuation 2 inh inhalation Q6H PRN shortness 12/18/21 aerosol inhaler of breath or wheezing 90 days #8.5 grams losartan 100 mg tablet See Rx Instructions .Route 12/21/23 .COMPLEX #90 tabs hydrochlorothiazide 25 mg tablet See Rx Instructions .Route 01/20/24 .COMPLEX #90 tabs omeprazole 40 mg capsule,delayed See Rx Instructions .Route 03/25/24 release .COMPLEX #90 caps ergocalciferol (vitamin D2) 1,250 See Rx Instructions .Route 05/03/24 mcg (50,000 unit) capsule (Vitamin .COMPLEX #14 caps D2) albuterol sulfate 90 mcg/actuation 2 inh inhalation Q6H PRN shortness 05/17/24 aerosol inhaler (Ventolin HFA) of breath or wheezing 90 days #18 grams fluticasone fur. 200 mcg-umeclid 1 inh inhalation DAILY 90 days #90 05/17/24 62.5 mcg-vilant 25 mcg ea inhalat.powder (Trelegy Ellipta) montelukast 10 mg tablet 10 mg PO DAILY 90 days #90 tabs 05/17/24 cholecalciferol (vitamin D3) 50 See Rx Instructions .Route 05/25/24 mcg (2,000 unit) capsule .COMPLEX #90 caps metoprolol succinate 100 mg See Rx Instructions .Route 06/27/24 tablet,extended release 24 hr .COMPLEX #90 tabs spironolactone 25 mg tablet See Rx Instructions .Route 06/27/24 .COMPLEX #30 tabs venlafaxine 75 mg capsule,extended See Rx Instructions .Route 06/27/24 release 24 hr .COMPLEX #90 caps atorvastatin 80 mg tablet See Rx Instructions .Route 07/27/24 .COMPLEX #90 tabs fluticasone propionate 50 2 spray intranasal DAILY 90 days 08/25/24 mcg/actuation nasal #16 grams spray,suspension (Flonase Allergy Relief) benzonatate 100 mg capsule 100 mg PO BID PRN cough #20 caps 09/04/24 prednisone 20 mg tablet 20 mg PO BID #10 tabs 09/04/24 Allergies Allergy/AdvReac Type Severity Reaction Status Date / Time No Known Allergies Allergy Verified 09/04/24 19:16 [facility] <Jace Cali MD - Last Filed: 09/20/24 23:21> [facility] Disclaimer: The information contained in this section may have been updated after the patient was seen, as this information can be updated by other users. Medical History Viral syndrome Pharyngitis Claudication of lower extremity Leg pain, right Allergic rhinitis Encounter for screening for malignant neoplasm of lung in current smoker with 30 pack year history or greater Mediastinal lymphadenopathy Multiple lung nodules on CT Pulmonary fibrosis, unspecified Restrictive lung disease Stopped smoking with greater than 30 pack year history Dyspnea on exertion Asthma COPD mixed type Positive sm/[employer] antibody Daytime somnolence Snoring Anxiety and depression HLD (hyperlipidemia) [place] last lipid panel was done in January. This showed an elevated triglyceride level and a low HDL however total cholesterol and LDL were excellent. I think increasing his atorvastatin would be helpful for him. Additionally 3 6 omega fatty acids would be another option. They opted for the atorvastatin. Diastolic dysfunction HTN (hypertension) Blood pressure was 138/86 today. Surgical History No history of previous surgery Family History Other Diabetes Emphysema of lung Hypertension Social History Smoking Status: Former smoker tobacco type: cigarettes packs per day: 1 alcohol intake: never substance use type: denies use current occupational status: employed and other Travel in the last 8 weeks: None household members: spouse housing: house Have you lived/traveled outside [place] in past 30 days?: No Contact w/someone who lives/traveled outside [place] past 30 days?: No Exposure to someone with infectious disease in past 14 days?: No Do you have a fever (greater than 100.4 F or 38 C)?: No Have you tested positive for COVID-19: No Exposed to someone with COVID-19 in past 14 days?: No Do you have a sore throat?: No Do you have a cough?: No Do you have any weakness?: No Do you have any diarrhea?: No Are you experiencing any unusual bleeding?: No Do you have any muscle aches/pain?: No Do you have any abdominal pain?: No Are you experiencing loss of taste or smell?: No Other Medical History Have you received the Flu Vaccine for this season: No Have you received the Pneumonia Vaccine: No <Jace Cali MD - Last Filed: 09/20/24 23:21> ROS Obtained: Yes Systems reviewed as appropriate & no additional complaints except as documented Physical Exam <Jace Cali MD - Last Filed: 09/20/24 23:21> General General appearance: alert and in no apparent distress Head Head exam: atraumatic and normocephalic Eye Eye exam: Present PERRL and EOMI ENT ENT exam: Present mucous membranes moist Neck Neck exam: Present normal inspection Chest Chest inspection: Present normal inspection and symmetric chest wall rise Respiratory Respiratory exam: Present normal lung sounds bilaterally; Absent respiratory distress Cardiovascular Cardiovascular exam: Present regular rate and normal rhythm Abdominal Exam Abdominal exam: Present soft; Absent tenderness Extremities Exam Extremities exam: Present normal inspection Neurological Exam Neurological exam: Present alert Psychiatric Psychiatric exam: Present normal affect Skin Skin exam: Present warm and dry HEART Score <Jace Cali MD - Last Filed: 09/20/24 23:21> HEART Score HEART Score assessment performed?: Yes History (anamnesis): Slightly suspicious ECG: Normal Age: 45-65 years Risk factors: 3 or more risk factors Troponin: </= normal limit HEART Score: 3 <Miguelito Mcgee MD - Last Filed: 09/20/24 23:35> HEART Score HEART Score: 3 Critical Care <Jace Cali MD - Last Filed: 09/20/24 23:21> Critical Care Time Critical Care Time: No Medical Decision Making <Jace Cali MD - Last Filed: 09/20/24 23:21> Nikolai Inquiry Pt receiving controlled substance: No Vital Signs Vital Signs: 09/20/24 20:08 09/20/24 20:30 09/20/24 21:00 Temperature 98.1 F Temperature Source Oral Pulse Rate 87 88 Pulse Rate [Right] 85 Respiratory Rate 22 19 18 Blood Pressure 136/81 142/89 H Blood Pressure [Right Arm] 160/90 H Blood Pressure Mean [Right Arm] 113 Blood Pressure Source [Right Arm] Automatic Cuff Blood Pressure Position [Right Arm] Sitting 02 Sat by Pulse Oximetry 88 L 95 99 Oxygen Delivery Method Room Air Room Air Room Air 09/20/24 21:30 09/20/24 22:00 09/20/24 22:30 Temperature Temperature Source Pulse Rate 96 H 100 H 93 H Pulse Rate [Right] Respiratory Rate 16 19 14 Blood Pressure 149/89 H 160/88 H 132/90 Blood Pressure [Right Arm] Blood Pressure Mean [Right Arm] Blood Pressure Source [Right Arm] Blood Pressure Position [Right Arm] 02 Sat by Pulse Oximetry 97 97 96 Oxygen Delivery Method Room Air Room Air Room Air 09/20/24 23:00 Temperature Temperature Source Pulse Rate 89 Pulse Rate [Right] Respiratory Rate 16 Blood Pressure 144/87 H Blood Pressure [Right Arm] Blood Pressure Mean [Right Arm] Blood Pressure Source [Right Arm] Blood Pressure Position [Right Arm] 02 Sat by Pulse Oximetry 95 Oxygen Delivery Method Lab Data Labs: Lab Results 09/20/24 20:22: VBG pH 7.43 H, VBG pCO2 33.5 L, VBG pO2 54.2 H, VBG HCO3 21.9 L, VBG Total CO2 23.0, VBG O2 Saturation 89.4 H, VBG Base Excess -2.3, VBG Lactic Acid 1.9 09/20/24 20:25: WBC 14.5 H, RBC 4.67, Hgb 14.3, Hct 41.1 L, MCV 88.0, MCH 30.6, MCHC 34.8, RDW 12.6, Plt Count 234, MPV 11.1 H, Neut % (Auto) 69.4, Lymph % (Auto) 18.1, Fleming % (Auto) 11.0 H, Eos % (Auto) 0.3, Baso % (Auto) 0.6, Neut # (Auto) 10.1 H, Lymph # (Auto) 2.6, Fleming # (Auto) 1.6 H, Eos # (Auto) 0.1, Baso # (Auto) 0.1, Sodium 138, Potassium 3.6, Chloride 101, Carbon Dioxide 24, Anion Gap 16.6 H, BUN 17, Creatinine 0.90, Estimated Creat Clear 155, Estimated GFR 88, Est GFR ( Amer) 106, Glucose 153 H, Calcium 8.9, Total Bilirubin 0.7, AST 34, ALT 52, Alkaline Phosphatase 114, Troponin I < 0.01, NT-Pro-B Natriuret Pep 28.0, Total Protein 7.8, Albumin 4.3, Globulin 3.5 H, Albumin/Globulin Ratio 1.2 09/20/24 21:15: SARS-CoV-2 (PCR) Not detected, Influenza A Untype (PCR) Not detected, Influenza Type B (PCR) Not detected 09/20/24 22:57: Troponin I < 0.01 09/20/24 20:25 09/20/24 20:25 Response Orders (Tests/Meds): ED MEDICATIONS Discontinued Medications Generic Name Dose Route Start Last Admin Trade Name Freq PRN Reason Stop Dose Admin Albuterol/Ipratropium 9 ml 09/20/24 20:22 09/20/24 20:32 Ipratropium/Albuterol 3 Ml Neb IH 09/20/24 20:23 9 ml ONCE ONE Administration Aspirin 324 mg 09/20/24 20:57 09/20/24 21:01 Aspirin 81mg Chewable Tablet PO 09/20/24 20:58 324 mg ONCE ONE Administration Magnesium Sulfate 2 gm in 50 mls @ 50 mls/hr 09/20/24 20:22 09/20/24 20:33 Magnesium Sulfate 2gm/50ml Premix IV 09/20/24 21:21 50 mls/hr ONCE ONE Administration Methylprednisolone Sodium Succinate 125 mg 09/20/24 20:22 09/20/24 20:32 Methylprednisolone Sod Succ 125mg Vial IV 09/20/24 20:23 125 mg ONCE ONE Administration ORDERS Category Date Time Status CXR --portable [XR chest portable] Stat Exams 09/20/24 20:22 Completed BNP [NT Pro Brain Natriuretic Pep.] Stat Lab 09/20/24 20:25 Completed CBC w/Auto Diff [Complete Blood Count Auto Diff] Stat Lab 09/20/24 20:25 Completed CMP [Comprehensive Metabolic Panel] Stat Lab 09/20/24 20:25 Completed Rapid PCR Covid and Flu A/B Stat Lab 09/20/24 21:15 Completed Trop I [Troponin I] Stat Lab 09/20/24 20:25 Completed Troponin I Q3H Lab 09/20/24 22:57 Completed Troponin I Q3H Lab 09/21/24 02:30 Ordered VBG [Venous Blood Gas] Stat RT 09/20/24 20:22 Completed EKG Request [ECG Request] Stat Y 09/20/24 20:22 Completed ECG Data Tracing #1: ECG Narrative: Independently inter by me rate is 88, rhythm is regular, axis is normal, no ST elevation in anatomical contiguous leads, QTc 412 MDM Narrative Medical Decision Narrative: In summary patient is a 54-year-old male past medical history described above presents emergency department for evaluation of shortness of breath. Patient is hemodynamically stable nontoxic-appearing upon arrival, afebrile. Poor lung movement in all air ramsey. Differential diagnosis includes COPD exacerbation atypical ACS, among others. Workup will be conducted with hematologic labs chest x-ray EKG serial troponins. Initial inventions include DuoNebs x 3 IV magnesium, methylprednisolone, aspirin. Initial workup reviewed by me, leukocytosis 14.5, slight respiratory alkalosis that is nonactionable no MICHELLE or critical electrolyte abnormality initial troponin undetectably low. Upon repeat evaluation patient had improved air movement however he articulated that he did have some previous pressure on his chest which he is not having currently. Shared decision making discussion was had over admission for cardiology evaluation versus serial troponin. Given that patient's pressure is resolved largely we will proceed with second troponin. The patient was placed in observation status at 10:18 PM. Medical necessity for observational status is serial troponins repeat physical exam.. The patient was provided serial reevaluations and cardiac monitoring while awaiting results. [Results of testing during observation are remarkable for:]. [Because of these results I feel patient can be discharged with follow-up with their PCP versus feel patient requires admission due to]. Total time in observation was [total time]. <Miguelito Mcgee MD - Last Filed: 09/20/24 23:35> Vital Signs Vital Signs: 09/20/24 20:08 09/20/24 20:30 09/20/24 21:00 Temperature 98.1 F Temperature Source Oral Pulse Rate 87 88 Pulse Rate [Right] 85 Respiratory Rate 22 19 18 Blood Pressure 136/81 142/89 H Blood Pressure [Right Arm] 160/90 H Blood Pressure Mean [Right Arm] 113 Blood Pressure Source [Right Arm] Automatic Cuff Blood Pressure Position [Right Arm] Sitting 02 Sat by Pulse Oximetry 88 L 95 99 Oxygen Delivery Method Room Air Room Air Room Air 09/20/24 21:30 09/20/24 22:00 09/20/24 22:30 Temperature Temperature Source Pulse Rate 96 H 100 H 93 H Pulse Rate [Right] Respiratory Rate 16 19 14 Blood Pressure 149/89 H 160/88 H 132/90 Blood Pressure [Right Arm] Blood Pressure Mean [Right Arm] Blood Pressure Source [Right Arm] Blood Pressure Position [Right Arm] 02 Sat by Pulse Oximetry 97 97 96 Oxygen Delivery Method Room Air Room Air Room Air 09/20/24 23:00 Temperature Temperature Source Pulse Rate 89 Pulse Rate [Right] Respiratory Rate 16 Blood Pressure 144/87 H Blood Pressure [Right Arm] Blood Pressure Mean [Right Arm] Blood Pressure Source [Right Arm] Blood Pressure Position [Right Arm] 02 Sat by Pulse Oximetry 95 Oxygen Delivery Method Lab Data Labs: Lab Results 09/20/24 20:22: VBG pH 7.43 H, VBG pCO2 33.5 L, VBG pO2 54.2 H, VBG HCO3 21.9 L, VBG Total CO2 23.0, VBG O2 Saturation 89.4 H, VBG Base Excess -2.3, VBG Lactic Acid 1.9 09/20/24 20:25: WBC 14.5 H, RBC 4.67, Hgb 14.3, Hct 41.1 L, MCV 88.0, MCH 30.6, MCHC 34.8, RDW 12.6, Plt Count 234, MPV 11.1 H, Neut % (Auto) 69.4, Lymph % (Auto) 18.1, Fleming % (Auto) 11.0 H, Eos % (Auto) 0.3, Baso % (Auto) 0.6, Neut # (Auto) 10.1 H, Lymph # (Auto) 2.6, Fleming # (Auto) 1.6 H, Eos # (Auto) 0.1, Baso # (Auto) 0.1, Sodium 138, Potassium 3.6, Chloride 101, Carbon Dioxide 24, Anion Gap 16.6 H, BUN 17, Creatinine 0.90, Estimated Creat Clear 155, Estimated GFR 88, Est GFR ( Amer) 106, Glucose 153 H, Calcium 8.9, Total Bilirubin 0.7, AST 34, ALT 52, Alkaline Phosphatase 114, Troponin I < 0.01, NT-Pro-B Natriuret Pep 28.0, Total Protein 7.8, Albumin 4.3, Globulin 3.5 H, Albumin/Globulin Ratio 1.2 09/20/24 21:15: SARS-CoV-2 (PCR) Not detected, Influenza A Untype (PCR) Not detected, Influenza Type B (PCR) Not detected 09/20/24 22:57: Troponin I < 0.01 Response Orders (Tests/Meds): ED MEDICATIONS Discontinued Medications Generic Name Dose Route Start Last Admin Trade Name Freq PRN Reason Stop Dose Admin Albuterol/Ipratropium 9 ml 09/20/24 20:22 09/20/24 20:32 Ipratropium/Albuterol 3 Ml Neb IH 09/20/24 20:23 9 ml ONCE ONE Administration Aspirin 324 mg 09/20/24 20:57 09/20/24 21:01 Aspirin 81mg Chewable Tablet PO 09/20/24 20:58 324 mg ONCE ONE Administration Magnesium Sulfate 2 gm in 50 mls @ 50 mls/hr 09/20/24 20:22 09/20/24 20:33 Magnesium Sulfate 2gm/50ml Premix IV 09/20/24 21:21 50 mls/hr ONCE ONE Administration Methylprednisolone Sodium Succinate 125 mg 09/20/24 20:22 09/20/24 20:32 Methylprednisolone Sod Succ 125mg Vial IV 09/20/24 20:23 125 mg ONCE ONE Administration ORDERS Category Date Time Status CXR --portable [XR chest portable] Stat Exams 09/20/24 20:22 Completed BNP [NT Pro Brain Natriuretic Pep.] Stat Lab 09/20/24 20:25 Completed CBC w/Auto Diff [Complete Blood Count Auto Diff] Stat Lab 09/20/24 20:25 Completed CMP [Comprehensive Metabolic Panel] Stat Lab 09/20/24 20:25 Completed Rapid PCR Covid and Flu A/B Stat Lab 09/20/24 21:15 Completed Trop I [Troponin I] Stat Lab 09/20/24 20:25 Completed Troponin I Q3H Lab 09/20/24 22:57 Completed Troponin I Q3H Lab 09/21/24 02:30 Ordered VBG [Venous Blood Gas] Stat RT 09/20/24 20:22 Completed EKG Request [ECG Request] Stat Y 09/20/24 20:22 Completed MDM Narrative Medical Decision Narrative: In summary patient is a 54-year-old male past medical history described above presents emergency department for evaluation of shortness of breath. Patient is hemodynamically stable nontoxic-appearing upon arrival, afebrile. Poor lung movement in all air ramsey. Differential diagnosis includes COPD exacerbation atypical ACS, among others. Workup will be conducted with hematologic labs chest x-ray EKG serial troponins. Initial inventions include DuoNebs x 3 IV magnesium, methylprednisolone, aspirin. Initial workup reviewed by me, leukocytosis 14.5, slight respiratory alkalosis that is nonactionable no MICHELLE or critical electrolyte abnormality initial troponin undetectably low. Upon repeat evaluation patient had improved air movement however he articulated that he did have some previous pressure on his chest which he is not having currently. Shared decision making discussion was had over admission for cardiology evaluation versus serial troponin. Given that patient's pressure is resolved largely we will proceed with second troponin. The patient was placed in observation status at 10:18 PM. Medical necessity for observational status is serial troponins repeat physical exam.. The patient was provided serial reevaluations and cardiac monitoring while awaiting results. Mcgee: Upon my assumption of care patient is stable and resting comfortably in ED observation while serial troponins are pending. His chest pain has resolved. I reviewed the workup already performed and agree with the assessment and plan from Dr. Cali. He is hemodynamically stable and well-appearing. He has remained on the assessment analyst and has not had any concerning abnormalities. Repeat troponin also undetectably low less than 0.01. Patient remains asymptomatic on further reassessment. He would like to be discharged which I believe is reasonable at this time since he remains asymptomatic. Review of records demonstrates he has previously seen cardiology but it was in 2022. He states he previously saw Dr. Jang. I want the patient to have close cardiology follow-up so I placed a referral back to Dr. Jang and instructed the patient to call the office for an appointment as soon as possible. Also reviewed patient's prescriptions and he appears to have refills on his albuterol inhalers. No new prescriptions. Patient was given instructions on symptomatic management, follow up instructions, and return precautions for the emergency department. Patient indicated understanding and was discharged in stable condition. Total time in ED observation: 1 hour 16 minutes
[2024-09-20 20:54] LABS: Troponin I < 0.01 ng/ml (0.00-0.034)
[2024-09-20 20:57] LABS: Lactate Venous 1.9 mmol/L (0.4-2.0); VBG Base Excess -2.3 mmol/L (-2.4-2.3); VBG HCO3 21.9 mmol/L (23-30); VBG Oxygen Saturation 89.4 % (50-70); VBG PCO2 33.5 mmol/L (35-51); VBG PH 7.43 mmol/L (7.31-7.41); VBG PO2 54.2 mmol/L (28-40)
[2024-09-20] MEDS: ASPIRIN 81MG CHEWABLE TABLET 324 MG PO (21:01)
[2024-09-20 21:22] LABS: Coronavirus 19, PCR Not Detected (NotDetected); Influenza A, PCR Not Detected (NotDetected); Influenza B, PCR Not Detected (NotDetected)
[2024-09-20 23:24] LABS: Troponin I < 0.01 ng/ml (0.00-0.034)
== END 2024-09-20 23:35 | disposition home or self-care (01) ==
PROVIDERS: Emergency Provider Emergency Medicine; PCP Physician Assistant
DX: R06.02 Shortness of breath (principal); R07.9 Chest pain, unspecified
CPT/HCPCS: 71045; 80053; 82803; 83880; 84484; 85025; 87636; 93005; 96365; 96374; 99284; J2919; J3475; J7620

== ENCOUNTER 2024-11-12 20:37 | Emergency (ER) | payer OTHER, SELFPAY ==
--- NOTE | 2024-11-12 20:48 | ED_ITS ---
<Statement entered by Nuzhat Tam MD - 11/12/24 23:20> I was consulted by the BRAIN, and we discussed the complexity of the problems being addressed. I approved the treatment and management plan for this patient's care in the emergency department, thus performing a substantive portion of the medical decision making. Nuzhat Tam MD, GAMAL, FACEP Discharge Plan Disposition Patient Disposition: Home, Self-Care Condition: Good Prescriptions Prescriptions: New cephalexin 500 mg capsule 500 mg PO BID 5 Days Qty: 10 0RF No Action albuterol sulfate 90 mcg/actuation HFA aerosol inhaler 2 inh IH Q6H PRN (Reason: shortness of breath or wheezing) 90 Days Qty: 8.5 3RF Trelegy Ellipta 200-62.5-25 mcg blister with device 1 inh inhalation DAILY 90 Days Qty: 90 3RF montelukast 10 mg tablet 10 mg PO DAILY 90 Days Qty: 90 3RF albuterol sulfate [Ventolin HFA] 90 mcg/actuation HFA aerosol inhaler 2 inh inhalation Q6H PRN (Reason: shortness of breath or wheezing) 90 Days Qty: 18 3RF ondansetron 4 mg tablet,disintegrating 4 mg PO Q8H PRN (Reason: nausea and vomiting) Qty: 10 0RF aspirin [Adult Low Dose Aspirin] 81 mg tablet,delayed release (DR/EC) 81 mg PO DAILY Qty: 30 5RF hydroxychloroquine 200 mg tablet 200 mg PO DAILY diclofenac sodium 75 mg tablet,delayed release (DR/EC) 75 mg PO DAILY Enbrel SureClick 50 mg/mL (1 mL) pen injector 50 mg SQ QWEEK Vraylar 1.5 mg capsule 1.5 mg PO DAILY Vraylar 3 mg capsule PO losartan 100 mg tablet See Rx Instructions .ROUTE .COMPLEX Qty: 90 3RF Dose Instruction: TAKE 1 TABLET BY MOUTH ONCE DAILY Rx Instructions: TAKE 1 TABLET BY MOUTH ONCE DAILY hydrochlorothiazide 25 mg tablet See Rx Instructions .ROUTE .COMPLEX Qty: 90 3RF Dose Instruction: TAKE ONE TABLET BY MOUTH EVERY DAY Rx Instructions: TAKE ONE TABLET BY MOUTH EVERY DAY ergocalciferol (vitamin D2) [Vitamin D2] 1,250 mcg (50,000 unit) capsule See Rx Instructions .ROUTE .COMPLEX Qty: 14 2RF Dose Instruction: TAKE 1 CAPSULE BY MOUTH ONCE WEEKLY Rx Instructions: TAKE 1 CAPSULE BY MOUTH ONCE WEEKLY cholecalciferol (vitamin D3) 50 mcg (2,000 unit) capsule See Rx Instructions .ROUTE .COMPLEX Qty: 90 1RF Dose Instruction: TAKE 1 CAPSULE BY MOUTH DAILY Rx Instructions: TAKE 1 CAPSULE BY MOUTH DAILY spironolactone 25 mg tablet See Rx Instructions .ROUTE .COMPLEX Qty: 30 11RF Dose Instruction: TAKE 1 TABLET BY MOUTH ONCE DAILY Rx Instructions: TAKE 1 TABLET BY MOUTH ONCE DAILY metoprolol succinate 100 mg tablet extended release 24 hr See Rx Instructions .ROUTE .COMPLEX Qty: 90 3RF Dose Instruction: TAKE 1 TABLET BY MOUTH ONCE DAILY Rx Instructions: TAKE 1 TABLET BY MOUTH ONCE DAILY atorvastatin 80 mg tablet See Rx Instructions .ROUTE .COMPLEX Qty: 90 0RF Dose Instruction: TAKE 1 TABLET BY MOUTH ONCE DAILY Rx Instructions: TAKE 1 TABLET BY MOUTH ONCE DAILY fluticasone propionate [Flonase Allergy Relief] 50 mcg/actuation spray,suspension 2 spray intranasal DAILY 90 Days Qty: 16 2RF Rx Instructions: administer into each nostril venlafaxine 75 mg capsule,extended release 24hr See Rx Instructions .ROUTE .COMPLEX Qty: 90 0RF Dose Instruction: TAKE 1 CAPSULE BY MOUTH ONCE DAILY Rx Instructions: TAKE 1 CAPSULE BY MOUTH ONCE DAILY omeprazole 40 mg capsule,delayed release(DR/EC) See Rx Instructions .ROUTE .COMPLEX Qty: 90 1RF Dose Instruction: TAKE 1 CAPSULE BY MOUTH ONCE DAILY Rx Instructions: TAKE 1 CAPSULE BY MOUTH ONCE DAILY Referrals Follow up/Referrals: Mary Mckeon PA [Primary Care Provider, Medical] - See instructions Activity Restrictions/Add. Instructions Additional Instructions/Restrictions: Please keep the area clean and dry and covered with a nonocclusive dressing if you need to protect the stitches. You may wash with soap and water. Please do not put any ointments or creams until the stitches come out. Stitches need to stay in for 7 days. If you have any redness drainage swelling increasing pain fever return to the emergency department. You can return to PCP [facility] or the ER for suture removal. Clinical Impressions Clinical Impression: Laceration of right upper arm Instructions Patient Instructions: DI for Laceration Repair Print Language Print Language: Kyrgyz Discharge ED Provider: Nuzhat Tam General Adult HPI General Chief complaint: Wound/Laceration Stated complaint: AO 5-31 right arm cut with metal Time Seen by Provider: 11/12/24 20:47 History of Present Illness HPI narrative: Patient presents for right arm laceration. Patient was working on a metal frame and was cut by protruding bolts in his right forearm. It did not penetrate however he suffered a large laceration to the the ulnar side approximately mid forearm. He has no loss of motor or sensory numbness or tingling. Related Data Home Medications ?Medication ?Instructions ?Recorded ?Confirmed hydroxychloroquine 200 mg tablet 200 mg PO DAILY 01/0710/06/24 diclofenac sodium 75 mg 75 mg PO DAILY 02/08/2409/14 tablet,delayed release cariprazine 3 mg capsule (Vraylar) mg PO 09/04/2409/14 cariprazine 1.5 mg capsule 1.5 mg PO DAILY 10/06/24 (Vraylar) etanercept 50 mg/mL (1 mL) 50 mg SQ QWEEK 10/06/24 subcutaneous pen injector (Enbrel SureClick) Previous Rx's ?Medication ?Instructions ?Recorded aspirin 81 mg tablet,delayed 81 mg PO DAILY #30 tabs 1 release (Adult Low Dose Aspirin) albuterol sulfate 90 mcg/actuation 2 inh inhalation Q6 H PRN shortness 12/18/21 aerosol inhaler of breath or wheezing 90 day s #8.5 grams losartan 100 mg tablet See Rx Instructions .Route 0 12/21/23 .COMPLEX #90 tabs hydrochlorothiazide 25 mg tablet See Rx Instructions . Route 01/20/24 .COMPLEX #90 tabs ergocalciferol (vitamin D2) 1,250 See Rx Instructions .Route 05/03/24 mcg (50,000 unit) capsule (Vitamin .COMPLEX #14 caps D2) albuterol sulfate 90 mcg/actuation 2 inh inhalation Q6 H PRN shortness 05/17/24 aerosol inhaler (Ventolin HFA) of breath or wheezing 9 0 days #18 grams fluticasone fur. 200 mcg-umeclid 1 inh inhalation NICOLLE Y 90 days #90 05/17/24 62.5 mcg-vilant 25 mcg ea inhalat.powder (Trelegy Ellipta) montelukast 10 mg tablet 10 mg PO DAILY 90 days #90 t abs 05/17/24 cholecalciferol (vitamin D3) 50 See Rx Instructions .R oute 05/25/24 mcg (2,000 unit) capsule .COMPLEX #90 caps metoprolol succinate 100 mg See Rx Instructions .Route 06/27/24 tablet,extended release 24 hr .COMPLEX #90 tabs spironolactone 25 mg tablet See Rx Instructions .Route 06/27/24 .COMPLEX #30 tabs atorvastatin 80 mg tablet See Rx Instructions .Route 0 07/27/24 .COMPLEX #90 tabs fluticasone propionate 50 2 spray intranasal DAILY 90 days 08/25/24 mcg/actuation nasal #16 grams spray,suspension (Flonase Allergy Relief) ondansetron 4 mg disintegrating 4 mg PO Q8H PRN nausea and 10/03/24 tablet vomiting #10 tabs venlafaxine 75 mg capsule,extended See Rx Instructions .Route 10/05/24 release 24 hr .COMPLEX #90 caps omeprazole 40 mg capsule,delayed See Rx Instructions . Route 10/10/24 release .COMPLEX #90 caps cephalexin 500 mg capsule 500 mg PO BID 5 days #10 cap s 11/12/24 Allergies Allergy/AdvReac Type Severity Reaction Status Date / Time No Known Allergies Allergy Verified 10/06/24 14:36 [facility] Disclaimer: The information contained in this section may have been updated after the patient was seen, as this information can be updated by other users. Medical History Nausea vomiting and diarrhea Diarrhea Viral syndrome Pharyngitis Claudication of lower extremity Leg pain, right Allergic rhinitis Encounter for screening for malignant neoplasm of lung in current smoker with 30 pack year history or greater Mediastinal lymphadenopathy Multiple lung nodules on CT Pulmonary fibrosis, unspecified Restrictive lung disease Stopped smoking with greater than 30 pack year history Dyspnea on exertion Asthma COPD mixed type Positive sm/[employer] antibody Daytime somnolence Snoring Anxiety and depression HLD (hyperlipidemia) [place] last lipid panel was done in January. This showed an elevated triglyceride level and a low HDL however total cholesterol and LDL were excellent. I think increasing his atorvastatin would be helpful for him. Additionally 3 6 omega fatty acids would be another option. They opted for the atorvastatin. Diastolic dysfunction HTN (hypertension) Blood pressure was 138/86 today. Surgical History No history of previous surgery Family History Other Diabetes Emphysema of lung Hypertension Social History Smoking Status: Never smoker alcohol intake: never substance use type: denies use current occupational status: employed and other Travel in the last 8 weeks?: None household members: spouse housing: house Have you lived/traveled outside [place] in past 30 days?: No Contact w/someone who lives/traveled outside [place] past 30 days?: No Exposure to someone with infectious disease in past 14 days?: No Do you have a fever (greater than 100.4 F or 38 C)?: No Have you tested positive for COVID-19?: No Exposed to someone with COVID-19 in past 14 days?: No Do you have a sore throat?: No Do you have a cough?: No Do you have any weakness?: No Do you have any diarrhea?: No Are you experiencing any unusual bleeding?: No Do you have any muscle aches/pain?: No Do you have any abdominal pain?: No Are you experiencing loss of taste or smell?: No Other Medical History Have you received the Flu Vaccine for this season: No Have you received the Pneumonia Vaccine: Yes ROS Obtained: Yes Systems reviewed as appropriate & no additional complaints except as documented Physical Exam General General appearance: alert Respiratory Respiratory exam: Present normal lung sounds bilaterally and accessory muscle use Cardiovascular Cardiovascular exam: Present regular rate Neurological Exam Neurological exam: Present alert and oriented X3 Medical Decision Making Medical Records Screening: Per USPSTF and CDC recommendations, given the prevalence of disease in our region, it is our hospital?s policy to screen for HIV and viral Hepatitis for all patients aged 18 and over and those with ongoing risk factors. Nikolai Inquiry Pt receiving controlled substance: No Vital Signs: 11/12/24 21:09 Temperature 97.8 F Temperature Source Oral Pulse Rate [Left] 99 H Respiratory Rate 20 Blood Pressure [Right Arm] 154/92 H Blood Pressure Mean [Right Arm] 112 Blood Pressure Source [Right Arm] Automatic Cuff Blood Pressure Position [Right Arm] Sitting 02 Sat by Pulse Oximetry 96 Oxygen Delivery Method Room Air Orders (Tests/Meds): ED MEDICATIONS Discontinued Medications Generic Name Dose Route Start Last Admin Trade Name Freq PRN Reason Stop Dose Admin Cephalexin HCl 500 mg 11/12/24 20:57 11/12/24 21:18 Cephalexin 500mg Capsule PO 11/12/24 20:58 500 mg ONCE ONE Administration Lidocaine/Epinephrine 10 ml 11/12/24 20:56 11/12/24 21:16 Lidocaine 1% W/Epi 1:100,000 20ml Vial SQ 11/12/24 20:57 10 ml ONCE ONE Administration Tetanus/Reduced Diphtheria/Acell Pertussis 0.5 ml 11/12/24 20:56 11/12/24 21:18 Tet/Diphth/Pert-Adult 0.5ml Syringe IM 11/12/24 20:57 0.5 ml .ONCE ONE Administration Medical Decision Narrative: In summary patient is a 54-year-old male who presents to the emergency department for evaluation of right forearm laceration. Patient is hemodynamically stable upon arrival, afebrile. Physical exam is remarkable for a triangular tear like laceration to his ulnar side of the mid forearm. He is neurovascularly intact distally has full range of motion of his fingers and wrist. No active bleeding noted.. Differential diagnosis includes superficial versus deep laceration. Initial workup will be conducted with exam after anesthesia. Initial interventions include Tdap and Keflex. Initial workup reviewed by me and after adequate anesthesia wound was irrigated with saline and Betadine. Wound is superficial and does not penetrate past the superficial layer.. Given this wound was repaired primarily with ten 4.0 nylon stitches in an interrupted fashion. Patient is appropriate for discharge with prescription for Keflex with first dose given here and wound care and instructions to have sutures removed in 7 days at [facility] PCP or the ER as needed. Procedures Laceration Laceration 1: Site: upper extremity Side (If applicable): right Size (cm): 5.5 Description: irregular Local Anesthetic: lidocaine 1% and with epi Amount of anesthesia used (mL): 10 Pre-repair: wound explored and irrigated extensively Skin layer closed with: vicryl Size (cm): 4-0 Number of sutures: 10 Technique: simple, interrupted Critical Care Critical Care Time Critical Care Time: No
[2024-11-12 21:09] VITALS: BP 154/92; PULSE 99; RESP 20; TEMP 36.6; O2SAT 96; BMI 35.2
[2024-11-12] MEDS: LIDOCAINE 1% W/EPI 1:100,000 20ML VIAL 10 ML SQ (21:16)
[2024-11-12] MEDS: TET/DIPHTH/PERT-ADULT 0.5ML SYRINGE 0.5 ML IM (21:18)
[2024-11-12] MEDS: cephALEXin 500MG CAPSULE 500 MG PO (21:18)
[2024-11-12 22:04] VITALS: BP 124/68; PULSE 74; RESP 14; TEMP 36.6; O2SAT 100
== END 2024-11-12 22:05 | disposition home or self-care (01) ==
PROVIDERS: Emergency Provider Student in an Organized Health Care Education/Training Program; PCP Physician Assistant
DX: S51.811A Laceration without foreign body of right forearm, initial encounter (principal); W26.8XXA Contact with other sharp object(s), not elsewhere classified, initial encounter; Z23 Encounter for immunization
CPT/HCPCS: 12002; 90471; 90715; 99283; J2004

== ENCOUNTER 2025-01-25 13:45 | Outpatient (CLI) | payer OTHER, SELFPAY ==
--- OUTSIDE RECORDS SUMMARY | 2024-12-05 13:45 | XMS_ITS | Encounter Summary ---
Author Organization [employer] ([place], [place], [place], [place]) Address [address] [place] [address] Care Team Providers Care Health Services Coordinator Name Role Phone Unavailable Primary Care Provider Unavailabl e Reason for Referral * Durable Medical Equipment (Routine) - Closed Specialty Diagnoses / Procedures Referred By Pia ozuna Referred To Contact [facility] [facility] Diagnoses PATRICK (obstructive sleep apnea) Procedures DME Equipment Order Dontae Zamora APRN [address] [place] [address] Phone: tel: fax: Referral ID Status Reason Start Date Expiration Date Visits Re quested Visits Authorized [id number] Closed 12/05/2024 12/05/2025 1 1 Reason for Visit * Reason Comments Sleep Apnea New eval Encounter Details Date Type Department Care Team (Latest Contact Info) Description 12/05/2024 1:45 PM EDT Initial Consult [facility] 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 Gender Identity Male 12/05/2024 9:16 AM CDT Sexual Orientation Straight 12/05/2024 9: 16 AM CDT documented as of this encounter Last Filed Vital Signs Vital Sign Reading Time Taken Comments Blood Pressure 138/83 12/05/2024 10:44 AM EDT Pulse 77 12/05/2024 10:44 AM EDT Temperature - - Respiratory Rate 18 12/05/2024 10:4 4 AM EDT Oxygen Saturation 97% 12/05/2024 10: 44 AM EDT Inhaled Oxygen Concentration - - Weight 120.8 kg (266 lb 6.4 oz) 025 10:44 AM EDT Height 182.9 cm (6') 12/05/2024 10:44 AM EDT Body Mass Index 36.13 12/05/2024 10:44 AM EDT documented in this encounter Progress Notes * Belinda Mauricio RN - 12/05/2024 1:45 PM EDT Ess23;neck size 19 inches * Dontae Zamora APRN - 12/05/2024 1:45 PM EDT Subjective: Patient ID: Easton Camacho is a 54 y.o. male presenting with his spouse for new patient consult in the [facility]. He showed up 1 month early by accident but was worked into clinic today. 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 He is having trouble staying awake throughout the day which has interfered with his ability to work. 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 His primary care, Mary LIM has him off work for now pending further evaluation. He has a history of sleep apnea initially diagnosed years ago and most recently after seeing a membership assistant for second opinion, underwent PAP titration. Prior studies were personally obtained, reviewed as below: 1. Home sleep study 03/29/2020 at [facility], BMI 32% at the request of [facility] cardiology LIAM Louise was consistent with mild to moderate PATRICK. Overall AHI 13, RDI 18, minimal KhN836.8% with 0.7% of time less than 90% SpO2. Following the study, he recalls being set up on CPAP. reports he was unable to tolerate CPAP, frequently moved to his forehead and ended up sending itback. 2. PAP titration 08/27/2024 at [facility] at a weight of 257 pounds (BMI 34.9%) revealed optimal therapy BiPAP 18/14 cm H2O. When lateral in non-REM sleep he was able to do well with CPAP at 8 cm H2O. Auto BiPAP 18/8 PS 4 was recommended. Patient wore a [employer]ear fullface mask and supplemental oxygen was not needed. 3. 11/09/2024 he had a follow-up with cardiology/sleep medicine Alla Pino at [facility]. It is noted he tried trazodone 1 night because of his difficulty tolerating BiPAP which caused nightmares and he has an appointment for [facility] consult 11/27/2024. Following the PAP titration earlier this year, he transitioned to BiPAP but it appears he is on BiPAP 15/14 cm and not tolerating therapy. I contacted the [employer] company, Debora in [place] who reportsthat order was for Auto BiPAP 18/14 PS3. It is unclear how or why the patient ended up on BiPAP 15/14 cm H2O. Today during clinic Lulu tejeda [facility] was given verbal order by phone to place patient onauto BiPAP 18/8 PS 6. He has been trying to wear under the nose fullface mask which he feels is comfortable and okay but unfortunately he cannot tolerate the BiPAP at its current settings, 15/14. He cannot breathe, does not tolerate it long before ripping it off. He tried trazodone which caused nightmares. I am not surprised. He estimates 100 pound weight gain over the last 4-5 years which he attributes to sedentary job. 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 They tell me he also has active follow-up at where he pursued a second opinion from pulmonology and also rheumatology for his RA. Compliance summary obtained, reviewed, patient shown a copy then scanned to visit. For more details, see scanned copy. 11/02/2024 through 12/01/2024 [employer]Med air curve 11 BiPAP 15/ Usage: 1 out of 30 days Usage greater than or equal to 4 hours: 0% Average usage: 1 hour 21 minutes Average AHI: 5.9, all hypopnea Leak: Median 114 L/min The rooming data was reviewed. Available progress notes were obtained and reviewed as below: 1. 11/25/2024 patient saw PCP, RAPHAEL Austin with [facility] for his hypersomnia, COPD, RA 2. 11/14/2024 he had a new patient consult with pulmonology for asthma/COPD overlap syndrome Available labs were obtained and reviewed as below: 1. 08/11/2024: CBC, hepatic function panel Diagnostic studies obtained, reviewed includes 08/01/2024 echocardiogram. EF 62.7%. The new patient questionnaire was obtained, reviewed, scanned to visit. Pertinent positives listed below. See scanned copy. When asked to describe his sleep problem he writes I fall asleep randomly throughout the day even while driving Sleep schedule: 9 PM-8 AM Sleep latency 5 minutes with at least 2-5 awakenings throughout the night Averages 8 hours of sleep and naps 1 hour typically 2 times daily ESS 23 History of PATRICK Reports loud nightly continuous snoring, witnessed apnea, awakens with [place], difficulty breathing, morning headaches but not reflux although he takes medication for reflux. Reports difficulty breathing through nose day and night. Frequently feels fatigued or drowsy during the day, has a tendency to doze at rest, has had accidents at work and while driving related to sleepiness. Reports sudden episodes of sleepiness, sleep-related hallucination but denies sleep- related paralysis or physical weakness with strong emotions. Denies any trouble falling asleep but reports trouble staying asleep, nocturnal pain, discomfort inlegs without frequent leg movement. Also has a history of sleep talking, moving in his dreams but not fighting. Childhood sleep problems denied Surgical history: Blank Family history: Father with diabetes, heart disease, hypertension ROS: Positive in numerous systems, see questionnaire Social history: Former tobacco use, 1-1/2 pack/day x 30 years. Quit smoking in 2019. Drinks alcohol, typically 2 drinks maybe 1-2 days/week Denies illegal drug use Caffeine includes 4 cups of coffee and 1 soda per day Bed partner questionnaire: Witnessed apnea, heavy snoring on back, sleep talking. Denies frequent leg movement or sleepwalking Objective: PHYSICAL EXAM Vital signs: BP: 138/83 - Pulse: 77 - Resp: 18 - SpO2: 97 % Body mass index is 36.13 kg/m??. GENERAL-Patient is alert and in no distress. ENT- symmetric, no perioral cyanosis, NECK- supple, see neck circumference EXT- no obvious deformities NEURO - appropriate SKIN- dry, no pallor Assessment: ICD-10-CM ICD-9-CM 1. PATRICK (obstructive sleep apnea) G47.33 327.23 DME Equipment Order 2. Essential hypertension I10 401.9 3. Obesity (BMI 30-39.9) E66.9 278.00 4. COPD (chronic obstructive pulmonary disease) ([facility]) J44.9 496 5. Weight gain R63.5 783.1 Plan: History of mild to moderate PATRICK prior to significant weight gain. Suspected sleep apnea is likely worse. Unfortunately was not able to tolerate CPAP although she was ago. He recently had a titration study which shows he did well on auto BiPAP 18/14 but unfortunately he was placed on BiPAP 15/14 andhad difficulty tolerating the settings which was not a surprise to me. He may do better on the appropriate settings. If he tolerates BiPAP we will need to check an overnight oximetry if hypersomnia persists given his asthma, COPD. If despite BiPAP all night, every night averaging at least 7-8 hourswith AHI less than 5 without any hypoxia he remains excessively sleepy and drowsy we could consider following a PAP titration by [facility]. I suspect that his hypersomnia could be multifactorial but most certainly his untreated sleep apnea is a contributing factor. He is currently off work per his PCP as I agree, he cannot be driving if he is sleepy or drowsy as he is a risk to himself or others. Plan Abipap 18/8 PS 6 No driving Close FU See PCP about GLP-1 -Continue BiPAP, new settings -A new prescription was sent to adjust PAP therapy to auto BiPAP 30/01 PS 6 given his COPD. Verbal orders were given to Lulu tejeda [place]. -Risks of untreated sleep apnea including but not limited to insomnia, memory loss, hypertension, increased incidence of heart attack and stroke, mood disorders, sudden as well as personal sleep apnea risk factors, treatment options, goals of treatment, and the health benefits associated withtreatment were reviewed. Written education provided. He would need to lose some weight and repeat asleep study before [facility] could be considered. -Healthy sleep hygiene reviewed and encouraged. Written education provided. -Risk associated with driving and unresolved drowsiness reviewed. He is aware he cannot be driving while excessively sleepy and drowsy as he is at risk of hurting himself or others. 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 -Sleep apnea typically improved with sleeping elevated, avoiding back positioning. -Sleep apnea worse with the consumption of alcohol and narcotic medications. Consuming alcohol disrupts your sleep cycle, increases your risk for more apnea and sleep related . Strongly recommend continue treatment of your sleep apnea and avoidance of alcohol. -Bidirectional relationship between obesity and sleep apnea. Healthy lifestyle modifications including but not limited to healthy diet, healthy weight goals, daily exercise is recommended. With sleepapnea, treatment many help improve weight loss. Weight loss may improve PATRICK severity. Zepbound (a weekly injectable medication) is now FDA approved for the treatment of weight loss in obese patients with sleep apnea. He plans to discuss the possibility of GLP-1 therapy with his primary care. If this is not something she is able to prescribe, we can send him to bariatric clinic to discuss medically assisted weight loss options. Follow-up as below or sooner with any intolerance to PAP, difficulty obtaining supplies, significant weight changes or changes in your overall health. Return in about 1 month (around 01/04/2025). Orders Placed This Encounter Procedures DME Equipment Order The patient and any visitors were counseled regarding results, impression, further management recommendations, education and follow-up plans. Patient verbalized understanding of their disease process, healthy behaviors, medications (if relevant) and are in agreement with today's plan of care. Education was provided. BMI Plan: High BMI-Patient educated on consequences of abnormal BMI documented in this encounter Plan of Treatment Upcoming Encounters Date Type Department Care Team (Late st Contact Info) Description 02/06/2025 8:45 AM EDT Office Visit [facility] [address] [place] [address] Dontae Zamora APRN [address] [place] [address] 05/27/2025 8:30 PM EST Procedure Visit [facility] [address] [place] [address] Dontae Zamora APRN [address] [place] [address] documented as of this encounter Visit Diagnoses Diagnosis PATRICK (obstructive sleep apnea)- Primary Obstructive sleep apnea (adult) (pediatric) Essential hypertension Unspecified essential hypertension Obesity (BMI 30-39.9) COPD (chronic obstructive pulmonary disease) (HCC) Chronic airway obstruction, not elsewhere classified Weight gain Other symptoms concerning nutrition, metabolism, and development documented in this encounter
--- OUTSIDE RECORDS SUMMARY | 2024-12-14 09:00 | XMS_ITS | Encounter Summary ---
Author Organization [facility] Address [address] [place] [address] Care Team Providers Care Security Services Specialist Name Role Phone Mary Mckeon Primary Care Provider [phone] Reason for Referral * Consultation (Routine) - Authorized Specialty Diagnoses / Procedures Referred By Pia ozuna Referred To Contact Sports Medicine Diagnoses Primary osteoarthritis of both first carpometacarpal joints Osteoarthritis of both shoulders, unspecified osteoarthritis type Ricky Villarreal APRN [address] [facility] [address] [place] [address] Phone: tel: fax: [facility] [address] [place] [address], [address] [place] [address] Phone: tel: fax: Referral ID Status Reason Start Date Expiration Date Visits Requested Visits Authorized [id number] Authorized Specialty Services Required 12/15/2024 06/16/2026 1 1 Reason for Visit * Reason Comments Rheumatoid arthritis of multiple sites w ith negative rheuma Follow-up Encounter Details Date Type Department Care Team (Latest Contact Info) Description 12/14/2024 9:00 AM EDT Office Visit [facility] [address] [place] [address] Ricky Villarreal APRN [address] [place] [address] Osteoarthritis of both shoulders, unspecified osteoarthritis type (Primary Dx); Rheumatoid arthritis of multiple sites with negative rheumatoid factor (CMS/HCC); High risk medication use; Primary osteoarthritis of both first carpometacarpal joints Social History Tobacco Use Types Packs/Day Years Used Date Smoking Tobacco: Former Cigarettes 1 25 0 06/15/1992 - 06/15/2017 Passive Smoke Exposure: Past Smokeless Tobacco: Never Tobacco Cessation:Counseling Given: Not Answered Alcohol Use Standard Drinks/Week Comments Yes 0 (1 standard drink = 0.6 oz pur e alcohol) social PHQ-2 Answer Date Recorded Patient Health Questionnaire-2 Score 0 12/14/2024 PHQ-9 Answer Date Recorded Patient Health Questionnaire-9 Score 2 12/14/2024 AUDIT-C Answer Date Recorded Q1: How often do you have a drink containing alcohol? Never 12/14/2024 Q2: How many drinks containi ng alcohol do you have on a typical day when you are drinking? Patient does not drink Q3: How often do you have si x or more drinks on one occasion? Never 12/14/2024 PHQ-2A Answer Date Recorded Depression Risk 0 10/24/2022 Sex and Gender Information Value Date Recorded Sex Assigned at Not on file Legal Sex Male 7:05 PM EDT Gender Identity Not on file Sexual Orientation Not on file documented as of this encounter Last Filed Vital Signs Vital Sign Reading Time Taken Comments Blood Pressure 130/78 12/14/2024 8:33 AM EDT Pulse 75 12/14/2024 8:33 AM EDT Temperature 36.6 C (97.8 F) 12/14/2024 8:33 AM EDT Respiratory Rate - - Oxygen Saturation 97% 12/14/2024 8:33 AM EDT Inhaled Oxygen Concentration - - Weight 123 kg (270 lb 8.1 oz) 12/14/2024 8:33 AM EDT Height 182.9 cm (6') 12/14/2024 8:33 AM EDT Body Mass Index 36.69 12/14/2024 8:33 AM EDT documented in this encounter Functional Status * AUDIT-C Score Answer Date of Assessment Author 0 12/14/2024 8:36 AM EDT Johanna Donahue * Question Answer Date of Assessment Author Q1: How often do you have a drink containing alcohol? Never 12/14/2024 8:36 AM Elizabeth Jim Q2: How many drinks containing alcohol do you have on a typical day when you are drinking? Patient does not drink 12/14/2024 8:36 AM Johanna Jim Q3: How often do you have six or more drinks on one occasion? Never 12/14/2024 8:36 AM Elizabeth Jim * Over the past 2 weeks, how often have you been bothered by any of the following problems? Question Answer Date of Assessment Author Little interest or pleasure in doing things Not at all 12/14/2024 8:37 AM Elizabeth Jim Feeling down, depressed, or hopeless Not at all 12/14/2024 8:37 AM Elizabeth Jim Patient Health Questionnaire -2 Score 0 12/14/2024 8:37 AM Elizabeth Jim * Question Answer Date of Assessment Author Trouble falling or staying asleep, or sleeping too much Several days 12/14/2024 8:37 AM Johanna Napoles Feeling tired or having little energy Several days 12/14/2024 8:37 AM Elizabeth Jim Poor appetite or overeating Not at all 12/14/2024 8: 37 AM Johanna Jim Feeling bad about yourself - or that you are a failure or have let yourself or your family down Not at all 12/14/2024 8:37 AM Elizabeth Jim Trouble concentrating on things, such as reading the newspaper or watching television Not at all 12/14/2024 8:37 AM Elizabeth Jim Moving or speaking so slowly that other people could have noticed? Or the opposite - being so fidgety or restless that you have been moving around a lot more than usual. Not at all 12/14/2024 8:37 AM Elizabeth Jim Thoughts that you would be better off or hurting yourself in some way Not at all 12/14/2024 8:37 AM EDT Janina Donahue in R Patient Health Questionnaire-9 Score 2 12/14/2024 8:37 AM EDT Earline Donahue R * If you checked off any problems on this questionnaire so far, Question Answer Date of Assessment Author How difficult have these problems made it for you to do your work, take care of things at home, or get along with other people? Not difficult at all 12/14/2024 8:37 AM EDT Janina Donahue in R * How difficult have these problems made it for you to do your work, take care of things at home, or get along with other people? Answer Date of Assessment Author Not difficult at all 12/14/2024 8:37 AM EDT Johanna Paz documented as of this encounter Miscellaneous Notes * Addendum Note - Ricky Villarreal APRN - 12/14/2024 9:00 AM EDTAddended by: RICKY VILLARREAL on: 12/15/2024 12:56 PM Modules accepted: Orders * Progress Notes - Ricky Villarreal APRN - 12/14/2024 9:00 AM EDT Images from the original note were not included. Easton Camacho is a 54 y.o. male Chief complaint: here for follow up of Rheumatoid arthritis of multiple sites with negative rheumatoid factor (CMS/HCC) [M06.09] Subjective HPI Easton Camacho is a 54 y.o. male with PMH significant for anxiety, depression, diastolic dysfunction, HLD, HTN, COPD, who presents today for follow up of Rheumatoid arthritis of multiple sites with negative rheumatoid factor (CMS/HCC) [M06.09] Past history: Follows for seronegative inflammatory arthritis, possible PsA vs seronegative RA. Hx of psoriasis vs eczema. RF and CCP negative. Hepatitis panel negative. Xray hands with moderate to severe thumb CMC OA, interphalangeal joint space narrowing. Left hand/wrist: Subtle erosion involving the base of the index finger proximal phalanx on the left. US bilateral hands 09/2022 showed findings suggestive of a mildly active inflammatory arthritis. Also with positive ROCCO 1:80 speckled, negative subserologies except low positive SSB (49). No clinical features of SLE. Does have mild dry mouth, no dry eyes. Initially reported (08/21/22): Onset about 6 years ago, progressively worsening, of hand pain bilateral (CMC, index finger and long finger joints). States his fingers sometime lock up, and pain will move from finger to finger. 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 Thumb pain worse with activity but other joints in handsif they hurt he does not notice any difference with activity. Wakes up at times with hand swelling (couple times a month), no significance stiffness in joints. Hx of bilateral knee pain. Worse with activity. 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 At times his knee has gone-out . Has not seen a specialist. Joints more painful with cold exposure. Tried Meloxicam, failed. Recently started on Celebrex but has not noticed significant difference yet. Doeshave back pain, worse with activity. Initial Rheum ROS positive for dry mouth (mild). Hx of skin rash, possible eczema vs Pso (used Eucrisa in the past), none now last was a couple years ago. Otherwise negative. Rheum medication hx: HCQ 10/2022 - current Methotrexate 20 mg inj weekly 04/30/23 - paused 03/08, wants to restart 05/09/24-06/08/24 FA 1 mg Daily Adalimumab 12/06 (prescribed-04/07 (stopped taking, believes he took for a maximum of two months) Diclofenac gel % 75 mg PO BID-current Enbrel (08/11/24-current) Last visit: (08/11/24): The patient presents to the clinic for follow up of his Rheumatoid arthritis of multiple sites with negative rheumatoid factor. The patient reports that he has been off the Methotrexate for the past 2 months d/t GI upset. The patient had to hold on his hand surgery appointment due to having to see a qualification engineer. The patient was told he had cardiac clearance, but had horrible sleep apnea. The patient reports that his right 2nd PIP. The patient does not feel like the Humira is helping. The patient reports increased bilateral CMC pain. Patient with known history of bilateral CMC severe OA. The patient denies and infections since his last visit Interim history: Today (12/14/24): The patient presents to the clinic for follow up of his Rheumatoidarthritis of multiple sites with negative rheumatoid factor. The patient reports that he thinks theEnbrel is helping but he is still having bilateral shoulder pain. His shoulder pain keeps him up atnight. The patient thinks that his shoulder pain improves as he moves. The patient reports that he injured his left shoulder when he was younger and it feels different compared to the right. He would The patient denies and infections since his last visit The patient had his last updated yearly eye exam 09/06-no issues Review of Systems Musculoskeletal: Positive for arthralgias and back pain. All other systems reviewed and are negative. The following portions of the chart were reviewed this encounter and updated as appropriate: Past Medical History[1] Surgical History[2] Social History Socioeconomic History Marital status: Spouse name: Not on file Number of children: Not on file Years of education: Not on file Highest education level: Not on file Occupational History Not on file Tobacco Use Smoking status: Former Current packs/day: 0.00 Average packs/day: 1 pack/day for 25.0 years (25.0 ttl pk-yrs) Types: Cigarettes Start date: 06/15/1992 Quit date: 06/15/2017 Years since quittin.5 Passive exposure: Past Smokeless tobacco: Never Vaping Use Vaping status: Never Used Substance and Sexual Activity Alcohol use: Yes Comment: social Drug use: Not Currently Types: Marijuana Sexual activity: Defer Other Topics Concern Not on file Social History Narrative Not on file Social Drivers of Health Financial Resource Strain: Not on file Food Insecurity: Not on file Transportation Needs: Not on file Physical Activity: Not on file Stress: Not on file Social Connections: Not on file Intimate Partner Violence: Not on file Housing Stability: Not on file Family History[3] Allergies[4] Current Medications[5] Objective Last visit labs: Ancillary Procedure on 11/14/2024 Component Date Value Ref Range Status [id number] 11/14/2024 3.15 (A) 3.76 - 5.77 L Final QHM5NLH 11/14/2024 3.24 (A) 3.76 - 5.77 L Final FVC PRED 11/14/2024 5.14 Final FVC LLN 11/14/2024 3.96 Final FVCPREZSCORE 11/14/2024 -2.67 Final FVCPRE%PRED 11/14/2024 63 % % Final FVCPOSTZSCORE 11/14/2024 -2.80 Final FVCPOST%PRED 11/14/2024 61 % % Final FVCCHNG 11/14/2024 -94.00 Final FVC%CHG 11/14/2024 -3 % % Final FVC PREDAUTH 11/14/2024 [facility] Final FVC Z-SCORE 11/14/2024 -2.67 -2.80 Final LSX39NNPO 11/14/2024 2.59 (A) 2.94 - 4.62 L Final FEV1 PRE 11/14/2024 2.66 (A) 2.94 - 4.62 L Final FEV1 PRED 11/14/2024 3.99 Final FEV1 LLN 11/14/2024 3.06 Final HCT3YBYCVEFNP 11/14/2024 -2.32 Final FEV1_Pre%Pred 11/14/2024 67 % % Final MRI9BMMYFBZHBS 11/14/2024 -2.42 Final EJH0MFKA%PRED 11/14/2024 65 % % Final QWN2ZCDG 11/14/2024 -61.70 Final FEV1%CHG 11/14/2024 -2 % % Final FEV1 PREDAUTH 11/14/2024 [facility] (2011[facility] Final FEV1 Z-SCORE 11/14/2024 -2.32 -2.42 Final MWV9QPK3CAXF 11/14/2024 82.37 55.05 - 103.60 % Final FEV1/FVC PRE 11/14/2024 81.89 55.05 - 103.60 % Final LFT3NADEGCZ 11/14/2024 78 Final NJX9DNNVCC 11/14/2024 66 Final DDP8VOJZATHYXMFI 11/14/2024 0.65 Final ZML6EUYLGX%PRED 11/14/2024 105 % % Final OVE2HGGXKPXFTJPRM 11/14/2024 0.73 Final BGF7HNJGGNJ%PRED 11/14/2024 106 % % Final CSN6CMPDXXK 11/14/2024 485 Final SBT8SRT%CHG 11/14/2024 1 % % Final OMB2FSHZABME 11/14/2024 Sheryl CLEMONS (2011) Final JTL0RMQGFCBNJ 11/14/2024 1 1 Final HKT05-59%_POST 11/14/2024 2.85 2.70 - 7.05 L/s Final JTT34-40% PRE 11/14/2024 3.10 2.70 - 7.05 L/s Final XUW67-63%_Pred 11/14/2024 3.41 Final JIC9821%LLN 11/14/2024 1.75 Final NNR5421%PREZSCORE 11/14/2024 -0.27 Final BYF7686%PRE%PRED 11/14/2024 91 % % Final TCY6894%POSTZSCORE 11/14/2024 -0.50 Final NTR3249%POST%PRED 11/14/2024 84 % % Final PLF6056%CHNG 11/14/2024 -242.16 Final JSF6562%%CHG 11/14/2024 -8 % % Final OKM5563%PREDAUTH 11/14/2024 Antolin KACI (2011) Final BVH1WWPR 11/14/2024 6.83 (A) 7.02 - 11.00 L/s Final PEF PRE 11/14/2024 6.87 (A) 7.02 - 11.00 L/s Final PEF PRED 11/14/2024 10.01 Final PEF LLN 11/14/2024 7.56 Final PEFPREZSCORE 11/14/2024 -2.11 Final PEFPRE%PRED 11/14/2024 69 % % Final PEFPOSTZSCORE 11/14/2024 -2.14 Final PEFPOST%PRED 11/14/2024 68 % % Final PEFCHNG 11/14/2024 -38.00 Final PEF%CHG 11/14/2024 -1 % % Final PEF PREDAUTH 11/14/2024 NHANES III (1998) Final BVGWWMPJFGCWIQGJ9YEI 11/14/2024 26.54 22.69 - 38.59 ml/(min*mmHg) Final DLCOSINGLEBREATH PRED 11/14/2024 30.01 Final DLCOSINGLEBREATH LLN 11/14/2024 22.69 Final DLCOSINGLEBREATH Z-SCORE 11/14/2024 -0.75 Final DLCOSINGLEBREATH % PRED 11/14/2024 88.4 % Final DLCOSINGLEBREATH PREDAUTH 11/14/2024 Stanojevic TLCO GLI (2019) Final DLCOSINGLEBREATH Z-SCORE 11/14/2024 -0.75 Final CHGMKGSHOCCFJPSFW3YOG 11/14/2024 26.54 22.69 - 38.59 ml/(min*mmHg) Final DLCOCSINGLEBREATH PRED 11/14/2024 30.01 Final DLCOCSINGLEBREATH LLN 11/14/2024 22.69 Final DLCOCSINGLEBREATH Z-SCORE 11/14/2024 -0.75 Final DLCOCSINGLEBREATH % PRED 11/14/2024 88.4 % Final DLCOCSINGLEBREATH PREDAUTH 11/14/2024 Stanojevic TLCO GLI (2019) Final BJHYJB3GIK 11/14/2024 5.24 3.27 - 5.38 ml/(min*mmHg*L) Final DLCOVAPRED 11/14/2024 4.29 Final DLCOVALLN 11/14/2024 3.27 Final DLCOVAZSCORE 11/14/2024 1.43 Final DLCOVA%PRED 11/14/2024 122.2 % Final DLCOVAPREDAUTH 11/14/2024 Stanojevic TLCO GLI (2019) Final DLCOVAZSCORE 11/14/2024 1.43 Final LGLWREXDD9QKJ 11/14/2024 5.24 3.27 - 5.38 ml/(min*mmHg*L) Final DLCOC SB/VA PRED 11/14/2024 4.29 Final DLCOC SB/VA LLN 11/14/2024 3.27 Final DLCOC SB/VA Z-SCORE 11/14/2024 1.43 Final DLCOC SB/VA % PRED 11/14/2024 122.2 % Final DLCOC SB/VA PREDAUTH 11/14/2024 Stanojevic TLCO GLI (2019) Final DLCOC SB/VA Z-SCORE 11/14/2024 1.43 Final UKTRTQPWAZCNVX5CWW 11/14/2024 5.07 (A) 5.72 - 8.49 L Final VASINGLEBREATH PRED 11/14/2024 7.05 Final VASINGLEBREATH LLN 11/14/2024 5.72 Final VASINGLEBREATH Z-SCORE 11/14/2024 -2.49 Final VASINGLEBREATH % PRED 11/14/2024 71.9 % Final VASINGLEBREATH PREDAUTH 11/14/2024 Stanojevic TLCO GLI (2019) Final VASINGLEBREATH Z-SCORE 11/14/2024 -2.49 Final GXODPNYJBCXQTWH7EEB 11/14/2024 3.53 (A) 3.76 - 5.77 L Final IVCSINGLEBREATH PRED 11/14/2024 5.14 Final IVCSINGLEBREATH LLN 11/14/2024 3.96 Final IVCSINGLEBREATH Z-SCORE 11/14/2024 -2.26 Final IVCSINGLEBREATH % PRED 11/14/2024 68.6 % Final IVCSINGLEBREATH PREDAUTH 11/14/2024 US_Quanjer GLI (2011) Final SURESH% VCMAX PRE 11/14/2024 100.00 % Final TLC SB PRE 11/14/2024 5.25 (A) 6.21 - 9.22 L Final TLCSINGLEBREATH PRED 11/14/2024 7.71 Final TLCSINGLEBREATH LLN 11/14/2024 6.21 Final TLCSINGLEBREATH Z-SCORE 11/14/2024 -2.72 Final TLCSINGLEBREATH % PRED 11/14/2024 68.1 % Final TLCSINGLEBREATH PREDAUTH 11/14/2024 [facility] GLI (2019)__ Final HB PRE 11/14/2024 14.60 g(Hb)/dL Final RLK5RJN 11/14/2024 5.40 (A) 6.21 - 9.22 L Final TLCPRED 11/14/2024 7.71 Final TLCLLN 11/14/2024 6.21 Final TLCULN 11/14/2024 9.22 Final TLCZSCORE 11/14/2024 -2.54 Final TLC%PRED 11/14/2024 70.1 % Final TLCPREDAUTH 11/14/2024 [facility] GLI (2019)__ Final VC0PRE 11/14/2024 3.45 (A) 3.76 - 5.77 L Final VCPRED 11/14/2024 5.14 Final VCLLN 11/14/2024 3.96 Final VCULN 11/14/2024 6.33 Final VCZSCORE 11/14/2024 -2.37 Final VC%PRED 11/14/2024 67.1 % Final VCPREDAUTH 11/14/2024 US_Quanjer GLI (2011) Final IC0PRE 11/14/2024 2.98 2.82 - 5.12 L Final ICPRED 11/14/2024 4.00 Final ICLLN 11/14/2024 2.82 Final ICULN 11/14/2024 5.12 Final IC Z-SCORE 11/14/2024 -1.43 Final IC%PRED 11/14/2024 74.6 % Final ICPREDAUTH 11/14/2024 [facility] GLI (2019)__ Final BTNXSAKS6HIT 11/14/2024 2.42 (A) 2.65 - 5.37 L Final FRCPLETH PRED 11/14/2024 3.85 Final FRCPLETH LLN 11/14/2024 2.65 Final FRCPLETH ULN 11/14/2024 5.37 Final FRCPLETH Z-SCORE 11/14/2024 -2.01 Final FRCPLETH % PRED 11/14/2024 62.9 % Final FRCPLETH PREDAUTH 11/14/2024 [facility] GLI (2019)__ Final BIC4HRH 11/14/2024 0.47 (A) 0.59 - 2.86 L Final ERVPRED 11/14/2024 1.53 Final ERVLLN 11/14/2024 0.59 Final ERVULN 11/14/2024 2.86 Final ERV Z-SCORE 11/14/2024 -1.93 Final ERV%PRED 11/14/2024 30.6 % Final ERVPREDAUTH 11/14/2024 [facility] GLI (2019)__ Final RV0PRE 11/14/2024 1.95 1.35 - 3.22 L Final RVPRED 11/14/2024 2.20 Final RVLLN 11/14/2024 1.35 Final RVULN 11/14/2024 3.22 Final RVZSCORE 11/14/2024 -0.44 Final RV%PRED 11/14/2024 88.9 % Final RVPREDAUTH 11/14/2024 [facility]I (2019)__ Final RV%VBH3EIW 11/14/2024 36.17 18.82 - 37.71 % Final RV%TLCPRED 11/14/2024 28 Final RV%TLCLLN 11/14/2024 19 Final RV%TLCULN 11/14/2024 38 Final RV%TLCZSCORE 11/14/2024 1.39 Final RV%TLC%PRED 11/14/2024 128.9 % Final RV%TLCPREDAUTH 11/14/2024 [facility] GLI (2019)__ Final Vitals: 12/14/24 0833 BP: 130/78 Pulse: 75 Temp: 36.6 ??C (97.8 ??F) SpO2: 97% Physical Exam Constitutional: Appearance: Normal appearance. HENT: Head: Normocephalic and atraumatic. Eyes: Conjunctiva/sclera: Conjunctivae normal. Cardiovascular: Rate and Rhythm: Normal rate and regular rhythm. Heart sounds: Normal heart sounds. Pulmonary: Effort: Pulmonary effort is normal. Breath sounds: Normal breath sounds. Musculoskeletal: General: Tenderness present. Comments: See Homunculus. No allodynia present. Tenderness noted in cervicals pine and left shoulder. No synovitis or dactylitis noted on PE. Full ROM noted on PE. Skin: General: Skin is warm and dry. Neurological: Mental Status: He is alert and oriented to person, place, and time. Psychiatric: Mood and Affect: Mood normal. Behavior: Behavior normal. Thought Content: Thought content normal. Judgment: Judgment normal. Joint Exam 12/14/2024 Right Left Acromioclavicular Tender Cervical Spine Tender 11/25/2023 05/09/2024 08/11/2024 12/14/2024 DARBY-28 (ESR) -- -- -- -- DARBY-28 (CRP) -- -- -- -- Tender (DARBY-28) 0 0 Swollen (DARBY-28) 0 0 0 0 28 Provider Global -- -- -- -- Patient Global -- -- -- -- ESR -- -- -- -- CRP -- -- -- -- Swollen Joint Count: Swollen: 0 Tender Joint Count: Tender: 2 Patient global assessment: 2.5/10 Rapid 3 score: 6.330 CDAI: 7 low disease activity Pt reports % improvement while on current medication Assessment/Plan Diagnosis Plan 1. Rheumatoid arthritis of multiple sites with negative rheumatoid factor (CMS/HCC) XR Shoulder Left 2+ Views XR Shoulder Right 2+ Views hydroxychloroquine (Plaquenil) 200 MG tablet diclofenac (Voltaren) 75 MG EC tablet diclofenac (Voltaren) 1 % topical gel 2. High risk medication use XR Shoulder Left 2+ Views XR Shoulder Right 2+ Views hydroxychloroquine (Plaquenil) 200 MG tablet diclofenac (Voltaren) 75 MG EC tablet diclofenac (Voltaren) 1 % topical gel 3. Primary osteoarthritis of both first carpometacarpal joints XR Shoulder Left 2+ Views XR Shoulder Right 2+ Views hydroxychloroquine (Plaquenil) 200 MG tablet diclofenac (Voltaren) 75 MG EC tablet diclofenac (Voltaren) 1 % topical gel Seronegative rheumatoid arthritis Pt with a type of seronegative inflammatory arthritis, possible PsA vs seronegative RA. Hx of psoriasis vs eczema. RF and CCP negative. Hepatitis panel negative. -Xray hands with moderate to severe thumb CMC OA, interphalangeal joint space narrowing. Left hand/wrist: Subtle erosion involving the base of the index finger proximal phalanx on the left. -US bilateral hands 09/2022 showed findings suggestive of a mildly active inflammatory arthritis. -CDAI: 7 low disease activity -Tenderness noted in cervicals pine and left shoulder. No synovitis or dactylitis noted on PE. FullROM noted on PE. -patient endorses increased pain and swelling while on PLAQUENIL Update 05/09/24l prior history as above: -bilateral shoulder xrays-Mild to moderate left glenohumeral and AC joint osteoarthrosis with minimal right glenohumeral and mild to moderate right AC joint osteoarthrosis. -Continue HCQ 400mg daily, -D/c Methotrexate, FA, inj and Humira -Continue Enbrel Prior A&P, 2. Episodes of Dizziness Previously have advised to closely monitor BP while on HCQ given BB/HCQ use can increase effect of metoprolol. Advised to check BP at least twice daily (jason in morning before going to work) and see PCP if needs adjustment to BP medication. Advised to monitor for signs hypotension: dizziness, light headed, fatigue. Pt has been feeling dizzy but when taking BP has remained normal. Advised to discuss dizziness further with PCP. Advised to trial holding HCQ for 2 weeks to see if symptoms improve and then try holding Diclofenac for 2 weeks thereafter as trial to see if symptoms improve - to see ifeither medication is contributing. He is also on several BP medications, advised to discuss with PCP as well. 3. Rash on lower abdomen Rash appears as contact dermatitis, recommended trying hydrocortisone cream and to establish with adermatologist. Pt wants to establish with [facility], will refer will able (likely around Mar) 4. High risk medication use -HBV, HCV negative 11/25/23 -TB quant negative 11/25/23 -Rx CBC, Cr., hepatic function panel today (Reviewed 08/11/24-Safe to continue medication at this time) - Advised to establish with Ophth for yearly monitoring for retinopathy while on HCQ. Last eye exam06/06-no issues 5. ROCCO positive / Low positive SSB With mild dry mouth. Recs for dry mouth given. No clinical features of SLE. - Advised to establish with dentistry for dry mouth - Advised trial of Biotene products 6. Thumb CMC OA 7. Knee pain - improved Xray hands with moderate to severe thumb CMC OA Overall improved on NSAIDs - Continue Diclofenac BID -Possible left knee xray in the future -Rx bilateral CMC injections today -Refer to [facility] 8.SOB -Patient reports history of asthma and COPD. Patient sees Dr. [facility] in [place] 9.Numbness and Tingling -The patient endorses bilateral LE and UE numbness and tingling -Rx EMG/NCV- Electrodiagnostic evidence suggestive of a sensory peripheral neuropathy in the nerves tested. 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 No electrodiagnostic evidence of a bilateral L2-S2 motor radiculopathy in the muscles and nerves tested. Recommend referral for repeat NCS/EMG study for evaluation of BUE carpal tunnel syndrome. -Patient saw hand surgery-received great relief from injections-will follow up in the future if needed RTC 3 months Today, I personally spent 29 minutes on the encounter, including chart review, patient education, counseling, and coordination of care as described above. Issues discussed: Diagnosis and implicationson future health, effects and side effects of present and future potential medications, test results as well as further testing and medications required as applicable. Toxicities of Hydroxychloroquine We went over the following toxicities and relevant precautions: - Monitoring: baseline and yearly eye examinations watching for retinal toxicity - Side effects: Most common are nausea and diarrhea, which usually improve with time Serious side effects are rare Rarely, can lead to anemia in individuals with G6PD deficiency Can cause photosensitive - importance of wearing sunscreen The potential side effects of anti-TNF agents discussed included, but were not limited to the followings: -Increased risk of infections: I advised the patient to let us know if note any signs of infection and to hold medication in times of illness. Screening for latent TB must be done before stating treatment. -Injection site reaction: I reassured the patient that this is a very common reaction and usually manageable and that it should not be a sole reason to stop treatment. - Drug-induced autoimmune disease such as lupus or MS: I advised the patient to let us know in caseof fever, increasing fatigue, rash, new arthralgia, myalgia, chest pain, change of vision, dysarthria, weakness, paresthesia, and other unexplained neurological symptoms. -Increased risk of malignancy: The risk of non-melanoma skin cancer increases in association with TNF-blocking therapy. With regard to the other cancers, this remains controversial. -: She should stop the drug at least 3 months in advance of planned . No history of solid tumor cancer within past 5 years, heart failure, or demyelinating disease. Patients with significant heart failure should avoid use (NYHA Class III or IV heart failure) The patient was counseled about diagnostic results, instruction for management, risk factors reduction, prognosis, compliance with visits and treatment, risks and benefits of treatments options. Prior notes (by external physicians) and results were reviewed by me with independent interpretation of labs and imaging. My note will be sent to PCP and other consulting physicians. [1] Past Medical History: Diagnosis Date Abnormal electrocardiogram (ECG) (EKG) 07/27/2024 Age-related nuclear cataract, bilateral 09/03/2024 Allergic rhinitis 08/02/2024 Anesthesia of skin 08/11/2024 Anxiety Benign prostatic hyperplasia without lower urinary tract symptoms 02/26/2024 Chest pain, unspecified 09/20/2024 Chronic fatigue, unspecified 07/29/2024 Chronic obstructive asthma (with obstructive pulmonary disease) ([facility]) 08/03/2018 COPD (chronic obstructive pulmonary disease) ([facility]) Depression Depressive disorder 08/02/2024 Diarrhea, unspecified 10/03/2024 Diastolic dysfunction Dizziness and giddiness 07/26/2024 Dyspnea 10/07/2024 Dysuria 01/18/2024 Elevated blood-pressure reading, without diagnosis of hypertension 07/29/2024 Essential hypertension 08/02/2024 Fever, unspecified 09/04/2024 Frequency of micturition 01/11/2024 Gastroesophageal reflux disease without esophagitis 03/01/2019 Generalized headaches 08/03/2018 Hematuria, unspecified 02/26/2024 HLD (hyperlipidemia) HTN (hypertension) Hyperlipidemia 08/02/2024 Hypersomnia 08/15/2024 Hypertensive urgency 07/10/2024 Immunodeficiency, unspecified ([facility]) 02/08/2024 Indigestion 08/03/2018 Irritability and anger 08/02/2024 Joint pain Leg cramps 08/03/2018 Localized enlarged lymph nodes 10/06/2024 Low back pain Lung nodule, solitary 12/07/2018 Moderate persistent asthma, uncomplicated 10/06/2024 Nausea with vomiting, unspecified 10/03/2024 Obstructive sleep apnea syndrome 08/15/2024 Osteoarthritis of first carpometacarpal joint, unspecified 05/09/2024 Other disorders of lung 10/06/2024 Other forms of dyspnea 10/06/2024 Other general symptoms and signs 09/04/2024 Other hypersomnia 07/29/2024 Other nonspecific abnormal finding of lung field 10/06/2024 Other retention of urine 01/18/2024 Other specified abnormal immunological findings in serum 08/11/2024 Paresthesia of skin 08/11/2024 Polyneuropathy, unspecified 05/11/2024 Presbyopia 09/03/2024 Psychophysiological insomnia 10/24/2024 Pulmonary fibrosis, unspecified ([facility]) 10/06/2024 Rash and other nonspecific skin eruption 08/11/2024 Rheumatoid arthritis ([facility]) Rheumatoid arthritis with rheumatoid factor of multiple sites without organ or systems involvement ([facility]) 11/25/2024 Seasonal allergies 08/03/2018 Snoring 08/02/2024 SOB (shortness of breath) 08/15/2024 Syncope and collapse 07/26/2024 Unspecified symptoms and signs involving the genitourinary system 01/11/2024 Urinary tract infection, site not specified 02/08/2024 Vitamin D deficiency 08/02/2024 [2] History reviewed. No pertinent surgical history. [3] Family History Problem Relation Name Age of Onset Conversions - Other Other Factor 5 Leiden mutation, heterozygous Diabetes Father Easton garcia Heart attack Father Easton garcia Asthma Father aEston garcia Heart disease Father Easton garcia Clotting disorder Father Easton garcia 30 - 39 Diabetes Other Hypertension Other Heart Problem Other Arthritis Mother Donna valencia [4] No Known Allergies [5] Current Outpatient Medications Medication Sig Dispense Refill atorvastatin (Lipitor) 80 MG tablet Tutduez-Rqwkoowwegm-Vpiqurvgpy (Breztri Aerosphere) 160-9-4.8 MCG/ACT aerosol Inhale 2 Inhalations 2 times a day. 32.1 g 3 cholecalciferol (Vitamin D-3) 50 MCG (1999 UT) capsule diclofenac (Voltaren) 1 % topical gel Place on the skin 3 times a day. Please avoid eyes, nose and mouth. 350 g 11 diclofenac (Voltaren) 75 MG EC tablet Take 1 tablet by mouth 2 times a day. 180 tablet 1 ergocalciferol 1.25 MG (94007 UT) capsule etanercept (Enbrel SureClick) 50 MG/ML injection Inject 1 mL (50 mg) under the skin 1 (one) time per week. 4 mL 4 fluticasone (Flonase) 50 MCG/ACT nasal spray hydroCHLOROthiazide (HYDRODiuril) 25 MG tablet hydroxychloroquine (Plaquenil) 200 MG tablet Take 1 tablet by mouth 2 times a day. 180 tablet 1 ipratropium-albuterol (Duo-Neb) 0.5-2.5 mg/3 mL nebulizer solution Take 3 mL by nebulization every 6 hours as needed for wheezing or shortness of breath (cough or chest tightness). 180 mL 3 levocetirizine (Xyzal) 5 MG tablet Take 1 tablet by mouth every evening. 90 tablet 3 losartan (Cozaar) 100 MG tablet methocarbamol (Robaxin) 500 MG tablet TAKE 1 TABLET BY MOUTH TWICE DAILY NEEDED FOR MUSCLE SPASM metoprolol succinate XL (Toprol-XL) 100 MG 24 hr tablet montelukast (Singulair) 10 MG tablet omeprazole (PriLOSEC) [address] capsule Take 1 capsule (40 mg) by mouth daily. ProAir HFA 108 (90 Base) MCG/ACT inhaler spironolactone (Aldactone) 25 MG tablet venlafaxine XR (Effexor-XR) 75 MG 24 hr capsule Take 1 capsule (75 mg) by mouth daily. Vraylar 3 MG capsule mupirocin (Bactroban) 2 % ointment (Patient not taking: Reported on 11/14/2024) No current facility-administered medications for this visit. documented in this encounter Plan of Treatment Upcoming Encounters Date Type Department Care Team (Late st Contact Info) Description 02/14/2025 1:10 PM EDT Appointment [facility] [address] [place] [address] 02/14/2025 2:30 PM EDT Office Visit [facility] Medicine Specialties [address] [place] [address] Isabella Reardon, PA [address] [place] [address] 03/16/2025 9:00 AM EDT Office Visit [facility] Medicine Specialties [address] [place] [address] Villarreal Ricky M, STAKE SETTER [address] [place] [address] Scheduled Referrals Name Type Priority Associated Diagnoses Orde r Schedule Ambulatory referral to Orthopaedics Sports Medicine Outpatient Referral Routine Primary osteoarthritis of both first carpometacarpal joints Osteoarthritis of both shoulders, unspecified osteoarthritis type Expected: 12/15/2024, Expires: 06/18/2026 documented as of this encounter Results * XR Shoulder Right 2+ Views (12/14/2024 10:05 AM EDT) Anatomical Region Laterality Modality Upper Extremities, Shoulder Right Digi ksenia Radiography Impressions 12/14/2024 10:27 AM EDT No erosive changes. Mild to moderate left glenohumeral and AC joint osteoarthrosis with minimal right glenohumeral and mild to moderate right AC joint osteoarthrosis. CRITICAL RESULT: No. COMMUNICATION: Per this written report. Drafted by Dean Stewart MD on 12/14/2024 10:26 AM Final report signed by Dean Stewart MD on 12/14/2024 10:27 AM Narrative 12/14/2024 10:27 AM EDT CLINICAL INDICATION: bilateral shoulder pain TECHNIQUE: XR SHOULDER RIGHT 2+ VIEWS, XR SHOULDER LEFT 2+ VIEWS COMPARISON: None. FINDINGS: Right shoulder: The clavicle and AC joint are intact. Humeral head is well positioned in the glenoid. Minimal glenohumeral and mild to moderate AC joint degenerative changes. No fracture location. Left shoulder: The imaged chest is unremarkable. Mild to moderate glenohumeral and AC joint space narrowing. Procedure Note Dean Stewart MD - 12/14/2024 CLINICAL INDICATION: bilateral shoulder pain TECHNIQUE: XR SHOULDER RIGHT 2+ VIEWS, XR SHOULDER LEFT 2+ VIEWS COMPARISON: None. FINDINGS: Right shoulder: The clavicle and AC joint are intact. Humeral head is wellpositioned in the glenoid. Minimal glenohumeral and mild to moderate ACjoint degenerative changes. No fracture location. Left shoulder: The imaged chest is unremarkable. Mild to moderateglenohumeral and AC joint space narrowing. IMPRESSION: No erosive changes. Mild to moderate left glenohumeral and AC joint osteoarthrosis withminimal right glenohumeral and mild to moderate right AC jointosteoarthrosis. CRITICAL RESULT: No. COMMUNICATION: Per this written report. Drafted by Dean Stewart MD on 12/14/2024 10:26 AM Final report signed by Dean Stewart MD on 12/14/2024 10:27 AM us Ricky Villarreal STAKE SETTER IMG XR PROCEDURES Final Re sult * XR Shoulder Left 2+ Views (12/14/2024 10:05 AM EDT) Anatomical Region Laterality Modality Upper Extremities, Shoulder Left Digi ksenia Radiography Impressions 12/14/2024 10:27 AM EDT No erosive changes. Mild to moderate left glenohumeral and AC joint osteoarthrosis with minimal right glenohumeral and mild to moderate right AC joint osteoarthrosis. CRITICAL RESULT: No. COMMUNICATION: Per this written report. Drafted by Dean Stewart MD on 12/14/2024 10:26 AM Final report signed by Dean Stewart MD on 12/14/2024 10:27 AM Narrative 12/14/2024 10:27 AM EDT CLINICAL INDICATION: bilateral shoulder pain TECHNIQUE: XR SHOULDER RIGHT 2+ VIEWS, XR SHOULDER LEFT 2+ VIEWS COMPARISON: None. FINDINGS: Right shoulder: The clavicle and AC joint are intact. Humeral head is well positioned in the glenoid. Minimal glenohumeral and mild to moderate AC joint degenerative changes. No fracture location. Left shoulder: The imaged chest is unremarkable. Mild to moderate glenohumeral and AC joint space narrowing. Procedure Note Dean Stewart MD - 12/14/2024 CLINICAL INDICATION: bilateral shoulder pain TECHNIQUE: XR SHOULDER RIGHT 2+ VIEWS, XR SHOULDER LEFT 2+ VIEWS COMPARISON: None. FINDINGS: Right shoulder: The clavicle and AC joint are intact. Humeral head is wellpositioned in the glenoid. Minimal glenohumeral and mild to moderate ACjoint degenerative changes. No fracture location. Left shoulder: The imaged chest is unremarkable. Mild to moderateglenohumeral and AC joint space narrowing. IMPRESSION: No erosive changes. Mild to moderate left glenohumeral and AC joint osteoarthrosis withminimal right glenohumeral and mild to moderate right AC jointosteoarthrosis. CRITICAL RESULT: No. COMMUNICATION: Per this written report. Drafted by Dean Stewart MD on 12/14/2024 10:26 AM Final report signed by Dean Stewart MD on 12/14/2024 10:27 AM Ricky Villarreal STAKE SETTER IMG XR PROCEDURES Final Re sult documented in this encounter Visit Diagnoses Diagnosis Osteoarthritis of both shoulders, unspecified osteoarthritis type- Primary Rheumatoid arthritis of multiple sites with negative rheumatoid factor (CMS/HCC) High risk medication use Primary osteoarthritis of both first carpometacarpal joints Rheumatoid arthritis of multiple sites with negative rheumatoid factor (CMS/HCC) High risk medication use Primary osteoarthritis of both first carpometacarpal joints documented in this encounter Additional Health Concerns Assessment Noted Time PHQ-9 Depression Total Score: 2 12/15/19 25 8:37 AM EDT A fall risk assessment has been complete d for the patient 12/14/2024 8:36 AM EDT A Body Mass Index follow-up plan has been documented for the patient 12/14/2024 9:30 AM EDT documented as of this encounter Care Teams Security Services Specialist Relationship Specialty Start Date End Date Mary Mckeon PA [address] [place] [address] PCP - General 10/26/20 documented as of this encounter
--- OUTSIDE RECORDS SUMMARY | 2024-12-14 09:45 | XMS_ITS | Encounter Summary ---
Author Organization Healthcare Address [address] [place] [address] Care Team Providers Care Solar Energy Consultant And Designer Name Role Phone Mary Mckeon Primary Care Provider [phone] Encounter Details Date Type Department Care Team (Latest Contact Info) Description 12/14/2024 9:45 AM EDT - 12/14/2024 11:59 PM EDT Hospital Encounter [facility] [address] [place] [id number] Rheumatoid arthritis of multiple sites with negative rheumatoid factor (CMS/HCC); High risk medication use; Primary osteoarthritis of both first carpometacarpal joints Discharge Disposition: Home or Self Care Social History Tobacco Use Types Packs/Day Years Used Date Smoking Tobacco: Former Cigarettes 1 25 0 06/15/1992 - 06/15/2017 Passive Smoke Exposure: Past Smokeless Tobacco: Never Alcohol Use Standard Drinks/Week Comments Yes 0 [...] on file documented as of this encounter Functional Status * AUDIT-C Score Answer Date of Assessment Author 0 12/14/2024 8:36 AM Johanna Jim * Question Answer Date of Assessment [...] way Not at all 12/14/2024 8:37 AM Janina Jim R Patient Health Questionnaire-9 Score 2 12/14/2024 8:37 AM Earline Jim R * If you checked off any problems on this questionnaire so far, Question Answer Date of Assessment Author How difficult have these problems made it for you to do your work, take care of things at home, or get along with other people? Not difficult at all 12/14/2024 8:37 AM Janina Jim in R * How difficult have these problems made it for you to do your work, take care of things at home, or get along with other people? Answer Date of Assessment Author Not difficult at all 12/14/2024 8:37 AM Johanna Cardozo documented as of this encounter Medications at Time of Discharge atorvastatin (Lipitor) 80 MG tablet 4 Budeson-Glycopyrrol- Formoterol (Breztri Aerosphere) 160-9-4.8 MCG/ACT aerosol Inhale 2 Inhalations 2 times a day. 32.1 g 3 5 11/15/19 26 cholecalciferol (Vitamin D-3) 50 MCG (1999) capsule 3 diclofenac (Voltaren) 1 % topical gelIndications:Rheum atoid arthritis of multiple sites with negative rheumatoid factor (CMS/HCC),High risk medication use,Primary osteoarthritis of both first carpometacarpal joints Place on the skin 3 times a day. Please avoid eyes, nose and mouth. 350 g 11 5 diclofenac (Voltaren) 75 MG EC tabletIndications:Rh eumatoid arthritis of multiple sites with negative rheumatoid factor (CMS/HCC),High risk medication use,Primary osteoarthritis of both first carpometacarpal joints Take 1 tablet by mouth 2 times a day. 180 tablet 1 5 ergocalciferol 1.25 MG (57905 UT) capsule 3 etanercept (Enbrel SureClick) 50 MG/ML injectionIndications :Rheumatoid arthritis of multiple sites with negative rheumatoid factor (CMS/HCC) Inject 1 mL under the skin 1 time per week. 4 mL 4 5 fluticasone (Flonase) 50 MCG/ACT nasal spray 3 hydroCHLOROthiazide (HYDRODiuril) 25 MG tablet 3 hydroxychloroquine (Plaquenil) 200 MG tabletIndications:Rh eumatoid arthritis of multiple sites with negative rheumatoid factor (CMS/HCC),High risk medication use,Primary osteoarthritis of both first carpometacarpal joints Take 1 tablet by mouth 2 times a day. 180 tablet 1 5 ipratropium-albutero l (Duo-Neb) 0.5-2.5 mg/3 mL nebulizer solution Take 3 mL by nebulization every 6 hours as needed for wheezing or shortness of breath (cough or chest tightness). 180 mL 3 5 11/15/19 26 levocetirizine (Xyzal) 5 MG tablet Take 1 tablet by mouth every evening. 90 tablet 3 5 losartan (Cozaar) 100 MG tablet 3 methocarbamol (Robaxin) 500 MG tablet TAKE 1 TABLET BY MOUTH TWICE DAILY NEEDED FOR MUSCLE SPASM 2 metoprolol succinate XL (Toprol-XL) 100 MG 24 hr tablet 3 montelukast (Singulair) 10 MG tablet 3 mupirocin (Bactroban) 2 % ointment 8 omeprazole (PriLOSEC) [address] capsule Take 1 capsule (40 mg) by mouth daily. 3 ProAir HFA 108 (90 Base) MCG/ACT inhaler 2 spironolactone (Aldactone) 25 MG tablet 3 venlafaxine XR (Effexor-XR) 75 MG 24 hr capsule Take 1 capsule (75 mg) by mouth daily. 3 Vraylar 3 MG capsule 02 5 documented as of this encounter Plan of Treatment Upcoming Encounters Date Type Department Care Team (Late st Contact Info) Description 02/14/2025 1:10 PM EDT Appointment [facility] [address] [place] [address] 02/14/2025 2:30 PM EDT Office Visit [facility] Medicine Specialties [address] [place] [address] Isabella Reardon PA [address] [place] [address] 03/16/2025 9:00 AM EDT Office Visit [facility] Medicine Specialties [address] [place] [address] Cecile Villarreal APRN [address] [place] [address] documented as of this encounter Procedures Procedure Name Priority Date/Time Associated Diagnosis Comments XR SHOULDER RIGHT 2+ VIEWS Routine 12/14/2024 10:05 AM EDT Rheumatoid arthritis of multiple sites with negative rheumatoid factor (CMS/HCC) High risk medication use Primary osteoarthritis of both first carpometacarpal joints XR SHOULDER LEFT 2+ VIEWS Routine 12/14/2024 10:05 AM EDT Rheumatoid arthritis of multiple sites with negative rheumatoid factor (CMS/HCC) High risk medication use Primary osteoarthritis of both first carpometacarpal joints documented in this encounter Results * XR Shoulder Right [...] Stewart MD on 12/14/2024 10:27 AM us Cecile Villarreal SUPERVISOR CIGAR MAKING MACHINE IMG XR PROCEDURES Final Re sult * [...] Stewart MD on 12/14/2024 10:27 AM us Cecile Villarreal SUPERVISOR CIGAR MAKING MACHINE IMG XR PROCEDURES Final Re sult documented in this encounter Visit Diagnoses Diagnosis Rheumatoid arthritis of multiple sites with negative rheumatoid factor (CMS/[facility]) High risk medication use Primary osteoarthritis of both first carpometacarpal joints documented in this encounter Additional Health Concerns Assessment Noted Time PHQ-9 Depression Total Score: 2 12/15/19 8:37 AM EDT A fall risk assessment has been complete d for the patient 12/14/2024 8:36 AM EDT A Body Mass Index follow-up plan has been documented for the patient 12/14/2024 9:30 AM EDT documented as of this encounter Care Teams Solar Energy Consultant And Designer Relationship Specialty Start Date End Date Mary Mckeon PA [address] [place], [place] [id number] PCP - General 10/26/20 documented as of this encounter
--- OUTSIDE RECORDS SUMMARY | 2025-01-04 10:15 | XMS_ITS | Encounter Summary ---
Author Organization [employer] ([place], [place], [place], [place]) Address [address] [place] [address] Care Team Providers Care Doweler Name Role Phone Unavailable Primary Care Provider Unavailabl e Reason for Referral * Other (Routine) - Closed Specialty Diagnoses / Procedures Referred By Pia ozuna Referred To Contact Diagnoses Hypoxemia Procedures Overnight pulse oximetry Dontae Zamora APRN [address] [place] [address] Phone: tel: fax: Referral ID Status Reason Start Date Expiration Date Visits Re quested Visits Authorized [id number] Closed 02/04/2025 02/04/2026 1 1 * Durable Medical Equipment (Routine) - Closed Specialty Diagnoses / Procedures Referred By Pia ozuna Referred To Contact Diagnoses PATRICK (obstructive sleep apnea) Procedures DME Equipment Order (CPAP/BiPAP/APAP) Dontae Zamora APRN [address] [place] [address] Phone: tel: fax: [facility]: [place] ([employer]) [address], [address] [place] [address] Phone: tel: fax: Referral ID Status Reason Start Date Expiration Date Visits Re quested Visits Authorized [id number] Closed 01/04/2025 01/04/2026 1 1 Reason for Visit * Reason Comments Sleep Apnea Bipap follow up Encounter Details Date Type Department Care Team (Late st Contact Info) Description 01/04/2025 10:15 AM EDT Office Visit [facility] [address] [place] [address] Dontae Zamora APRN [address] [place] [address] PATRICK (obstructive sleep apnea) (Primary Dx); Essential hypertension; Hypersomnia; Hypoxemia; Obesity (BMI 30-39.9) Social History Tobacco Use Types Packs/Day Years Used Date Smoking Tobacco: Former Cigarettes S tarted: 1984 Smokeless Tobacco: Former Sex and Gender Information Value Date Recorded Sex Assigned at Male 12/05/2024 9:16 AM CDT Legal Sex Male 10:15 AM SYSTEMS INTEGRATION ADVISOR Gender Identity Male 12/05/2024 9:16 AM CDT Sexual Orientation Straight 12/05/2024 9: 16 AM CDT documented as of this encounter Last Filed Vital Signs Vital Sign Reading Time Taken Comments Blood Pressure 138/78 01/04/2025 10:34 AM EDT Pulse 77 01/04/2025 10:34 AM EDT Temperature - - Respiratory Rate 18 01/04/2025 10:34 AM EDT Oxygen Saturation 96% 01/04/2025 10:34 AM EDT Inhaled Oxygen Concentration - - Weight 121.6 kg (268 lb) 01/04/2025 10:34 AM EDT Height 182.9 cm (6') 01/04/2025 10:34 AM EDT Body Mass Index 36.35 01/04/2025 10:34 AM EDT documented in this encounter Progress Notes * Belinda Mauricio RN - 01/04/2025 10:15 AM EDT Ess20 uses ffm * Dontae Zamora APRN - 01/04/2025 10:15 AM EDT Subjective: Patient ID: Easton Camacho is a 54 y.o. male returning with his spouse for a close [facility]. 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 Reports active follow-up at [facility] cardiology (no longer [facility] cardiology), where they pursued a secondopinion from pulmonology and rheumatology. 2. In the past he is seen here to [facility] sleep medicine clinic followed by [facility] sleepmedicine clinic. 3. Home sleep study 03/29/2020 at [facility] with BMI 32% at the request of cardiology. Overall AHI 13, RDI 18, minimal SpO2 86.8%, 0.7% of time less than 90%. Following the study, hewas set up on CPAP but was unable to tolerate CPAP, frequently moved his mask to his forehead and ended up sending it back. 4. PAP titration 08/27/2024 at [facility] at a weight of 257 pounds her BMI of 34.9%revealed optimal therapy to be BiPAP 18/14 cm H2O. When lateral in non-REM sleep he was able to do well with CPAP at 8 cm H2O. Auto BiPAP 18/8 PS 4 was recommended. Patient wore a DreamWear fullface mask and supplemental oxygen was not needed during the study. Following the study, he was placed on BiPAP 15/14 cm and not the recommended auto BiPAP settings. He was unable to tolerate the settings. 5. 11/09/2024 he had a follow-up with his cardiology/sleep medicine clinic there at [facility]. It was noted he tried trazodone 1 night because of his difficulty tolerating BiPAP but it resulted in nightmares and he had an appointment for Inspire consult 11/27/2024. 6. Last visit, 12/05/2024 he was seen here for new patient consult. BMI 36.13%. He had showed up 1 month early by mistake and was wanting to establish sleep medicine care here with me. 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 During this visit he was not tolerating the BiPAP 15/14 and was only worn at 1 out of 30 days. I did reach out to his DME companywho apologize for the mistake and immediately switched his settings to auto BiPAP 18/8 PS 6. He wasencouraged to give these new settings to try and return for a close follow-up. Interval History outside of sleep medicine was obtained and reviewed from [facility] medical records as below: 1. 12/29/2024 he did have a follow-up with his PCP, Mary Mckeon with [facility] now in [facility]. She notes he has failed BiPAP. He has a trial Inspire upcoming. She notes he is still unableto work because he is falling asleep and he inquired about other treatment options and requested help with weight loss. Today He is still not on the right settings. He should be on auto BiPAP 18/8 PS 6 given his history of COPD and he returns today on auto BiPAP 18/14 PS 4. I contacted his DME who said they received orders 12/22/2024 from Linda Golden to change his settings to Auto Bipap 18/14 PS 4. reports he tried to resume Bipap, insurance wouldn't cover due to noncompliance, and had to return his old BiPAP and Linda Golden was contacted for a restart , sent different settings and he received a new BiPAP a little over 1 week ago. Today they report no known intolerance but is waking up with Bipap off frequently. will wake him to put it back on. Mask leak only when pulling off which wakes up. When he first goes to sleep, no leak, it is quiet . He is wearing a fullface mask and denies any intolerance or troublewith the mask, pressure or the device itself. He I do not know what the issue is . he reported this was the same thing that happened when he tried to be treated years ago . He just had a PAP titration in August as above. He is scheduled for a Inspire consult Mar [address] Granda at [facility]. He was scheduled for this before we saw him. I am not sure who sent him there. We had a lengthy discussion todayregarding the criteria to qualify for Inspire. He is aware that he will need to lose weight and I discussed repeating a sleep study at that weight as his diagnostic study is too old for considerationfor Inspire and should be done after losing weight to see if it improves, resolved. He is seeing his primary care to work on weight loss and states she has ordered this Zepbound and is working on theprior authorization. Compliance summary obtained, reviewed, patient shown a copy then scanned to visit. For more details, see scanned copy. 12/22/2024 through 01/01/2025 ResMed auto BiPAP / PS 4 Usage: 7 out of 11 days or 64% Usage greater than or equal to 4 hours: 36% Average usage: 5 hours and 12 minutes Average AHI: 4.5, primarily mask leak Median leak: 114 L/min Maximum EPAP 13.9, IPAP 18 The rooming data was reviewed. Unfortunately he has gained a few pounds. He did see his primary care and discussed GLP-1 therapy to help with weight loss. The follow up questionnaire was obtained, reviewed, scanned to visit. Pertinent positives listed below. See scanned copy. ESS 20 ROS negative DME: [employer], denies any problems with DME company Denies any changes to medical history or medications Denies tobacco or alcohol use Objective: PHYSICAL EXAM Vital signs: BP: 138/78 - Pulse: 77 - Resp: 18 - SpO2: 96 % Body mass index is 36.35 kg/m??. GENERAL-Patient is alert and in no distress. ENT- symmetric, no perioral cyanosis, NECK- supple, see initial neck circumference EXT- no obvious deformities NEURO - appropriate SKIN- dry, no pallor Assessment: ICD-10-CM ICD-9-CM 1. PATRICK (obstructive sleep apnea) G47.33 327.23 DME Equipment Order (CPAP/BiPAP/APAP) 2. Essential hypertension I10 401.9 3. Hypersomnia G47.10 780.54 4. Hypoxemia R09.02 799.02 Overnight pulse oximetry 5. Obesity (BMI 30-39.9) E66.9 278.00 Plan: As noted before, I do feel his fatigue is likely multifactorial but some of it is most certainly attributable to his untreated sleep apnea. PAP therapy is his best treatment option at this time whilehe works to pursue weight loss. He is not a candidate for a mandibular advancement dental device orInspire at this time. He needs to lose weight and then repeat a sleep study at that goal weight. Based on symptoms and review and interpretation of compliance summary/download, the patient appearst trying to use his BiPAP over the last week. He is benefiting as his AHI is better with treatment.Unfortunately is having difficulty leaving that device on and is unknowingly pulling it off. He is not sure and cannot describe any particular intolerance. -A new prescription was sent to adjust PAP therapy to auto BiPAP 25/12 PS 6. I have asked him to make sure that all of his orders for care is coming through this clinic if he wishes to continue care here. It can become rather confusing when orders are being sent by different sleep medicine providers from different clinics. They stated positive understanding. -Overnight oximetry on auto BiPAP 25/12 PS 6 through DME. Contact clinic if you have not been contacted by DME to complete testing or if after completing testing, you have not been contacted by our clinic with results within 2 weeks. -Risks of untreated sleep apnea, treatment options and treatment goals reviewed. Treating his sleepapnea to perfection is his best opportunity to start feeling better, feeling less sleepy. -Healthy sleep hygiene reinforced. -Risk associated with driving and unresolved drowsiness reviewed. Patient was advised to avoid driving if sleepiness, fatigue present due to risk of injury to self or others. He tells me that he remains off work because he is too sleepy to drive. -Bidirectional relationship between obesity and sleep apnea. Healthy lifestyle modifications including but not limited to healthy diet, healthy weight goals, daily exercise is recommended. With sleepapnea, treatment many help improve weight loss. Weight loss may improve PATRICK severity. Zepbound (a weekly injectable medication) is now FDA approved for the treatment of weight loss in obese patients with sleep apnea. He tells me that his primary care is working on the Zepbound PA. -Untreated sleep apnea may potentiate hypoxia or lower oxygen levels in those with underlying lung disease such as your COPD. Adequate treatment is recommended. Return in about 1 month (around 02/04/2025). I have asked him to contact the clinic sooner with any intolerance to his new settings, difficulty wearing his BiPAP every night, all night or persistent mask leak. Orders Placed This Encounter Procedures DME Equipment Order (CPAP/BiPAP/APAP) Overnight pulse oximetry The patient and any visitors were counseled [...] Description 02/06/2025 8:45 AM EDT Office Visit [facility] [address] [place] [address] Dontae Zamora APRN [address] [place] [address] 05/27/2025 8:30 PM EST Procedure Visit [facility] [address] [place] [address] Dontae Zamora APRN [address] [place] [address] Scheduled Orders Name Type Priority Associated Diagnoses Orde r Schedule Overnight pulse oximetry Sleep Center Routine Hypoxemia Expected: 02/04/2025, Expires: 07/07/2025 documented as of this encounter Visit Diagnoses Diagnosis PATRICK (obstructive sleep apnea)- Primary Obstructive sleep apnea (adult) (pediatric) Essential hypertension Unspecified essential hypertension Hypersomnia Hypersomnia, unspecified Hypoxemia Obesity (BMI 30-39.9) documented in this encounter
--- NOTE | 2025-01-25 13:46 | XR_ITS ---
FINAL REPORT CLINICAL HISTORY: left shoulder pain, no injury COMPARISON: 02/02/2022 FINDINGS: 2 views of the left shoulder were obtained. There is no fracture or dislocation. There is mild degenerative joint disease. Soft tissues are unremarkable. IMPRESSION: Mild degenerative joint disease. Reviewed, Interpreted and Dictated by Rosanne Keen MD Transcribed by Sofiya Cardenas Authenticated and [facility]
--- NOTE | 2025-01-25 13:46 | XR_ITS ---
FINAL REPORT CLINICAL HISTORY: right shoulder pain, no injury COMPARISON: None FINDINGS: 2 views of the right shoulder were obtained. There is no acute fracture or dislocation. There is mild degenerative joint disease. Soft tissues are unremarkable. IMPRESSION: Mild degenerative joint disease. Reviewed, Interpreted and Dictated by Rosanne Keen MD Transcribed by Sofiya Cardenas Authenticated and [facility]
--- OUTSIDE RECORDS SUMMARY | 2025-01-25 13:47 | XMS_ITS | Encounter Summary ---
Author Organization [facility] Address [address] [place] [address] Care Team Providers Care Multicut Line Operator Name Role Phone Mary Mckeon Primary Care Provider [phone] Reason for Visit * Reason Onset Date Comments PHYLLIS PINO APRN-CPAP MACHINE 12/13 Encounter Details Date Type Department Care Team (Late st Contact Info) Description 12/13/2024 Telephone [facility] [address] [place] [address] Phyllis Pino APRN [address] [place] [address] PHYLLIS PINO APRN-CPAP MACHINE Social History Tobacco Use Types Packs/Day Years Used Date Smoking Tobacco: Former Cigarettes 1 34.6 S tarted: 1991 Passive Smoke Exposure: Past Smokeless Tobacco: Never Alcohol Use Standard Drinks/Week Comments Never 0 (1 standard drink = 0.6 oz pur e alcohol) Sex and Gender Information Value Date Recorded Sex Assigned at Male 10/12/2024 7:49 AM EDT Legal Sex Male 9:17 AM EDT Gender Identity Not on file Sexual Orientation Straight 10/12/2024 7: 49 AM EDT documented as of this encounter Miscellaneous Notes * Telephone Encounter - Sary Whitney MA - 12/13/2024 3:04 PM EDT CALLED AND GOT PATIENT SCHEDULED FOR AN APPOINTMENT. * Telephone Encounter - Shy Sosa RegSched Rep - 12/13/2024 2:09 PM EDT Caller: Easton Camacho Relationship: Self Best call back number: [phone] What is the best time to reach you: ANY Who are you requesting to speak with (clinical staff, provider, specific staff member): CLINICAL Do you know the name of the person who called: N/A What was the call regarding: PATIENT IS CALLING BECAUSE HE WAS TOLD HE NEEDED TO SEND HIS MACHINE BACK DUE TO NONE USAGE. PATIENT COULD NOT USE THE MACHINE DUE TO THE SETTING OF THE MACHINE BUT IS NOW ABLE TO SLEEP WITH IT. DOES PATIENT NEED AN APPOINTMENT TO BE SEE TO GET ANOTHER MACHINE OR HOW DOES HE GO ABOUT KEEPING THE ONE HE HAS? Is it okay if the provider responds through MyChart: CALL documented in this encounter Plan of Treatment Upcoming Encounters Date Type Department Care Team (Late st Contact Info) Description 01/26/2025 1:00 PM EDT Office Visit [facility] [address] [place] [address] Sun Golden, FIRE BATTALION CHIEF [address] [place] [address] documented as of this encounter Visit Diagnoses Not on filedocumented in this encounter Care Teams Multicut Line Operator Relationship Specialty Start Date End Date Mary Mckeon PA [address] [facility] [place] [address] PCP - General Physician Tourist Home Keeper 10/19/24 documented as of this encounter
--- OUTSIDE RECORDS SUMMARY | 2025-01-25 13:47 | XMS_ITS | Encounter Summary ---
Author Organization Healthcare Address [address] [place] [address] Care Team Providers Care Financial Recording Clerk Name Role Phone Mary Mckeon Primary Care Provider [phone] Encounter Details Date Type Department Care Team (Latest Contact Info) Description 12/14/2024 Travel Social History Tobacco Use Types Packs/Day Years [...] Not at all 12/14/2024 8:37 AM EDT Rowan, Kaitl in R Patient Health Questionnaire-9 Score 2 [...] all 12/14/2024 8:37 AM EDT Janina Donahue R * How difficult have these problems made it for you to do your work, take care of things at home, or get along with other people? Answer Date of Assessment Author Not difficult at all 12/14/2024 8:37 AM EDT Johanna Paz documented as of this encounter Plan of Treatment Upcoming Encounters Date Type Department Care Team (Late st Contact Info) Description 02/14/2025 1:10 PM EDT Appointment [facility] [address] [place] [address] 02/14/2025 2:30 PM EDT Office Visit [facility] Medicine Specialties [address] [place] [address] Isabella Reardon, PA [address] [place] [address] 03/16/2025 9:00 AM EDT Office Visit [facility] Medicine Specialties [address] [place] [address] Cecile Villarreal APRN [address] [place] [address] documented as of this encounter Visit Diagnoses Not on filedocumented in this encounter Additional Health Concerns Assessment Noted Time PHQ-9 Depression Total Score: 2 12/15/19 8:37 AM EDT A fall risk assessment has been complete d for the patient 12/14/2024 8:36 AM EDT A Body Mass Index follow-up plan has been documented for the patient 12/14/2024 9:30 AM EDT documented as of this encounter Care Teams Financial Recording Clerk Relationship Specialty Start Date End Date Mary Mckeon PA [address] [place] [address] PCP - General 10/26/20 documented as of this encounter
--- OUTSIDE RECORDS SUMMARY | 2025-01-25 13:47 | XMS_ITS | Encounter Summary ---
Author Organization [facility] Address [address] [place] [address] Care Team Providers Care Braid Folder Name Role Phone Mary Mckeon Primary Care Provider [phone] Reason for Visit * Reason Onset Date Comments PICKETT - SCHED REQUEST 12/13/2024 Encounter Details Date Type Department Care Team (Late st Contact Info) Description 12/13/2024 Telephone [facility] [address] [place] [address] Malu Pickett, INDEPENDENT FREIGHT AGENT [address] [place] [address] PICKETT - SCHED REQUEST Social History Tobacco Use Types Packs/Day Years [...] encounter Miscellaneous Notes * Telephone Encounter - Jorge Elder RegSched Rep - 12/13/2024 3:51 PM EDT LVM FOR PT TO CALL BACK * Telephone Encounter - Simi Gallo RegSched Rep - 12/13/2024 3:32 PM EDT Caller: DIANEBetiRODNEY Relationship to patient: Emergency Contact Best call back number: [phone] Chief complaint: PATIENT BOOKED FOLLOW UP APPT WITH MALU PICKETT ON 01.26.25, BUT SEES THE SLEEP DOCTOR IN DECEMBER. NEEDS TO HAVE RECORDS FROM BPAP MACHINE FOR THIS APPOINTMENT, BUT WILL NEED TO BE SEEN BY MALU BEFORE TO HAVE A NEW MACHINE ORDERED. PLEASE CALL AND ADVISE OR SCHEDULE WITH EARLIER AVAILABILITY IF POSSIBLE If rescheduling, when is the original appointment: 01.26.25 documented in this encounter Plan of Treatment Upcoming Encounters Date Type Department Care Team (Late st Contact Info) Description 01/26/2025 1:00 PM EDT Office Visit [facility] [address] [place] [phone] Malu Pickett, INDEPENDENT FREIGHT AGENT [address] [place] [address] documented as of this encounter Visit Diagnoses Not on filedocumented in this encounter Care Teams Braid Folder Relationship Specialty Start Date End Date Mary Mckeon PA [address] [facility] [place] [address] PCP - General Physician Biofuels Production Manager 10/19/24 documented as of this encounter
--- OUTSIDE RECORDS SUMMARY | 2025-01-25 13:48 | XMS_ITS | Encounter Summary ---
Author Organization Healthcare Address [address] [place] [address] Care Team Providers Care Agents' Records Clerk Name Role Phone Mary Mckeon Primary Care Provider [phone] Encounter Details Date Type Department Care Team (Late Contact Info) Description 07/10/2024 Orders Only External Location [address] [place] [address] Provider, External Social History Tobacco Use Types Packs/Day Years Used Date Smoking Tobacco: Former Cigarettes 1 25 0 06/15/1992 - 06/15/2017 Smokeless Tobacco: Never Alcohol Use Standard Drinks/Week Comments Yes 0 (1 standard drink = 0.6 oz pur e alcohol) social PHQ-2 Answer Date Recorded Patient Health Questionnaire-2 Score 0 05/11/2024 PHQ-9 Answer Date Recorded Patient Health Questionnaire-9 Score 0 05/11/2024 PHQ-2A Answer Date Recorded Depression Risk 0 10/24/2022 Sex and Gender Information Value Date Recorded Sex Assigned at Not on file Legal Sex Male 7:05 PM EDT Gender Identity Not on file Sexual Orientation Not on file documented as of this encounter Plan of Treatment Upcoming Encounters Date Type Department Care Team (Late Contact Info) Description 02/14/2025 1:10 PM EDT Appointment [facility] [address] [place] [address] 02/14/2025 2:30 PM EDT Office Visit [facility] [address] [place] [address] Isabella Reardon PA [address] [place] [address] 03/16/2025 9:00 AM EDT Office Visit [facility] [address] [place] [address] Cecile Villarreal, CARNIVAL WORKER [address] [place] [address] documented as of this encounter Procedures Procedure Name Priority Date/Time Associated Diagnosis Comments CT THORACIC OUTSIDE IMAGES 07/10/2024 8:18 PM EST documented in this encounter Results * CT THORACIC OUTSIDE IMAGES (07/10/2024 8:18 PM EST) Anatomical Region Laterality Modality Computed Tomogra phy 07/10/2024 8:18 PM EST us External Provider IMG CT PROCEDURES Final Result documented in this encounter Visit Diagnoses Not on filedocumented in this encounter Additional Health Concerns Assessment Noted Time PHQ-9 Depression Total Score: 0 05/11/20 9:29 AM EST A fall risk assessment has been complete d for the patient 05/11/2024 9:29 AM EST A Body Mass Index follow-up plan has been documented for the patient 05/11/2024 12:40 PM EST documented as of this encounter Care Teams Agents' Records Clerk Relationship Specialty Start Date End Date Mary Mckeon PA [address] [place] [address] PCP - General 10/26/20 documented as of this encounter
--- OUTSIDE RECORDS SUMMARY | 2025-01-25 13:48 | XMS_ITS | Encounter Summary ---
Author Organization [employer] ([place], [place], [place], [place]) Address [address] [place] [address] Care Team Providers Care Emt Dispatcher Name Role Phone Unavailable Primary Care Provider Unavailabl e Reason for Visit * Reason Onset Date Comments Results 01/24/2025 Encounter Details Date Type Department Care Team (Late Contact Info) Description 01/24/2025 Telephone [facility] [address] [place] [address] Dontae Zamora APRN [address] [place] [address] Results Social History Tobacco Use Types Packs/Day Years Used Date Smoking Tobacco: Former Cigarettes S tarted: 1985 Smokeless Tobacco: Former Sex and Gender Information Value Date Recorded Sex Assigned at Male 12/05/2024 9:16 AM CDT Legal Sex Male 10:15 AM SAWMILLING OPERATOR Gender Identity Male 12/05/2024 9:16 AM CDT Sexual Orientation Straight 12/05/2024 9: 16 AM CDT documented as of this encounter Miscellaneous Notes * Telephone Encounter - Belinda Mauricio RN - 01/24/2025 11:26 AM EDT Left message regarding pulse ox results documented in this encounter Plan of Treatment Upcoming Encounters Date Type Department Care Team (Late Contact Info) Description 02/06/2025 8:45 AM EDT Office Visit [facility] [address] [place] [address] Dontae Zamora APRN [address] [place] [address] 05/27/2025 8:30 PM EST Procedure Visit [facility] [address] [place] [address] Dontae Zamora APRN [address] [place] [address] documented as of this encounter Visit Diagnoses Not on filedocumented in this encounter
--- OUTSIDE RECORDS SUMMARY | 2025-01-25 13:48 | XMS_ITS | Encounter Summary ---
Author Organization Healthcare Address [address] [place] [address] Care Team Providers Care Research Geneticist Name Role Phone Mary Mckeon Primary Care Provider [phone] Encounter Details Date Type Department Care Team (Late st Contact Info) Description 12/14/2024 Refill [facility] [address] [place] [id number] Katheryn Garcia, PharmD Rheumatoid arthritis of multiple sites with negative rheumatoid factor ([facility]) Social History Tobacco Use Types Packs/Day Years [...] usual. Not at all 12/14/2024 8:37 AM EDT Elizabeth Donahue R Thoughts that you would be better off [...] as of this encounter Miscellaneous Notes * Progress Notes - Katheryn Garcia, PharmD - 12/14/2024 10:20 AM EDT 1 medication(s) has been approved per protocol. documented in this encounter Plan of Treatment Upcoming Encounters Date Type Department Care Team (Late st Contact Info) Description 02/14/2025 1:10 PM EDT Appointment [facility] [address] [place] [address] 02/14/2025 2:30 PM EDT Office Visit [facility] Medicine Specialties [address] [place] [address] Isabella Reardon, PA [address] [place] [address] 03/16/2025 9:00 AM EDT Office Visit [facility] Medicine Specialties [address] [place] [id number] Cecile Villarreal, STREET LIGHT CLEANER [address] [place] [id number] documented as of this encounter Visit Diagnoses Diagnosis Rheumatoid arthritis of multiple sites with negative rheumatoid factor ([facility]) documented in this encounter Additional Health Concerns Assessment Noted Time PHQ-9 Depression Total Score: 2 12/15/19 25 8:37 AM EDT A fall risk assessment has been complete d for the patient 12/14/2024 8:36 AM EDT A Body Mass Index follow-up plan has been documented for the patient 12/14/2024 9:30 AM EDT documented as of this encounter Care Teams Research Geneticist Relationship Specialty Start Date End Date Mary Mckeon PA [address] [place] [address] PCP - General 10/26/20 documented as of this encounter
--- OUTSIDE RECORDS SUMMARY | 2025-01-25 13:48 | XMS_ITS | Encounter Summary ---
Author Organization [employer] ([place], [place], [place], [place]) Address [address] [place] [address] Care Team Providers Care District Plant Superintendent Name Role Phone Unavailable Primary Care Provider Unavailabl e Reason for Referral * Other (Routine) - Closed Specialty Diagnoses / Procedures Referred By Pia t Referred To Contact Diagnoses Hypoxemia Procedures Overnight pulse oximetry Dontae Zamora APRN [address] [place] [address] Phone: tel: fax: Referral ID Status Reason Start Date Expiration Date Visits Re quested Visits Authorized [id number] Closed 02/10/2025 02/10/2026 1 1 Encounter Details Date Type Department Care Team (Late st Contact Info) Description 01/10/2025 Orders Only [facility] [place] [address] [place] [address] Dontae Zamora APRN [address] [place] [address] PATRIKC (obstructive sleep apnea) (Primary Dx); Hypoxemia; Hypersomnia Social History Tobacco Use Types Packs/Day Years Used Date Smoking Tobacco: Former Cigarettes S tarted: 1984 Smokeless Tobacco: Former Sex and Gender Information Value Date Recorded Sex Assigned at Male 12/05/2024 9:16 AM CDT 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 Given he just had a titration in August 2024 it would be best that he repeat this study before we decide howto proceed. documented in this encounter Plan of Treatment Upcoming Encounters Date Type Department Care Team (Late st Contact Info) Description 02/06/2025 8:45 AM EDT Office Visit [facility] [address] [facility] [address] [place] [address] Dontae Zamora APRN [address] [place] [address] 05/27/2025 8:30 PM EST Procedure Visit [facility] [address] [facility] [address] [place] [address] Dontae Zamora APRN [address] [place] [address] Scheduled Orders Name Type Priority Associated Diagnoses Orde r Schedule Overnight pulse oximetry [facility] Routine Hypoxemia Expected: 02/10/2025, Expires: 07/13/2025 documented as of this encounter Visit Diagnoses Diagnosis PATRICK (obstructive sleep apnea)- Primary Obstructive sleep apnea (adult) (pediatric) Hypoxemia Hypersomnia Hypersomnia, unspecified documented in this encounter
--- OUTSIDE RECORDS SUMMARY | 2025-01-25 13:48 | XMS_ITS | Clinical Summary ---
Author Organization Healthcare Address [address] [place] [address] Care Team Providers Care Dry Boss Name Role Phone Mary Mckeon Primary Care Provider [phone] Allergies No known active allergies Medications ProAir HFA 108 (90 Base) MCG/ACT inhaler 12/19/19 22 Active cholecalciferol (Vitamin D-3) 50 MCG (2000 UT) capsule 07/28/19 23 Active ergocalciferol 1.25 MG (21025 UT) capsule 07/28/19 23 Active hydroCHLOROthiazide (HYDRODiuril) 25 MG tablet 08/07/19 23 Active losartan (Cozaar) 100 MG tablet 08/11/19 23 Active methocarbamol (Robaxin) 500 MG tablet TAKE 1 TABLET BY MOUTH TWICE DAILY NEEDED FOR MUSCLE SPASM 02/03/20 22 Active metoprolol succinate XL (Toprol-XL) 100 MG 24 hr tablet 08/11/19 23 Active mupirocin (Bactroban) 2 % ointment 06/11/20 18 Active venlafaxine XR (Effexor-XR) 75 MG 24 hr capsule Take 1 capsule (75 mg) by mouth daily. 10/08/19 23 Active omeprazole (PriLOSEC) [address] capsule Take 1 capsule (40 mg) by mouth daily. 10/08/19 23 Active montelukast (Singulair) 10 MG tablet 01/02/20 23 Active fluticasone (Flonase) 50 MCG/ACT nasal spray 10/30/19 23 Active spironolactone (Aldactone) 25 MG tablet 01/08/20 23 Active atorvastatin (Lipitor) 80 MG tablet 04/18/20 24 Active Vraylar 3 MG capsule 08/31/19 25 Active Budeson-Glycopyrrol -Formoterol (Breztri Aerosphere) 160-9-4.8 MCG/ACT aerosol Inhale 2 Inhalations 2 times a day. 32.1 g 3 11/15/19 25 026 Active levocetirizine (Xyzal) 5 MG tablet Take 1 tablet by mouth every evening. 90 tablet 3 11/15/19 25 Active ipratropium-albuter ol (Duo-Neb) 0.5-2.5 mg/3 mL nebulizer solution Take 3 mL by nebulization every 6 hours as needed for wheezing or shortness of breath (cough or chest tightness). 180 mL 3 11/15/19 25 026 Active hydroxychloroquine (Plaquenil) 200 MG tabletIndications:R heumatoid arthritis of multiple sites with negative rheumatoid factor (CMS/HCC),High risk medication use,Primary osteoarthritis of both first carpometacarpal joints Take 1 tablet by mouth 2 times a day. 180 tablet 1 12/15/19 25 Active diclofenac (Voltaren) 75 MG EC tabletIndications:R heumatoid arthritis of multiple sites with negative rheumatoid factor (CMS/HCC),High risk medication use,Primary osteoarthritis of both first carpometacarpal joints Take 1 tablet by mouth 2 times a day. 180 tablet 1 12/15/19 25 Active diclofenac (Voltaren) 1 % topical gelIndications:Rheu matoid arthritis of multiple sites with negative rheumatoid factor (CMS/HCC),High risk medication use,Primary osteoarthritis of both first carpometacarpal joints Place on the skin 3 times a day. Please avoid eyes, nose and mouth. 350 g 11 12/15/19 25 Active etanercept (Enbrel SureClick) 50 MG/ML injectionIndication s:Rheumatoid arthritis of multiple sites with negative rheumatoid factor (CMS/HCC) Inject 1 mL under the skin 1 time per week. 4 mL 12/15/19 25 Active Active Problems Problem Noted Date Diagnosed Date Obesity (BMI 35.0-39.9 without comorbidity) 11/2024 Resolved Problems Problem Noted Date Diagnosed Date Resolved Date Rheumatoid arthritis with rh eumatoid factor of multiple sites without organ or systems involvement 11/25/2024 12/14/2024 Psychophysiological insomnia 10/24/2024 12/14/2024 Dyspnea 10/07/2024 12/14/2024 Other forms of dyspnea 10/06/202412/14 Localized enlarged lymph nodes 10/06/2024 12/14/2024 Other nonspecific abnormal f inding of lung field 10/06/2024 12/14/2024 Other disorders of lung 10/06/2024 07/07/2024 Moderate persistent asthma, uncomplicated 10/06/2024 12/14/2024 Pulmonary fibrosis, unspecified 10/06/2024 12/14/2024 Diarrhea, unspecified 10/03/20242024 Nausea with vomiting, unspecified 10/03/2024 12/14/2024 Chest pain, unspecified 09/20/2024 07/07/2024 Fever, unspecified 09/04/2024 Other general symptoms and signs 09/04/2024 12/14/2024 Age-related nuclear cataract, bilateral 09/03/2024 12/14/2024 Presbyopia 09/03/2024 12/14/2024 SOB (shortness of breath) 08/15/2024 Hypersomnia 08/15/2024 12/14/2024 Obstructive sleep apnea syndrome 08/15/2024 12/14/2024 Anesthesia of skin 08/11/2024 Other specified abnormal imm unological findings in serum 08/11/2024 12/14/2024 Paresthesia of skin 08/11/2024 12/15/19 25 Rash and other nonspecific skin eruption 08/11/2024 12/14/2024 Allergic rhinitis 08/02/2024 12/14/2024 Depressive disorder 08/02/2024 12/15/19 25 Essential hypertension 08/02/202412/14 Hyperlipidemia 08/02/2024 12/14/2024 Irritability and anger 08/02/202412/14 Snoring 08/02/2024 12/14/2024 Vitamin D deficiency 08/02/2024 025 Chronic fatigue, unspecified 07/29/2024 12/14/2024 Elevated blood-pressure read ing, without diagnosis of hypertension 07/29/2024 12/14/2024 Other hypersomnia 07/29/2024 12/14/2024 Abnormal electrocardiogram (ECG) (EKG) 07/27/2024 12/14/2024 Dizziness and giddiness 07/26/2024 07/0 07/2024 Syncope and collapse 07/26/2024 025 Hypertensive urgency 07/10/2024 025 Polyneuropathy, unspecified 05/11/2024 12/14/2024 Osteoarthritis of first carp ometacarpal joint, unspecified 05/09/2024 12/14/2024 Benign prostatic hyperplasia without lower urinary tract symptoms 02/26/2024 12/14/2024 Hematuria, unspecified 02/26/202412/14 Immunodeficiency, unspecified 02/08/2024 12/14/2024 Urinary tract infection, site not specified 02/08/2024 12/14/2024 Other retention of urine 01/18/202407/2024 Dysuria 01/18/2024 12/14/2024 Frequency of micturition 01/11/202407/2024 Unspecified symptoms and sig ns involving the genitourinary system 01/11/2024 12/14/2024 Gastroesophageal reflux dise ase without esophagitis 03/01/2019 12/14/2024 Lung nodule, solitary 12/07/20182024 Chronic obstructive asthma ( with obstructive pulmonary disease) 08/03/2018 12/14/2024 Generalized headaches 08/03/20182024 Indigestion 08/03/2018 12/14/2024 Leg cramps 08/03/2018 12/14/2024 Seasonal allergies 08/03/2018 Encounters Date Type Department Care Team Description 01/02/2025 Orders Only [facility] Orthopaedic Surgery & Sports Medicine [address], [address] [place] [address] Manuel Johnson MD Bilateral shoulder pain, unspecified chronicity (Primary Dx) 12/27/2024 Travel 12/14/2024 9:45 AM EDT - 12/14/2024 11:59 PM EDT Hospital Encounter [facility] Radiology [address], [address] [place] [phone] Rheumatoid arthritis of multiple sites with negative rheumatoid factor (CMS/HCC); High risk medication use; Primary osteoarthritis of both first carpometacarpal joints Discharge Disposition: Home or Self Care 12/14/2024 9:00 AM EDT Office Visit [facility] Medicine Specialties [address], [address] [place] [phone] Cecile Villarreal, PRODUCT ACCOUNTANT Osteoarthritis of both shoulders, unspecified osteoarthritis type (Primary Dx); Rheumatoid arthritis of multiple sites with negative rheumatoid factor (CMS/HCC); High risk medication use; Primary osteoarthritis of both first carpometacarpal joints 12/14/2024 Results Follow-Up [facility] Medicine Specialties [address], [address] [place] [phone] Cecile Villarreal APRN 12/14/2024 Refill [facility] Medicine Specialties [address], [address] [place] [phone] Katheryn Garcia, PharmD Rheumatoid arthritis of multiple sites with negative rheumatoid factor (CMS/HCC) 12/14/2024 Travel 12/08/2024 Travel 11/14/2024 9:30 AM EDT Office Visit [facility] Medicine Specialties [address], [address] [place] [phone] Isabella Reardon PA Asthma-COPD overlap syndrome (CMS/HCC) (Primary Dx); PATRICK (obstructive sleep apnea); Allergic rhinitis, unspecified seasonality, unspecified trigger; Former tobacco use; Encounter for screening for lung cancer 11/14/2024 8:00 AM EDT Ancillary Procedure [facility] Medicine Specialties [address], [address] [place] [phone] Chronic obstructive pulmonary disease, unspecified COPD type (CMS/HCC) 11/14/2024 Telephone [facility] Medicine Specialties [address], [address] [place] [phone] Anni Golden RN PA REQUEST 11/14/2024 Travel 11/07/2024 Travel 10/27/2024 Orders Only [facility] [address], [address] [place] [address] Isabella Reardon PA Chronic obstructive pulmonary disease, unspecified COPD type (CMS/HCC) (Primary Dx) from Last 3 Months Immunizations Immunization Administration Dates Next Due Influenza, injectable, quadrivalent, preservativ e free 08/15/2019 Pneumococcal Polysaccharide PPV23 08/15/2019 Tdap 11/12/2024 Family History Medical History Relation Name Comments Asthma Father Easton garcia Clotting disorder Father Easton garcia Diabetes Father Easton garcia Heart attack Father Easton garcia Heart disease Father Easton garcia Arthritis Mother Donna valencia Conversions - Other Other 1 Factor 5 Leiden mutation, heterozygous Diabetes Other 2 Hypertension Other 3 Heart Problem Other 4 Relation Name Status Comments Father Easton garcia Mother Donna valencia Other 1 Other 2 Other 3 Other 4 Social History Tobacco Use Types Packs/Day Years [...] on file Sexual Orientation Not on file Last Filed Vital Signs Vital Sign Reading Time Taken Comments Blood Pressure 130/78 12/14/2024 8:33 AM EDT Pulse 75 12/14/2024 8:33 AM EDT Temperature 36.6 C (97.8 F) 12/14/2024 8:33 AM EDT Respiratory Rate 18 11/14/2024 9:11 AM EDT Oxygen Saturation 97% 12/14/2024 8:33 AM EDT Inhaled Oxygen Concentration - - Weight 123 kg (270 lb 8.1 oz) 12/14/2024 8:33 AM EDT Height 182.9 cm (6') 12/14/2024 8:33 AM EDT Body Mass Index 36.69 12/14/2024 8:33 AM EDT Plan of Treatment Upcoming Encounters Date Type Department Care Team (Late st Contact Info) Description 02/14/2025 1:10 PM EDT Appointment [facility] [address] [place] [address] 02/14/2025 2:30 PM EDT Office Visit [facility] Medicine Specialties [address], [address] [place] [address] Isabella Reardon, PA [address] [place] [address] 03/16/2025 9:00 AM EDT Office Visit [facility] Medicine Specialties [address], [address] [place] [address] Cecile Villarreal APRN [address] [place] [address] Health Maintenance Due Date Last Done Comments [facility]-HIV Screening 1969 [facility]-/Child/Adol SDOH Screenings 1969 [facility]- SDOH Screenings 1987 [facility]-Adult SDOH Screenings 1987 [facility]-Hepatitis B Vaccines (1 of 3 - 19+ 3-dose series) 1988 CT Colonography 2014 Colonoscopy 2014 FIT-DNA 2014 FIT 2014 FOBT 2014 Sigmoidoscopy 2014 [facility]-Colorectal Cancer Screening 2014 [facility]-Lung Cancer Screening 2019 [facility]-Zoster Vaccines (1 of 2) 2019 [facility]-Pneumococcal Vaccine: 50+ Years (2 of 2 - PCV) 08/14/2020 08/15/2019 [id number] Vaccine (3 - season) 2024 08/17/2020, 07/19/2020 [facility]-Influenza Vaccine (#1) 2025 08/15/2019 [facility]-Depression Screening 12/14/2025 025, 12/14/2024, 10/24/2022 [facility]-DTaP,Tdap,and Td Vaccines (2 - Td or Tdap) 11/12/2034 11/12/2024 [facility]-Hepatitis C Screening Completed 11/25/2023, 02/2023 [facility]-Obesity Intervention Completed 025, 11/14/2024, 09/16/2024, Additional history exists HPV Vaccines Aged Out No longer eligi ble based on patient's age to complete this topic [facility]-HIB Vaccines Aged Out No longer e ligible based on patient's age to complete this topic [facility]-Hepatitis A Vaccines Aged Out No longer eligible based on patient's age to complete this topic [facility]-IPV Vaccines Aged Out No longer e ligible based on patient's age to complete this topic [facility]-Rotavirus Vaccines Aged Out No lo nger eligible based on patient's age to complete this topic Procedures Procedure Name Priority Date/Time Associated Diagnosis [...] Primary osteoarthritis of both first carpometacarpal joints HC PULM FUNCT TST PLETHYSMOGRAP - PLETHYSMOGRAPHY Routine 11/14/2024 8:39 AM EDT Chronic obstructive pulmonary disease, unspecified COPD type (CMS/HCC) ACUTE HEPATITIS PANEL Routine 11/25/2023 9:24 AM EDT Rheumatoid arthritis of multiple sites with negative rheumatoid factor (CMS/HCC) High risk medication use from Last 3 Months or Most Recently Relevant to Health Maintenance Results * XR Shoulder Right 2+ Views [...] on 12/14/2024 10:27 AM us Cecile Villarreal PRODUCT ACCOUNTANT IMG XR PROCEDURES Final Re sult * [...] Per this written report. Drafted by Dean Steawrt MD on 12/14/2024 10:26 AM Final report [...] 10:26 AM Final report signed by Dean Stewrat MD on 12/14/2024 10:27 AM us Cecile Villarreal PRODUCT ACCOUNTANT IMG XR PROCEDURES Final Re sult * (ABNORMAL) Pulmonary function testing (11/14/2024 8:39 AM EDT) [id number] 3.15(A) 3.76 - 5.77 L VYAIRE PFT AIV1PBP 3.24(A) 3.76 - 5.77 L VYAIRE PFT FVC PRED 5.14 VYAIRE PFT FVC LLN 3.96 VYAIRE PFT FVCPREZSCORE -2.67 VYAIRE PFT FVCPRE%PRED 63 % % VYAIRE PFT FVCPOSTZSCORE -2.80 VYAIRE PFT FVCPOST%PRED 61 % % VYAIRE PFT FVCCHNG -94.00 VYAIRE PFT FVC%CHG -3 % % VYAIRE PFT FVC PREDAUTH US_Quanjer GLI (2011) VYAIRE PFT FVC Z-SCORE -2.67 -2.80 VYAIRE PFT DVX27BHTT 2.59(A) 2.94 - 4.62 L VYAIRE PFT FEV1 PRE 2.66(A) 2.94 - 4.62 L VYAIRE PFT FEV1 PRED 3.99 VYAIRE PFT FEV1 LLN 3.06 VYAIRE PFT TNF0JVGMQPUWR -2.32 VYAIRE PFT FEV1_Pre%Pred 67 % % VYAIRE PFT MAQ4LYVTZSZKKX -2.42 VYAIRE PFT VVK4CWHK%PRED 65 % % VYAIRE PFT VUR9JLMO -61.70 VYAIRE PFT FEV1%CHG -2 % % VYAIRE PFT FEV1 PREDAUTH US_Quanjer GLI (2011) VYAIRE PFT FEV1 Z-SCORE -2.32 -2.42 VYAIRE PFT IWM9ZKO8TRWX 82.37 55.05 - 103.60 % VYAIRE PFT FEV1/FVC PRE 81.89 55.05 - 103.60 % VYAIRE PFT CWQ8ONVPGIN 78 VYAIRE PFT GRS7AMXRTA 66 VYAIRE PFT IEG1XIZNIYRYOLDK 0.65 VYAIRE PFT HIS0VANAUL%PRED 105 % % VYAIRE PFT IKF8SKQDUIWBBXFYK 0.73 VYAIRE PFT YQL4UPKGMDV%PRED 106 % % VYAIRE PFT OJO3BHWWYES 485 VYAIRE PFT LTQ4VOT%CHG 1 % % VYAIRE PFT BFN0WSXIIZRN _[facility] (2011) VYAIRE PFT FMG0AZOQHUOZZ 1 1 VYAIRE PFT JLG29-79%_POST 2.85 2.70 - 7.05 L/s VYAIRE PFT IZY64-43% PRE 3.10 2.70 - 7.05 L/s VYAIRE PFT ZZX56-04%_Pred 3.41 VYAIRE PFT SFE9296%LLN 1.75 VYAIRE PFT UDK7513%PREZSCORE -0.27 VYAIRE PFT AOD5749%PRE%PRED 91 % % VYAIRE PFT XZF9230%POSTZSCORE -0.50 VYAIRE PFT HED2766%POST%PRED 84 % % VYAIRE PFT NZV9325%CHNG -242.16 VYAIRE PFT MVC2965%%CHG -8 % % VYAIRE PFT KKK3754%[email or web address]]_[facility] (2011) VYAIRE PFT ZIY2XNBI 6.83(A) 7.02 - 11.00 L/s VYAIRE PFT PEF PRE 6.87(A) 7.02 - 11.00 L/s VYAIRE PFT PEF PRED 10.01 VYAIRE PFT PEF LLN 7.56 VYAIRE PFT PEFPREZSCORE -2.11 VYAIRE PFT PEFPRE%PRED 69 % % VYAIRE PFT PEFPOSTZSCORE -2.14 VYAIRE PFT PEFPOST%PRED 68 % % VYAIRE PFT PEFCHNG -38.00 VYAIRE PFT PEF%CHG -1 % % VYAIRE PFT [facility]F [facility] (1998) VYAIRE PFT VTKRVURTPPFFGFHR2EZT 26.54 22.69 - 38.59 ml/(min* mmHg) VYAIRE PFT DLCOSINGLEBREATH PRED 30.01 VYAIRE PFT DLCOSINGLEBREATH LLN 22.69 VYAIRE PFT DLCOSINGLEBREATH Z-SCORE -0.75 VYAIRE PFT DLCOSINGLEBREATH % PRED 88.4 % VYAIRE PFT DLCOSINGLEBREATH [facility] Stanovic TLCO GLI (2019) VYAIRE PFT DLCOSINGLEBREATH Z-SCORE -0.75 11/14/2024 9:53 AM EDT VYAIRE PFT IXCZHSCXBPGZVFWCZ6SJ E 26.54 22.69 - 38.59 ml/(min* mmHg) VYAIRE PFT DLCOCSINGLEBREATH PRED 30.01 VYAIRE PFT DLCOCSINGLEBREATH LLN 22.69 VYAIRE PFT DLCOCSINGLEBREATH Z-SCORE -0.75 VYAIRE PFT DLCOCSINGLEBREATH % PRED 88.4 % VYAIRE PFT DLCOCSINGLEBREATH [facility] GLI (2019) VYAIRE PFT IVZIUR4FGT 5.24 3.27 - 5.38 ml/(min* mmHg*L) VYAIRE PFT DLCOVAPRED 4.29 VYAIRE PFT DLCOVALLN 3.27 VYAIRE PFT DLCOVAZSCORE 1.43 VYAIRE PFT DLCOVA%PRED 122.2 % VYAIRE PFT DLCOVAPREDAUTBeebe Medical Centervic TLCO GLI (2019) VYAIRE PFT DLCOVAZSCORE 1.43 11/14/2024 9:53 AM EDT VYAIRE PFT QNYWXZPIC0BHC 5.24 3.27 - 5.38 ml/(min* mmHg*L) VYAIRE PFT DLCOC SB/VA PRED 4.29 VYAIRE PFT DLCOC SB/VA LLN 3.27 VYAIRE PFT DLCOC SB/VA Z-SCORE 1.43 VYAIRE PFT DLCOC SB/VA % PRED 122.2 % VYAIRE PFT DLCOC SB/VA [facility] Stanojevic TLCO GLI (2019) VYAIRE PFT DLCOC SB/VA Z-SCORE 1.43 11/14 9:53 AM EDT VYAIRE PFT LSTOWOXQKLGPAB5AVW 5.07(A) 5.72 - 8.49 L VYAIRE PFT VASINGLEBREATH PRED 7.05 VYAIRE PFT VASINGLEBREATH LLN 5.72 VYAIRE PFT VASINGLEBREATH Z-SCORE -2.49 VYAIRE PFT VASINGLEBREATH % PRED 71.9 % VYAIRE PFT VASINGLEBREATH [facility] Stanojevic TLCO GLI (2019) VYAIRE PFT VASINGLEBREATH Z-SCORE -2.49 11/14/2024 9:53 AM EDT VYAIRE PFT JNEVCEXWZDMDXKZ9FRO 3.53(A) 3.76 - 5.77 L VYAIRE PFT IVCSINGLEBREATH PRED 5.14 VYAIRE PFT IVCSINGLEBREATH LLN 3.96 VYAIRE PFT IVCSINGLEBREATH Z-SCORE -2.26 VYAIRE PFT IVCSINGLEBREATH % PRED 68.6 % VYAIRE PFT IVCSINGLEBREATH [facility] US_Quanjer GLI (2011) VYAIRE PFT SURESH% VCMAX PRE 100.00 % VYAIRE PFT TLC SB PRE 5.25(A) 6.21 - 9.22 L VYAIRE PFT TLCSINGLEBREATH PRED 7.71 VYAIRE PFT TLCSINGLEBREATH LLN 6.21 VYAIRE PFT TLCSINGLEBREATH Z-SCORE -2.72 VYAIRE PFT TLCSINGLEBREATH % PRED 68.1 % VYAIRE PFT TLCSINGLEBREATH [facility] Lung volumes GLI (2019)__ VYAIRE PFT HB PRE 14.60 g(Hb)/dL VYAIRE PFT JBQ7AZF 5.40(A) 6.21 - 9.22 L VYAIRE PFT TLCPRED 7.71 VYAIRE PFT TLCLLN 6.21 VYAIRE PFT TLCULN 9.22 VYAIRE PFT TLCZSCORE -2.54 VYAIRE PFT TLC%PRED 70.1 % VYAIRE PFT TLCPR[facility] Lung volumes GLI (2019)__ VYAIRE PFT VC0PRE 3.45(A) 3.76 - 5.77 L VYAIRE PFT VCPRED 5.14 VYAIRE PFT VCLLN 3.96 VYAIRE PFT VCULN 6.33 VYAIRE PFT VCZSCORE -2.37 VYAIRE PFT VC%PRED 67.1 % VYAIRE PFT VCPREDAUT US_Quanjer GLI (2011) VYAIRE PFT IC0PRE 2.98 2.82 - 5.12 L VYAIRE PFT ICPRED 4.00 VYAIRE PFT ICLLN 2.82 VYAIRE PFT ICULN 5.12 VYAIRE PFT IC Z-SCORE -1.43 VYAIRE PFT IC%PRED 74.6 % VYAIRE PFT ICPREDAUTDel[facility] Lung volumes GLI (2019)__ VYAIRE PFT ZUVIKLWT9FJY 2.42(A) 2.65 - 5.37 L VYAIRE PFT FRCPLETH PRED 3.85 VYAIRE PFT FRCPLETH LLN 2.65 VYAIRE PFT FRCPLETH ULN 5.37 VYAIRE PFT FRCPLETH Z-SCORE -2.01 VYAIRE PFT FRCPLETH % PRED 62.9 % VYAIRE PFT FRCPLETH PREDAUT [facility] Lung volumes GLI (2019)__ VYAIRE PFT KXC0OFG 0.47(A) 0.59 - 2.86 L VYAIRE PFT ERVPRED 1.53 VYAIRE PFT ERVLLN 0.59 VYAIRE PFT ERVULN 2.86 VYAIRE PFT ERV Z-SCORE -1.93 VYAIRE PFT ERV%PRED 30.6 % VYAIRE PFT ERVPREDAUT[facility] Lung volumes GLI (2019)__ VYAIRE PFT RV0PRE 1.95 1.35 - 3.22 L VYAIRE PFT RVPRED 2.20 VYAIRE PFT RVLLN 1.35 VYAIRE PFT RVULN 3.22 VYAIRE PFT RVZSCORE -0.44 VYAIRE PFT RV%PRED 88.9 % VYAIRE PFT RVPREDAUTH [facility] Lung volumes GLI (2019)__ VYAIRE PFT RV%WQE0XLJ 36.17 18.82 - 37.71 % VYAIRE PFT RV%TLCPRED 28 VYAIRE PFT RV%TLCLLN 19 VYAIRE PFT RV%TLCULN 38 VYAIRE PFT RV%TLCZSCORE 1.39 VYAIRE PFT RV%TLC%PRED 128.9 % VYAIRE PFT RV%TLCPREDAUTH [facility] Lung volumes GLI (2019)__ VYAIRE PFT Anatomical Region Laterality Modality PFT 11/14/2024 8:02 AM EDT Narrative 11/18/2024 8:13 AM EDT Pulmonary Function Testing Report Easton Camacho 54 y.o. underwent pulmonary function testing today at the [facility]. The patient underwent spirometry, lung volumes by body plethysmography, and diffusion capacity testing. All tests were appropriately administered via ATS/ERS criteria. Spirometry: Reduced FVC and TLC consistent with mild restriction. There is no significant positive bronchodilator response. Lung Volumes: Reduced TLC consistent with simple restriction. Reduced TLC with reduced FRC and ERV suggests restriction may be secondary to obesity. Diffusion Capacity: Diffusion capacity uncorrected for Hb is normal. Trend: There are no prior studies for comparison. us Isabella LIM PFT ORDERABLES Final Result * Acute Hepatitis Panel (11/25/2023 9:24 AM EDT) Hepatitis B Surf Antigen Negative Negative 11/25/2023 1:27 PM EDT [facility] Hepatitis C Antibody Negative Negative 11/25/2023 1:27 PM EDT [facility] Hepatitis A Antibody IgM Negative Negative 11/25/2023 1:27 PM EDT [facility] Hepatitis B Core Antibody IgM Negative Negative 11/25/2023 1:27 PM EDT [facility] Blood Venous blood specimen / Unknown Venipuncture / Unknown 11/25/2023 9:24 AM EDT 11/25/2023 9:24 AM EDT Cecileashanti Villarreal PRODUCT ACCOUNTANT LAB BLOOD ORDERABLES Final Result [facility] [address] [place] [address] from Last 3 Months or Most Recently Relevant to Health Maintenance Insurance [employer] Care Teams Dry Boss Relationship Specialty Start Date End Date Mary Mckeon PA [address] [place] [address] PCP - General 10/26/20
--- OUTSIDE RECORDS SUMMARY | 2025-01-25 13:48 | XMS_ITS | Encounter Summary ---
Author Organization Healthcare Address [address] [place] [address] Care Team Providers Care E Merchant Name Role Phone Mary Mckeon Primary Care Provider [phone] Encounter Details Date Type Department Care Team (Late st Contact Info) Description 01/02/2025 Orders Only [facility] Orthopaedic Surgery & Sports Medicine [address], [address] [place] [address] Manuel Johnson MD [address] [place] [address] Bilateral shoulder pain, unspecified chronicity (Primary Dx) Social History Tobacco Use Types Packs/Day Years [...] EDT Appointment [facility] [address] [place] [address] 02/14/2025 2:30 PM EDT Office Visit [facility] Medicine Specialties [address], [address] [place] [address] Isabella Reardon PA [address] [place] [address] 03/16/2025 9:00 AM EDT Office Visit [facility] [address], [address] [place] [address] Cecile Villarreal APRN [address] [place] [address] Scheduled Orders Name Type Priority Associated Diagnoses Orde r Schedule XR Shoulder Right 2+ Views Imaging Routine Bilateral shoulder pain, unspecified chronicity 1 Occurrences starting 01/02/2025 until 07/06/2026 XR Shoulder Left 2+ Views Imaging Routine Bilateral shoulder pain, unspecified chronicity 1 Occurrences starting 01/02/2025 until 07/06/2026 documented as of this encounter Visit Diagnoses Diagnosis Bilateral shoulder pain, unspecified chronicity- Primary documented in this encounter Additional Health Concerns Assessment Noted Time PHQ-9 Depression Total Score: 2 12/15/19 25 8:37 AM EDT A fall risk assessment has been complete d for the patient 12/14/2024 8:36 AM EDT A Body Mass Index follow-up plan has been documented for the patient 12/14/2024 9:30 AM EDT documented as of this encounter Care Teams E Merchant Relationship Specialty Start Date End Date Mary Mckeon PA [address] [place] [address] PCP - General 10/26/20 documented as of this encounter
--- OUTSIDE RECORDS SUMMARY | 2025-01-25 13:48 | XMS_ITS | Encounter Summary ---
Author Organization [employer] ([place], [place], [place], [place]) Address [address] [place] [address] Care Team Providers Care Sand Filler Name Role Phone Unavailable Primary Care Provider Unavailabl e Reason for Referral * Other (Routine) - New Request Specialty Diagnoses / Procedures Referred By Pia t Referred To Contact Sleep Medicine Diagnoses PATRICK (obstructive sleep apnea) Procedures PSG W/ CPAP Dontae Zamora APRN [address] [place] [address] Phone: tel: fax: [facility] [address] [place] [address] Phone: tel: fax: Referral ID Status Reason Start Date Expiration Date V isits Requested Visits Authorized [id number] New Request 02/06/2025 02/06/2026 1 1 Encounter Details Date Type Department Care Team (Late st Contact Info) Description 01/23/2025 Orders Only [facility] [email or web address] [place] [address] Dontae Zamora APRN [address] [place] [address] PATRICK (obstructive sleep apnea) (Primary Dx); Hypoxemia; Hypersomnia Social History Tobacco Use Types Packs/Day Years Used Date Smoking Tobacco: Former Cigarettes S tarted: 1984 Smokeless Tobacco: Former Sex and Gender Information Value Date Recorded Sex Assigned at Male 12/05/2024 9:16 AM CDT Legal Sex Male 10:15 AM COUNTER MANAGER Gender Identity Male 12/05/2024 9:16 AM CDT Sexual Orientation Straight 12/05/2024 9: 16 AM CDT documented as of this encounter Progress Notes * Dontae Zamora APRN - 01/23/2025 4:38 PM EDT Overnight oximetry Results Date: 01/17/2025 Settings: Auto BiPAP 08/06 PS 6 Results: Continued desats. Minimal SpO2 76% with at least 6.3 minutes less than 89%. Plan: Given the continued desats and excessive daytime sleepiness with ESS 20, he needs to go back for additional titration. He is clearly not fully corrected. documented in this encounter Plan of Treatment Upcoming Encounters Date Type Department Care Team (Late st Contact Info) Description 02/06/2025 8:45 AM EDT Office Visit [facility] [address] [place] [address] Dontae Zamora APRN [address] [place] [address] 05/27/2025 8:30 PM EST Procedure Visit [facility] [address] [facility] ([place], [place]) [address] [place] [address] Dontae Zamora APRN [address] [place] [address] Scheduled Orders Name Type Priority Associated Diagnoses Orde r Schedule PSG W/ CPAP Sleep Center Routine PATRICK (obstructive sleep apnea) Expected: 02/06/2025, Expires: 01/23/2026 documented as of this encounter Visit Diagnoses Diagnosis PATRICK (obstructive sleep apnea)- Primary Obstructive sleep apnea (adult) (pediatric) Hypoxemia Hypersomnia Hypersomnia, unspecified documented in this encounter
--- OUTSIDE RECORDS SUMMARY | 2025-01-25 13:48 | XMS_ITS | Encounter Summary ---
Author Organization [facility] Address [address] [place] [address] Care Team Providers Care Television Production Assistant Name Role Phone Mary Mckeon Primary Care Provider [phone] Reason for Visit * Reason Comments Med Refill Encounter Details Date Type Department Care Team (Late Contact Info) Description 12/11/2024 Refill [facility] [address] [place] [address] Alla Pino APRN [address] [facility] [place] [address] Med Refill Social History Tobacco Use Types Packs/Day Years Used Date Smoking Tobacco: Former Cigarettes 1 34.6 S tarted: 1990 Passive Smoke Exposure: Past Smokeless Tobacco: Never Alcohol Use Standard Drinks/Week Comments Never 0 (1 standard drink = 0.6 oz pur e alcohol) Sex and Gender Information Value Date Recorded Sex Assigned at Male 10/12/2024 7:49 AM EDT Legal Sex Male 9:17 AM EDT Gender Identity Not on file Sexual Orientation Straight 10/12/2024 7: 49 AM EDT documented as of this encounter Plan of Treatment Upcoming Encounters Date Type Department Care Team (Late Contact Info) Description 01/26/2025 1:00 PM EDT Office Visit [facility] [address] [place] [address] Sun Golden, LIAM [address] [place] [address] documented as of this encounter Visit Diagnoses Diagnosis PATRICK (obstructive sleep apnea) Obstructive sleep apnea (adult) (pediatric) Psychophysiological insomnia Persistent disorder of initiating or maintaining sleep documented in this encounter Care Teams Television Production Assistant Relationship Specialty Start Date End Date Mary Mckeon PA [address] [place] [address] PCP - General Physician Food Safety Coordinator 10/19/24 documented as of this encounter
--- OUTSIDE RECORDS SUMMARY | 2025-01-25 13:48 | XMS_ITS | Clinical Summary ---
Author Organization [facility] Address [address] [place] [address] Care Team Providers Care Land Sales Agent Name Role Phone Mary Mckeon Primary Care Provider [phone] Allergies No known active allergies Medications albuterol sulfate HFA 108 (90 Base) MCG/ACT inhaler Inhale 2 puffs As Needed. 4 Active atorvastatin (LIPITOR) 80 MG tablet Take 1 tablet by mouth Daily. 4 Active Cholecalciferol (Vitamin D3) 50 MCG (2000 UT) capsule Take 1 capsule by mouth Daily. 5 Active diclofenac (VOLTAREN) 75 MG EC tablet Take 1 tablet by mouth 2 (Two) Times a Day. 4 Active vitamin D (ERGOCALCIFEROL) 1.25 MG (02633 UT) capsule capsule Take 1 capsule by mouth Every 7 (Seven) Days. 4 Active fluticasone (FLONASE) 50 MCG/ACT nasal spray Administer 1 spray into the nostril(s) as directed by provider As Needed. 4 Active Trelegy Ellipta 200-62.5-25 MCG/ACT inhaler Inhale 1 puff Daily. 5 Active hydroCHLOROthiazid e 25 MG tablet Take 1 tablet by mouth Daily. 4 Active hydroxychloroquine (PLAQUENIL) 200 MG tablet 1 tablet 2 (Two) Times a Day. 4 Active losartan (COZAAR) 100 MG tablet Take 1 tablet by mouth Daily. 5 Active metoprolol succinate XL (TOPROL-XL) 100 MG 24 hr tablet Take 1 tablet by mouth Daily. 5 Active montelukast (SINGULAIR) 10 MG tablet Take 1 tablet by mouth Every Night. 4 Active omeprazole (priLOSEC) 40 MG capsule Take 1 capsule by mouth Daily. 4 Active ondansetron ODT (ZOFRAN-ODT) [address] 1 tablet on the tongue As Needed. 4 Active spironolactone (ALDACTONE) 25 MG tablet Take 1 tablet by mouth Daily. 5 Active B-D 3CC LUER-DANNY SYR 25GX5/8 25G X 5/8 3 ML misc 5 Active venlafaxine XR (EFFEXOR-XR) 75 MG 24 hr capsule Take 1 capsule by mouth Daily. 5 Active Vraylar 1.5 MG capsule capsule Take 1 capsule by mouth Daily. 5 Active Enbrel SureClick 50 MG/ML solution auto-injector 5 Active traZODone (DESYREL) 50 MG tabletIndications: PATRICK (obstructive sleep apnea),Psychophysi ological insomnia TAKE ONE TO TWO TABS AT NIGHT NEEDED FOR INSOMNIA. 60 tablet 3 5 Active Active Problems Problem Noted Date Diagnosed Date Psychophysiological insomnia 10/24/2024 Assessment & Plan (10/24/2024 9:49 PM EDT): We will see him back in 3 weeks to see how he is doing with pap and trazodone. PATRICK (obstructive sleep apnea) 08/15/2024 Assessment & Plan (11/09/2024 10:42 AM EDT): -Use BIPAP -Keep Inspire Consult -DO NOT DRIVE SLEEPY -Retry Trazodone Assessment & Plan (10/24/2024 9:50 PM EDT): 08/27/2024 sleep titration-titrated from CPAP to BiPAP at a setting of 18/14 with pressure support of 4. Medium DreamWear full facemask was used at night. presents today for 31-90 day PATRICK follow-up after titration. He was titrated to a BIPAP. He is not happy with it. He pulls it off in the middle of the night. He is willing to do an Inspire consult as well as do a trial of Trazodone. Placed referral for Inspire consult as well. We will see him back in 3 weeks to see how he is doing with pap and trazodone. Assessment & Plan (08/15/2024 11:44 AM EST): 07/29/2024 HST-overall AHI 77.5 showing severe PATRICK. Supine 81.6. REM 66.1. Severe oxygen desaturation less than 90% for 34.6% of the study time to a minimum saturation of 52%. The data did not reveal evidence of arrhythmia. He tried to use a pap in past unsuccessfully. He felt like he suffocated. This combined with his severe oxygen desaturations and severe PATRICK make me feel that a titration study is warranted. He may need oxygen and/or BIPAP. We will get him scheduled for [facility]. Hypersomnia 08/15/2024 Assessment & Plan (11/09/2024 10:42 AM EDT): -Use BIPAP -Keep Inspire Consult -DO NOT DRIVE SLEEPY Assessment & Plan (08/15/2024 11:44 AM EST): Titration SOB (shortness of breath) 08/15/2024 Assessment & Plan (10/24/2024 9:49 PM EDT): Saw Pulm. Would like referral to a 2nd pulmologist for a 2nd opinion. Will refer. Assessment & Plan (08/15/2024 11:44 AM EST): Titration Encounters Date Type Department Care Team Description 12/20/2024 Telephone [facility] [address] [place], [place] [address] Sun Golden APRN NEEDS NEW ORDER FOR BI-PAP 12/14/2024 Telephone [facility] [place] [address] Sun Golden APRN [place] - CALL BACK 12/13/2024 Telephone [facility] [place] [address] Sun Golden APRN [place] - SCHED REQUEST 12/13/2024 Telephone [place] [address] [place], [place] [address] Alla Pino APRN [employer] SCHNEIDER, APRN-CPAP MACHINE 12/11/2024 Refill [place] [address] [place] [address] Alla Pino APRN Med Refill 11/23/2024 Telephone [place] [address] [place] [address] Alla Pino APRN A. SCHNEIDER - CALLBACK REQUEST 11/22/2024 Telephone [place] [address] [place] [address] Alla Pino APRN SCHNEIDER - PAPERWORK REQUEST 11/17/2024 Telephone [place] [address] [place] [address] Delmi Saxena RegSchgold Rep 11/09/2024 9:30 AM EDT Office Visit [place] [address] [place] [address] Alla Pino APRN PATRICK (obstructive sleep apnea) (Primary Dx); Hypersomnia 11/09/2024 Telephone [place] [address] [place] [address] Alla Pino APRN [employer]UM[employer] SCHNEIDER-TEST RESULTS 11/09/2024 Documentation [place] [address] [place] [address] Delmi Saxena, RegSched Rep 11/09/2024 Travel from Last 3 Months Family History Medical History Relation Name Comments HTN Brother Heart attack Brother Arthritis Father Diabetes Father HTN Father Heart attack Father Heart disease Father High cholesterol Father Arthritis Mother Relation Name Status Comments Brother Father Mother Social History Tobacco Use Types Packs/Day Years Used Date Smoking Tobacco: Former Cigarettes 1 34.6 S tarted: 1990 Passive Smoke Exposure: Past Smokeless Tobacco: Never Tobacco Cessation:Counseling Given: No Alcohol Use Standard Drinks/Week Comments Never 0 (1 standard drink = 0.6 oz pur e alcohol) Sex and Gender Information Value Date Recorded Sex Assigned at Male 10/12/2024 7:49 AM EDT Legal Sex Male 9:17 AM EDT Gender Identity Not on file Sexual Orientation Straight 10/12/2024 7: 49 AM EDT Last Filed Vital Signs Vital Sign Reading Time Taken Comments Blood Pressure 138/78 11/09/2024 10:01 AM EDT Pulse 85 11/09/2024 10:01 AM EDT Temperature - - Respiratory Rate - - Oxygen Saturation 97% 11/09/2024 10:01 AM EDT Inhaled Oxygen Concentration - - Weight 123 kg (270 lb 8 oz) 11/09/2024 10:01 AM EDT Height 182.9 cm (6') 11/09/2024 10:01 AM EDT Body Mass Index 36.69 11/09/2024 10:01 AM EDT Plan of Treatment Upcoming Encounters Date Type Department Care Team (Late st Contact Info) Description 01/26/2025 1:00 PM EDT Office Visit [facility] [address] [place] [address] Sun Golden, UNBUNDLER [address] [place] [address] Health Maintenance Due Date Last Done Comments TDAP/TD VACCINES (1 - Tdap) 1988 COLOGUARD 2014 COLON CANCER SCREENING 5 YEA R SIGMOIDOSCOPY 2014 COLONOSCOPY [address] CANCER SCREENING [address] CT COLONOGRAPHY 2014 FECAL OCCULT BLOOD TEST 2014 FIT Testing (1 year) 2014 ZOSTER VACCINE (1 of 2) 2019 Pneumococcal Vaccine 50+ (2 of 2 - PCV) 08/14/2020 0 08/15/2019 COVID-19 Vaccine ( season) 02/14/202410/2020, 07/19/2020 ANNUAL PHYSICAL 04/01/2024 INFLUENZA VACCINE 03/15/2025 08/15/2019 HEPATITIS C SCREENING Completed 11/25/2023, 023 [facility] Care Teams Land Sales Agent Relationship Specialty Start Date End Date Mary Mckeon PA [address] [place] [address] PCP - General Physician Supportability Engineer 10/19/24
--- OUTSIDE RECORDS SUMMARY | 2025-01-25 13:48 | XMS_ITS | Encounter Summary ---
Author Organization [facility] Address [address] [place] [address] Care Team Providers Care Morgue Attendant Name Role Phone Mary Mckeon Primary Care Provider Encounter Details Date Type Department Care Team (Latest Contact Info) Description 12/27/2024 Travel Social History Tobacco Use Types Packs/Day [...] Upcoming Encounters Date Type Department Care Team ( st Contact Info) Description 02/14/2025 1:10 PM EDT Appointment [facility] [address] [place] [address] 02/14/2025 2:30 PM EDT Office Visit [facility] [address] [place] [address] Isabella Reardon PA [address] [place] [address] 03/16/2025 9:00 AM EDT Office Visit [facility] [address] [place] [address] Cecile Villarreal, RN OR LVN [address] [place] [address] documented as of this encounter Visit Diagnoses [...] documented as of this encounter Care Teams Morgue Attendant Relationship Specialty Start Date End Date Mary Mckeon PA [address] [place] [address] PCP - General 10/26/20 documented as of this encounter
--- OUTSIDE RECORDS SUMMARY | 2025-01-25 13:48 | XMS_ITS | Encounter Summary ---
Author Organization [facility] Address [address] [place] [address] Care Team Providers Care Marketing Manager Name Role Phone Mary Mckeon Primary Care Provider [phone] Encounter Details Date Type Department Care Team (Late st Contact Info) Description 12/14/2024 Results Follow-Up [facility] Specialties [address] [place] [address] Cecile Villarreal, PRECISION LATHE OPERATOR [address] [place] [address] Social History Tobacco Use Types Packs/Day Years [...] all 12/14/2024 8:37 AM EDT Elizabeth Donahue Thoughts that you would be better off [...] as of this encounter Miscellaneous Notes * Result Encounter Note - Cecile Villarreal APRN - 12/14/2024 1:30 PM EDT Your bilateral shoulders have mild to moderate osteoarthritis present (wear and tear of the joint).Would you like me to send you to orthopedics for the osteoarthritis? documented in this encounter Plan of Treatment Upcoming Encounters Date Type Department Care Team (Late st Contact Info) Description 02/14/2025 1:10 PM EDT Appointment [facility] [address] [place] [address] 02/14/2025 2:30 PM EDT Office Visit [facility]ties [address] [place] [address] Isabella Reardon, PA [address] [place] [address] 03/16/2025 9:00 AM EDT [facility] [address] [place] [address] Cecile Villarreal, LIAM [address] [place] [address] documented as of this encounter [...] documented as of this encounter Care Teams Marketing Manager Relationship Specialty Start Date End Date Mary Mckeon PA [address] [place] [address] PCP - General 10/26/20 documented as of this encounter
--- OUTSIDE RECORDS SUMMARY | 2025-01-25 13:48 | XMS_ITS | Encounter Summary ---
Author Organization [facility] Address [address] [place] [address] Care Team Providers Care Rotary Soil Stabilizer Name Role Phone Mary Mckeon Primary Care Provider [phone] Encounter Details Date Type Department Care Team (Latest Contact Info) Description 12/08/2024 Travel Social History Tobacco Use Types Packs/Day Years Used Date Smoking Tobacco: Former Cigarettes 1 25 0 06/15/1992 - 06/15/2017 Passive Smoke Exposure: Past Smokeless Tobacco: Never Alcohol Use Standard Drinks/Week Comments Yes 0 (1 standard drink = 0.6 oz pur e alcohol) social PHQ-2 Answer Date Recorded Patient Health Questionnaire-2 Score 0 11/14/2024 PHQ-9 Answer Date Recorded Patient Health Questionnaire-9 Score 0 11/14/2024 AUDIT-C Answer Date Recorded Q1: How often do you have a drink containing alcohol? Never 11/14/2024 Q2: How many drinks containi ng alcohol do you have on a typical day when you are drinking? Patient does not drink Q3: How often do you have si x or more drinks on one occasion? Never 11/14/2024 PHQ-2A Answer Date Recorded Depression Risk 0 [...] EDT Appointment [facility] [address] [place] [address] 02/14/2025 2:30 PM EDT Office Visit [facility] Medicine Specialties [address] [place] [address] Isabella Reardon PA [address] [place] [address] 03/16/2025 9:00 AM EDT Office Visit [facility] Medicine Specialties [address] [place] [address] Cecile Villarreal, COAT BASTER [address] [place] [address] documented as of this encounter Visit Diagnoses Not on filedocumented in this encounter Additional Health Concerns Assessment Noted Time PHQ-9 Depression Total Score: 0 11/15/19 25 9:15 AM EDT A fall risk assessment has been complete d for the patient 11/14/2024 9:15 AM EDT A Body Mass Index follow-up plan has been documented for the patient 11/18/2024 12:00 PM EDT documented as of this encounter Care Teams Rotary Soil Stabilizer Relationship Specialty Start Date End Date Mary Mckeon PA [address] [place] [address] PCP - General 10/26/20 documented as of this encounter
--- OUTSIDE RECORDS SUMMARY | 2025-01-25 13:48 | XMS_ITS | Clinical Summary ---
Author Organization [employer] ([place], [place], [place], [place]) Address [address] [place] [address] Care Team Providers Care Rotary Shear Worker Helper Name Role Phone Unavailable Primary Care Provider Unavailabl e Allergies No known active allergies Medications albuterol (Ventolin HFA) 90 mcg/actuation inhaler 05/17/20 24 Active atorvastatin (LIPITOR) 80 MG tablet Take 1 tablet every day by oral route at bedtime for 90 days. 04/18/20 24 Active budesonide-glycopy r-formoterol 160-9-4.8 mcg/actuation HFAA Inhale 2 puffs twice a day by inhalation route. 11/15/19 25 Active Vraylar 3 mg capsule Take 1 capsule every day by oral route for 30 days. 08/31/19 25 Active cholecalciferol, vitamin D3, 50 mcg (2,000 unit) cap 06/27/19 25 Active diclofenac sodium (VOLTAREN) 75 MG EC tablet 02/08/20 24 Active ergocalciferol (DRISDOL) 1,250 mcg (50,000 unit) capsule Take 1 capsule every week by oral route for 90 days. 05/03/20 24 Active diclofenac sodium 1 % gel Place on the skin 3 (three) times daily. 08/11/19 25 Active EnbreL SureClick 50 mg/mL (1 mL) pnij 08/11/19 25 Active fluticasone propionate (FLONASE) 50 mcg/actuation nasal spray 05/17/20 24 Active hydroCHLOROthiazid e (HYDRODIURIL) 25 MG tablet Take 1 tablet every day by oral route for 90 days. 01/20/20 24 Active hydroxychloroquine (PLAQUENIL) 200 mg tablet 05/09/20 24 Active ipratropium-albute roL (DUO-NEB) 0.5 mg-3 mg(2.5 mg base)/3 mL nebulizer solution Inhale 3 mLs by mouth every 6 (six) hours as needed. 11/15/19 25 026 Active losartan (COZAAR) 100 MG tablet Take 1 tablet every day by oral route for 90 days. 06/27/19 25 Active levocetirizine (XYZAL) 5 MG tablet Take 1 tablet (5 mg total) by mouth every evening. 11/15/19 25 Active metoprolol succinate (TOPROL-XL) 100 MG 24 hr tablet Take 1 tablet (100 mg total) by mouth daily. Active montelukast (SINGULAIR) 10 mg tablet Take 1 tablet every day by oral route for 90 days. 05/17/20 24 Active omeprazole (PriLOSEC) 40 MG capsule Take 1 capsule every day by oral route for 90 days. 03/25/20 24 Active ondansetron (ZOFRAN-ODT) [address] 1 tablet (4 mg total) under the tongue as needed. 06/09/20 24 Active spironolactone (ALDACTONE) 25 MG tablet 06/27/19 25 Active syringe with needle (BD Luer-Brandon Syringe) 3 mL 25 x 5/8 syrg 06/30/19 25 Active Effexor XR 75 mg 24 hr capsule Take 1 capsule every day by oral route for 90 days. 06/27/19 25 Active aspirin 81 mg tab Take 1 tablet every day by oral route. Active tirzepatide, weight loss, (Zepbound) 2.5 mg/0.5 mL pnij Inject by subcutaneous route for 28 days. Active Encounters Date Type Department Care Team Description 01/24/2025 Telephone [facility] [address] [facility] [place] [address] Dontae Zamora APRN Results 01/24/2025 Telephone [facility] [address] [facility] [place] [address] Dontae Zamora APRN Results 01/23/2025 Orders Only [facility] [address] [facility] [place] [address] Dontae Zamora APRN PATRICK (obstructive sleep apnea) (Primary Dx); Hypoxemia; Hypersomnia 01/11/2025 Telephone [facility] [address] [facility] [place] [address] Dontae Zamora APRN Results 01/10/2025 Orders Only [facility] [address] [facility] [place] [address] Dontae Zamora APRN PATRICK (obstructive sleep apnea) (Primary Dx); Hypoxemia; Hypersomnia 01/04/2025 10:15 AM EDT Office Visit [facility] [address] [facility] [place] [address] Dontae Zamora APRN PATRICK (obstructive sleep apnea) (Primary Dx); Essential hypertension; Hypersomnia; Hypoxemia; Obesity (BMI 30-39.9) 12/05/2024 1:45 PM EDT Initial Consult [facility] [address] [facility] [place] [address] Dontae Zamora APRN PATRICK (obstructive sleep apnea) (Primary Dx); Essential hypertension; Obesity (BMI 30-39.9); COPD (chronic obstructive pulmonary disease) (HCC); Weight gain from Last 3 Months Social History Tobacco Use Types Packs/Day Years Used Date Smoking Tobacco: Former Cigarettes S tarted: 1984 Smokeless Tobacco: Former Tobacco Cessation:Counseling Given: Not Answered Sex and Gender Information Value Date Recorded Sex Assigned at Male 12/05/2024 9:16 AM CDT Legal Sex Male 10:15 AM X RAY EQUIPMENT TESTER Gender Identity Male 12/05/2024 9:16 AM CDT Sexual Orientation Straight 12/05/2024 9: 16 AM CDT Last Filed Vital Signs Vital Sign Reading [...] Mass Index 36.35 01/04/2025 10:34 AM EDT Plan of Treatment Upcoming Encounters Date Type Department Care Team (Late st Contact Info) Description 02/06/2025 8:45 AM EDT Office Visit [facility] [address] [place] [address] Dontae Zamora APRN [address] [place] [address] 05/27/2025 8:30 PM EST Procedure Visit [facility] [address] [address] [place] [address] Dontae Zamora APRN [address] [place] [address] Health Maintenance Due Date Last Done Comments CT Colonography 1969 Colonoscopy 1969 Colorectal Cancer Screening 1969 FOBT/FIT 1969 Fit-DNA (Cologuard) 1969 Sigmoidoscopy 1969 Depression Screening (12+) 1981 HIV Screening 1984 Hepatitis C Screening 1987 Lipid Panel 2004 Shingles Vaccine (Zoster) (1 of 2) 2019 Pneumococcal 50+ years (2 of 2 - PCV) 08/14/202007/2019 COVID-19 VACCINE (3 - season) 02/14/202410/2020, 07/19/2020 Influenza Vaccine (#1) 2025 Tobacco Cessation Counseling and Screening (12+) 01/04/2026 01/04/2025 DTAP/TDAP/TD VACCINES (2 - Td or Tdap) 11/12/2034 Insurance [employer] [facility] [place]
--- OUTSIDE RECORDS SUMMARY | 2025-01-25 13:48 | XMS_ITS | Encounter Summary ---
Author Organization [employer] ([place], [place], [place], [place]) Address [address] [address] Care Team Providers Care Gas Meter Repairer Name Role Phone Unavailable Primary Care Provider Unavailabl e Reason for Visit * Reason Onset Date Comments Results 01/11/2025 Encounter Details Date Type Department Care Team (Late Contact Info) Description 01/11/2025 Telephone [facility] [address] [place] [address] Dontae Zamora APRN [address] [place] [address] Results Social History Tobacco Use Types Packs/Day Years Used Date Smoking Tobacco: Former Cigarettes S tarted: 1984 Smokeless Tobacco: Former Sex and Gender Information Value Date Recorded Sex Assigned at Male 12/05/2024 9:16 AM CDT Legal Sex Male 10:15 AM PET RESORT CONCIERGE Gender Identity Male 12/05/2024 9:16 AM CDT Sexual Orientation Straight 12/05/2024 9: 16 AM CDT documented as of this encounter Miscellaneous Notes * Telephone Encounter - Belinda Mauricio RN - 01/11/2025 9:14 AM EDT Left message regarding that the pulse ox needs repeating and order sent to cele documented in this encounter Plan of Treatment Upcoming Encounters Date Type Department Care Team (Late Contact Info) Description 02/06/2025 8:45 AM EDT Office Visit [facility] [address] [place] [address] Dontae Zamora APRN [address] [place] [address] 05/27/2025 8:30 PM EST Procedure Visit [facility] [address] [facility] [address] [place] [address] Dontae Zamora APRN [address] [place] [address] documented as of this encounter Visit Diagnoses Not on filedocumented in this encounter
--- OUTSIDE RECORDS SUMMARY | 2025-01-25 13:48 | XMS_ITS | Encounter Summary ---
Author Organization [facility] Address [address] [place] [address] Care Team Providers Care Substation Operator Conversion Name Role Phone Mary Mckeon Primary Care Provider [phone] Reason for Visit * Reason Onset Date Comments NEEDS NEW ORDER FOR BI-PAP 12/20/2024 Encounter Details Date Type Department Care Team (Late st Contact Info) Description 12/20/2024 Telephone [facility] [address] [address] Sun Golden, CHIEF OF SURGERY [address] [place] [address] NEEDS NEW ORDER FOR BI-PAP Social History Tobacco Use Types Packs/Day Years [...] encounter Miscellaneous Notes * Telephone Encounter - Sun Golden, CHIEF OF SURGERY - 12/21/2024 4:22 PM EDT I have sent a new prescription for the BiPAP to [facility]. Please let the patient know that I have sent the order. Encouraged him to wear the new BiPAP is much as he can tolerate. He has scheduled follow-up with me in about 5 weeks and if his pressure is not entirely comfortable we will continue to work on that. Encouraged him more than 4 hours or he could lose the Pap for noncompliance * Telephone Encounter - Sun Golden APRN - 12/21/2024 12:36 PM EDT Ella contact [facility] and see if this gentleman will have to have a new study to restart. It is my understanding when you receive a PAP device but I will return it due to noncompliance thatinsurance requires a restudy to restart. Please clarify that with [facility]. And let me know. * Telephone Encounter - Sun Golden APRN - 12/20/2024 4:40 PM EDT I need clarification from the patient and [facility] as to what this patient is needing. It appears that he received a new BiPAP earlier this year. I did review the download on the BiPAP and I also reviewed the prescription. The BiPAP pressures did not match the prescription that went to [facility]. Noted prescription was BiPAP 18/14. Noted download in chart was BiPAP 15/ 14 * Telephone Encounter - Easton Banerjee RegSched Rep - 12/20/2024 3:44 PM EDT Caller: Easton Camacho Relationship: Self Best call back number: [phone] What is the best time to reach you: ANY Who are you requesting to speak with (clinical staff, provider, specific staff member): CLINICAL What was the call regarding: PT IS NEEDING A NEW ORDER FOR A BI-PAP TO [facility] IN [place], THEY DISCONTINUED THE MACHINE AND IS NEEDING PT TO HAVE ANOTHER ONE. documented in this encounter Plan of Treatment Upcoming Encounters Date Type Department Care Team (Late st Contact Info) Description 01/26/2025 1:00 PM EDT Office Visit [facility] [address] [address] Sun Golden, CHIEF OF SURGERY [address] [address] documented as of this encounter Visit Diagnoses Not on filedocumented in this encounter Care Teams Substation Operator Conversion Relationship Specialty Start Date End Date Mary Mckeon PA [address] [place] [address] PCP - General Physician Home Delivery Driver 10/19/24 documented as of this encounter
--- OUTSIDE RECORDS SUMMARY | 2025-01-25 13:48 | XMS_ITS | Encounter Summary ---
Author Organization [facility] Address [address] [place] [address] Care Team Providers Care Lipcoat Sprayer Name Role Phone Mary Mckeon Primary Care Provider [phone] Reason for Visit * Reason Onset Date Comments READING - CALL BACK 12/14/2024 Encounter Details Date Type Department Care Team (Late st Contact Info) Description 12/14/2024 Telephone [facility] [address] [address] Sun Golden, INDUSTRIAL MAINTENANCE TECHNICIAN [address] [address] READING - CALL BACK Social History Tobacco Use Types Packs/Day Years [...] encounter Miscellaneous Notes * Telephone Encounter - Lyric Quintanilla MA - 12/14/2024 3:58 PM EDT Not a pt of our office. * Telephone Encounter - Simi Gallo RegSched Rep - 12/14/2024 3:41 PM EDT Caller: Easton Camacho Relationship: Self Best call back number: [phone] What is the best time to reach you: ANY What was the call regarding: PATIENT NEEDS A NEW ORDER FOR A BPAP MACHINE. SEES SLEEP DOCTOR ON 01.04.25 AND NEEDS TO HAVE READINGS FROM MACHINE BEFORE THAT TIME. CAN ORDER BE SENT WITHOUT BEING SEEN IN OFFICE? PLEASE CALL AND ADVISE OR SCHEDULE EARLIER APPOINTMENT IF POSSIBLE. Is it okay if the provider responds through MyChart: PLEASE CALL documented in this encounter Plan of Treatment Upcoming Encounters Date Type Department Care Team (Late st Contact Info) Description 01/26/2025 1:00 PM EDT Office Visit [facility] [address] [place] [address] Sun Golden, INDUSTRIAL MAINTENANCE TECHNICIAN [address] [address] documented as of this encounter Visit Diagnoses Not on filedocumented in this encounter Care Teams Lipcoat Sprayer Relationship Specialty Start Date End Date Mary Mckeon PA [address] [place] [address] PCP - General Physician Pricing Associate 10/19/24 documented as of this encounter
--- OUTSIDE RECORDS SUMMARY | 2025-01-25 13:49 | XMS_ITS | Encounter Summary ---
Author Organization [employer] ([place], [place], [place], [place]) Address [address] [place] [address] Care Team Providers Care Assistant Professor In Family Studies Name Role Phone Unavailable Primary Care Provider Unavailabl e Reason for Visit * Reason Onset Date Comments Results 01/24/2025 Encounter Details Date Type Department Care Team (Late Contact Info) Description 01/24/2025 Telephone [facility] [address] [place] [address] Dontae Zamora APRN [address] [place] [address] Results Social History Tobacco Use Types Packs/Day Years Used Date Smoking Tobacco: Former Cigarettes S tarted: 1984 Smokeless Tobacco: Former Sex and Gender Information Value Date Recorded Sex Assigned at Male 12/05/2024 9:16 AM CDT Legal Sex Male 10:15 AM HEART COORDINATOR Gender Identity Male 12/05/2024 9:16 AM CDT Sexual Orientation Straight 12/05/2024 9: 16 AM CDT documented as of this encounter Miscellaneous Notes * Telephone Encounter - Belinda Mauricio RN - 01/24/2025 11:47 AM EDT Patient called back regarding pulse ox results-reviewed provider recommendation and he scheduled titration study for may 27 documented in this encounter Plan of Treatment Upcoming Encounters Date Type Department Care Team (Late Contact Info) Description 02/06/2025 8:45 AM EDT Office Visit [facility] [address] [facility] [address] [place] [address] Dontae Zamora APRN [address] [place] [address] 05/27/2025 8:30 PM EST Procedure Visit [facility] [address] [facility] [address] [place] [address] Dontae Zamora APRN [address] [place] [address] documented as of this encounter Visit Diagnoses Not on filedocumented in this encounter
--- OUTSIDE RECORDS SUMMARY | 2025-01-25 13:49 | XMS_ITS | Referral Summary ---
Author Organization [employer] ([place], [place], [place], [place]) Address [address] [place] [address] Care Team Providers Care Mortgage Underwriter Name Role Phone Unavailable Primary Care Provider Unavailabl e Encounters Date Type Department Care Team Description 01/24/2025 Telephone [facility] [address] [facility] [address] [place] [phone] Stroub, Aliceson, [employer] ENGINEER Results 01/24/2025 Telephone [facility] [address] [facility] [address] [place] [phone] Stroub, Aliceson, PLC ENGINEER Results 01/23/2025 Orders Only [facility] [address] [facility] [address] [place] [phone] Stroub, Aliceson, PLC ENGINEER PATRICK (obstructive sleep apnea) (Primary Dx); Hypoxemia; Hypersomnia 01/11/2025 Telephone [facility] [address] [facility] [address] [place] [phone] Stroub, Aliceson, PLC ENGINEER Results 01/10/2025 Orders Only [facility] [address] [facility] [address] [place] [phone] Stroub, Aliceson, PLC ENGINEER PATRICK (obstructive sleep apnea) (Primary Dx); Hypoxemia; Hypersomnia 01/04/2025 10:15 AM EDT Office Visit [facility] [address] [facility] [facility] [address] [place] [address] Dontae Zamora APRN PATRICK (obstructive sleep apnea) (Primary Dx); Essential hypertension; Hypersomnia; Hypoxemia; Obesity (BMI 30-39.9) 12/05/2024 1:45 PM EDT Initial Consult [facility] [place] [address] [facility] [address] [place] [address] Dontae Zamora APRN PATRICK (obstructive sleep apnea) (Primary Dx); Essential hypertension; Obesity (BMI 30-39.9); COPD (chronic obstructive pulmonary disease) (HCC); Weight gain from Last 3 Months Allergies No known active allergies Medications albuterol [...] by subcutaneous route for 28 days. Active Social History Tobacco Use Types Packs/Day Years Used Date Smoking Tobacco: Former Cigarettes S tarted: 1984 Smokeless Tobacco: Former Tobacco Cessation:Counseling Given: Not Answered Sex and Gender Information Value Date Recorded Sex Assigned at Male 12/05/2024 9:16 AM CDT Legal Sex Male 10:15 AM FEATHER STITCHER Gender Identity Male 12/05/2024 9:16 AM CDT [...] 02/06/2025 8:45 AM EDT Office Visit [facility] [address] [place] [address] Dontae Zamora APRN [address] [place] [address] 05/27/2025 8:30 PM EST Procedure Visit [facility] [address] [place] [address] Dontae Zamora APRN [address] [place] [address] [facility]
== END 2025-01-25 23:59 | disposition home or self-care (01) ==
LOC: RAD 13:46
PROVIDERS: Visit Provider Physician Assistant
DX: M19.012 Primary osteoarthritis, left shoulder (principal); M19.011 Primary osteoarthritis, right shoulder
CPT/HCPCS: 73030

== ENCOUNTER 2025-02-09 08:00 | Outpatient (RCR) | payer OTHER, SELFPAY ==
--- NOTE | 2025-01-31 11:47 | HMH.OTOPEV ---
OT Inpatient Evaluation Rehab OT Outpatient Eval Start: 01/31/25 11:07 Freq: Status: Active Protocol: Document 01/31/25 11:38 RMARSHALL (Rec: 01/31/25 11:47 [facility] [id number]) E-signed By Jimbo Carrion, OT Outpatient Therapy Subjective History Subjective History Pt is a 54 year old male who reports to therapy for initial evaluation to bilateral shoulders. Pt reports his left shoulder is worse than his right; explains the left is what he wants to focus on. Also complains of neck pain with numbness/tingling radiating across upper traps in to his shoulder bilaterally. Pt initially injured his left shoulder in his early twenties and he has experienced pain on and off for several years. He had a MRI completed in 2021 that found a partial tear of subscapularis. He completed therapy at this time and chose non surgical intervention. Pt's left shoulder demonstrates with slight decline with AROM and strength. Pt will continue to be seen in order to address all deficits. New diagnosis of No cancer in past 12 months? Chief Complaint Pain,Stiff,Weakness Symptom Type Ache,Throb,Sharp,Dull Symptoms Relieved By Rest/Positioning Symptoms Aggravated Physical Activity,Twisting,Lifting By Prior Functional None Limitations Current Functional Reaching,Lifting,Housework,Dressing,Sleeping,Recreation Limitations Activity Symptom Description Intermittent,Activity Dependent Level of pain today 0 (0-10) Pain scale - at its 0 best (0-10) Pain scale - at its 4 worst (0-10) Shoulder/Elbow Eval Shoulder Objective Measurements Shoulder ROM Left Shoulder Abduction 140 Active Range of Motion (degrees) Shoulder Flexion 150 Active Range of Motion (degrees) Query Text: Shoulder External 75 Rotation Active Range of Motion ( degrees) Shoulder Internal 55 Rotation Active Range of Motion ( degrees) Shoulder MMT Shoulder Abduction 4- Good- Strength Grade Shoulder Flexion 4- Good- Strength Grade Shoulder External 4- Good- Rotation Strength Grade Shoulder Internal 4- Good- Rotation Strength Grade Shoulder Strength Sitting Patient Testing Position Elbow Objective Measurements QuickDASH Activities Please rate your ability to do the following activities in the last week by selecting the number below the appropriate response. 1. Open a tight or Mild difficulty new jar. 2. Do heavy Moderate difficulty institutional cook (e. g., wash العلي, floors). 3. Carry a shopping Mild difficulty bag or briefcase. 4. Wash your back. Moderate difficulty 5. Use a knife to Mild difficulty cut food. 6. Recreational Unable activities in which you take some force or impact through your arm, shoulder, or hand (e.g., golf, hammering, tennis, etc.). 7. During the past Slightly week, to what extent has your arm, shoulder or hand problem interfered with your normal social activities with family, friends , neighbors or groups? 8. During the past Slightly limited week, were you limited in your work or other regular daily activites as a result of your arm, shoulder or hand problem? 9. Arm, shoulder or Mild hand pain. 10. Tingling (pins Mild and needles) in your arm, shoulder or hand. 11. During the past Mild difficulty week, how much difficulty have you had sleeping because of the pain in your arm, shoulder or hand? Quick DASH 27 OT Patient Goals OT Patient Goals OT Short Term 1. Pt will increase left shoulder flexion to 160 Patient Goals degrees in order to complete daily overhead tasks independently ~50% of the time. 2. Pt will increase L shoulder abduction to 150 degrees to complete upper body dressing independently ~ 50% of the time. 3. Pt will increase L shoulder ER/IR to 80 degrees (ER ) and 60 degrees (IR) in order to complete lower body dressing (putting on and taking off belt) independently ~50% of the time. 4. Pt will increase strength to 4/5 throughout left shoulder in order to complete heavier household tasks ( laundry, mopping, vacuuming) independently ~50% of the time. 5. Pt will verbalize decreased pain levels at worst in L shoulder to a 2/10 in order to complete daily ADLs independently ~50% of the time. 6. Pt will demonstrate improved endurance by completing left shoulder exercises for ~20 minutes prior to rest break in order to increase his tolerance for daily work activities. 7. Pt will demonstrate independence with HEP of AAROM exercises to increase overall functional use of left shoulder in daily activities ~75% of the time. OT Station Mechanic Patient 1. Pt will increase L shoulder flexion to 170 degrees Goals in order to complete daily overhead tasks independently ~75% of the time. 2. Pt will increase L shoulder abduction to 160 degrees to complete upper body dressing independently ~ 75% of the time. 3. Pt will increase L shoulder ER/IR to 90 degrees (ER ) and 70 degrees (IR)in order to complete lower body dressing (putting on and taking off belt) independently ~75% of the time. 4. Pt will increase strength to 4+/5 throughout left shoulder in order to complete heavier household tasks ( laundry, mopping, vacuuming) independently ~75% of the time. 5. Pt will verbalize decreased pain levels at worst in L shoulder to a 1/10 in order to complete daily ADLs independently ~75% of the time. 6. Pt will demonstrate improved endurance by completing L shoulder exercises for ~30 minutes prior to rest break in order to increase his tolerance for daily work activities. 7. Pt will demonstrate independence with HEP of Rotator cuff strengthening exercises to increase overall functional use of L shoulder for daily activities ~90% of the time. OT Outpatient Assessment Impairments Problems/Impairments Palpation Tenderness,Impaired Range of Motion,Impaired Strength,Impaired Endurance,Impaired Lifting,Impaired Dressing,Impaired Household Care,Subjective C/O Pain Prognosis Rehab Potential Good Clinical Impression Consistent with Yes Diagnosis Outpatient Therapy Plan of Care Treatment Plan May Include Therapeutic Exercise Yes Including Home Exercise Program Manual Therapy Yes Techniques Neuromuscular Re- Yes education Therapeutic Yes Activities to Return to Previous Functional/Work Level ADL/Self Care Yes Education Dry Needling Yes Thermal Modalities Yes Electrical Yes Stimulation Ultrasound/ Yes Phonophoresis Iontophoresis Yes Parrafin Yes Orthotics/Bracing/ Yes Splinting Massage Yes Eval/Re-Eval Yes Frequency Times per week 2 Duration Number of Weeks 6 Addendums This patient is a No candidate for social or vocational rehab ? Patient/Guardian Yes verbally acknowledges understanding of treatment program and consents to further treatment? Patient/Guardian Yes verbally acknowledges understanding of diagnosis, prognosis and goals for treatment? Eval Complexity OT Charge 64306 - Moderate Complexity PHYSICIAN CERTIFICATION: I certify the specified therapy services for Easton Camacho are required, authorized, and reviewed every 30 days.
== END 2025-02-09 23:59 | disposition home or self-care (01) ==
LOC: OT 08:00
PROVIDERS: PCP Physician Assistant; Visit Provider Physician Assistant
DX: M25.512 Pain in left shoulder (principal); M25.511 Pain in right shoulder
CPT/HCPCS: 97014; 97110; 97140; 97166; 97530; G0283

== ENCOUNTER 2025-02-14 07:57 | Outpatient (RCR) | payer OTHER, SELFPAY | END 2025-02-14 23:59 | disposition home or self-care (01) | LOC: OT 07:57 | PROVIDERS: PCP Physician Assistant; Visit Provider Physician Assistant | DX: M25.512 Pain in left shoulder (principal); M25.511 Pain in right shoulder | CPT/HCPCS: 97014; 97110; 97140; G0283 ==

== ENCOUNTER 2025-06-06 12:28 | Outpatient (CLI) | payer OTHER, SELFPAY ==
--- OUTSIDE RECORDS SUMMARY | 2025-05-29 07:38 | XMS_ITS | Encounter Summary ---
Author Organization [facility] Address [address] [place] [address] Care Team Providers Care Database Security Expert Name Role Phone Mary Mckeon Primary Care Provider [phone] Reason for Referral * Imaging (Routine) - Closed Specialty Diagnoses / Procedures Referred By Pia t Referred To Contact Radiology Diagnoses Asthma-COPD overlap syndrome (CMS/HCC) Rheumatoid arthritis, involving unspecified site, unspecified whether rheumatoid factor present (CMS/HCC) Shortness of breath Procedures CT Chest wo IV Contrast Isabella Reardon PA [address] [place] [address] Phone: tel: fax: Referral ID Status Reason Start Date Expiration Date Visits Re quested Visits Authorized [id number] Closed 02/14/2025 08/16/2026 1 1 Reason for Visit * Imaging (Routine) - Closed Specialty Diagnoses / Procedures Referred By Contac t Referred To Contact Radiology Diagnoses Asthma-COPD overlap syndrome (CMS/HCC) Rheumatoid arthritis, involving unspecified site, unspecified whether rheumatoid factor present (CMS/HCC) Shortness of breath Procedures CT Chest wo IV Contrast Isabella Reardon PA [address] [place] [address] Phone: tel: fax: Referral ID Status Reason Start Date Expiration Date Visits Re quested Visits Authorized [id number] Closed 02/14/2025 08/16/2026 1 1 Encounter Details Date Type Department Care Team (Latest Contact Info) Description 05/29/2025 7:38 AM EST - 05/29/2025 11:59 PM [facility] Hospital Encounter [facility] Radiology [address] [place] [address] Asthma-COPD overlap syndrome (CMS/HCC); Rheumatoid arthritis, involving unspecified site, unspecified whether rheumatoid factor present (CMS/HCC); Shortness of breath Discharge Disposition: Home or Self Care Social [...] you have a drink containing alcohol? Never 02/14/2025 Q2: How many drinks containi ng alcohol do you have on a typical day when you are drinking? Patient does not drink Q3: How often do you have si x or more drinks on one occasion? Never 02/14/2025 PHQ-2A Answer Date Recorded Depression Risk 0 10/24/2022 Sex and Gender Information Value Date Recorded Sex Assigned at Not on file Legal Sex Male 7:05 PM EDT Gender Identity Not on file Sexual Orientation Not on file documented as of this encounter Medications at Time of Discharge aspirin 81 MG EC tablet Take 1 tablet by mouth. atorvastatin (Lipitor) 80 MG tablet 4 Breztri Aerosphere 160-9-4.8 MCG/ACT aerosol INHALE TWO (2) INHALATIONS BY MOUTH TWO (2) TIMES A DAY 10.7 g 2 5 cholecalciferol (Vitamin D-3) 50 MCG (1999) capsule [...] 180 tablet 1 5 ergocalciferol 1.25 MG (61189 UT) capsule 3 etanercept (Enbrel SureClick) 50 [...] 2 spironolactone (Aldactone) 25 MG tablet 3 Tirzepatide-Weight Management (Zepbound) 2.5 MG/0.5ML solution auto-injector Inject by subcutaneous route for 28 days. venlafaxine XR (Effexor-XR) 75 MG 24 hr capsule Take 1 capsule (75 mg) by mouth daily. 3 Vraylar 3 MG capsule 02 5 documented as of this encounter Plan of Treatment Upcoming Encounters Date Type Department Care Team (Late st Contact Info) Description 12/04/2025 12:30 PM EDT Office Visit [facility] Medicine Specialties [address] [place] [address] Isabella Reardon PA [address] [place] [address] documented as of this encounter Procedures Procedure Name Priority Date/Time Associated Diagnosis Comments CT CHEST WO IV CONTRAST Routine 05/29/2025 7:58 AM EST Asthma-COPD overlap syndrome (CMS/HCC) Rheumatoid arthritis, involving unspecified site, unspecified whether rheumatoid factor present (CMS/HCC) Shortness of breath documented in this encounter Results * CT Chest wo IV Contrast (05/29/2025 7:58 AM EST) Anatomical Region Laterality Modality Chest Computed Tomogra phy Impressions 05/29/2025 8:23 AM EST Bilateral bronchial wall thickening with moderate diffuse mosaic attenuation and air trapping suggestive of small airway disease or small vessel disease. Otherwise, no evidence of significant chronic interstitial change/fibrosis. No honeycombing. CRITICAL RESULT: No. COMMUNICATION: Per this written report. Drafted by Luz Lui MD on 05/29/2025 8:20 AM Final report signed by Luz Lui MD on 05/29/2025 8:23 AM Narrative 05/29/2025 8:23 AM EST CLINICAL INDICATION: Dyspnea, chronic, unclear etiology TECHNIQUE: Multiple axial CT images obtained from thoracic inlet through upper abdomen without administration of IV contrast per CT High resolution chest protocol. Additional HRCT images were obtained in inspiration. The imaging protocol used in this examination was optimized to achieve diagnostic quality with the lowest possible radiation dose in accordance with the principles of ALARA (As Low As Reasonably Achievable). COMPARISON: 02/14/2025 FINDINGS: Mediastinum and Pleura: No mediastinal adenopathy. No pleural or pericardial effusion. Lungs: Mild biapical emphysema. Moderate diffuse bilateral mosaic attenuation and air trapping. Bilateral bronchial wall thickening. No honeycombing. No significant subpleural reticulation. No focal consolidation. No suspicious pulmonary nodules. Upper Abdomen: No suspicious lesions in the partially visualized upper abdomen. Musculoskeletal: No suspicious lytic or sclerotic lesion. Procedure Note Luz Lui MD - 05/29/2025 CLINICAL INDICATION: Dyspnea, chronic, unclear etiology TECHNIQUE: Multiple axial CT images obtained from thoracic inlet through upperabdomen without administration of IV contrast per CT High resolution chestprotocol. Additional HRCT images were obtained in inspiration. The imaging protocol used in this examination was optimized to achievediagnostic quality with the lowest possible radiation dose in accordancewith the principles of ALARA (As Low As Reasonably Achievable). COMPARISON: 02/14/2025 FINDINGS: Mediastinum and Pleura: No mediastinal adenopathy. No pleural orpericardial effusion. Lungs: Mild biapical emphysema. Moderate diffuse bilateral mosaicattenuation and air trapping. Bilateral bronchial wall thickening. Nohoneycombing. No significant subpleural reticulation. No focalconsolidation. No suspicious pulmonary nodules. Upper Abdomen: No suspicious lesions in the partially visualized upperabdomen. Musculoskeletal: No suspicious lytic or sclerotic lesion. IMPRESSION: Bilateral bronchial wall thickening with moderate diffuse mosaicattenuation and air trapping suggestive of small airway disease or smallvessel disease. Otherwise, no evidence of significant chronic interstitialchange/fibrosis. No honeycombing. CRITICAL RESULT: No. COMMUNICATION: Per this written report. Drafted by Luz Lui MD on 05/29/2025 8:20 AM Final report signed by Luz Lui MD on 05/29/2025 8:23 AM Isabella LIM IMG CT PROCEDURES Final Resul t documented in this encounter Visit Diagnoses Diagnosis Asthma-COPD overlap syndrome (CMS/HCC) Rheumatoid arthritis, involving unspecified site, unspecified whether rheumatoid factor present (CMS/HCC) Shortness of breath documented in this encounter Additional Health Concerns Assessment Noted Time PHQ-9 Depression Total Score: 2 12/15/19 25 8:37 AM EDT A fall risk assessment has been complete d for the patient 05/29/2025 10:28 AM EST A Body Mass Index follow-up plan has been documented for the patient 05/29/2025 1:22 PM EST documented as of this encounter Care Teams Database Security Expert Relationship Specialty Start Date End Date Mary Mckeon PA [address] [place] [address] PCP - General 10/26/20 documented as of this encounter
--- OUTSIDE RECORDS SUMMARY | 2025-05-29 09:00 | XMS_ITS | Encounter Summary ---
Author Organization Healthcare Address [address] [place] [address] Care Team Providers Care Car Mechanic Helper Name Role Phone Mary Mckeon Primary Care Provider [phone] Encounter Details Date Type Department Care Team (Latest Contact Info) Description 05/29/2025 9:00 AM EST Ancillary Procedure [facility] [address] [place] [address] Asthma-COPD overlap syndrome (CMS/HCC); Rheumatoid arthritis, involving unspecified site, unspecified whether rheumatoid factor present (CMS/HCC); Shortness of breath Social History Tobacco Use Types Packs/Day Years [...] Description 12/04/2025 12:30 PM EDT Office Visit [facility] [address] [place] [address] Isabella Reardon PA [address] [place] [address] documented as of this encounter Procedures Procedure Name Priority Date/Time Associated Diagnosis Comments HC DIFFUSING CAPACITY - CARBON MONOXIDE DIFFUSING CAPACITY Routine 05/29/2025 9:47 AM EST Asthma-COPD overlap syndrome (CMS/HCC) Rheumatoid arthritis, involving unspecified site, unspecified whether rheumatoid factor present (CMS/HCC) Shortness of breath documented in this encounter Results * Pulmonary function testing (05/29/2025 9:47 AM EST) Anatomical Region Laterality Modality PFT Narrative 05/30/2025 5:59 PM EST Pulmonary Function Testing Report Easton Camacho 55 y.o. underwent pulmonary function testing today at the [facility]. The patient underwent spirometry, lung volumes by body plethysmography, and diffusion capacity testing testing. All tests were appropriately administered via ATS/ERS criteria. Spirometry: Test quality: A. Test is acceptable and useable for interpretation. Reduced FVC and TLC consistent with mild restriction. There is no significant positive bronchodilator response. Lung Volumes: Test Quality: Appropriate QA standards were met. Reduced TLC with reduced FRC and ERV suggests restriction may be secondary to obesity. Diffusion Capacity: Test Quality: Data should be interpreted with caution. Notably, DLCO may be underestimated due to incomplete inhalation. Diffusion capacity uncorrected for Hb is normal. Trend: Compared to previous study dated 11/2024, there has been a significant increase in FVC. Isabella LIM PFT ORDERABLES Final Result documented in this encounter Visit Diagnoses Diagnosis [...] documented as of this encounter Care Teams Car Mechanic Helper Relationship Specialty Start Date End Date Mary Mckeon PA [address] [place] [address] PCP - General 10/26/20 documented as of this encounter
--- OUTSIDE RECORDS SUMMARY | 2025-05-29 09:30 | XMS_ITS | Encounter Summary ---
Author Organization Healthcare Address [address] [place] [address] Care Team Providers Care Logistics Associate Name Role Phone Mary Mckeon Primary Care Provider Encounter Details Date Type Department Care Team (Latest Contact Info) Description 05/29/2025 9:30 AM EST Ancillary Procedure [facility] [address] [place] [address] Asthma-COPD overlap syndrome (CMS/HCC); Rheumatoid arthritis, involving [...] Description 12/04/2025 12:30 PM EDT Office Visit [facility] [address] [place] [address] Isabella Reardon PA [address] [place] [address] documented as of this encounter Procedures Procedure Name Priority Date/Time Associated Diagnosis Comments SIX-MINUTE WALK TEST Routine 05/29/2025 9:48 AM EST Asthma-COPD overlap syndrome (CMS/HCC) Rheumatoid arthritis, involving unspecified site, unspecified whether rheumatoid factor present (CMS/HCC) Shortness of breath documented in this encounter Results * Six-Minute Walk Test (05/29/2025 9:48 AM EST) 6MWD TEST TESTING 460.00 m 05/29/2025 9:47 AM EST VYAIRE PFT DIST. FINAL TEST 10.00 m 05/29/2025 9:47 AM EST VYAIRE PFT LAPS TEST 15.00 05/29/2025 9:47 AM EST VYAIRE PFT PAUSES TEST 0.00 05/29/2025 9:47 AM EST VYAIRE PFT PAUSE TEST 0.00 sec 05/29/2025 9:47 AM EST VYAIRE PFT DURATION TEST 6.00 min 05/29/2025 9:47 AM EST VYAIRE PFT [id number] TEST 93.00 % 05/29/2025 9:47 AM EST VYAIRE PFT [id number] TEST 92.00 % 05/29/2025 9:47 AM EST VYAIRE PFT [id number] TEST RECOVERY 94.00 % 05/29/2025 9:47 AM EST VYAIRE PFT MEAN SPO2 TEST 95.00 % 05/29/2025 9:47 AM EST VYAIRE PFT MEAN SPO2 TEST 93.00 % 05/29/2025 9:47 AM EST VYAIRE PFT MEAN SPO2 TEST RECOVERY 95.00 % 05/29/2025 9:47 AM EST VYAIRE PFT TI88 TEST 0.00 min 05/29/2025 9:47 AM EST VYAIRE PFT TI88 TEST 0.00 min 05/29/2025 9:47 AM EST VYAIRE PFT TI88 TEST RECOVERY 0.00 min 05/29/2025 9:47 AM EST VYAIRE PFT HRMAX TEST 94.00 BPM 05/29/2025 9:47 AM EST VYAIRE PFT HRMAX TEST 84.00 BPM 05/29/2025 9:47 AM EST VYAIRE PFT HRMAX TEST RECOVERY 89.00 BPM 05/29/2025 9:47 AM EST VYAIRE PFT LAP DIST TEST 30.00 m 05/29/2025 9:47 AM EST VYAIRE PFT DYSPNEA TEST 0.00 05/29/2025 9:47 AM EST VYAIRE PFT DYSPNEA TEST 3.00 05/29/2025 9:47 AM EST VYAIRE PFT EXERTION TEST 5.00 05/29/2025 9:47 AM EST VYAIRE PFT EXERTION TEST 7.00 05/29/2025 9:47 AM EST VYAIRE PFT Resting SPO2 95.00 % 05/29/2025 9:47 AM EST VYAIRE PFT SPO2 TEST 96.00 % 05/29/2025 9:47 AM EST VYAIRE PFT HR TEST 78.00 BPM 05/29/2025 9:47 AM EST VYAIRE PFT HR TEST 87.00 BPM 05/29/2025 9:47 AM EST VYAIRE PFT Anatomical Region Laterality Modality PFT 05/29/2025 9:32 AM EST Narrative 05/30/2025 6:00 PM EST Six Minute Walk Test Report Easton Camacho 55 y.o. underwent a six-minute walking test. 6MW: The patient walked 460 meters which was 78% of predicted distance. The patient's resting saturation was 95% while breathing RA. The patient's sheela saturation was 93% with no time spent below 88%. No oxygen supplementation was needed during testing. Isabella LIM PFT ORDERABLES Final Result documented [...] documented as of this encounter Care Teams Logistics Associate Relationship Specialty Start Date End Date Mary Mckeon PA [address] [place] [address] PCP - General 10/26/20 documented as of this encounter
--- OUTSIDE RECORDS SUMMARY | 2025-05-29 10:30 | XMS_ITS | Encounter Summary ---
Author Organization [facility] Address [address] [id number] Care Team Providers Care Pediatric Nephrologist Name Role Phone Mary Mckeon Primary Care Provider [phone] Reason for Referral * Imaging (Routine) - Pending Review Specialty Diagnoses / Procedures Referred By Pia t Referred To Contact Radiology Diagnoses Former tobacco use Procedures CT Chest Lung Cancer Screening Ovi Ruvalcaba APRN [address] [address] Phone: tel: fax: Referral ID Status Reason Start Date Expiration Date V isits Requested Visits Authorized [id number] Pending Review 05/29/2025 11/28/2026 1 1 * Consultation (Routine) - Authorized Specialty Diagnoses / Procedures Referred By Pia t Referred To Contact Diagnoses Asthma-COPD overlap syndrome (CMS/HCC) Ovi Ruvalcaba APRN [address] [address] Phone: tel: fax: Referral ID Status Reason Start Date Expiration Date V isits Requested Visits Authorized [id number] Authorized 05/29/2025 11/28/2026 1 1 Reason for Visit * Reason Comments Follow-up Asthma COPD * Consultation (Routine) - Closed Specialty Diagnoses / Procedures Referred By Contac t Referred To Contact Diagnoses Asthma-COPD overlap syndrome (CMS/HCC) Rheumatoid arthritis, involving unspecified site, unspecified whether rheumatoid factor present (CMS/HCC) Shortness of breath Isabella Reardon PA [address] [place] [address] Phone: tel: fax: Referral ID Status Reason Start Date Expiration Date Visits Re quested Visits Authorized [id number] Closed 02/14/2025 08/16/2026 1 1 Encounter Details Date Type Department Care Team (Late st Contact Info) Description 05/29/2025 10:30 AM EST [facility] [address] [place] [address] Isabella Reardon PA [address] [place] [address] Asthma-COPD overlap syndrome (CMS/HCC) (Primary Dx); Rheumatoid arthritis, involving unspecified site, unspecified whether rheumatoid factor present (CMS/HCC); Former tobacco use; PATRICK (obstructive sleep apnea); Allergic rhinitis, unspecified seasonality, unspecified trigger Social History Tobacco Use Types Packs/Day Years [...] Sign Reading Time Taken Comments Blood Pressure 125/78 05/29/2025 10:26 AM EST Pulse 75 05/29/2025 10:26 AM EST Temperature 36.7 C (98.1 F) 05/29/2025 10:26 AM EST Respiratory Rate 16 05/29/2025 10:26 AM EST Oxygen Saturation 92% 05/29/2025 10:26 AM EST RA Inhaled Oxygen Concentration - - Weight 114 kg (251 lb 15.8 oz) 05/29/2025 10:26 AM EST Height 182.9 cm (6') 05/29/2025 10:26 AM EST Body Mass Index 34.18 05/29/2025 10:26 AM EST documented in this encounter Miscellaneous Notes * Addendum Note - Ovi Ruvalcaba APRN - 05/29/2025 10:30 AM ESTAddended by: OVI RUVALCABA on: 05/29/2025 01:43 PM Modules accepted: Orders * Progress Notes - Ovi Ruvalcaba APRN - 05/29/2025 10:30 AM EST PULMONARY FOLLOW-UP NOTE Established patient: Follow-up for asthma History Of Present Illness Easton Camacho is a 55 y.o. years old male with PMHx of anxiety, depression, diastolic dysfunction, HLD, HTN, COPD, RA here for ongoing management. No recent hospitalization/illness. States that his shortness of breath is better. No longer feels short of breath at rest. Will feel short of breath with great exertion. He does have a a little cough with no sputum production. He has found benefit since switching inhalers, continues to use Breztri 2 puffs BID. He is using Albuterol about once per month and maintained on Singulair daily. Interval History Follows with Rheumatology: on hydroxychloroquine and Enbrel Mr. Camacho was previously seen in this clinic by Dr. Kline in 2019. Previously seen by Dr. Tinocoulmonologist. Social History: Started smoking age 15, quit age 48. Estimates he smoked 1.5 ppd. 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 Lives in [place] with his , 2 adopted babies, 1 daughter, 2 babies and son/girlfriend. Denies birds/chicken e xposure, hot tub use, saunas, down products, denies mold or water damage. No occupational exposure or history. Past Medical History Past Medical History[1] Past Surgical History Surgical History[2] Family History Family History[3] Social History reports that he quit smoking about 7 years ago. His smoking use included cigarettes. He started smoking about 32 years ago. He has a 25 pack-year smoking history. He has been exposed to tobacco smoke. He has never used smokeless tobacco. He reports current alcohol use. He reports that he does not currently use drugs after having used the following drugs: Marijuana. 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 Medications Current Medications[4] Items reviewed Review of Systems HENT: Positive for rhinorrhea. Respiratory: Positive for shortness of breath. Musculoskeletal: Positive for myalgias. Answers submitted by the patient for this visit: Office Visit - Pulmonary on 05/29/2025 10:30 AM with RAPHAEL Tompkins Pulmonology Questionnaire (Submitted on 05/29/2025) Chief Complaint: Primary symptoms Do you have chest tightness?: Yes Do you have difficulty breathing?: Yes Chronicity: chronic When did you first notice your symptoms?: more than 1 year ago How often do your symptoms occur?: constantly Since you first noticed this problem, how has it changed?: gradually improving Do you have shortness of breath that occurs with effort or exertion?: Yes Do you have fatigue?: Yes Which of the following makes your symptoms worse?: any activity, change in weather, exercise, exposure to fumes, exposure to smoke Which of the following makes your symptoms better?: steroid inhaler Risk factors for lung disease: occupational exposure, smoking/tobacco exposure Last Recorded Vitals Visit Vitals BP 125/78 Pulse 75 Temp 36.7 ??C (98.1 ??F) (Oral) Resp 16 Ht 1.829 m (6') Wt 114 kg (251 lb 15.8 oz) SpO2 92% Comment: RA BMI 34.18 kg/m?? Smoking Status Former BSA 2.41 m?? Physical Exam Constitutional: General: He is not in acute distress. Appearance: He is obese. Cardiovascular: Heart sounds: No murmur heard. Pulmonary: Effort: Pulmonary effort is normal. No respiratory distress. Breath sounds: Normal breath sounds. No wheezing or rales. Musculoskeletal: Right lower leg: No edema. Left lower leg: No edema. Neurological: General: No focal deficit present. Mental Status: He is alert and oriented to person, place, and time. Mental status is at baseline. Results: Imaging: CXR- None CT Lung Cancer Screening- 02/14/25 No adenopathy. No suspicious pulmonary nodules. LungRADS 1: repeat in 12 months PFT: I have personally interpreted the test results 11/14/24 FEV1: 2.66 (70%) FVC: 3.24 (68%) FEV1/FVC: 82 (105%) T.40 (70%) RV%TLC 128% DLCO: 26.54 (88%) Impression: There is no obstruction. Moderate restriction with a normal DLCO. PFT: 05/29/2025 FEV1 2.75 (69%) FVC 3.62 (71%) FEV1/FVC 76 (98%) TLC 5.72 (74.2%) RV % TLC 108% DLCO 28.68 (95.8%) There is no obstruction. Mild restriction with a normal DLCO Date FEV1 FVC FEV1/FVC TLC DLCO 6MW 05/29/2025 No complaints. No need for supplemental oxygen. Visit Diagnoses: 1. Asthma-COPD overlap syndrome (CMS/HCC) 2. Rheumatoid arthritis, involving unspecified site, unspecified whether rheumatoid factor present (CMS/HCC) 3. Former tobacco use 4. PATRICK (obstructive sleep apnea) 5. Allergic rhinitis, unspecified seasonality, unspecified trigger Assessment/Plan 55 y.o. male with: #asthma -Mr. Camacho has found improvement since switching to Breztri 2 puffs BID. Continue this and AlbuterolPRN. -PFTs show no obstruction, minimal restriction with a normal DLCO -6MW without significant oxygen desaturations or complaints -HRCT today-no evidence of significant chronic interstitial change/fibrosis. No honeycombing. No concerns for ILD #RA -on Hydroxychloroquine and Enbrel -following with Cecile Villarreal APRN with [facility] #PATRICK -not adherent to BiPAP nightly, encouraged -following with Sleep Medicine at [facility] in [place] -He is going to have an evaluation for Inspire device. He was advised to lose some weight before continued workup can be completed. #Obesity BMI: 34.18 #allergic rhinitis -continue Xyzal -No allergy concerns at this time. Pulmonary health maintenance - PPSV 23 (pneumomax)- 2020 - PCV-20 - encouraged - Influenza vaccine - Up to date. - SARS-CoV-2 vaccination (COVID vaccination) - has received primary COVID 19 vaccination - Lung cancer screening - 25 pack year history, LCS CT 02/2026 Follow up: Follow up in 6 months for routine follow up. Assessment & Plan Asthma-COPD overlap syndrome (CMS/HCC) Orders: Follow Up Pulm; Future Rheumatoid arthritis, involving unspecified site, unspecified whether rheumatoid factor present (CMS/HCC) Former tobacco use PATRICK (obstructive sleep apnea) Allergic rhinitis, unspecified seasonality, unspecified trigger I spent 41 minutes performing all or some of the following: Reviewing the history , performing an examination and evaluation, entering clinical information into the EHR, interpreting the results, counseling family/patient/caregiver, reviewing x-rays and laboratories, ordering the medications, testsand procedures, referring and communicating with consulting health acute care nursing assistant and care coordination. LIAM Ar[facility] [address] [facility] [address] Dept: [phone] Dept Loc: [phone] Loc Answers submitted by the patient for this visit: Office Visit - Pulmonary on 05/29/2025 10:30 AM with RAPHAEL Tompkins Pulmonology Questionnaire (Submitted on 05/29/2025) Chief Complaint: Primary symptoms Do you have chest tightness?: Yes Do you have difficulty breathing?: Yes Chronicity: chronic When did you first notice your symptoms?: more than 1 year ago How often do your symptoms occur?: constantly Since you first noticed this problem, how has it changed?: gradually improving Do you have shortness of breath that occurs with effort or exertion?: Yes Do you have fatigue?: Yes Which of the following makes your symptoms worse?: any activity, change in weather, exercise, exposure to fumes, exposure to smoke Which of the following makes your symptoms better?: steroid inhaler Risk factors for lung disease: occupational exposure, smoking/tobacco exposure [1] Past Medical History: Diagnosis Date Abnormal electrocardiogram (ECG) (EKG) 07/27/2024 Age-related nuclear cataract, bilateral 09/03/2024 Allergic rhinitis 08/02/2024 Anesthesia of skin 08/11/2024 Anxiety Benign prostatic hyperplasia without lower urinary tract symptoms 02/26/2024 Chest pain, unspecified 09/20/2024 Chronic fatigue, unspecified 07/29/2024 Chronic obstructive asthma (with obstructive pulmonary disease) 08/03/2018 COPD (chronic obstructive pulmonary disease) Cough Depression Depressive disorder 08/02/2024 Diarrhea, unspecified 10/03/2024 Diastolic dysfunction Dizziness and giddiness 07/26/2024 Dyspnea 10/07/2024 Dysuria 01/18/2024 Elevated blood-pressure reading, without diagnosis of hypertension 07/29/2024 Essential hypertension 08/02/2024 Exposure to asbestos Exposure to radon Fever, unspecified 09/04/2024 Frequency of micturition 01/11/2024 Gastroesophageal reflux disease without esophagitis 03/01/2019 Generalized headaches 08/03/2018 Hematuria, unspecified 02/26/2024 HLD (hyperlipidemia) HTN (hypertension) Hyperlipidemia 08/02/2024 Hypersomnia 08/15/2024 Hypertensive urgency 07/10/2024 Immunodeficiency, unspecified (CMS/HCC) 02/08/2024 Indigestion 08/03/2018 Irritability and anger 08/02/2024 Joint pain Leg cramps 08/03/2018 Localized enlarged lymph nodes 10/06/2024 Low back pain Lung nodule, solitary 12/07/2018 Moderate persistent asthma, uncomplicated 10/06/2024 Nausea with vomiting, unspecified 10/03/2024 Obstructive sleep apnea syndrome 08/15/2024 Occupational exposure to dust Osteoarthritis of first carpometacarpal joint, unspecified 05/09/2024 Other disorders of lung 10/06/2024 Other forms of dyspnea 10/06/2024 Other general symptoms and signs 09/04/2024 Other hypersomnia 07/29/2024 Other nonspecific abnormal finding of lung field 10/06/2024 Other retention of urine 01/18/2024 Other specified abnormal immunological findings in serum 08/11/2024 Paresthesia of skin 08/11/2024 Polyneuropathy, unspecified 05/11/2024 Presbyopia 09/03/2024 Psychophysiological insomnia 10/24/2024 Pulmonary fibrosis, unspecified ([facility]/HCC) 10/06/2024 Rash and other nonspecific skin eruption 08/11/2024 Rheumatoid arthritis ([facility]) Rheumatoid arthritis with rheumatoid factor of multiple sites without organ or systems involvement ([facility]) 11/25/2024 Seasonal allergies 08/03/2018 Second hand smoke exposure Shortness of breath Snoring 08/02/2024 SOB (shortness of breath) 08/15/2024 Syncope and collapse 07/26/2024 Unspecified symptoms and signs involving the genitourinary system 01/11/2024 Urinary tract infection, site not specified 02/08/2024 Vitamin D deficiency 08/02/2024 [2] No past surgical history on file. [3] Family History Problem Relation Name Age of Onset Conversions - Other Other Factor 5 Leiden mutation, heterozygous Diabetes Father Easton garcia Heart attack Father Easton garcia Asthma Father Easton garcia Heart disease Father Easton garcia Clotting disorder Father Easton garcia 30 - 39 Diabetes Other Hypertension Other Heart Problem Other Arthritis Mother Donna valencia [4] Current Outpatient Medications Medication Sig Dispense Refill aspirin 81 MG EC tablet Take 1 tablet by mouth. atorvastatin (Lipitor) 80 MG tablet Sherley Mohamud 160-9-4.8 MCG/ACT aerosol INHALE TWO (2) INHALATIONS BY MOUTH TWO (2) TIMES A DAY 10.7 g 2 cholecalciferol (Vitamin D-3) 50 MCG (1999) capsule diclofenac (Voltaren) 1 % topical gel Place on the skin 3 times a day. Please avoid eyes, nose and mouth. 350 g 11 diclofenac (Voltaren) 75 MG EC tablet Take 1 tablet by mouth 2 times a day. 180 tablet 1 ergocalciferol 1.25 MG (23750 UT) capsule etanercept (Enbrel SureClick) 50 MG/ML injection Inject 1 mL under the skin 1 time per week. 4 mL 4 hydroCHLOROthiazide (HYDRODiuril) 25 MG tablet hydroxychloroquine (Plaquenil) [...] MCG/ACT inhaler spironolactone (Aldactone) 25 MG tablet Tirzepatide-Weight Management (Zepbound) 2.5 MG/0.5ML solution auto-injector Inject by subcutaneousroute for 28 days. venlafaxine XR (Effexor-XR) 75 MG 24 hr capsule Take 1 capsule (75 mg) by mouth daily. Vraylar 3 MG capsule cephalexin (Keflex) 500 MG capsule (Patient not taking: Reported on 05/29/2025) fluticasone (Flonase) 50 MCG/ACT nasal spray (Patient not taking: Reported on 05/29/2025) mupirocin (Bactroban) 2 % ointment (Patient not taking: Reported on 05/29/2025) No current facility-administered medications for this visit. Cosigned by Isabella Reardon PA at 05/31/2025 1:00 PM EST Associated attestation - Isabella Reardon PA - 05/31/2025 1:00 PM EST The patient was seen only by Advanced Practice Provider (BRAIN), and care was reviewed with me. documented in this encounter Plan of Treatment Upcoming Encounters Date Type Department Care Team (Late st Contact Info) Description 12/04/2025 12:30 PM EDT [facility] [address] [place] [address] Isabella Reardon PA [address] [place] [address] Scheduled Orders Name Type Priority Associated Diagnoses Orde r Schedule CT Chest Lung Cancer Screening Imaging Routine Former tobacco use Expected: 02/27/2026 (Approximate), Expires: 11/30/2026 Scheduled Referrals Name Type Priority Associated Diagnoses Orde r Schedule Follow Up Pulm Outpatient Referral Routine Asthma-COPD overlap syndrome (CMS/HCC) Expected: 11/27/2025, Expires: 06/29/2026 documented as of this encounter Visit Diagnoses Diagnosis Asthma-COPD overlap syndrome (CMS/HCC)- Primary Rheumatoid arthritis, involving unspecified site, unspecified whether rheumatoid factor present (CMS/HCC) Former tobacco use PATRICK (obstructive sleep apnea) Obstructive sleep apnea (adult) (pediatric) Allergic rhinitis, unspecified seasonality, unspecified trigger documented in this encounter Additional Health Concerns Assessment Noted Time PHQ-9 Depression Total Score: 2 12/15/19 25 8:37 AM EDT A fall risk assessment has been complete d for the patient 05/29/2025 10:28 AM EST A Body Mass Index follow-up plan has been documented for the patient 05/29/2025 1:22 PM EST documented as of this encounter Care Teams Pediatric Nephrologist Relationship Specialty Start Date End Date Mary Mckeon PA [address] [place] [address] PCP - General 10/26/20 documented as of this encounter
--- NOTE | 2025-06-06 12:29 | XR_ITS ---
FINAL REPORT CLINICAL HISTORY: left hand pain COMPARISON: 09/04/2022 FINDINGS: Three views of the left hand show no evidence of acute displaced fracture or dislocation of the visualized bony architecture. There are mild degenerative changes of the D IP and PIP joints as well as the 1st carpometacarpal joint, similar to the prior study. No new bony lesions identified. IMPRESSION: Stable degenerative changes without acute bony abnormality. Reviewed, Interpreted and Dictated by Paramjit Gill MD Transcribed by Rubina Armendariz Authenticated and [facility]
--- NOTE | 2025-06-06 12:29 | XR_ITS ---
FINAL REPORT CLINICAL HISTORY: right hand pain COMPARISON: 09/04/2022 FINDINGS: Three views of the right hand show no evidence of acute displaced fracture or dislocation of the visualized bony architecture. There are mild degenerative changes of the D IP and PIP joints as well as the 1st carpometacarpal joint, similar to the prior study. No new bony lesions identified. IMPRESSION: Stable degenerative changes without acute bony abnormality. Reviewed, Interpreted and Dictated by Paramjit Gill MD Transcribed by Rubina Armendariz Authenticated and [facility]
--- OUTSIDE RECORDS SUMMARY | 2025-06-06 12:33 | XMS_ITS | Clinical Summary ---
Author Organization [facility] [employer] [facility] Address [address] [place] [address] Care Team Providers Care Management Recruiter Name Role Phone Mary Mckeon Primary Care Provider [phone] Allergies No known active allergies Medications albuterol [...] 4 Active vitamin D (ERGOCALCIFEROL) 1.25 MG (51182 UT) capsule capsule Take 1 capsule by [...] BIPAP. We will get him scheduled for [facility]. Hypersomnia 08/15/2024 Assessment & Plan (11/09/2024 10:42 AM EDT): -Use BIPAP -Keep Inspire Consult -DO NOT DRIVE SLEEPY Assessment & Plan (08/15/2024 11:44 AM EST): Titration SOB (shortness of breath) 08/15/2024 Assessment & Plan (10/24/2024 9:49 PM EDT): Saw Pulm. Would like referral to a 2nd pulmologist for a 2nd opinion. Will refer. Assessment & Plan (08/15/2024 11:44 AM EST): Titration Family History Medical History Relation Name Comments HTN Brother Heart attack Brother Arthritis Father Diabetes Father HTN Father Heart attack Father Heart disease Father High cholesterol Father Arthritis Mother Relation Name Status Comments Brother Father Mother Social History Tobacco Use Types Packs/Day Years Used Date Smoking Tobacco: Former Cigarettes 1 35 S tarted: 1990 Passive Smoke Exposure: Past [...] 11/09/2024 10:01 AM EDT Plan of Treatment Health Maintenance Due Date Last Done Comments TDAP/TD VACCINES (1 - Tdap) 1988 COLOGUARD 2014 COLON CANCER SCREENING 5 YEA R SIGMOIDOSCOPY 2014 COLONOSCOPY [address] SCREEN[address] COLONOGRAPHY 2014 FECAL OCCULT BLOOD TEST 2014 FIT Testing (1 year) 2014 ZOSTER VACCINE (1 of 2) 2019 Pneumococcal Vaccine 50+ (2 of 2 - PCV) 08/14/2020 0 08/15/2019 ANNUAL PHYSICAL 04/01/2024 INFLUENZA VACCINE 01/13/2025 08/15/2019 HEPATITIS C SCREENING Completed 11/25/2023, 023 Insurance [employer] [facility] Care Teams Management Recruiter Relationship Specialty Start Date End Date Mary Mckeon PA [address] [place] [address] PCP - General Physician Die Assembler 10/19/24
--- OUTSIDE RECORDS SUMMARY | 2025-06-06 12:34 | XMS_ITS | Encounter Summary ---
Author Organization [facility] ([place], [place], [place], [place], [place]) Address [address] [place] [address] Care Team Providers Care Pipe Smoking Machine Offbearer Name Role Phone Mary Mckeon PA-C Primary Care Provider [phone] Reason for Visit * Reason Onset Date Comments Appointment 05/25/2025 Encounter Details Date Type Department Care Team (Late Contact Info) Description 05/25/[address] 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 [address] [place] [address] Dontae Zamora APRN [address] [place] [address] documented as of this encounter Visit Diagnoses Not on filedocumented in this encounter Care Teams Pipe Smoking Machine Offbearer Relationship Specialty Start Date End Date Mary Mckeon PA-C [address] [place] [address] PCP - General Physician Supervisor Television Chassis Repair 02/06/25 documented as of this encounter
--- OUTSIDE RECORDS SUMMARY | 2025-06-06 12:34 | XMS_ITS | Encounter Summary ---
Author Organization Healthcare Address [address] [place] [address] Care Team Providers Care Roustabout Pusher Name Role Phone Mary Mckeon Primary Care Provider [phone] Reason for Visit * Reason Comments Med Refill Encounter Details Date Type Department Care Team (Late st Contact Info) Description 05/23/2025 Refill [facility] [address], [address] [place] [address] Isabella Reardon PA [address] [place] [address] Social History Tobacco Use Types [...] on file documented as of this encounter Miscellaneous Notes * Telephone Encounter - Steve Khan PharmD - 05/23/2025 2:32 PM EST Refill request does not meet protocol. Sending to clinic for review. documented in this encounter Plan of Treatment Upcoming Encounters Date Type Department Care Team (Late st Contact Info) Description 12/04/2025 12:30 PM EDT Office Visit [place] [facility] [address] [place] [address] Isabella Reardon PA [address] [place] [address] documented as of this encounter Visit Diagnoses Not on filedocumented in this encounter Additional Health Concerns Assessment Noted Time PHQ-9 Depression Total Score: 2 12/15/19 25 8:37 AM EDT A fall risk assessment has been complete d for the patient 02/14/2025 2:23 PM EDT A Body Mass Index follow-up plan has been documented for the patient 02/14/2025 3:16 PM EDT documented as of this encounter Care Teams Roustabout Pusher Relationship Specialty Start Date End Date Mary Mckeon PA [address] [facility] [place] [address] PCP - General 10/26/20 documented as of this encounter
--- OUTSIDE RECORDS SUMMARY | 2025-06-06 12:34 | XMS_ITS | Encounter Summary ---
Author Organization Healthcare Address [address] [place] [address] Care Team Providers Care Volunteer Services Specialist Name Role Phone Mary Mckeon Primary Care Provider [phone] Encounter Details Date Type Department Care Team (Late Contact Info) Description 07/10/2024 Orders Only External Location [address] [place] [address] Provider, External Social History Tobacco Use Types [...] Department Care Team (Late Contact Info) Description 12/04/2025 12:30 PM EDT Office Visit [place] [facility] [address] [place] [address] Isabella Reardon PA [address] [place] [address] documented as of this encounter [...] documented as of this encounter Care Teams Volunteer Services Specialist Relationship Specialty Start Date End Date Mary Mckeon PA [address] [place] [address] PCP - General 10/26/20 documented as of this encounter
--- OUTSIDE RECORDS SUMMARY | 2025-06-06 12:34 | XMS_ITS | Clinical Summary ---
Author Organization Healthcare Address [address] [place] [address] Care Team Providers Care Oil Well Pumper Name Role Phone Mary Mckeon Primary Care Provider [phone] Allergies No known active allergies Medications ProAir HFA 108 (90 Base) MCG/ACT inhaler 022 Active cholecalciferol (Vitamin D-3) 50 MCG (2000 UT) capsule 023 Active ergocalciferol 1.25 MG (97408 UT) capsule 023 Active hydroCHLOROthiazid e (HYDRODiuril) 25 MG tablet 023 Active losartan (Cozaar) 100 MG tablet 023 Active methocarbamol (Robaxin) 500 MG tablet TAKE 1 TABLET BY MOUTH TWICE DAILY NEEDED FOR MUSCLE SPASM 022 Active metoprolol succinate XL (Toprol-XL) 100 MG 24 hr tablet 023 Active mupirocin (Bactroban) 2 % ointment 018 Active venlafaxine XR (Effexor-XR) 75 MG 24 hr capsule Take 1 capsule (75 mg) by mouth daily. 023 Active omeprazole (PriLOSEC) [address] capsule Take 1 capsule (40 mg) by mouth daily. 023 Active montelukast (Singulair) 10 MG tablet 023 Active fluticasone (Flonase) 50 MCG/ACT nasal spray 023 Active spironolactone (Aldactone) 25 MG tablet 023 Active atorvastatin (Lipitor) 80 MG tablet 024 Active Vraylar 3 MG capsule 025 Active levocetirizine (Xyzal) 5 MG tablet Take 1 tablet by mouth every evening. 90 tablet 3 025 Active ipratropium-albute rol (Duo-Neb) 0.5-2.5 mg/3 mL nebulizer solution Take 3 mL by nebulization every 6 hours as needed for wheezing or shortness of breath (cough or chest tightness). 180 mL 3 025 2025 Active hydroxychloroquine (Plaquenil) 200 MG tabletIndications: Rheumatoid arthritis of multiple sites with negative rheumatoid factor (CMS/HCC),High risk medication use,Primary osteoarthritis of both first carpometacarpal joints Take 1 tablet by mouth 2 times a day. 180 tablet 1 025 Active diclofenac (Voltaren) 75 MG EC tabletIndications: Rheumatoid arthritis of multiple sites with negative rheumatoid factor (CMS/HCC),High risk medication use,Primary osteoarthritis of both first carpometacarpal joints Take 1 tablet by mouth 2 times a day. 180 tablet 1 025 Active diclofenac (Voltaren) 1 % topical gelIndications:Rhe umatoid arthritis of multiple sites with negative rheumatoid factor (CMS/HCC),High risk medication use,Primary osteoarthritis of both first carpometacarpal joints Place on the skin 3 times a day. Please avoid eyes, nose and mouth. 350 g 11 025 Active etanercept (Enbrel SureClick) 50 MG/ML injectionIndicatio ns:Rheumatoid arthritis of multiple sites with negative rheumatoid factor (CMS/HCC) Inject 1 mL under the skin 1 time per week. 4 mL 4 025 Active aspirin 81 MG EC tablet Take 1 tablet by mouth. Active Tirzepatide-Weight Management (Zepbound) 2.5 MG/0.5ML solution auto-injector Inject by subcutaneous route for 28 days. Active Breztri Aerosphere 160-9-4.8 MCG/ACT aerosol INHALE TWO (2) INHALATIONS BY MOUTH TWO (2) TIMES A DAY 10.7 g 2 025 Active cephalexin (Keflex) 500 MG capsule 025 2024 Discontinued(P er Patient Report) Geoshophere 160-9-4.8 MCG/ACT aerosol INHALE 2 INHALATIONS BY MOUTH 2 TIMES A DAY 10.7 g 2 025 2024 Discontinued Active Problems Problem Noted Date Diagnosed Date [...] field 10/06/2024 12/14/2024 Other disorders of lung 10/06/202407/2024 Moderate persistent asthma, uncomplicated 10/06/2024 12/14/2024 Pulmonary [...] 08/11/2024 12/14/2024 Paresthesia of skin 08/11/2024 12/15/19 Rash and other nonspecific skin eruption 08/11/2024 12/14/2024 Allergic rhinitis 08/02/2024 12/14/2024 Depressive disorder 08/02/2024 12/15/19 25 Essential hypertension 08/02/202412/14 Hyperlipidemia 08/02/2024 12/14/2024 Irritability and anger 08/02/202412/14 Snoring 08/02/2024 12/14/2024 Vitamin D deficiency 08/02/2024 025 Chronic fatigue, unspecified 07/29/2024 12/14/2024 Elevated blood-pressure read ing, without diagnosis of hypertension 07/29/2024 12/14/2024 Other hypersomnia 07/29/2024 12/14/2024 Abnormal electrocardiogram (ECG) (EKG) 07/27/2024 12/14/2024 Dizziness and giddiness 07/26/202407/2024 Syncope and collapse 07/26/2024 025 Hypertensive urgency [...] Encounters Date Type Department Care Team Description 05/29/2025 10:30 AM EST Office Visit [facility] [address], [address] [place] [address] Isabella Reardon PA Asthma-COPD overlap syndrome (CMS/HCC) (Primary Dx); Rheumatoid arthritis, involving unspecified site, unspecified whether rheumatoid factor present (CMS/HCC); Former tobacco use; PATRICK (obstructive sleep apnea); Allergic rhinitis, unspecified seasonality, unspecified trigger 05/29/2025 9:30 AM EST Ancillary Procedure [facility] [address], [address] [place] [phone] Asthma-COPD overlap syndrome (CMS/HCC); Rheumatoid arthritis, involving unspecified site, unspecified whether rheumatoid factor present (CMS/HCC); Shortness of breath 05/29/2025 9:00 AM EST Ancillary Procedure [facility] [address] [place] [address], [address] [place] [address] Asthma-COPD overlap syndrome (CMS/HCC); Rheumatoid arthritis, involving unspecified site, unspecified whether rheumatoid factor present (CMS/HCC); Shortness of breath 05/29/2025 7:38 AM EST - 05/29/2025 11:59 PM EST Hospital Encounter [facility] [address] [place] [address] Asthma-COPD overlap syndrome (CMS/HCC); Rheumatoid arthritis, involving unspecified site, unspecified whether rheumatoid factor present (CMS/HCC); Shortness of breath Discharge Disposition: Home or Self Care 05/29/2025 Travel 05/23/2025 Refill [facility] [address], [address] [place] [address] Isabella Reardon PA 05/15/2025 Travel 03/17/2025 Refill [facility] [address], [address] [place] [address] Isabella Reardon PA 03/09/2025 Travel from Last 3 Months Immunizations Immunization Administration Dates Next Due Influenza, injectable, quadrivalent, preservativ e free 08/15/2019 Influenza, seasonal, injectable, preservative fr ee 03/31/2025 Pneumococcal Polysaccharide PPV23 08/15/2019 Tdap 11/12/2024 Family [...] Mass Index 34.18 05/29/2025 10:26 AM EST Plan of Treatment Upcoming Encounters Date Type Department Care Team (Late st Contact Info) Description 12/04/2025 12:30 PM EDT Office Visit [place] [facility] [address], [address] [place] [address] Isabella Reardon, PA [address] [place] [address] Health Maintenance Due Date Last Done Comments [facility]-HIV Screening 1969 [facility]-Infant/Child/Adol SDOH Screenings 1969 [facility]- SDOH Screenings 1987 [facility]-Adult SDOH Screenings 1987 [facility]-Hepatitis B Vaccines (1 of 3 - 19+ 3-dose series) 1988 CT Colonography 2014 Colonoscopy 2014 FIT-DNA 2014 FIT 2014 FOBT 2014 Sigmoidoscopy 2014 [facility]-Colorectal Cancer Screening 2014 Lung Cancer Screening Shared Decision Making 2019 [facility]-Zoster Vaccines (1 of 2) 2019 [facility]-Pneumococcal Vaccine: 50+ Years (2 of 2 - PCV) 08/14/2020 08/15/2019 [id number] Vaccine ( season) 2025 08/17/2020, 07/19/2020 [facility]-Depression Screening 12/14/2025 025, 12/14/2024, 10/24/2022 [facility]-Lung Cancer Screening 05/29/2026 05/29/2025, 07/2024 [facility]-DTaP,Tdap,and Td Vaccines (2 - Td or Tdap) 11/12/2034 11/12/2024 [facility]-Hepatitis C Screening Completed 11/25/2023, 02/2023 [facility]-Influenza Vaccine Completed 03/31/2025, 020 [facility]-Obesity Intervention Completed 025, 02/14/2025, 12/14/2024, Additional history exists HPV Vaccines (No Doses Required) Completed [facility]-HIB Vaccines Aged Out No longer e [...] rheumatoid factor present (CMS/HCC) Shortness of breath HC DIFFUSING CAPACITY - CARBON MONOXIDE DIFFUSING CAPACITY Routine 05/29/2025 9:47 AM EST Asthma-COPD overlap syndrome (CMS/HCC) Rheumatoid arthritis, involving unspecified site, unspecified whether rheumatoid factor present (CMS/HCC) Shortness of breath CT CHEST WO IV CONTRAST Routine 05/29/2025 7:58 AM EST Asthma-COPD overlap syndrome (CMS/HCC) Rheumatoid arthritis, involving unspecified site, unspecified whether rheumatoid factor present (CMS/HCC) Shortness of breath ACUTE HEPATITIS PANEL Routine 11/25/2023 9:24 AM EDT Rheumatoid arthritis of multiple sites with negative rheumatoid factor (CMS/HCC) High risk medication use from Last 3 Months or Most Recently Relevant to Health Maintenance Results * Six-Minute Walk Test (05/29/2025 9:48 [...] min 05/29/2025 9:47 AM EST VYAIRE PFT [id number] TEST 93.00 % 05/29/2025 9:47 AM EST VYAIRE PFT [id number] TEST 92.00 % 05/29/2025 9:47 AM EST VYAIRE PFT [id number] TEST RECOVERY 94.00 % 05/29/2025 9:47 AM [...] No oxygen supplementation was needed during testing. us Isabella LIM PFT ORDERABLES Final Result * Pulmonary function testing (05/29/2025 9:47 AM EST) Anatomical Region Laterality Modality PFT Narrative 05/30/2025 5:59 PM EST Pulmonary Function Testing Report Easton Camacho 55 y.o. underwent pulmonary function testing today at the [facility]. The patient underwent spirometry, lung volumes by [...] has been a significant increase in FVC. us Isabella LIM PFT ORDERABLES Final Result * CT Chest wo IV Contrast (05/29/2025 [...] Luz Lui MD on 05/29/2025 8:23 AM us Isabella LIM IMG CT PROCEDURES Final Resul t * Acute Hepatitis Panel (11/25/2023 9:24 AM EDT) Hepatitis B Surf Antigen Negative Negative 11/25/2023 1:27 PM EDT [facility] Hepatitis C Antibody Negative Negative 11/25/2023 1:27 PM EDT [facility] Hepatitis A Antibody IgM Negative Negative 11/25/2023 1:27 PM EDT [facility] Hepatitis B Core Antibody IgM Negative Negative 11/25/2023 1:27 PM EDT [facility] Blood Venous blood specimen / Unknown Venipuncture / Unknown 11/25/2023 9:24 AM EDT 11/25/2023 9:24 AM EDT us Cecile Villarrael DEEP SUBMERGENCE VEHICLE OPERATOR LAB BLOOD ORDERABLES Final Result Performing Organization Address City/State/[facility] Co de Phone Number [facility] [address] [place] [phone] from Last 3 Months or Most Recently Relevant to Health Maintenance Insurance [facility] MEDICA[facility] Care Teams Oil Well Pumper Relationship Specialty Start Date End Date Mary Mckeon PA [address] [place] [address] [facility] - General 10/26/20
--- OUTSIDE RECORDS SUMMARY | 2025-06-06 12:34 | XMS_ITS | Encounter Summary ---
Author Organization [facility] Address [address] [place] [address] Care Team Providers Care Editor Farm Journal Name Role Phone Mary Mckoen Primary Care Provider [phone] Encounter Details Date Type Department Care Team (Latest Contact Info) Description 05/15/2025 Travel Social History Tobacco Use Types Packs/Day [...] Description 12/04/2025 12:30 PM EDT Office Visit [place] [facility] [address], [address] [place] [address] Isabella Reardon PA [address] [place] [address] documented as of this encounter [...] documented as of this encounter Care Teams Editor Farm Journal Relationship Specialty Start Date End Date Mary Mckeon PA [address] [place] [address] PCP - General 10/26/20 documented as of this encounter
--- OUTSIDE RECORDS SUMMARY | 2025-06-06 12:34 | XMS_ITS | Encounter Summary ---
Author Organization [facility] Address [address] [place] [address] Care Team Providers Care Stone Decorator Name Role Phone Mary Mckeon Primary Care Provider [phone] Encounter Details Date Type Department Care Team (Latest Contact Info) Description 05/29/2025 Travel Social History Tobacco Use Types Packs/Day [...] Description 12/04/2025 12:30 PM EDT Office Visit [place] [facility] [address] [place] [address] Isabella Reardon PA [address] [place] [address] documented as of this encounter [...] documented as of this encounter Care Teams Stone Decorator Relationship Specialty Start Date End Date Mary Mckeon PA [address] [place] [address] PCP - General 10/26/20 documented as of this encounter
--- OUTSIDE RECORDS SUMMARY | 2025-06-06 12:34 | XMS_ITS | Referral Summary ---
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 Gender Identity Male 12/05/2024 9:16 AM CDT Sexual Orientation Straight 12/05/2024 9: 16 AM CDT Last Filed Vital Signs Vital Sign Reading Time Taken Comments Blood Pressure 138/86 02/06/2025 8:59 AM EDT Pulse 61 02/06/2025 8:59 AM EDT Temperature - - Respiratory Rate 16 02/06/2025 8:59 AM EDT Oxygen Saturation 99% 02/06/2025 8:59 AM EDT Inhaled Oxygen Concentration - - Weight 120.2 kg (265 lb) 02/06/2025 8:59 AM EDT Height 182.9 cm (6') 02/06/2025 8:59 AM EDT Body Mass Index 35.94 02/06/2025 8:59 AM EDT Plan of Treatment Upcoming Encounters Date Type Department Care Team (Late st Contact Info) Description 08/21/2025 10:30 AM EDT Office Visit [facility] [address] [facility] [address] [place] [address] Dontae Zamora APRN [address] [place] [address] Insurance [employer] [facility] Care Teams Fisher Crab Relationship Specialty Start Date End Date Mary Mckeon PA-C [address] [place] [address] PCP - General Physician Rn Unit Manager 02/06/25
--- OUTSIDE RECORDS SUMMARY | 2025-06-06 12:34 | XMS_ITS | Clinical Summary ---
Author Organization [employer] ([place], [place], [place], [place], [place]) Address [address] [place] [address] Care Team Providers Care Asbestos Surveyor Name Role Phone Mary Mckeon PA-C Primary Care Provider [phone] Allergies No known active allergies Medications albuterol [...] Type Department Care Team Description 05/25/2025 Telephone [facility] [address] [facility] [address] [place] [address] Back Lianna Schaffer Appointment from Last 3 Months Social History Tobacco Use Types Packs/Day Years Used Date Smoking Tobacco: Former Cigarettes S tarted: 1984 Smokeless Tobacco: Former Tobacco Cessation:Counseling Given: Not Answered Sex and Gender Information Value Date Recorded Sex Assigned at Male 12/05/2024 9:16 AM CDT Legal Sex Male 10:15 AM 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 CANDY SPINNER Gender Identity Male 12/05/2024 9:16 AM CDT [...] Description 08/21/2025 10:30 AM EDT Office Visit [facility] [address] [facility] [address] [place] [address] Dontae Zamora APRN [address] [place] [address] Health Maintenance Due Date Last Done Comments CT Colonography 1969 Colonoscopy 1969 Colorectal Cancer Screening 1969 FOBT/FIT 1969 Fit-DNA (Cologuard) 1969 Sigmoidoscopy 1969 Depression Screening (12+) 1981 HIV Screening 1984 Hepatitis C Screening 1987 Lipid Panel 2004 Shingles Vaccine (Zoster) (1 of 2) 2019 Pneumococcal 50+ years (2 of 2 - PCV) 08/14/202007/2019 COVID-19 VACCINE (3 - season) 02/13/202510/2020, 07/19/2020 Influenza Vaccine (#1) 2025 Tobacco Cessation Counseling and Screening (12+) 02/06/2026 02/06/2025 DTAP/TDAP/TD VACCINES (2 - Td or Tdap) 11/12/2034 Insurance [employer] [facility] Care Teams Asbestos Surveyor Relationship Specialty Start Date End Date Mary Mckeon PA-C [address] [place] [address] PCP - General Physician Risk Management Manager 02/06/25
== END 2025-06-06 23:59 ==
LOC: RAD 12:29
PROVIDERS: PCP Physician Assistant; Visit Provider Physician Assistant
DX: M19.042 Primary osteoarthritis, left hand (principal); M19.041 Primary osteoarthritis, right hand
CPT/HCPCS: 73130